=== PATIENT | female | born 1940 | race Caucasian/White ===

== ENCOUNTER 2020-09-24 08:55 | Outpatient (REF) | payer MEDICARE, SELFPAY ==
--- NOTE | ~2020-09-24 | US_ITS ---
EXAMINATION: US ABDOMEN LIMITED CLINICAL INFORMATION: Elevated bilirubin. COMPARISON: None TECHNIQUE: Real-time imaging of the right upper quadrant abdominal viscera. FINDINGS: PANCREAS: The head of the pancreas is homogeneous in echotexture. The body and the tail of the pancreas are not well visualized. LIVER: The liver is normal size and lobulated with coarse echogenic pattern. No focal hepatic lesion. There is no intrahepatic biliary duct dilatation seen. GALLBLADDER: There are multiple echogenic gallstones without wall thickening. The gallbladder wall measures 0.3 cm in thickness. No pericholecystic fluid collection is seen. COMMON BILE DUCT: Normal in caliber measuring 0.4 cm in diameter. RIGHT KIDNEY: Normal. No hydronephrosis. No renal calculi or focal parenchymal lesions. The kidney measures 11.1 cm in maximum dimension. FREE FLUID: None. US/US abdomen limited IMPRESSION: Coarse echogenic lobulated liver without focal lesion. Cholelithiasis with mild wall thickening. Visualized head of the pancreas, right kidney and CBD appear unremarkable.
== END 2020-09-24 08:56 | disposition home or self-care (01) ==
LOC: HO.US 08:55
PROVIDERS: PCP Internal Medicine; Visit Provider Internal Medicine
DX: E80.7 Disorder of bilirubin metabolism, unspecified (principal)
CPT/HCPCS: 76705

== ENCOUNTER 2020-10-09 17:59 | Emergency (ER) | payer MEDICARE, SELFPAY ==
--- NOTE | ~2020-10-09 | CT_ITS ---
EXAMINATION: CTA OF THE HEAD/NECK CLINICAL INFORMATION: Hallucinations. Declining mental status. COMPARISON: None. TECHNIQUE: A routine non contrast head CT was performed followed by a 70 mL bolus of Omnipaque 350. Subsequent multidetector helical imaging was performed of the head and neck. Delayed post contrast imaging was also performed through the head. Multiplanar reformats and MIP were also obtained. Internal carotid artery stenoses are assessed in accordance with NASCET criteria unless otherwise indicated. DLP: 2364 mGy-cm. FINDINGS: CT HEAD: No evidence of acute intracranial hemorrhage or territorial infarction. No abnormal mass effect or midline shift. Mcfadden to white matter differentiation is preserved. No extra-axial fluid collections are identified. No hydrocephalus. No suspicious leptomeningeal or parenchymal enhancement on the post-contrast images. Mild patchy periventricular and deep white matter hypoattenuation likely represent small vessel ischemic change. The osseous structures and soft tissues are normal. The mastoid air cells and visualized portions of the paranasal sinuses are well aerated. CTA NECK: Contrast bolus timing is not adequate for evaluation of the neck vasculature. At the time of the acquisition, significant contrast remains in the right upper extremity venous structures with prominent collaterals seen in the supraclavicular region. Contrast refluxes into the right internal jugular vein and left brachiocephalic vein with some contrast entering into the heart and pulmonary arteries. There is no contrast seen within the arterial vasculature of the neck. The laryngeal structures and pharyngeal mucosal spaces are unremarkable. The oral cavity appears normal. The parotid and submandibular glands are normal. No pathologically enlarged lymph nodes. The thyroid gland is unremarkable. The heart appears prominent. The lung apices are clear without evidence of pneumothorax. There is linear atelectasis noted. Spinal alignment is maintained. Mild cervical spondylosis is noted. CTA HEAD: Bolus timing on the CTA sequence is nondiagnostic for evaluation of the intracranial vessels. On the 7 minute delayed acquisition, there is partial opacification of the intracranial vessels. While visualization is limited due to slice thickness and the delayed timing, there is no gross intracranial vascular abnormality. There is no large aneurysm seen. CT/CT angio head neck IMPRESSION: 1. No acute intracranial finding. Volume loss with small vessel ischemic change. 2. Nondiagnostic angiogram due to bolus timing. This critical result was discussed with Clara Alanis NP by telephone at 10/10/2020 2:31 AM and it was ascertained that the content and urgency of the report was understood at the time of direct communication.
--- NOTE | ~2020-10-09 | XR_ITS ---
EXAMINATION: XR CHEST CLINICAL INFORMATION: Tachycardia. Hallucinations. COMPARISON: None TECHNIQUE: Frontal view of the chest was obtained. FINDINGS: Cardiac leads overlie the chest. The lungs are well expanded. There is no focal consolidation, edema, or effusion. Mild bronchial wall thickening. No pneumothorax. The cardiomediastinal silhouette is within normal limits. No acute osseous abnormality. Degenerative changes are seen at the right shoulder. XR/XR chest 1V IMPRESSION: No consolidation. Bronchial wall thickening can be seen with a small airways process such as asthma or atypical/viral infection.
[2020-10-09 18:04] VITALS: BP 138/113; PULSE 124; RESP 18; TEMP 36.3; O2SAT 95; BMI 90.7
[2020-10-09 20:18] VITALS: BP 180/117; PULSE 127; O2SAT 97
--- NOTE | 2020-10-09 20:21 | PC.NURSE ---
pt on monitor hr 128 afib pt states she is on eliquist and has bruising to her left upper chest. sat 97 on room air wheezing álvarez.
--- NOTE | 2020-10-09 20:58 | ECG_ITS ---
Test Reason : a fib tachycardia Blood Pressure : / mmHG Vent. Rate : 113 BPM Atrial Rate : 108 BPM P-R Int : 000 ms QRS Dur : 090 ms QT Int : 370 ms P-R-T Axes : 000 -23 025 degrees QTc Int : 507 ms Atrial fibrillation with rapid ventricular response Nonspecific T wave abnormality Abnormal ECG When compared with ECG of 28-SEP-2006 14:02, Atrial fibrillation has replaced Sinus rhythm Referred By: Clara Alanis Electronically Signed By:Richard Christian
--- NOTE | 2020-10-09 21:40 | ED_ITS ---
HPI - General Adult General Chief complaint: Psychiatric Symptoms <Clara Alanis NP - Last Filed: 10/10/20 03:29> Stated complaint: crisis <Clara Alanis NP - Last Filed: 10/10/20 03:29> Time Seen by Provider: 10/09/20 22:51 <Clara Alanis NP - Last Filed: 10/10/20 03:29> Source: patient <Clara Alanis NP - Last Filed: 10/10/20 03:29> Mode of arrival: ambulatory <Clara Alanis NP - Last Filed: 10/10/20 03:29> Limitations: no limitations <Clara Alanis NP - Last Filed: 10/10/20 03:29> History of Present Illness HPI narrative: 79-year-old female with past medical history of chronic back pain, depression, hyperlipidemia, hypertension, hypothyroidism, chronically elevated LFTs and hyperbilirubinemia presents with multiple complaints. States that she has been having visual hallucinations, has been speaking to photographs that change images, and does not feel safe at home. She does not report any chest pain or pressure, palpitations, shortness of breath, abdominal pain, abdominal distention, dysuria, hematuria, fevers, chills, loss of balance or coordination. <Clara Alanis NP - Last Filed: 10/10/20 03:29> Onset (ago): unknown <Clara Alanis NP - Last Filed: 10/10/20 03:29> Severity: moderate <Clara Alanis NP - Last Filed: 10/10/20 03:29> Associated symptoms: confusion <Clara Alanis NP - Last Filed: 10/10/20 03:29> Treatments prior to arrival: none <Clara Alanis NP - Last Filed: 10/10/20 03:29> Related Data Home medications: Previous Rx's Medication Instructions Recorded nitrofurantoin monohyd/m-cryst 100 mg PO Q12H 7 Days #14 cap 10/10/20 [Macrobid] <Clara Alanis NP - Last Filed: 10/10/20 03:29> Allergies/adverse reactions: Allergies Allergy/AdvReac Type Severity Reaction Status Date / Time No Known Allergies Allergy Verified 10/09/20 18:04 [No Known Allergies*] <Clara Alanis NP - Last Filed: 10/10/20 03:29> Review of Systems Review of Systems: Constitutional: No Fever, No Chills ENT/Mouth: No Ear Pain, No Nasal Congestion, No sore throat Eyes: No Eye Pain, No Swelling, No Redness Cardiovascular: No Chest Pain, No SOB Respiratory: No Cough, No Sputum, No Dyspnea Gastrointestinal: No Nausea, No Vomiting, No Diarrhea, No Hematochezia, No Melena Genitourinary: No Dysuria, No Urinary Frequency, No Hematuria Musculoskeletal: No Myalgias Skin: No Skin Lesions, No rash Neuro: No Weakness, No Numbness, No Paresthesias, No Dizziness, No Headache Psych: positive Anxiety, positive Depression, positive visual hallucinations Heme/Lymph: No Lymphadenopathy Endocrine: No Polyuria, No Polydipsia <Clara Alanis NP - Last Filed: 10/10/20 03:29> Yes all other systems are reviewed and are negative <Clara Alanis NP - Last Filed: 10/10/20 03:29> [facility] Past Medical History Attestation statement: The following information was validated with the patient. <Clara Alanis NP - Last Filed: 10/10/20 03:29> Source: old records reviewed <Clara Alanis NP - Last Filed: 10/10/20 03:29> Social History Social History: Social History Advance Directives: No Advance Directives Information Provided: No <Clara Alanis NP - Last Filed: 10/10/20 03:29> Physical Exam Vital Signs: Vital Signs: Last Vital Signs Temp 98.7 F 10/10/20 04:00 Pulse 82 10/10/20 04:00 Resp 16 10/10/20 04:00 BP 145/91 H 10/10/20 04:00 Pulse Ox 96 10/10/20 04:00 Body Mass Index 90.7 <NAYLA King Last Filed: 10/10/20 03:29> Vital Signs: Last Vital Signs Temp 98.7 F 10/10/20 04:00 Pulse 82 10/10/20 04:00 Resp 16 10/10/20 04:00 BP 145/91 H 10/10/20 04:00 Pulse Ox 96 10/10/20 04:00 Body Mass Index 90.7 <Tricia Vizcarra MD - Last Filed: 10/10/20 05:31> Appearance: Alert. Oriented X3. No acute distress. Eyes: Pupils equal, round and reactive to light. ENT: Pharynx normal. Neck: Normal inspection. Neck supple. CVS: Normal heart rate and rhythm. Pulses normal. Respiratory: No respiratory distress. Breath sounds normal. Abdomen: Soft and nontender. Skin: Skin warm and dry. Normal skin color. Normal skin turgor. Extremities: No lower extremity edema. Neuro: No motor deficit. No sensory deficit. <Clara Alanis NP - Last Filed: 10/10/20 03:29> NIH Stroke Scale Internal: Initial- Upon Arrival <Clara Alanis NP - Last Filed: 10/10/20 03:29> Level of Consciousness: Alert <Clara Alanis NP - Last Filed: 10/10/20 03:29> Level of Consciousness Questions: Answers both questions correctly <Clara Alanis NP - Last Filed: 10/10/20 03:29> Level of Consciousness Commands: Performs both tasks correctly <Clara Alanis NP - Last Filed: 10/10/20 03:29> Best Gaze: Normal <Clara Alanis NP - Last Filed: 10/10/20 03:29> Visual: No visual loss <Clara Alanis NP - Last Filed: 10/10/20 03:29> Facial Palsy: Normal <Clara Alanis NP - Last Filed: 10/10/20 03:29> Motor Arm (Right): No drift <Clara Alanis NP - Last Filed: 10/10/20 03:29> Motor Arm (Left): No drift <Clara Alanis NP - Last Filed: 10/10/20 03:29> Motor Leg (Right): No drift <Clara Alanis NP - Last Filed: 10/10/20 03:29> Motor Leg (Left): No drift <Clara Alanis NP - Last Filed: 02/20/21 03:29> Limb Ataxia: Absent <Clara Alains NP - Last Filed: 10/10/20 03:29> Sensory: Normal <Clara Alanis NP - Last Filed: 10/10/20 03:29> Best Language: No aphasia <Clara Alanis NP - Last Filed: 10/10/20 03:29> Dysarthia: Normal <Clara Alanis NP - Last Filed: 10/10/20 03:29> Extinction and Inattention: No abnormality <Clara Alanis NP - Last Filed: 10/10/20 03:29> Score: 0 <Clara Alanis NP - Last Filed: 10/10/20 03:29> Course Course Course Narrative: 79-year-old female with past medical history of chronic back pain, depression, hyperlipidemia, hypertension, hypothyroidism, chronically elevated L FTs and hyperbilirubinemia presents with auditory and visual hallucinations. RN discussion with daughter, states that daughter has concerns regarding her behavior over the past few weeks. Plan of care is to rule out ACS, UTI, will order CBC, Chem 7, chest x-ray, CTA of head and neck. Labs consistent with hyperbilirubinemia and chronically elevated LFTs, CBC is unremarkable. Chest x-ray shows bronchial wall thickening. 11:14 p.m. urinalysis still pending. 1:15 a.m., Cardizem not given, urinalysis still pending. Troponin is still pending. 2:18 a.m.. Urinalysis and troponin still pending. 3:[address] Vizcarra. <Clara Alanis NP - Last Filed: 10/10/20 03:29> I received sign-out from NAYLA Alanis. Patient's 2nd troponin similar to the 1st 1, 23.9. Urinalysis suspicious for urinary tract infection, given the patient's symptoms, we will go ahead and treat Patient states that earlier today she was hallucinating, states she is all ?pretty viera on the wall? patient states that she feels better, does not want to stay for case management. Patient is alert and oriented x3, no acute distress, no SI or HI. Patient agrees to return to the emergency room she has any further symptoms. <Tricia Vizcarra MD - Last Filed: 10/10/20 05:31> Medical Decision Making Differential Diagnosis Differential Diagnosis: UTI, CVA, ACS, infection, psychosis <Clara Alanis NP - Last Filed: 10/10/20 03:29> Medical Records Medical records reviewed: Yes I reviewed the patient's medical records. <Clara Alanis NP - Last Filed: 10/10/20 03:29> Lab Data Lab results reviewed: Yes I reviewed the patient's lab results. <Clara Alanis NP - Last Filed: 10/10/20 03:29> Result diagrams: : 10/09/20 21:57 10/09/20 21:57 <Clara Alanis NP - Last Filed: 10/10/20 03:29> Labs: Lab Results 10/09/20 10/09/20 10/09/20 Range/Units 21:57 21:57 21:57 WBC 9.0 (4.8-10.8) X10*3/uL RBC 4.53 (4.20-5.50) X10*6/uL Hgb 13.6 (12.0-16.0) g/dl Hct 41.8 (37-47) % MCV 92.3 (80-98) fL MCH 30.0 (27.0-33.0) pg MCHC 32.5 (31.0-35.0) g/dl RDW 15.9 (11.0-16.0) % Plt Count 168 (160-400) X10*3/uL MPV 11.1 (9.4-12.3) fL Immature Gran % (Auto) 0.3 (0.0-0.4) % Neut % (Auto) 74.8 H (45-73) % Lymph % (Auto) 16.0 L (20-40) % [place] % (Auto) 6.7 (2-11) % Eos % (Auto) 1.8 (0-4) % Baso % (Auto) 0.4 (0-2) % Lymph # (Auto) 1.4 (1.2-4.9) X10*3/uL [place] # (Auto) 0.6 (0.1-1.2) X10*3/uL Eos # (Auto) 0.2 (0.0-0.4) X10*3/uL Baso # (Auto) 0.0 (0.0-0.2) X10*3/uL Abs Immat Gran (auto) 0.03 (0.00-0.03) X10*3/uL Absolute Neuts (auto) 6.7 (2.0-8.3) X10*3/uL Absolute Nucleated RBC 0.000 (0.0-0.012) X10*3/uL Nucleated RBC % (auto) 0.0 (0.0-0.2) /100WBC PT 22.7 H (10.8-13.0) SEC INR 1.9 H (0.9-1.1) APTT 39.4 H (24.1-38.0) SEC Sodium 143 (135-145) mmol/L Potassium 3.6 (3.3-5.1) mmol/L Chloride 108 (96-108) mmol/L Carbon Dioxide 21 L (22-29) mmol/L Anion Gap 18 (12-20) BUN 24 H (9-16) mg/dL Creatinine 1.04 (0.5-1.4) mg/dL Estim Creat Clear Calc 81.8 Estimated GFR 51 POC Glucose (60-115) mg/dL Random Glucose 100 (60-115) mg/dL Lactic Acid (0.5-2.0) mmol/L Calcium 9.4 (8.4-10.2) mg/dL Total Bilirubin 3.5 H (0.0-1.0) mg/dL Direct Bilirubin 1.0 H (0.0-0.5) mg/dL AST 51 H (5-31) U/L ALT 40 H (0-31) U/L Alkaline Phosphatase 137 H (39-117) U/L Troponin I High Sens (<3.5-17.0) ng/L B-Natriuretic Peptide (<100) pg/mL Total Protein 6.7 (6.5-8.0) g/dL Albumin 4.1 (3.5-5.0) g/dL Lipase 83 H (8-78) U/L Urine Color Urine Appearance Urine pH (5.0-8.0) Ur Specific [place] (1.005-1.025) Urine Protein (NEG-TRACE) MG/DL Urine Glucose (UA) (NEG) MG/DL Urine Ketones (NEG) MG/DL Urine Blood (NEG) Urine Nitrite (NEG) Ur Leukocyte Esterase (NEG) Urine RBC (0) /HPF Urine WBC (0-4) /HPF Urine WBC Clumps Ur Squamous Epith Cells /LPF Amorphous Sediment /LPF Urine Bacteria /LPF Coronavirus (PCR) (Negative) Influenza Type A (PCR) (Negative) Influenza Type B (PCR) (Negative) RSV RNA Qual (PCR) (Negative) 10/09/20 10/09/20 10/09/20 Range/Units 21:57 21:57 21:57 WBC (4.8-10.8) X10*3/uL RBC (4.20-5.50) X10*6/uL Hgb (12.0-16.0) g/dl Hct (37-47) % MCV (80-98) fL MCH (27.0-33.0) pg MCHC (31.0-35.0) g/dl RDW (11.0-16.0) % Plt Count (160-400) X10*3/uL MPV (9.4-12.3) fL Immature Gran % (Auto) (0.0-0.4) % Neut % (Auto) (45-73) % Lymph % (Auto) (20-40) % [place] % (Auto) (2-11) % Eos % (Auto) (0-4) % Baso % (Auto) (0-2) % Lymph # (Auto) (1.2-4.9) X10*3/uL [place] # (Auto) (0.1-1.2) X10*3/uL Eos # (Auto) (0.0-0.4) X10*3/uL Baso # (Auto) (0.0-0.2) X10*3/uL Abs Immat Gran (auto) (0.00-0.03) X10*3/uL Absolute Neuts (auto) (2.0-8.3) X10*3/uL Absolute Nucleated RBC (0.0-0.012) X10*3/uL Nucleated RBC % (auto) (0.0-0.2) /100WBC PT (10.8-13.0) SEC INR (0.9-1.1) APTT (24.1-38.0) SEC Sodium (135-145) mmol/L Potassium (3.3-5.1) mmol/L Chloride (96-108) mmol/L Carbon Dioxide (22-29) mmol/L Anion Gap (12-20) BUN (9-16) mg/dL Creatinine (0.5-1.4) mg/dL Estim Creat Clear Calc Estimated GFR POC Glucose (60-115) mg/dL Random Glucose (60-115) mg/dL Lactic Acid 1.8 (0.5-2.0) mmol/L Calcium (8.4-10.2) mg/dL Total Bilirubin (0.0-1.0) mg/dL Direct Bilirubin (0.0-0.5) mg/dL AST (5-31) U/L ALT (0-31) U/L Alkaline Phosphatase (39-117) U/L Troponin I High Sens 20.7 H (<3.5-17.0) ng/L B-Natriuretic Peptide 329 H (<100) pg/mL Total Protein (6.5-8.0) g/dL Albumin (3.5-5.0) g/dL Lipase (8-78) U/L Urine Color Urine Appearance Urine pH (5.0-8.0) Ur Specific [place] (1.005-1.025) Urine Protein (NEG-TRACE) MG/DL Urine Glucose (UA) (NEG) MG/DL Urine Ketones (NEG) MG/DL Urine Blood (NEG) Urine Nitrite (NEG) Ur Leukocyte Esterase (NEG) Urine RBC (0) /HPF Urine WBC (0-4) /HPF Urine WBC Clumps Ur Squamous Epith Cells /LPF Amorphous Sediment /LPF Urine Bacteria /LPF Coronavirus (PCR) NEGATIVE (Negative) Influenza Type A (PCR) NEGATIVE (Negative) Influenza Type B (PCR) NEGATIVE (Negative) RSV RNA Qual (PCR) NEGATIVE (Negative) 10/10/20 10/10/20 10/10/20 Range/Units 02:31 03:02 03:43 WBC (4.8-10.8) X10*3/uL RBC (4.20-5.50) X10*6/uL Hgb (12.0-16.0) g/dl Hct (37-47) % MCV (80-98) fL MCH (27.0-33.0) pg MCHC (31.0-35.0) g/dl RDW (11.0-16.0) % Plt Count (160-400) X10*3/uL MPV (9.4-12.3) fL Immature Gran % (Auto) (0.0-0.4) % Neut % (Auto) (45-73) % Lymph % (Auto) (20-40) % [place] % (Auto) (2-11) % Eos % (Auto) (0-4) % Baso % (Auto) (0-2) % Lymph # (Auto) (1.2-4.9) X10*3/uL [place] # (Auto) (0.1-1.2) X10*3/uL Eos # (Auto) (0.0-0.4) X10*3/uL Baso # (Auto) (0.0-0.2) X10*3/uL Abs Immat Gran (auto) (0.00-0.03) X10*3/uL Absolute Neuts (auto) (2.0-8.3) X10*3/uL Absolute Nucleated RBC (0.0-0.012) X10*3/uL Nucleated RBC % (auto) (0.0-0.2) /100WBC PT (10.8-13.0) SEC INR (0.9-1.1) APTT (24.1-38.0) SEC Sodium (135-145) mmol/L Potassium (3.3-5.1) mmol/L Chloride (96-108) mmol/L Carbon Dioxide (22-29) mmol/L Anion Gap (12-20) BUN (9-16) mg/dL Creatinine (0.5-1.4) mg/dL Estim Creat Clear Calc Estimated GFR POC Glucose 97 (60-115) mg/dL Random Glucose (60-115) mg/dL Lactic Acid (0.5-2.0) mmol/L Calcium (8.4-10.2) mg/dL Total Bilirubin (0.0-1.0) mg/dL Direct Bilirubin (0.0-0.5) mg/dL AST (5-31) U/L ALT (0-31) U/L Alkaline Phosphatase (39-117) U/L Troponin I High Sens 23.9 H (<3.5-17.0) ng/L B-Natriuretic Peptide (<100) pg/mL Total Protein (6.5-8.0) g/dL Albumin (3.5-5.0) g/dL Lipase (8-78) U/L Urine Color YELLOW Urine Appearance CLOUDY Urine pH 5.0 (5.0-8.0) Ur Specific [place] >= 1.030 H (1.005-1.025) Urine Protein 1+ H (NEG-TRACE) MG/DL Urine Glucose (UA) NEG (NEG) MG/DL Urine Ketones NEG (NEG) MG/DL Urine Blood 1+ H (NEG) Urine Nitrite NEG (NEG) Ur Leukocyte Esterase TRACE H (NEG) Urine RBC 0-2 (0) /HPF Urine WBC 10-14 H (0-4) /HPF Urine WBC Clumps NOTED Ur Squamous Epith Cells 4+ /LPF Amorphous Sediment 2+ /LPF Urine Bacteria 1+ /LPF Coronavirus (PCR) (Negative) Influenza Type A (PCR) (Negative) Influenza Type B (PCR) (Negative) RSV RNA Qual (PCR) (Negative) <Clara Alanis, NAYLA - Last Filed: 10/10/20 03:29> Lab Results 10/09/20 10/09/20 10/09/20 Range/Units 21:57 21:57 21:57 WBC 9.0 (4.8-10.8) X10*3/uL RBC 4.53 (4.20-5.50) X10*6/uL Hgb 13.6 (12.0-16.0) g/dl Hct 41.8 (37-47) % MCV 92.3 (80-98) fL MCH 30.0 (27.0-33.0) pg MCHC 32.5 (31.0-35.0) g/dl RDW 15.9 (11.0-16.0) % Plt Count 168 (160-400) X10*3/uL MPV 11.1 (9.4-12.3) fL Immature Gran % (Auto) 0.3 (0.0-0.4) % Neut % (Auto) 74.8 H (45-73) % Lymph % (Auto) 16.0 L (20-40) % [place] % (Auto) 6.7 (2-11) % Eos % (Auto) 1.8 (0-4) % Baso % (Auto) 0.4 (0-2) % Lymph # (Auto) 1.4 (1.2-4.9) X10*3/uL [place] # (Auto) 0.6 (0.1-1.2) X10*3/uL Eos # (Auto) 0.2 (0.0-0.4) X10*3/uL Baso # (Auto) 0.0 (0.0-0.2) X10*3/uL Abs Immat Gran (auto) 0.03 (0.00-0.03) X10*3/uL Absolute Neuts (auto) 6.7 (2.0-8.3) X10*3/uL Absolute Nucleated RBC 0.000 (0.0-0.012) X10*3/uL Nucleated RBC % (auto) 0.0 (0.0-0.2) /100WBC PT 22.7 H (10.8-13.0) SEC INR 1.9 H (0.9-1.1) APTT 39.4 H (24.1-38.0) SEC Sodium 143 (135-145) mmol/L Potassium 3.6 (3.3-5.1) mmol/L Chloride 108 (96-108) mmol/L Carbon Dioxide 21 L (22-29) mmol/L Anion Gap 18 (12-20) BUN 24 H (9-16) mg/dL Creatinine 1.04 (0.5-1.4) mg/dL Estim Creat Clear Calc 81.8 Estimated GFR 51 POC Glucose (60-115) mg/dL Random Glucose 100 (60-115) mg/dL Lactic Acid (0.5-2.0) mmol/L Calcium 9.4 (8.4-10.2) mg/dL Total Bilirubin 3.5 H (0.0-1.0) mg/dL Direct Bilirubin 1.0 H (0.0-0.5) mg/dL AST 51 H (5-31) U/L ALT 40 H (0-31) U/L Alkaline Phosphatase 137 H (39-117) U/L Troponin I High Sens (<3.5-17.0) ng/L B-Natriuretic Peptide (<100) pg/mL Total Protein 6.7 (6.5-8.0) g/dL Albumin 4.1 (3.5-5.0) g/dL Lipase 83 H (8-78) U/L Urine Color Urine Appearance Urine pH (5.0-8.0) Ur Specific [place] (1.005-1.025) Urine Protein (NEG-TRACE) MG/DL Urine Glucose (UA) (NEG) MG/DL Urine Ketones (NEG) MG/DL Urine Blood (NEG) Urine Nitrite (NEG) Ur Leukocyte Esterase (NEG) Urine RBC (0) /HPF Urine WBC (0-4) /HPF Urine WBC Clumps Ur Squamous Epith Cells /LPF Amorphous Sediment /LPF Urine Bacteria /LPF Coronavirus (PCR) (Negative) Influenza Type A (PCR) (Negative) Influenza Type B (PCR) (Negative) RSV RNA Qual (PCR) (Negative) 10/09/20 10/09/20 10/09/20 Range/Units 21:57 21:57 21:57 WBC (4.8-10.8) X10*3/uL RBC (4.20-5.50) X10*6/uL Hgb (12.0-16.0) g/dl Hct (37-47) % MCV (80-98) fL MCH (27.0-33.0) pg MCHC (31.0-35.0) g/dl RDW (11.0-16.0) % Plt Count (160-400) X10*3/uL MPV (9.4-12.3) fL Immature Gran % (Auto) (0.0-0.4) % Neut % (Auto) (45-73) % Lymph % (Auto) (20-40) % [place] % (Auto) (2-11) % Eos % (Auto) (0-4) % Baso % (Auto) (0-2) % Lymph # (Auto) (1.2-4.9) X10*3/uL [place] # (Auto) (0.1-1.2) X10*3/uL Eos # (Auto) (0.0-0.4) X10*3/uL Baso # (Auto) (0.0-0.2) X10*3/uL Abs Immat Gran (auto) (0.00-0.03) X10*3/uL Absolute Neuts (auto) (2.0-8.3) X10*3/uL Absolute Nucleated RBC (0.0-0.012) X10*3/uL Nucleated RBC % (auto) (0.0-0.2) /100WBC PT (10.8-13.0) SEC INR (0.9-1.1) APTT (24.1-38.0) SEC Sodium (135-145) mmol/L Potassium (3.3-5.1) mmol/L Chloride (96-108) mmol/L Carbon Dioxide (22-29) mmol/L Anion Gap (12-20) BUN (9-16) mg/dL Creatinine (0.5-1.4) mg/dL Estim Creat Clear Calc Estimated GFR POC Glucose (60-115) mg/dL Random Glucose (60-115) mg/dL Lactic Acid 1.8 (0.5-2.0) mmol/L Calcium (8.4-10.2) mg/dL Total Bilirubin (0.0-1.0) mg/dL Direct Bilirubin (0.0-0.5) mg/dL AST (5-31) U/L ALT (0-31) U/L Alkaline Phosphatase (39-117) U/L Troponin I High Sens 20.7 H (<3.5-17.0) ng/L B-Natriuretic Peptide 329 H (<100) pg/mL Total Protein (6.5-8.0) g/dL Albumin (3.5-5.0) g/dL Lipase (8-78) U/L Urine Color Urine Appearance Urine pH (5.0-8.0) Ur Specific [place] (1.005-1.025) Urine Protein (NEG-TRACE) MG/DL Urine Glucose (UA) (NEG) MG/DL Urine Ketones (NEG) MG/DL Urine Blood (NEG) Urine Nitrite (NEG) Ur Leukocyte Esterase (NEG) Urine RBC (0) /HPF Urine WBC (0-4) /HPF Urine WBC Clumps Ur Squamous Epith Cells /LPF Amorphous Sediment /LPF Urine Bacteria /LPF Coronavirus (PCR) NEGATIVE (Negative) Influenza Type A (PCR) NEGATIVE (Negative) Influenza Type B (PCR) NEGATIVE (Negative) RSV RNA Qual (PCR) NEGATIVE (Negative) 10/10/20 10/10/20 10/10/20 Range/Units 02:31 03:02 03:43 WBC (4.8-10.8) X10*3/uL RBC (4.20-5.50) X10*6/uL Hgb (12.0-16.0) g/dl Hct (37-47) % MCV (80-98) fL MCH (27.0-33.0) pg MCHC (31.0-35.0) g/dl RDW (11.0-16.0) % Plt Count (160-400) X10*3/uL MPV (9.4-12.3) fL Immature Gran % (Auto) (0.0-0.4) % Neut % (Auto) (45-73) % Lymph % (Auto) (20-40) % [place] % (Auto) (2-11) % Eos % (Auto) (0-4) % Baso % (Auto) (0-2) % Lymph # (Auto) (1.2-4.9) X10*3/uL [place] # (Auto) (0.1-1.2) X10*3/uL Eos # (Auto) (0.0-0.4) X10*3/uL Baso # (Auto) (0.0-0.2) X10*3/uL Abs Immat Gran (auto) (0.00-0.03) X10*3/uL Absolute Neuts (auto) (2.0-8.3) X10*3/uL Absolute Nucleated RBC (0.0-0.012) X10*3/uL Nucleated RBC % (auto) (0.0-0.2) /100WBC PT (10.8-13.0) SEC INR (0.9-1.1) APTT (24.1-38.0) SEC Sodium (135-145) mmol/L Potassium (3.3-5.1) mmol/L Chloride (96-108) mmol/L Carbon Dioxide (22-29) mmol/L Anion Gap (12-20) BUN (9-16) mg/dL Creatinine (0.5-1.4) mg/dL Estim Creat Clear Calc Estimated GFR POC Glucose 97 (60-115) mg/dL Random Glucose (60-115) mg/dL Lactic Acid (0.5-2.0) mmol/L Calcium (8.4-10.2) mg/dL Total Bilirubin (0.0-1.0) mg/dL Direct Bilirubin (0.0-0.5) mg/dL AST (5-31) U/L ALT (0-31) U/L Alkaline Phosphatase (39-117) U/L Troponin I High Sens 23.9 H (<3.5-17.0) ng/L B-Natriuretic Peptide (<100) pg/mL Total Protein (6.5-8.0) g/dL Albumin (3.5-5.0) g/dL Lipase (8-78) U/L Urine Color YELLOW Urine Appearance CLOUDY Urine pH 5.0 (5.0-8.0) Ur Specific [place] >= 1.030 H (1.005-1.025) Urine Protein 1+ H (NEG-TRACE) MG/DL Urine Glucose (UA) NEG (NEG) MG/DL Urine Ketones NEG (NEG) MG/DL Urine Blood 1+ H (NEG) Urine Nitrite NEG (NEG) Ur Leukocyte Esterase TRACE H (NEG) Urine RBC 0-2 (0) /HPF Urine WBC 10-14 H (0-4) /HPF Urine WBC Clumps NOTED Ur Squamous Epith Cells 4+ /LPF Amorphous Sediment 2+ /LPF Urine Bacteria 1+ /LPF Coronavirus (PCR) (Negative) Influenza Type A (PCR) (Negative) Influenza Type B (PCR) (Negative) RSV RNA Qual (PCR) (Negative) <Tricia Vizcarra MD - Last Filed: 10/10/20 05:31> Imaging Data Chest x-ray: Attestation: I personally reviewed and interpreted this imaging study as follows: <Clara Alanis NP - Last Filed: 10/10/20 03:29> Radiologist's impression: EXAMINATION: XR CHEST CLINICAL INFORMATION: Tachycardia. Hallucinations. COMPARISON: None TECHNIQUE: Frontal view of the chest was obtained. FINDINGS: Cardiac leads overlie the chest. The lungs are well expanded. There is no focal consolidation, edema, or effusion. Mild bronchial wall thickening. No pneumothorax. The cardiomediastinal silhouette is within normal limits. No acute osseous abnormality. Degenerative changes are seen at the right shoulder. XR/XR chest 1V IMPRESSION: No consolidation. Bronchial wall thickening can be seen with a small airways process such as asthma or atypical/viral infection. <Clara Alanis NP - Last Filed: 10/10/20 03:29> Head neck CT: Attestation: I personally reviewed and interpreted this imaging study as follows: <Clara Alanis NP - Last Filed: 10/10/20 03:29> Radiologist's impression: EXAMINATION: CTA OF THE HEAD/NECK CLINICAL INFORMATION: Hallucinations. Declining mental status. COMPARISON: None. TECHNIQUE: A routine non contrast head CT was performed followed by a 70 mL bolus of Omnipaque 350. Subsequent multidetector helical imaging was performed of the head and neck. Delayed post contrast imaging was also performed through the head. Multiplanar reformats and MIP were also obtained. Internal carotid artery stenoses are assessed in accordance with NASCET criteria unless otherwise indicated. DLP: 2364 mGy-cm. FINDINGS: CT HEAD: No evidence of acute intracranial hemorrhage or territorial infarction. No abnormal mass effect or midline shift. Mcfadden to white matter differentiation is preserved. No extra-axial fluid collections are identified. No hydrocephalus. No suspicious leptomeningeal or parenchymal enhancement on the post-contrast images. Mild patchy periventricular and deep white matter hypoattenuation likely represent small vessel ischemic change. The osseous structures and soft tissues are normal. The mastoid air cells and visualized portions of the paranasal sinuses are well aerated. CTA NECK: Contrast bolus timing is not adequate for evaluation of the neck vasculature. At the time of the acquisition, significant contrast remains in the right upper extremity venous structures with prominent collaterals seen in the supraclavicular region. Contrast refluxes into the right internal jugular vein and left brachiocephalic vein with some contrast entering into the heart and pulmonary arteries. There is no contrast seen within the arterial vasculature of the neck. The laryngeal structures and pharyngeal mucosal spaces are unremarkable. The oral cavity appears normal. The parotid and submandibular glands are normal. No pathologically enlarged lymph nodes. The thyroid gland is unremarkable. The heart appears prominent. The lung apices are clear without evidence of pneumothorax. There is linear atelectasis noted. Spinal alignment is maintained. Mild cervical spondylosis is noted. CTA HEAD: Bolus timing on the CTA sequence is nondiagnostic for evaluation of the intracranial vessels. On the 7 minute delayed acquisition, there is partial opacification of the intracranial vessels. While visualization is limited due to slice thickness and the delayed timing, there is no gross intracranial vascular abnormality. There is no large aneurysm seen. CT/CT angio head neck IMPRESSION: 1. No acute intracranial finding. Volume loss with small vessel ischemic change. 2. Nondiagnostic angiogram due to bolus timing. This critical result was discussed with Clara Alanis NP by telephone at 10/10/2020 2:31 AM and it was ascertained that the content and urgency of the report was understood at the time of direct communication. <Clara Alanis NP - Last Filed: 10/10/20 03:29> ECG Data Attestation: I personally reviewed and interpreted this ECG as follows: <Clara Alanis NP - Last Filed: 10/10/20 03:29> Interpretation: Ventricular rate 113, QRS 90, QTC 370, QTC 507, AFib with RVR nonspecific T-wave abnormality, prior EKG unavailable secondary to 130 error. Date October 09, 2020, time 8:46 p.m. <Clara Alanis NP - Last Filed: 10/10/20 03:29> Discharge Plan Discharge Clinical Impression: Hallucination, visual, Acute UTI <Clara Alanis NP - Last Filed: 10/10/20 03:29> Patient Disposition: Home, Self-Care <Clara Alanis NP - Last Filed: 10/10/20 03:29> Instructions: Urinary Tract Infection in Older Adults (ED) <Clara Alanis NP - Last Filed: 10/10/20 03:29> Additional Instructions: Please follow-up with your primary care physician tomorrow. If you have any worsening or new symptoms, please return to the emergency room or call 911 <Clara Alanis NP - Last Filed: 10/10/20 03:29> Prescriptions: New nitrofurantoin monohyd/m-cryst [Macrobid] 100 mg capsule 100 mg PO Q12H 7 Days Qty: 14 RF: 0 <Clara Alanis NP - Last Filed: 10/10/20 03:29>
[2020-10-09 22:15] LABS: MANUAL DIFF FLAG NO
[2020-10-09 22:18] LABS: Basophils Percent Auto 0.4 % (0-2); Eosinophils Absolute Auto 0.2 X10*3/uL (0.0-0.4); Eosinophils Percent Auto 1.8 % (0-4); Hematocrit 41.8 % (37-47); Hemoglobin 13.6 g/dl (12.0-16.0); Imm Gran Abs Auto 0.03 X10*3/uL (0.00-0.03); Imm Gran Pct Auto 0.3 % (0.0-0.4); Lymphocytes Absolute Auto 1.4 X10*3/uL (1.2-4.9); Mean Corpuscular HGB Conc 32.5 g/dl (31.0-35.0); Mean Corpuscular Volume 92.3 fL (80-98); Mean Platelet Volume 11.1 fL (9.4-12.3); Monocytes Absolute Auto 0.6 X10*3/uL (0.1-1.2); Monocytes Percent Auto 6.7 % (2-11); Neutrophils Absolute Auto 6.7 X10*3/uL (2.0-8.3); Neutrophils Percent Auto 74.8 % (45-73); Platelet Count 168 X10*3/uL (160-400); Red Blood Count 4.53 X10*6/uL (4.20-5.50); Red Cell Distribution Width 15.9 % (11.0-16.0)
[2020-10-09 22:25] LABS: INTERNATIONAL NORM RATIO 1.9 (0.9-1.1); Prothrombin Time 22.7 SEC (10.8-13.0)
[2020-10-09 22:27] LABS: Partial Thromboplastin Time 39.4 SEC (24.1-38.0)
[2020-10-09 22:38] LABS: Lactic Acid 1.8 mmol/L (0.5-2.0)
[2020-10-09 22:44] LABS: Alanine Aminotransferase 40 U/L (0-31); Albumin Level 4.1 g/dL (3.5-5.0); Alkaline Phosphatase 137 U/L (39-117); Anion Gap 18 (12-20); Aspartate Amino Transferase 51 U/L (5-31); Bilirubin Total 3.5 mg/dL (0.0-1.0); Blood Urea Nitrogen 24 mg/dL (9-16); Calcium 9.4 mg/dL (8.4-10.2); Carbon Dioxide 21 mmol/L (22-29); Chloride 108 mmol/L (96-108); Creatinine Clr Calc Pharmacy 81.8; Estimated Glomerular Filt Rate 51; Glucose Random 100 mg/dL (60-115); Lipase 83 U/L (8-78); Potassium 3.6 mmol/L (3.3-5.1); Sodium 143 mmol/L (135-145); Total Protein 6.7 g/dL (6.5-8.0)
[2020-10-09 22:50] LABS: B Type Natriuretic Peptide 329 pg/mL (<100); Troponin-I High Sensitivity 20.7 ng/L (<3.5-17.0)
[2020-10-09 23:09] LABS: Influenza A PCR NEGATIVE (Negative); Influenza B PCR NEGATIVE (Negative); Resp Syncy Virus RNA Qual PCR NEGATIVE (Negative); SARS COV2 PCR INHOUSE NEGATIVE (Negative)
[2020-10-10] VITALS (8 sets, daily range): BP systolic 145–159; BP diastolic 78–110; PULSE 80–105; RESP 16–27; TEMP 36.3–37.1; O2SAT 94–97
--- NOTE | 2020-10-10 01:03 | PC.NURSE ---
provider made aware of pt vitals and hr dropping slowly now 99-111 afib. verbal to give only half the dose 10mg cardizem iv after pt returns from ct.
[2020-10-10] MEDS: iohexoL 350 MG/ML 100 ML INFUS..BTL 70 ML IV (01:32)
[2020-10-10] MEDS: dilTIAZem HCL 50 MG/10 ML VIAL 20 MG IVPUSH (02:16)
[2020-10-10 03:15] LABS: Troponin-I High Sensitivity 23.9 ng/L (<3.5-17.0)
[2020-10-10 03:16] LABS: Glucose, Whole Blood 97 mg/dL (60-115)
--- NOTE | 2020-10-10 03:23 | ECG_ITS ---
Test Reason : REPEAT Blood Pressure : / mmHG Vent. Rate : 088 BPM Atrial Rate : 086 BPM P-R Int : 000 ms QRS Dur : 094 ms QT Int : 384 ms P-R-T Axes : 000 -25 -16 degrees QTc Int : 464 ms Atrial fibrillation Nonspecific T wave abnormality Abnormal ECG When compared with ECG of 09-OCT-2020 20:46, No significant change was found Referred By: Clara Alanis Electronically Signed By:Richard Christian
[2020-10-10 03:50] LABS: Glucose Urine UA NEG (NEG); Leukocyte Esterase Urine TRACE (NEG); Nitrite Urine NEG (NEG); Specific Gravity - Urine >= 1.030 (1.005-1.025); UACC Culture Trigger YES; Urine Blood 1+ (NEG); Urine Ketones NEG (NEG); Urine Protein 1+ MG/DL (NEG-TRACE)
[2020-10-10 03:51] LABS: Appearance Urine CLOUDY; Color Urine YELLOW
[2020-10-10 04:00] LABS: Amorphous Sediment Urine 2+ /LPF; Bacteria Urine 1+ /LPF; RBC Urine 0-2 /HPF (0); Squamous Epithelial Cell Urine 4+ /LPF; WBC Clumps Urine NOTED
[2020-10-10] MEDS: Nitrofurantoin Monohyd/M-Cryst 100 MG CAPSULE PO (05:43)
== END 2020-10-10 06:02 | disposition home or self-care (01) ==
PROVIDERS: Nurse Practitioner Family; Emergency Provider Emergency Medicine; PCP Internal Medicine
DX: R44.1 Visual hallucinations (principal); N39.0 Urinary tract infection, site not specified; F33.1 Major depressive disorder, recurrent, moderate; I10 Essential (primary) hypertension; M54.5 Low back pain; R00.0 Tachycardia, unspecified; E78.5 Hyperlipidemia, unspecified; E03.9 Hypothyroidism, unspecified; Z20.822 Contact with and (suspected) exposure to COVID-19; Z79.899 Other long term (current) drug therapy
CPT/HCPCS: 0241U; 36415; 70496; 70498; 71045; 80048; 80076; 81001; 81003; 82947; 83605; 83690; 83880; 84484; 85025; 85610; 85730; 87040; 87086; 93005; 96374; 97162; 99284; Q9967

== ENCOUNTER 2020-10-16 15:45 | Emergency (ER) | payer MEDICARE, SELFPAY ==
--- NOTE | ~2020-10-16 | XR_ITS ---
EXAMINATION: XR CHEST CLINICAL INFORMATION: Medical clearance COMPARISON: Previous chest x-ray 10/09/2020 TECHNIQUE: Frontal view of the chest was obtained. FINDINGS: The cardiac silhouette is enlarged but stable. Hilar and mediastinal contours are unremarkable. The lungs are clear. There is no pleural effusion or pneumothorax. Bony structures are unremarkable. XR/XR chest 1V IMPRESSION: Stable enlargement of the cardiac silhouette.
[2020-10-16 15:54] VITALS: BP 133/98; PULSE 95; RESP 18; TEMP 36.8; O2SAT 95; BMI 42.0
--- NOTE | 2020-10-16 18:35 | ED_ITS ---
HPI - Psych General Chief Complaint: Psychiatric Symptoms Stated Complaint: crisis eval Time Seen by Provider: 10/16/20 17:53 Source: patient Mode of arrival: ambulatory Limitations: no limitations History of Present Illness HPI Narrative: Patient comes emergency room complaining of visual and auditory hallucinations. Patient states it started approximately 2 weeks ago. One week ago she was diagnosed with a UTI, she was offered behavioral health network consult pending, but patient declined. Patient states she finished her antibiotic, has no UTI symptoms, but continues seeing people walking in and out of her room and also seeing ?pretty viera? moving on the wall, patient also hears people talking. Otherwise, patient has no symptoms. Patient denies suicidal or homicidal ideation Related Data Previous Rx's Medication Instructions Recorded nitrofurantoin monohyd/m-cryst 100 mg PO Q12H 7 Days #14 cap 10/10/20 [Macrobid] Allergies Allergy/AdvReac Type Severity Reaction Status Date / Time No Known Allergies Allergy Verified 10/09/20 18:04 [No Known Allergies*] Review of Systems Review of Systems: Constitutional : No Weight loss, No Fever, No Chills, No Night Sweats, No Fatigue, No Malaise ENT/Mouth : No Hearing loss, No Ear Pain, No Nasal Congestion, No Sinus Pain, No Hoarseness, No sore throat, No Rhinorrhea, No Swallowing Difficulty Eyes: No Eye Pain, No Swelling, No Redness, No Foreign Body, No Discharge, No Vision Changes Cardiovascular : No Chest Pain, No SOB, No Dyspnea on Exertion, No Orthopnea, No Edema, No Palpitations Respiratory : No Cough, No Sputum, No Wheezing, No Smoke Exposure, No Dyspnea Gastrointestinal : No Nausea, No Vomiting, No Diarrhea, No Constipation, No abdominal Pain, No Hematochezia, No Melena Genitourinary : no irregular bleeding, No Dysuria, No Urinary Frequency, No Hematuria, No Urinary Incontinence, No Urgency, No Flank Pain, No Urinary Flow Changes, No Hesitancy Musculoskeletal : No joint pain, No Myalgias, No Joint Swelling Skin : No Skin Lesions, No rash Neuro : No Weakness, No Numbness, No Paresthesias, No Loss of Consciousness, No Dizziness, No Headache Psych : No Anxiety/Panic, No Depression, No SI/HI/AH/VH, No Social Issues, complaining of visual and auditory hallucinations Heme/Lymph: No Bruising, No Bleeding,No Lymphadenopathy Endocrine : No Polyuria, No Polydipsia, No Temperature Intolerance [facility] Social History Social History Advance Directives: No Advance Directives Information Provided: No Physical Exam Vital Signs: Vital Signs: Last Vital Signs Temp 98.3 F 10/16/20 20:00 Pulse 95 10/16/20 20:00 Resp 18 10/16/20 20:00 BP 133/98 H 10/16/20 20:00 Pulse Ox 95 10/16/20 20:00 Body Mass Index 42.0 Appearance: Alert. Oriented X3. No acute distress. Eyes: Pupils equal, round and reactive to light. ENT: Pharynx normal. Neck: Normal inspection. Neck supple. No lymph nodes noted. No crepitus CVS: Normal heart rate and rhythm. Pulses normal. Normal S1 and S2 Respiratory: No respiratory distress. Breath sounds normal. No Wheezing. No rales Abdomen: Soft and nontender. No rigidity. No distention. good BS x4 Skin: Skin warm and dry. Normal skin color. Normal skin turgor. Extremities: No lower extremity edema. No lower extremity edema. No Lacerations. No Rash Neuro: Oriented X 3. No motor deficit. No sensory deficit. Moving all extermities. No slurred speech. Course Course Course Narrative: Urinalysis pending. Patient agreeable to see [facility]. Sign-out given to Dr. Iqbal [facility] - Psych Lab Data Result diagrams: 10/16/20 19:55 10/16/20 19:55 Labs: Lab Results 10/16/20 10/16/20 10/16/20 Range/Units 19:55 19:55 19:55 WBC 8.6 (4.8-10.8) X10*3/uL RBC 4.62 (4.20-5.50) X10*6/uL Hgb 13.9 (12.0-16.0) g/dl Hct 43.4 (37-47) % MCV 93.9 (80-98) fL MCH 30.1 (27.0-33.0) pg MCHC 32.0 (31.0-35.0) g/dl RDW 16.2 H (11.0-16.0) % Plt Count 154 L (160-400) X10*3/uL MPV 10.9 (9.4-12.3) fL Immature Gran % (Auto) 0.3 (0.0-0.4) % Neut % (Auto) 77.0 H (45-73) % Lymph % (Auto) 13.9 L (20-40) % [place] % (Auto) 7.1 (2-11) % Eos % (Auto) 1.4 (0-4) % Baso % (Auto) 0.3 (0-2) % Lymph # (Auto) 1.2 (1.2-4.9) X10*3/uL [place] # (Auto) 0.6 (0.1-1.2) X10*3/uL Eos # (Auto) 0.1 (0.0-0.4) X10*3/uL Baso # (Auto) 0.0 (0.0-0.2) X10*3/uL Abs Immat Gran (auto) 0.03 (0.00-0.03) X10*3/uL Absolute Neuts (auto) 6.6 (2.0-8.3) X10*3/uL Absolute Nucleated RBC 0.000 (0.0-0.012) X10*3/uL Nucleated RBC % (auto) 0.0 (0.0-0.2) /100WBC Sodium 140 (135-145) mmol/L Potassium 4.4 D (3.3-5.1) mmol/L Chloride 106 (96-108) mmol/L Carbon Dioxide 24 (22-29) mmol/L Anion Gap 14 (12-20) BUN 23 H (9-16) mg/dL Creatinine 1.22 (0.5-1.4) mg/dL Estim Creat Clear Calc 41.7 Estimated GFR 42 Random Glucose 113 (60-115) mg/dL Calcium 9.5 (8.4-10.2) mg/dL Ethyl Alcohol < 10 mg/dL Discharge Plan Discharge Prescriptions: No Action nitrofurantoin monohyd/m-cryst [Macrobid] 100 mg capsule 100 mg PO Q12H 7 Days Qty: 14 RF: 0
[2020-10-16 20:00] VITALS: BP 133/98; PULSE 95; RESP 18; TEMP 36.8; O2SAT 95
[2020-10-16 20:00] LABS: MANUAL DIFF FLAG NO
[2020-10-16 20:02] LABS: Basophils Percent Auto 0.3 % (0-2); Eosinophils Absolute Auto 0.1 X10*3/uL (0.0-0.4); Eosinophils Percent Auto 1.4 % (0-4); Hematocrit 43.4 % (37-47); Hemoglobin 13.9 g/dl (12.0-16.0); Imm Gran Abs Auto 0.03 X10*3/uL (0.00-0.03); Imm Gran Pct Auto 0.3 % (0.0-0.4); Lymphocytes Absolute Auto 1.2 X10*3/uL (1.2-4.9); Lymphocytes Percent Auto 13.9 % (20-40); Mean Corpuscular Hemoglobin 30.1 pg (27.0-33.0); Mean Corpuscular Volume 93.9 fL (80-98); Mean Platelet Volume 10.9 fL (9.4-12.3); Monocytes Absolute Auto 0.6 X10*3/uL (0.1-1.2); Monocytes Percent Auto 7.1 % (2-11); Neutrophils Absolute Auto 6.6 X10*3/uL (2.0-8.3); Platelet Count 154 X10*3/uL (160-400); Red Blood Count 4.62 X10*6/uL (4.20-5.50); Red Cell Distribution Width 16.2 % (11.0-16.0); White Blood Count 8.6 X10*3/uL (4.8-10.8)
[2020-10-16 20:24] LABS: Ethanol < 10 mg/dL
[2020-10-16 20:26] LABS: Anion Gap 14 (12-20); Blood Urea Nitrogen 23 mg/dL (9-16); Calcium 9.5 mg/dL (8.4-10.2); Carbon Dioxide 24 mmol/L (22-29); Chloride 106 mmol/L (96-108); Creatinine Clr Calc Pharmacy 41.7; Estimated Glomerular Filt Rate 42; Glucose Random 113 mg/dL (60-115); Potassium 4.4 mmol/L (3.3-5.1); Sodium 140 mmol/L (135-145)
[2020-10-16 23:15] VITALS: BP 135/90; PULSE 82; RESP 18; O2SAT 97
[2020-10-16 23:45] VITALS: BP 135/90; RESP 16; O2SAT 98
[2020-10-17] VITALS (7 sets, daily range): BP systolic 121–156; BP diastolic 67–91; PULSE 87–107; RESP 15–18; TEMP 36.4–37; O2SAT 94–99
--- NOTE | 2020-10-17 07:46 | PC.NURSE ---
Pt asking for breakfast- tray ordered. Pt states she will give urine sample after eating, I just need food first . Pt denies complaints other than hunger.
--- NOTE | 2020-10-17 08:01 | MHC.CARE ---
CARE team spoke with patient, she reported she has not had any visual and auditory hallucinations since last night. She denies SI/HI with no plan and intent. She is worried she has a UTI since she does not feel comfortable and this is why she arrived to the ED. She has a safe and stabled home, her daughter was informed she will be discharged after taking care of any urinary infection.
[2020-10-17 08:29] LABS: Glucose Urine UA NEG (NEG); Leukocyte Esterase Urine NEG (NEG); Nitrite Urine NEG (NEG); PH 5.5 (5.0-8.0); Specific Gravity - Urine >= 1.030 (1.005-1.025); Urine Blood NEG (NEG); Urine Ketones NEG (NEG); Urine Protein 1+ MG/DL (NEG-TRACE)
[2020-10-17 08:31] LABS: Appearance Urine HAZY; Color Urine DARK YELLOW
[2020-10-17 08:37] LABS: Mucus Urine 1+ /LPF; RBC Urine 0 /HPF (0); Squamous Epithelial Cell Urine 1+ /LPF; WBC Urine 0 /HPF (0-4)
[2020-10-17 08:59] LABS: Amphetamine Screen Urine Not Detected (Not Detect); Barbiturates, Urine Not Detected (Not Detect); Benzodiazepines Screen Urine Not Detected (Not Detect); Cannabinoid Screen Urine Not Detected (Not Detect); Cocaine Screen Urine Not Detected (Not Detect); Opiate Screen Urine Not Detected (Not Detect); Phencyclidine Screen Urine Not Detected (Not Detect)
--- NOTE | 2020-10-17 09:30 | PC.NURSE ---
Pt up to bathroom w/ 1 assist, ate 75% of breakfast. Pt alert and oriented to self only, easily re directed.
--- NOTE | 2020-10-17 11:01 | MHC.CM.PN ---
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 DAUGHTER DOES REPORT PT HAD AN INFECTED TOE AND WAS ON DOXYCYCLINE HOWEVER ONLY TOOK TWO DOSES, THIS WAS PRIOR TO BEING IN ED FOR UTI, PT DID COMPLETE THE COURSE OF ABX FOR HER UTI PER DAUGHTER. PLAN: BHN EVAL/PT EVAL FOR POSSIBLE [facility] PSYCH VS STR, DAUGHTER UNABLE TO STAY WITH PT PT HAS DONE INTAKE WITH [facility] FOR WEEKLY [facility]NA AND WEEKLY PT.
[2020-10-17 11:17] LABS: Thyroid Stimulating Hormone 7.63 uIU/mL (0.32-4.0)
--- NOTE | 2020-10-17 11:39 | PC.NURSE ---
As requested by MD- care team consulted again and asked to speak to daughter, misa, about hallucinations. Daughter reported to MD poor po intake, and increased agitation.
--- NOTE | 2020-10-17 11:59 | MHC.CARE ---
CARE Team evaluated client and she will remain in the [facility] ED until a [facility] psych bed found.
--- NOTE | 2020-10-17 12:54 | PC.NURSE ---
resting quietly in bed. skin pwd. no incontinence. it alert to person and place but difficult to reorient to reason she is here. continues to state i just need to get home to my daughter. she must be waiting for me and she needs to get to work . pt is calm.
--- NOTE | 2020-10-17 13:41 | PC.NURSE ---
This RN speaking with Daughter. Daughter giving updated history. No current psych diagnosis.
--- NOTE | 2020-10-17 13:49 | MHC.CM.PN ---
PT IS NOW AN INPT [facility] PSYCH BED SEARCH, NO ADDITIONAL CASE MANAGEMENT NEEDS AT THIS TIME.
--- NOTE | 2020-10-17 14:53 | PC.NURSE ---
has been resting in bed. sleeping on and off. no complaints. has been offered to get to [facility] but declined
[2020-10-17] MEDS: Metoprolol Succinate ER 100 MG TAB.ER.24H PO (15:33)
[2020-10-17] MEDS: DULoxetine HCl 30 MG CAPSULE.DR PO (15:33)
[2020-10-17] MEDS: Atorvastatin Calcium 40 MG TABLET PO (15:33)
[2020-10-17] MEDS: Cholecalciferol (Vitamin D3) 25 MCG TABLET 50 MCG PO (15:33)
[2020-10-17] MEDS: Apixaban 5 MG TABLET PO ×2 (15:34→20:51)
[2020-10-17] MEDS: Levothyroxine Sodium 100 MCG TABLET PO (15:34)
--- NOTE | 2020-10-17 16:54 | PC.NURSE ---
moved to hospital bed. able to stand and piviot with one assist. is slightly unsteady on feet. pt calling for billy repeatedly and remains unable to retain plan of care.
--- NOTE | 2020-10-17 18:22 | MHC.CARE ---
[facility]-psych bedsearch note: [facility] [phone] -- [facility] [phone] -- [facility] [phone] -- 15 minutes of call transfers, waiting on hold, and finally being given a contact number for facility admissions . No beds available. [facility] [phone] -- [facility] [phone] -- [facility] [phone] -- [facility] [phone] -- [facility] [phone] -- [facility] [phone] -- [facility] [phone] -- [facility] [phone] -- [facility] [phone] --
--- NOTE | 2020-10-17 18:45 | MHC.CARE ---
Pt evaluated by CARE team with disposition for inpatient psychiatric admission. Due to pt's age, the team will be pursuing placement at a geriatric psych facility. Bedsearch note: [facility] [phone] -- No beds available [facility] [phone] -- No beds available [facility] [phone] -- 18 minutes of call transfers, waiting on hold, and finally being given a contact number for facility admissions [phone]. See [facility] below. [facility] [phone] -- No beds available [facility] [phone] -- No beds available [facility] [phone] (predominantly dementia) -- No beds available [facility] [phone] -- No beds available [facility] [phone] (no dementia)-- Call tomorrow re: bed availability, admissions fully booked for this evening [facility] (manages referrals for several facilities) [phone] -- No answer, left message [facility] [phone] -- No beds available [facility] [phone] -- No beds available CARE team will [facility] with [facility] in the morning re: possible placement. Pt will remain in ED pending acceptance for admission to an appropriate facility.
--- NOTE | 2020-10-17 19:44 | PC.NURSE ---
up to bathroom. able to transfer from wc to toilet with minimal assist but patient is unsteady and was SOB during exertion. recovers quickly. LS cta. pt making statements about having just visited jeimy and a constitution party at the bank.
[2020-10-17] MEDS: QUEtiapine Fumarate 25 MG TABLET PO (20:51)
--- NOTE | 2020-10-17 20:53 | PC.NURSE ---
Pt medicated per MAR with 2100 medications. Pt calm and cooperative but has periods of confusion, unsure of what medications she is taking and when she is scheduled to take them. Pt coloring at this time. Continue to monitor.
[2020-10-18] VITALS (9 sets, daily range): BP systolic 103–151; BP diastolic 69–92; PULSE 84–96; RESP 16–24; TEMP 36.4–36.6; O2SAT 95–100
--- NOTE | 2020-10-18 02:04 | PC.NURSE ---
While walking by pts room, pt heard grunting in bed. This RN and tech attempting to reposition pt into POC. Pt opening and closing both of her hands, grunting at staff, noncompliant with repositioning or vitals. Pt refusing to open her eyes or interact with staff, pt waving arms out in the arm, ?hallucinating. Sitter at bedside, continue to monitor.
--- NOTE | 2020-10-18 03:18 | PC.NURSE ---
Pt wakes in bed, trying to get up, states I need to leave! Pt agreeable to staying if this RN shuts the VCR off. This RN at bedside per pt request. Pt states I'm hungry. This RN offers to bring pt food/drink, asks pt what she would like. Pt replies Shutup or I'm going to punch you in the face. Pt provided with a sandwich and gingerale. Pt states I'm cold. This RN offers a warm blanket, pt states Shutup about the warm blankets!! Pt resting in bed, sitter at bedside.
--- NOTE | 2020-10-18 07:21 | PC.NURSE ---
REPORT TAKEN FROM [facility]T BR[facility]GES. PATIENT SLEEPING AT THIS TIME. STAFF ABLE TO VIEW PATIENT AT ALL TIMES
[2020-10-18] MEDS: Cholecalciferol (Vitamin D3) 25 MCG TABLET 50 MCG PO (10:19)
[2020-10-18] MEDS: DULoxetine HCl 30 MG CAPSULE.DR PO (10:19)
[2020-10-18] MEDS: Metoprolol Succinate ER 100 MG TAB.ER.24H PO (10:19)
[2020-10-18] MEDS: Apixaban 5 MG TABLET PO ×2 (10:19→20:17)
[2020-10-18] MEDS: Levothyroxine Sodium 100 MCG TABLET PO (10:19)
[2020-10-18] MEDS: Atorvastatin Calcium 40 MG TABLET PO (10:20)
[2020-10-18] MEDS: QUEtiapine Fumarate 25 MG TABLET PO (20:16)
--- NOTE | 2020-10-19 | ECG_ITS ---
Test Reason : REPEAT Blood Pressure : / mmHG Vent. Rate : 092 BPM Atrial Rate : 340 BPM P-R Int : 000 ms QRS Dur : 094 ms QT Int : 390 ms P-R-T Axes : 000 -27 -12 degrees QTc Int : 482 ms Atrial fibrillation with premature ventricular or aberrantly conducted complexes Incomplete right bundle branch block Abnormal ECG When compared with ECG of 10-OCT-2020 03:26, No significant change was found Referred By: Tari Hayes Electronically Signed By:MALLORY LU
[2020-10-19 07:25] VITALS: BP 110/83; PULSE 73; RESP 16; O2SAT 99
--- NOTE | 2020-10-19 07:25 | PC.NURSE ---
Pt is alert, rr even, speaks in full sentences, skin is pwdi, and she is in nad. There are no current signs of visual or auditory hallucinations.
[2020-10-19 08:08] VITALS: BP 110/83; PULSE 73
[2020-10-19] MEDS: Metoprolol Succinate ER 100 MG TAB.ER.24H PO (08:08)
[2020-10-19] MEDS: DULoxetine HCl 30 MG CAPSULE.DR PO (08:08)
[2020-10-19] MEDS: Atorvastatin Calcium 40 MG TABLET PO (08:08)
[2020-10-19] MEDS: Cholecalciferol (Vitamin D3) 25 MCG TABLET 50 MCG PO (08:08)
[2020-10-19] MEDS: Apixaban 5 MG TABLET PO (08:08)
[2020-10-19] MEDS: Levothyroxine Sodium 100 MCG TABLET PO (08:08)
--- NOTE | 2020-10-19 10:56 | PC.NURSE ---
Pt ambulated to and from BR with minimal assist, utilizing a walker. Used bathroom on her own without difficulty.
[2020-10-19 12:41] LABS: COVID-19 Test Negative (Negative)
--- NOTE | 2020-10-19 12:43 | PC.NURSE ---
Orders obtained for ekg, cxr, and covid swab, per SNF request for possible transfer.
--- NOTE | 2020-10-19 13:33 | MHC.CARE ---
CARE Team has been communicating with [facility] regarding a possible admission. Faxed HCP, labs, medication list, EKG, chest xray
[2020-10-19 14:15] VITALS: PULSE 73; RESP 20; O2SAT 100
--- NOTE | 2020-10-19 15:39 | PC.NURSE ---
Report given to YULIANA Rodriguez at [facility].
[2020-10-19 16:39] VITALS: BP 163/98; PULSE 96; RESP 20; TEMP 36.9; O2SAT 96
--- NOTE | 2020-10-19 16:43 | PC.NURSE ---
Pt's daughter, Gissel, updated with plan to transfer to [place].
== END 2020-10-19 18:10 ==
PROVIDERS: Emergency Medicine; Emergency Provider Emergency Medicine Emergency Medical Services; PCP Internal Medicine
DX: R44.0 Auditory hallucinations (principal); R00.2 Palpitations; Z20.822 Contact with and (suspected) exposure to COVID-19; Z79.899 Other long term (current) drug therapy
CPT/HCPCS: 36415; 71045; 80048; 80307; 80320; 81001; 84443; 85025; 87635; 93005; 99285

== ENCOUNTER 2025-02-10 16:44 | Emergency (ER) | payer MEDICARE, SELFPAY ==
--- NOTE | ~2025-02-10 | CT_ITS ---
CLINICAL HISTORY: AMS, on eliquis CT head without contrast Comparison: None provided Findings: No intra-axial mass, midline shift, hydrocephalus, or acute hemorrhage. Mild cortical atrophy. Nonspecific bilateral supratentorial white matter hypodensities most suggestive of chronic small-vessel ischemic changes. Atherosclerotic vascular disease. There is mucosal thickening in left maxillary sinus posteriorly and left sphenoid sinus is opacified with thickening sinus albright likely chronic sinusitis The orbits are within normal limits. There is no acute skull fracture. IMPRESSION: 1. No acute intracranial findings. This document has been electronically signed by: Brigid Em MD on 02/10/2025 18:42:24
--- NOTE | ~2025-02-10 | CT_ITS ---
CLINICAL HISTORY: fall CT cervical spine without contrast Comparison: None provided Findings: Reversal of the cervical lordosis. Grade 2 anterolisthesis at C2-3. Vertebral body height overall maintained. No acute fracture in the cervical spine. Craniocervical junction is intact. Multilevel degenerative disc disease most significantly involving C4-5 to C6-7 with multilevel facet arthropathy. Degenerative changes at C1-2. Likely nonacute fracture right 1st rib right 1st and 2nd rib deformities and partial fusion likely from previous trauma. Prevertebral soft tissues within normal limits. Thyroid is small. Atherosclerotic vascular disease and retropharyngeal course of bilateral carotid arteries. No consolidation or effusion at the lung apices. IMPRESSION: 1. No acute fracture in the cervical spine. 2. Reversal cervical lordosis and grade 2 anterolisthesis at C 2-3. 3. Multilevel degenerative changes and facet arthropathy. 4. Right 1st rib fracture likely nonacute with deformity and partial fusion of right 1st and 2nd ribs. Correlate with history of trauma. This document has been electronically signed by: Brigid Em MD on 02/10/2025 18:50:20
--- NOTE | 2025-02-10 16:54 | ED_ITS ---
HPI - General Adult General Chief complaint: Urogenital-Female Stated complaint: UTI gotten worse Time Seen by Provider: 02/10/25 20:39 History of Present Illness ED Provider: Wily Salvador MD HPI narrative: This is an 84-year-old female with a history of UTI/infectious encephalopathy with hallucinations in the past. For about a week she has been having auditory and visual hallucinations per the family. She fell about 2 days ago prior to my evaluation and interview she had a CT head and cervical spine with no acute traumatic injuries. The patient is calm and cooperative speaking normally but does acknowledge hallucinations occasionally for the past week. No subjective fever no dysuria flank pain or abdominal pain. She finished 5 day course of Macrobid yesterday. Related Data Home Medications ?Medication ?Instructions ?Recorded ?Confirmed apixaban 5 mg tablet (Eliquis) 1 tab PO BID 10/17/20 0 02/11/25 atorvastatin 40 mg tablet 1 tab PO DAILY 10/17/2001/20 cholecalciferol (vitamin D3) 50 50 mcg PO DAILY 02/11/25 mcg (2,000 unit) tablet (Vitamin D3) levothyroxine 100 mcg tablet 1 tab PO QAM 10/17/20 metoprolol succinate 100 mg 1 tab PO DAILY 10/17/20 tablet,extended release 24 hr quetiapine 25 mg tablet (Seroquel) 25 mg PO BEDTIME 02/11/25 acetaminophen 325 mg tablet 650 mg PO Q6H PRN Pain 02/11/25 bupropion HCl 100 mg tablet 100 mg PO DAILY 02/11/25 0 02/11/25 escitalopram oxalate 20 mg tablet 20 mg PO DAILY 02/1102/11/25 oxycodone 10 mg tablet 10 mg PO TID PRN chronic jami n 02/11/25 02/11/25 spironolactone 25 mg tablet 25 mg PO DAILY 02/11/25 trazodone 50 mg tablet 25 mg PO BEDTIME PRN Sleep 0 02/11/25 02/11/25 vit C 250 mg-vit E 90 mg-zinc 40 1 tab PO BID 02/11/25 02/11/25 mg-copper 1 [id number] capsule (PreserVision AREDS-2) Allergies Allergy/AdvReac Type Severity Reaction Status Date / Time No Known Allergies (No Known Allergy Verified 02/10/25 17:10 Allergies*) FORMERLY [facility] Past Medical History Medical History (Updated 02/14/25 @ 00:01 by Idalmis Zuniga) Gallstones Difficulty sleeping Thyroid activity decreased Afib Social History Social History Alcohol intake: never Physical Exam ED Vital Signs: Vital Signs - 24 hr 02/13/25 17:20 Temperature 98.7 F Pulse Rate 77 Respiratory Rate 17 Blood Pressure 134/86 Pulse Oximetry 96 Oxygen Delivery Method Room Air BMI result Body Mass Index 41.0 Course Course Course Narrative: This is an RME: Additional HPI, ROS, PE not included below will be deferred to primary provider. RME assessment and note performed by: Wendy Montana PA-C This is a 46-mpnr-yhx-female, with a past medical history of a fib on eliquis, HTN, HLD, chronic back pain, depression, hyperlipidemia, hypertension, hypothyroidism, chronically elevated LFTs and hyperbilirubinemia who presents to the ER with complaints of auditory or visual hallucinations. Family reports several nights ago she was in her bed, and rolled, ultimately causing her to be wedged in between a wall and a bed. She did not call 911 as she was hallucinating until the visual hallucinated person in the room to call for help. Her family, patient was sent over antibiotics to treat for urinary tract infection on January 29, they were unaware of this, and patient did not start this antibiotic until 02/01. Family is unsure how many tablets patient had taken of this course of antibiotics. Patient was then restarted back on an antibiotic on February 04, 2025, completed the full course of Macrobid, completed on Monday. Plan: Labs, UA, will obtain CT of the head given AH/VH and she is on anticoagulation. Reevaluation(s) Reevaluation #1: physician observation continued overnight. no acute events. VS are stable seen by psychiatry. per their documentation MOCA completed on 02/13/2025 scored 23/29 (trail not completed due to vision issues) with impairments in recall (3/5), orientation to date/day (4/6), attention (1/3). Language naming, fluency, abstraction, visuospatial/executive function seems fairly intact. ACL 4.2 showing moderate cognitive decline. psych not recommending inpatient level of care. recommending follow up with [facility] at [facility]. She has been cleared for discharge home with family. physician observation discontinued at this time. Time: 16:37 Medications Administered Discontinued Medications Generic Name Dose Route Start Last Admin Trade Name Freq PRN Reason Stop Dose Admin Acetaminophen 650 mg 02/13/25 04:35 02/13/25 04:42 Acetaminophen 325 Mg Tablet PO 02/13/25 04:36 650 mg ONCE ONE Administration Apixaban 5 mg 02/11/25 09:00 02/13/25 08:59 Apixaban 5 Mg Tablet PO 5 mg BID ALLYN Administration Atorvastatin Calcium 40 mg 02/11/25 09:00 02/13/25 08:59 Atorvastatin Calcium 40 Mg Tablet PO 40 mg DAILY ALLYN Administration Bupropion HCl 100 mg 02/11/25 09:00 02/13/25 08:58 Bupropion Hcl 100 Mg Tablet PO 100 mg DAILY ALLYN Administration Ceftriaxone Sodium 2 gm 02/10/25 21:25 02/10/25 22:08 Ceftriaxone Sodium 2 Gm Vial IVPUSH 02/10/25 21:26 2 gm ONCE ONE Administration Escitalopram Oxalate 20 mg 02/11/25 09:00 02/13/25 08:59 Escitalopram Oxalate 20 Mg Tablet PO 20 mg DAILY ALLYN Administration Sodium Chloride 1,000 mls @ 999 mls/hr 02/10/25 21:30 02/10/25 23:30 Ns IV 02/10/25 22:30 Infused .Q1H1M ALLYN Infusion Levothyroxine Sodium 100 mcg 02/11/25 06:30 02/13/25 06:24 Levothyroxine Sodium 100 Mcg Tablet PO 100 mcg DAILY@0630 ALLYN Administration Metoprolol Succinate 100 mg 02/11/25 09:00 02/13/25 09:07 Metoprolol Succinate Er 100 Mg Tab.Er.24h PO 100 mg DAILY ALLYN Administration Protocol Oxycodone HCl 10 mg 02/11/25 01:36 02/12/25 20:00 Oxycodone Hcl Immed Release 5 Mg Tablet PO 10 mg TID PRN Administration chronic pain Quetiapine Fumarate 25 mg 02/10/25 23:44 02/11/25 00:23 Quetiapine Fumarate 25 Mg Tablet PO 02/10/25 23:45 25 mg ONCE ONE Administration Quetiapine Fumarate 25 mg 02/11/25 21:00 02/12/25 20:00 Quetiapine Fumarate 25 Mg Tablet PO 25 mg BEDTIME ALLYN Administration Spironolactone 25 mg 02/11/25 09:00 02/13/25 09:08 Spironolactone 25 Mg Tablet PO 25 mg DAILY ALLYN Administration Protocol Medical Decision Making Medical Decision Making [facility] Narrative: This is an 84-year-old female with history of obesity, AFib on anticoagulation, hypothyroidism, hypertension, depression with psychotic features and delusional disorder. Over the past week she has had worsening auditory and sometimes visual hallucination. No SI or HI. No agitation. Two nights ago she fell off her bed. Traumatic workup of the head and neck shows no acute traumatic injuries however an old 1st rib fracture was identified the patient does endorse chronic pain for several years in the right upper clavicular region. There is no bruising or obvious signs of trauma anywhere else in the body. She completed 5 days of Macrobid but still has these hallucinations and mentation changes per family. Decreased p.o. intake as well. Although this may represent partially treated urinary tract infection without leukocytosis, fever, systemic signs or suggestion of the urinalysis of acute infection there maybe some component of infectious encephalopathy. The more likely however given the later review of the 2020 [facility] geriatric psychiatry records the patient is likely experiencing a decompensation of depression with psychotic features. I will order 25 mg of Seroquel. Also continue to treat possible urinary tract infection and would recommend the team continue this until urine culture pans out. For now we will get care team behavioral health consultation probably psychiatric consultation in the morning. Disposition will depend on psychiatry input tomorrow morning. Differential Diagnosis Differential Diagnoses: The differential diagnosis associated with the presentation includes Depression with psychotic features, infectious or metabolic less likely toxic logic encephalopathy, traumatic brain injury Admission/Observation Consideration of admission/observation: Escalation of care including admission/observation considered Consult Healthcare Provider Management of the patient was discussed with: Hospitalist and Behavioral Health Provider (Care team) Lab Data [facility] Lab Attestation statement: I reviewed the patient's lab results. 02/10/25 17:31 02/10/25 17:31 Labs: Lab Results 02/10/25 02/10/25 02/10/25 Range/Units 17:31 21:49 22:30 WBC 10.3 (4.8-10.8) X10*3/uL RBC 5.03 (4.20-5.50) X10*6/uL Hgb 15.9 (12.0-16.0) g/dl Hct 46.8 (37.0-47.0) % MCV 93.0 (80.0-98.0) fL MCH 31.6 (27.0-33.0) pg MCHC 34.0 (31.0-35.0) g/dl RDW 14.4 (11.0-16.0) % Plt Count 181 (160-400) X10*3/uL MPV 10.5 (9.4-12.3) fL Immature Gran % (Auto) 0.6 H (0.0-0.4) % Neut % (Auto) 69.3 (45-73) % Lymph % (Auto) 18.2 L (20-40) % [place] % (Auto) 8.0 (2-11) % Eos % (Auto) 3.4 (0-4) % Baso % (Auto) 0.5 (0-2) % Lymph # (Auto) 1.9 (1.2-4.9) X10*3/uL [place] # (Auto) 0.8 (0.1-1.2) X10*3/uL Eos # (Auto) 0.4 (0.0-0.4) X10*3/uL Baso # (Auto) 0.1 (0.0-0.2) X10*3/uL Abs Immat Gran (auto) 0.06 H (0.00-0.03) X10*3/uL Absolute Neuts (auto) 7.1 (2.0-8.3) x10*3/uL Absolute Nucleated RBC 0.000 (0.0-0.012) X10*3/uL Nucleated RBC % (auto) 0.0 (0.0-0.2) /100WBC Sodium 136 (135-145) mmol/L Potassium 4.7 (3.3-5.1) mmol/L Chloride 104 (96-108) mmol/L Carbon Dioxide 23 (22-29) mmol/L Anion Gap 14 (12-20) BUN 26 H (9-16) mg/dL Creatinine 1.36 (0.5-1.4) mg/dL Estim Creat Clear Calc 35.0 Estimated GFR 37 Random Glucose 101 (60-115) mg/dL Lactic Acid 1.7 (0.5-2.0) mmol/L Calcium 9.3 (8.4-10.2) mg/dL Magnesium 1.6 (1.6-2.6) mg/dL Total Bilirubin 1.8 H (0.0-1.0) mg/dL Direct Bilirubin 0.6 H (0.0-0.5) mg/dL AST 44 H (5-31) U/L ALT 41 H (0-31) U/L Alkaline Phosphatase 103 (39-117) U/L Ammonia 36 (13-55) umol/L Troponin I High Sens 27.6 H 26.2 H (<3.5-17.0) ng/L Total Protein 7.1 (6.5-8.0) g/dL Albumin 4.1 (3.5-5.0) g/dL Lipase 34 (8-78) U/L TSH (0.32-4.0) uIU/mL Urine Color Yellow Urine Appearance Clear Urine pH 5.0 (5.0-9.0) Ur Specific Bee 1.015 (1.005-1.025) Urine Protein Negative (Neg-Trace) mg/dL Urine Glucose (UA) Negative (Negative) mg/dL Urine Ketones Negative (Negative) mg/dL Urine Blood Negative (Negative) Urine Nitrite Negative (Negative) Ur Leukocyte Esterase Negative (Negative) Urine Opiates Screen (Not Detect) Ur Buprenorphine Scrn (Not Detect) ng/mL Ur Oxycodone Screen (Not Detect) ng/mL Urine Methadone Screen (Not Detect) ng/mL Urine Fentanyl Screen (Not Detect) Ur Barbiturates Screen (Not Detect) Ur Phencyclidine Scrn (Not Detect) Ur Amphetamines Screen (Not Detect) U Benzodiazepines Scrn (Not Detect) Urine Cocaine Screen (Not Detect) U Marijuana (THC) Screen (Not Detect) Ethyl Alcohol < 10 mg/dL 02/11/25 02/12/25 Range/Units 00:26 13:59 WBC (4.8-10.8) X10*3/uL RBC (4.20-5.50) X10*6/uL Hgb (12.0-16.0) g/dl Hct (37.0-47.0) % MCV (80.0-98.0) fL MCH (27.0-33.0) pg MCHC (31.0-35.0) g/dl RDW (11.0-16.0) % Plt Count (160-400) X10*3/uL MPV (9.4-12.3) fL Immature Gran % (Auto) (0.0-0.4) % Neut % (Auto) (45-73) % Lymph % (Auto) (20-40) % [place] % (Auto) (2-11) % Eos % (Auto) (0-4) % Baso % (Auto) (0-2) % Lymph # (Auto) (1.2-4.9) X10*3/uL [place] # (Auto) (0.1-1.2) X10*3/uL Eos # (Auto) (0.0-0.4) X10*3/uL Baso # (Auto) (0.0-0.2) X10*3/uL Abs Immat Gran (auto) (0.00-0.03) X10*3/uL Absolute Neuts (auto) (2.0-8.3) x10*3/uL Absolute Nucleated RBC (0.0-0.012) X10*3/uL Nucleated RBC % (auto) (0.0-0.2) /100WBC Sodium (135-145) mmol/L Potassium (3.3-5.1) mmol/L Chloride (96-108) mmol/L Carbon Dioxide (22-29) mmol/L Anion Gap (12-20) BUN (9-16) mg/dL Creatinine (0.5-1.4) mg/dL Estim Creat Clear Calc Estimated GFR Random Glucose (60-115) mg/dL Lactic Acid (0.5-2.0) mmol/L Calcium (8.4-10.2) mg/dL Magnesium (1.6-2.6) mg/dL Total Bilirubin (0.0-1.0) mg/dL Direct Bilirubin (0.0-0.5) mg/dL AST (5-31) U/L ALT (0-31) U/L Alkaline Phosphatase (39-117) U/L Ammonia (13-55) umol/L Troponin I High Sens (<3.5-17.0) ng/L Total Protein (6.5-8.0) g/dL Albumin (3.5-5.0) g/dL Lipase (8-78) U/L TSH 2.97 (0.32-4.0) uIU/mL Urine Color Urine Appearance Urine pH (5.0-9.0) Ur Specific Bee (1.005-1.025) Urine Protein (Neg-Trace) mg/dL Urine Glucose (UA) (Negative) mg/dL Urine Ketones (Negative) mg/dL Urine Blood (Negative) Urine Nitrite (Negative) Ur Leukocyte Esterase (Negative) Urine Opiates Screen POSITIVE H (Not Detect) Ur Buprenorphine Scrn Not Detected (Not Detect) ng/mL Ur Oxycodone Screen Positive H (Not Detect) ng/mL Urine Methadone Screen Not Detected (Not Detect) ng/mL Urine Fentanyl Screen Not Detected (Not Detect) Ur Barbiturates Screen Not Detected (Not Detect) Ur Phencyclidine Scrn Not Detected (Not Detect) Ur Amphetamines Screen Not Detected (Not Detect) U Benzodiazepines Scrn Not Detected (Not Detect) Urine Cocaine Screen Not Detected (Not Detect) U Marijuana (THC) Screen Not Detected (Not Detect) Ethyl Alcohol mg/dL Radiology Impression Discussion of test interpretation with radiology: I have reviewed the radiologist's reading. Radiologist Impression: No acute traumatic injuries noted. I did note the indeterminate age likely chronic rib fracture based on examination is not suggestive of acute fracture Independent Historian Clinical information obtained from an independent historian. History obtained from or confirmed by: Other (Daughter and daughter's spouse at the bedside) External Record Review External record reviewed: Outside ED record (Zhanna Hart [facility] chart review from 2020 wing geriatric psychiatry admission) [facility] hospital course: Hospital Course?This is an 79-year-old female with history of obesity, depression with psychotic features and delusional disorder atrial fibrillation on Eliquis, hypothyroidism, hypertension so the hospital with worsening depression, paranoia, visual and auditory hallucinations.?The patient was initially evaluated at [place] emergency department where she had a medical screening.?Her lab work is reviewed which was overall stable.?Her TSH was noted to be high at 7.63 and she had a creatinine of 1.22 but there is no trend for review.?Her tox screen is negative and her urine is without evidence of infection the patient herself is confused and denies any specific concerns at this time. The pt was followed by the medical team on the unit. She and her daughter were both provided with extensive education about new medical condition. Please see medical notes for details. Psychiatrically, pt presented as guarded, but calm and cooperative. Her admission meds were continued and prn meds were available for acute psychiatric issues. Pt was admitted on a low dose of Seroquel. Psychoeducation was provided, including risks vs benefits of medications, with understanding. Her Seroquel was changed to extended release and slowly increased for treatment of psychosis. Pt tolerated this med well and was monitored closely with weekly EKGs and blood work. A low dose of Topamax was then added for mood stabilization. Pt tolerated this med with improvement in target symptoms. She responded well to prn Trazodone for insomnia and this medication was scheduled. Pt is not exhibiting symptoms of psychosis, she has been working with physical therapy and denies depression. At time of DC, pt is not considered an imminent danger to herself or others. Discharge Plan Discharge Clinical Impression: Auditory hallucination Patient Disposition: Home, Self-Care Instructions: Hallucinations (ED) Additional Instructions: Urine test here showed NO infection. Macrobid (nitrofurantion) is an antibiotic that is known to cause confusion in elderly patients. Recommend NOT taking this medication in the event of future UTIs. Psychiatry is recommending follow up OP with [facility] at [facility]- [phone] Take all of your medications as prescribed Follow up with your PCP as soon as possible. Prescriptions: No Action atorvastatin 40 mg tablet 1 tab PO DAILY metoprolol succinate 100 mg tablet extended release 24 hr 1 tab PO DAILY levothyroxine 100 mcg tablet 1 tab PO QAM Eliquis 5 mg tablet 1 tab PO BID quetiapine [Seroquel] 25 mg tablet 25 mg PO BEDTIME cholecalciferol (vitamin D3) [Vitamin D3] 50 mcg (2,000 unit) Tablet 50 mcg PO DAILY spironolactone 25 mg tablet 25 mg PO DAILY bupropion HCl 100 mg tablet 100 mg PO DAILY escitalopram oxalate 20 mg tablet 20 mg PO DAILY oxycodone 10 mg tablet 10 mg PO TID PRN (Reason: chronic pain) acetaminophen 325 mg Tablet 650 mg PO Q6H PRN (Reason: Pain) trazodone 50 mg tablet 25 mg PO BEDTIME PRN (Reason: Sleep) PreserVision AREDS-2 250-90-40-1 mg Capsule 1 tab PO BID Referrals: Baldo Calabrese MD [Primary Care Provider, Internal Medicine] Interventions: ED Discharge Assessment Last Done: 02/13/25 17:20 Discharge Date/Time: 02/13/25 15:25 Print Language: Sinhala
[2025-02-10 16:55] VITALS: BP 96/62; PULSE 68; RESP 18; TEMP 36.3; O2SAT 93; BMI 41.0
--- NOTE | 2025-02-10 17:07 | ECG_ITS ---
Test Reason : syncopy Blood Pressure : */* mmHG Vent. Rate : 67 BPM Atrial Rate : 268 BPM P-R Int : * ms QRS Dur : 100 ms QT Int : 410 ms P-R-T Axes : * -27 -3 degrees QTcB Int : 433 ms Atrial flutter with 4:1 A-V conduction Low voltage QRS Abnormal ECG When compared with ECG of 19-Oct-2020 12:12, Atrial flutter has replaced Atrial fibrillation Referred By: Wendy Montana Electronically Signed By: MALLORY LU
[2025-02-10 17:42] LABS: MANUAL DIFF FLAG NO
[2025-02-10 17:45] LABS: Basophils Absolute Auto 0.1 X10*3/uL (0.0-0.2); Basophils Percent Auto 0.5 % (0-2); Eosinophils Absolute Auto 0.4 X10*3/uL (0.0-0.4); Eosinophils Percent Auto 3.4 % (0-4); Hematocrit 46.8 % (37.0-47.0); Hemoglobin 15.9 g/dl (12.0-16.0); Imm Gran Abs Auto 0.06 X10*3/uL (0.00-0.03); Imm Gran Pct Auto 0.6 % (0.0-0.4); Lymphocytes Absolute Auto 1.9 X10*3/uL (1.2-4.9); Lymphocytes Percent Auto 18.2 % (20-40); Mean Corpuscular Hemoglobin 31.6 pg (27.0-33.0); Mean Platelet Volume 10.5 fL (9.4-12.3); Monocytes Absolute Auto 0.8 X10*3/uL (0.1-1.2); Neutrophils Absolute Auto 7.1 x10*3/uL (2.0-8.3); Neutrophils Percent Auto 69.3 % (45-73); Platelet Count 181 X10*3/uL (160-400); Red Blood Count 5.03 X10*6/uL (4.20-5.50); Red Cell Distribution Width 14.4 % (11.0-16.0); White Blood Count 10.3 X10*3/uL (4.8-10.8)
[2025-02-10 18:02] LABS: Ammonia 36 umol/L (13-55)
[2025-02-10 18:20] LABS: Lactic Acid 1.7 mmol/L (0.5-2.0)
[2025-02-10 18:21] LABS: Alanine Aminotransferase 41 U/L (0-31); Albumin Level 4.1 g/dL (3.5-5.0); Alkaline Phosphatase 103 U/L (39-117); Anion Gap 14 (12-20); Aspartate Amino Transferase 44 U/L (5-31); Bilirubin Direct 0.6 mg/dL (0.0-0.5); Bilirubin Total 1.8 mg/dL (0.0-1.0); Blood Urea Nitrogen 26 mg/dL (9-16); Calcium 9.3 mg/dL (8.4-10.2); Carbon Dioxide 23 mmol/L (22-29); Chloride 104 mmol/L (96-108); Estimated Glomerular Filt Rate 37; Glucose Random 101 mg/dL (60-115); Lipase 34 U/L (8-78); Magnesium 1.6 mg/dL (1.6-2.6); Potassium 4.7 mmol/L (3.3-5.1); Sodium 136 mmol/L (135-145); Total Protein 7.1 g/dL (6.5-8.0)
[2025-02-10 18:29] LABS: Troponin-I High Sensitivity 27.6 ng/L (<3.5-17.0)
[2025-02-10 20:43] VITALS: BP 119/69; PULSE 66; RESP 20; TEMP 36.3; O2SAT 93
[2025-02-10] MEDS: 0.9 % Sodium Chloride 1,000 ML 999 ML IV (21:59)
[2025-02-10] MEDS: cefTRIAXone sodium 2 GM VIAL IVPUSH (22:08)
[2025-02-10 22:14] VITALS: BP 127/72; PULSE 65; RESP 18; TEMP 36.6; O2SAT 96
[2025-02-10 22:14] LABS: Troponin-I High Sensitivity 26.2 ng/L (<3.5-17.0)
[2025-02-10 22:39] LABS: Appearance Urine Clear; Color Urine Yellow; Glucose Urine UA Negative (Negative); Leukocyte Esterase Urine Negative (Negative); Nitrite Urine Negative (Negative); Specific Gravity - Urine 1.015 (1.005-1.025); Urine Blood Negative (Negative); Urine Ketones Negative (Negative); Urine Protein Negative (Neg-Trace)
[2025-02-11] MEDS: QUEtiapine Fumarate 25 MG TABLET PO ×2 (00:23→20:36)
[2025-02-11 00:35] LABS: Ethanol < 10 mg/dL
[2025-02-11 00:41] LABS: Amphetamine Screen Urine Not Detected (Not Detect); Barbiturates, Urine Not Detected (Not Detect); Benzodiazepines Screen Urine Not Detected (Not Detect); Buprenorphine Scr Not Detected (Not Detect); Cannabinoid Screen Urine Not Detected (Not Detect); Cocaine Screen Urine Not Detected (Not Detect); Fentanyl, urine Not Detected (Not Detect); Methadone Screen, Urine Not Detected (Not Detect); Opiate Screen Urine POSITIVE (Not Detect); Oxycodone Screen Urine Positive (Not Detect); Phencyclidine Screen Urine Not Detected (Not Detect)
[2025-02-11 00:47] VITALS: BP 138/69; PULSE 66; RESP 18; TEMP 36.3; O2SAT 95
[2025-02-11 03:19] VITALS: BP 123/73; PULSE 68; RESP 18; TEMP 36.6; O2SAT 97
[2025-02-11 05:29] VITALS: BP 143/86; PULSE 67; RESP 16; TEMP 36.5; O2SAT 97
[2025-02-11] MEDS: Levothyroxine Sodium 100 MCG TABLET PO (05:37)
--- NOTE | 2025-02-11 05:41 | PC.NURSE ---
patient very confused and forgetful at time, found in doorway of room 1 calling t/w name urinated all over floor. redirected patient to commode, roxana care and clean linens applied. for safety patient moved to room 22 purewick applied at this time
[2025-02-11] MEDS: buPROPion HCL 100 MG TABLET PO (08:20)
[2025-02-11] MEDS: Metoprolol Succinate ER 100 MG TAB.ER.24H PO (08:20)
[2025-02-11] MEDS: Apixaban 5 MG TABLET PO ×2 (08:20→20:36)
[2025-02-11] MEDS: Escitalopram Oxalate 20 MG TABLET PO (08:20)
[2025-02-11] MEDS: Spironolactone 25 MG TABLET PO (08:20)
[2025-02-11] MEDS: Atorvastatin Calcium 40 MG TABLET PO (08:20)
--- NOTE | 2025-02-11 09:06 | PHA.MEDREC ---
Addendum entered by Heriberto Duncan [facility] 02/11/25 09:24: med recchecked by [facility] Original Note: Pharmacy Consult ? Medication Reconciliation Pharmacy has reviewed the medication reconciliation done by nursing. Spoke to patient daughter in-law Gissel to confirm med list. Daughter in-law confirmed patient takes Trazodone 25 mg ( 1/2 of 50 mg ) at bedtime, Vitamin B complex, Preservison Areds 2 Twice a day. Updated med rec.
--- NOTE | 2025-02-11 14:37 | PC.NURSE ---
Pt found OOB attempting to use commode. Pt x2 assist to commode, changed and cleaned. Pt assisted back to bed. Camera placed in room due to fall risk.
--- NOTE | 2025-02-11 16:06 | PC.NURSE ---
Pt family Gissel updated on care plan and pending dispo.
[2025-02-11 17:42] VITALS: BP 161/77; PULSE 80; RESP 17; TEMP 37.1; O2SAT 96
[2025-02-11 20:32] VITALS: BP 126/45; PULSE 80; RESP 16; TEMP 36.4; O2SAT 96
[2025-02-12] VITALS (7 sets, daily range): BP systolic 118–169; BP diastolic 67–116; PULSE 71–91; RESP 14–20; TEMP 35.8–36.3; O2SAT 96–98
[2025-02-12] MEDS: Levothyroxine Sodium 100 MCG TABLET PO (06:28)
--- NOTE | 2025-02-12 07:43 | PC.NURSE ---
Pt is A+Ox4, denies any hallucinations today. Pt has not other complaints at this time, sts she wants to leave. RR even and unlabored, denies SOB, Denies chest pain or headache.
[2025-02-12] MEDS: Metoprolol Succinate ER 100 MG TAB.ER.24H PO (09:09)
[2025-02-12] MEDS: Spironolactone 25 MG TABLET PO (09:09)
[2025-02-12] MEDS: Escitalopram Oxalate 20 MG TABLET PO (09:09)
[2025-02-12] MEDS: Atorvastatin Calcium 40 MG TABLET PO (09:09)
[2025-02-12] MEDS: Apixaban 5 MG TABLET PO ×2 (09:09→20:00)
[2025-02-12] MEDS: buPROPion HCL 100 MG TABLET PO (09:10)
--- NOTE | 2025-02-12 13:36 | PC.NURSE ---
report given to Liliya morel
--- NOTE | 2025-02-12 13:41 | PC.NURSE ---
patrol judge contacted [facility] about pt psych consult. Reporting that they had consult placed for an extended amount of time, provider did not get the notification, and will now look into consult so pt can be dispo'd
--- NOTE | 2025-02-12 13:46 | PC.NURSE ---
pt is reporting 7/10 back pain at this time, this chart writer offered the oxycodone but pt refused states it does not help
[2025-02-12 14:40] LABS: TSH reflex Free T4 2.97 uIU/mL (0.32-4.0)
--- NOTE | 2025-02-12 15:27 | P.CNPS_ITS ---
History of Present Illness Date of Service: 02/12/2025 Chief Complaint: UTI gotten worse Reason for Consult: visual hallucinations Discussed with referring provider: Yes Sources of Information: patient interviewed, chart reviewed and crisis/core team assessment reviewed HPI Narrative: Mrs. Barreto is a 84 year-old woman who was brought by daughter due to visual hallucinations. Pt was seeing people that later realized were not there. She had similar incidents which coincide with UTI. Pertinent labs completed in the ED include CBC without leukocytosis, CMP without electrolyte imbalances, BUN 26, Cr 1.36, creatinine clearance 35. Troponin 27.6. AST 44, ALT 41 total bilirubin 1.8 (chronic elevation of bilirubin). UA did not indicate UTI. Head CT with mild cortical atrophy and microvascular changes. Pt seen in the ED. Pt reports she is here because she had a UTI. She reports she was seeing people that were not there and later realized they were not there. She is not sure how long she has been here, but thinks she came Monday. She is able to tell the month, the year, and place. She does not appear internally preoccupied. She reports at times sleeping and waking up as if dream continues and thinking that she was somewhere else but then later able to tell she was here in the hospital. Collateral information gathered from daughter Gissel ([phone]) who tells this engineering writer that recently she has noticed pt has had difficulty paying for bills, not able to tell whether she is taking medications as prescribed or not. Daughter is concern about pt going back home without her assistance. We discussed completing more extensive test to assess her memory/cog including MOCA/ACL. [facility] Medical History (Updated 02/12/25 @ 17:22 by Zoe Lanier NP) Gallstones Difficulty sleeping Thyroid activity decreased Afib Diagnostics Vital Signs (24Hr): Vital Signs - 24 hr 02/11/25 17:42 02/11/25 20:32 02/12/25 06:27 Temperature 98.8 F 97.6 F 96.5 F L Pulse Rate 80 80 79 Respiratory Rate 17 16 14 Blood Pressure 161/77 H 126/45 L 148/116 H Pulse Oximetry 96 96 98 Oxygen Delivery Method Room Air Room Air 02/12/25 07:37 02/12/25 09:08 02/12/25 09:09 Temperature 97.3 F Pulse Rate 71 75 Respiratory Rate 18 18 Blood Pressure 169/102 H 145/101 H 145/101 H Pulse Oximetry 96 96 Oxygen Delivery Method Room Air Room Air 02/12/25 09:09 02/12/25 12:58 Temperature 96.6 F L Pulse Rate 75 77 Respiratory Rate 18 Blood Pressure 145/101 H 152/80 H Pulse Oximetry 97 Oxygen Delivery Method Room Air BMI result Body Mass Index 41.0 Labs 02/10/25 17:31 02/10/25 17:31 Labs: Laboratory Results - last 48 hr 02/10/25 02/10/25 02/10/25 17:31 21:49 22:30 WBC 10.3 RBC 5.03 Hgb 15.9 Hct 46.8 MCV 93.0 MCH 31.6 MCHC 34.0 RDW 14.4 Plt Count 181 MPV 10.5 Immature Gran % (Auto) 0.6 H Neut % (Auto) 69.3 Lymph % (Auto) 18.2 L Callahan % (Auto) 8.0 Eos % (Auto) 3.4 Baso % (Auto) 0.5 Lymph # (Auto) 1.9 Callahan # (Auto) 0.8 Eos # (Auto) 0.4 Baso # (Auto) 0.1 Abs Immat Gran (auto) 0.06 H Absolute Neuts (auto) 7.1 Absolute Nucleated RBC 0.000 Nucleated RBC % (auto) 0.0 Sodium 136 Potassium 4.7 Chloride 104 Carbon Dioxide 23 Anion Gap 14 BUN 26 H Creatinine 1.36 Estim Creat Clear Calc 35.0 Estimated GFR 37 Random Glucose 101 Lactic Acid 1.7 Calcium 9.3 Magnesium 1.6 Total Bilirubin 1.8 H Direct Bilirubin 0.6 H AST 44 H ALT 41 H Alkaline Phosphatase 103 Ammonia 36 Troponin I High Sens 27.6 H 26.2 H Total Protein 7.1 Albumin 4.1 Lipase 34 TSH Urine Color Yellow Urine Appearance Clear Urine pH 5.0 Ur Specific [place] 1.015 Urine Protein Negative Urine Glucose (UA) Negative Urine Ketones Negative Urine Blood Negative Urine Nitrite Negative Ur Leukocyte Esterase Negative Urine Opiates Screen Ur Buprenorphine Scrn Ur Oxycodone Screen Urine Methadone Screen Urine Fentanyl Screen Ur Barbiturates Screen Ur Phencyclidine Scrn Ur Amphetamines Screen U Benzodiazepines Scrn Urine Cocaine Screen U Marijuana (THC) Screen Ethyl Alcohol < 10 02/11/25 02/12/25 00:26 13:59 WBC RBC Hgb Hct MCV MCH MCHC RDW Plt Count MPV Immature Gran % (Auto) Neut % (Auto) Lymph % (Auto) Callahan % (Auto) Eos % (Auto) Baso % (Auto) Lymph # (Auto) Callahan # (Auto) Eos # (Auto) Baso # (Auto) Abs Immat Gran (auto) Absolute Neuts (auto) Absolute Nucleated RBC Nucleated RBC % (auto) Sodium Potassium Chloride Carbon Dioxide Anion Gap BUN Creatinine Estim Creat Clear Calc Estimated GFR Random Glucose Lactic Acid Calcium Magnesium Total Bilirubin Direct Bilirubin AST ALT Alkaline Phosphatase Ammonia Troponin I High Sens Total Protein Albumin Lipase TSH 2.97 Urine Color Urine Appearance Urine pH Ur Specific [place] Urine Protein Urine Glucose (UA) Urine Ketones Urine Blood Urine Nitrite Ur Leukocyte Esterase Urine Opiates Screen POSITIVE H Ur Buprenorphine Scrn Not Detected Ur Oxycodone Screen Positive H Urine Methadone Screen Not Detected Urine Fentanyl Screen Not Detected Ur Barbiturates Screen Not Detected Ur Phencyclidine Scrn Not Detected Ur Amphetamines Screen Not Detected U Benzodiazepines Scrn Not Detected Urine Cocaine Screen Not Detected U Marijuana (THC) Screen Not Detected Ethyl Alcohol Mental Status Exam Mental Status Exam Narrative: Appearance: wearing hospital gown, fair hygiene, in NAD Behavior: cooperative Psychomotor: no agitation or retardation noted Speech: clear, normal rate/rhythm/volume, spontaneous TP: mostly linear TC: tired of being in the hospital Mood: fine Affect: congruent SI: none HI; none VH/AH; no signs at the time Delusions: none Insight/judgment: fair x 2. memory/cog: alert, oriented x 3. pending MOCA/ ACL Medications Medications Current Medications Apixaban (Apixaban 5 Mg Tablet) 5 mg PO BID [facility] Last Admin: 02/12/25 09:09 Dose: 5 mg Atorvastatin Calcium (Atorvastatin Calcium 40 Mg Tablet) 40 mg PO DAILY [facility] Last Admin: 02/12/25 09:09 Dose: 40 mg Bupropion HCl (Bupropion Hcl 100 Mg Tablet) 100 mg PO DAILY [facility] Last Admin: 02/12/25 09:10 Dose: 100 mg Escitalopram Oxalate (Escitalopram Oxalate 20 Mg Tablet) 20 mg PO DAILY [facility] Last Admin: 02/12/25 09:09 Dose: 20 mg Levothyroxine Sodium (Levothyroxine Sodium 100 Mcg Tablet) 100 mcg PO DAILY@0630 [facility] Last Admin: 02/12/25 06:28 Dose: 100 mcg Metoprolol Succinate (Metoprolol Succinate Er 100 Mg Tab.Er.24h) 100 mg PO DAILY ALLYN; Protocol Last Admin: 02/12/25 09:09 Dose: 100 mg Oxycodone HCl (Oxycodone Hcl Immed Release 5 Mg Tablet) 10 mg PO TID PRN PRN Reason: chronic pain Quetiapine Fumarate (Quetiapine Fumarate 25 Mg Tablet) 25 mg PO BEDTIME ALLYN Last Admin: 02/11/25 20:36 Dose: 25 mg Spironolactone (Spironolactone 25 Mg Tablet) 25 mg PO DAILY ALLYN; Protocol Last Admin: 02/12/25 09:09 Dose: 25 mg Allergies Allergies Allergy/AdvReac Type Severity Reaction Status Date / Time No Known Allergies (No Known Allergy Verified 02/10/25 17:10 Allergies*) Assessment & Plan Assessment & Plan (1) Psychosis: Status: Acute Code(s): F29 - Unspecified psychosis not due to a substance or known physiological condition Plan Mrs. Barreto is an 84 year-old woman who was brought by daughter due to visual hallucinations. Medical work up is unremarkable. No UTI. Pt does not present as delirious. She does have some insight and awareness of visual hallucinations. She also describes episodes of reenacting dreams. I do recommend more detail memory/cog assessment to rule out dementia process including Lewy Body Dementia. Daughter, although not looking for placement is concern about pt's ability to live on her own. daughter not able to pick her up today but asks if tomorrow. PLAN 1. No need for alvina psych IPLOC. 2. Ordered MOCA/ ACL due to concern about memory/cog impairment and patient living on her own 3. Do recommend follow up OP with [facility]- [phone] Total time managing care of this patient today ____ minutes.
[2025-02-12] MEDS: oxyCODONE HCl Immed Release 5 MG TABLET 10 MG PO (20:00)
[2025-02-12] MEDS: QUEtiapine Fumarate 25 MG TABLET PO (20:00)
--- NOTE | 2025-02-13 03:07 | PC.NURSE ---
Patient c/o 7/10 generalized pain. Oxycodone 5mg po administered with good effect. Patient resting , safety measures in place. Bed alarm on , call cerda withing reach.
[2025-02-13] MEDS: Acetaminophen 325 MG TABLET 650 MG PO (04:42)
[2025-02-13 05:04] VITALS: BP 148/78; PULSE 74; RESP 16; TEMP 36; O2SAT 98
[2025-02-13] MEDS: Levothyroxine Sodium 100 MCG TABLET PO (06:24)
[2025-02-13] MEDS: buPROPion HCL 100 MG TABLET PO (08:58)
[2025-02-13] MEDS: Escitalopram Oxalate 20 MG TABLET PO (08:59)
[2025-02-13] MEDS: Apixaban 5 MG TABLET PO (08:59)
[2025-02-13] MEDS: Atorvastatin Calcium 40 MG TABLET PO (08:59)
[2025-02-13 09:07] VITALS: BP 134/86; PULSE 71
[2025-02-13] MEDS: Metoprolol Succinate ER 100 MG TAB.ER.24H PO (09:07)
[2025-02-13] MEDS: Spironolactone 25 MG TABLET PO (09:08)
[2025-02-13 09:09] VITALS: BP 134/86; PULSE 70; RESP 16; TEMP 37.1; O2SAT 95
[2025-02-13 17:20] VITALS: BP 134/86; PULSE 77; RESP 17; TEMP 37.1; O2SAT 96
== END 2025-02-13 15:25 | disposition home or self-care (01) ==
PROVIDERS: Physician Assistant Medical; Social Worker; Emergency Provider Emergency Medicine; PCP Internal Medicine
DX: N39.0 Urinary tract infection, site not specified (principal); R44.0 Auditory hallucinations; R26.2 Difficulty in walking, not elsewhere classified; R41.82 Altered mental status, unspecified; R51.9 Headache, unspecified; M54.2 Cervicalgia; R55 Syncope and collapse; I48.92 Unspecified atrial flutter; Z79.01 Long term (current) use of anticoagulants; Z51.81 Encounter for therapeutic drug level monitoring; Z79.899 Other long term (current) drug therapy
CPT/HCPCS: 36415; 70450; 72125; 80048; 80076; 80307; 81003; 82140; 83605; 83690; 83735; 84443; 84484; 85025; 87040; 93005; 96361; 96374; 97165; 99285; J0696

== ENCOUNTER → 2025-02-10 17:07 | Outpatient (BNV) | payer MEDICARE, SELFPAY | PROVIDERS: PCP Internal Medicine; Visit Provider Specialist | DX: M43.12 Spondylolisthesis, cervical region (principal); I67.82 Cerebral ischemia | CPT/HCPCS: 70450; 72125 ==

== ENCOUNTER → 2025-02-10 17:07 | Outpatient (BNV) | payer MEDICARE, SELFPAY | PROVIDERS: Emergency Provider Emergency Medicine; PCP Internal Medicine; Visit Provider Internal Medicine | DX: I48.92 Unspecified atrial flutter (principal); I45.9 Conduction disorder, unspecified | CPT/HCPCS: 93010 ==

== ENCOUNTER → 2025-02-10 21:23 | Outpatient (BNV) | payer MEDICARE, SELFPAY | PROVIDERS: Emergency Provider Emergency Medicine; PCP Internal Medicine; Visit Provider Social Worker | DX: F29 Unspecified psychosis not due to a substance or known physiological condition (principal) | CPT/HCPCS: 99285 ==

== ENCOUNTER 2025-02-21 16:04 | Inpatient (IN) | payer MEDICARE, SELFPAY ==
--- OUTSIDE RECORDS SUMMARY | 2025-02-20 06:32 | XMS_ITS ---
Author Organization [facility] Address [address] [place] [address] [phone] Care Team Providers Care City Tax Auditor Name Role Phone WAQAR NAYLOR Primary Care Provider [phone] REASON FOR VISIT (2) drug interaction/Trazodone increase Encounters Encounter Location Date Provider Diagnosis [address] [address] 02/20/2025 WAQAR NAYLOR PLAN OF TREATMENT Next Appt Details Provider Name:WAQAR NAYLOR , 04/24/2025 03:30:00 PM, [address] [place], [address],
--- NOTE | ~2025-02-21 | CT_ITS ---
CLINICAL HISTORY: Fall, on AC CT right lower extremity with intravenous contrast Comparison: None provided Findings: Images were obtained from the knee through the ankle. Right total knee arthroplasty. No acute fracture or dislocation. Subcutaneous hematoma along the lateral leg measuring 14.6 x 4.1 x 7.9 cm (CC x trans x AP). Vascular calcifications. Patent arteries. Varicose veins in the medial leg. IMPRESSION: 1. Large lateral leg subcutaneous hematoma, measuring 14.6 x 4.1 x 7.9 cm. 2. No acute osseous injury. This document has been electronically signed by: Syed Deras MD on 02/21/2025 19:55:44
[2025-02-21 16:05] VITALS: BP 138/120; PULSE 92; RESP 20; TEMP 37; O2SAT 97; BMI 38.6
--- NOTE | 2025-02-21 16:11 | ED_ITS ---
HPI - Fall General Chief Complaint: Fall Stated Complaint: fell lastnight right calf swollen Time Seen by Provider: 02/21/25 16:23 Source: family Mode of arrival: ambulatory Limitations: no limitations History of Present Illness ED Provider: HPI Narrative: patient' 84 years old with history of atrial fibrillation on Eliquis with a history of Lewy body dementia with psychosis lives alone was seen here on 02/12 after the fall and hallucination today again witnessed by her daughter she was having visual hallucinations the from the wall lost balance when she turned and fell on a pillow daughter was behind her no head injury comes here with a significant hematoma of the right leg no loss of consciousness no neck pain fall was witnessed by her daughter. Patient when came last time had only auditory hallucination now she is visual hallucinations also Related Data Home Medications ?Medication ?Instructions ?Recorded ?Confirmed apixaban 5 mg tablet (Eliquis) 1 tab PO BID 10/17/20 0 02/21/25 atorvastatin 40 mg tablet 1 tab PO DAILY 10/17/2012/13 cholecalciferol (vitamin D3) 50 50 mcg PO DAILY 02/11/25 mcg (2,000 unit) tablet (Vitamin D3) levothyroxine 100 mcg tablet 1 tab PO QAM 10/17/2012/13 metoprolol succinate 100 mg 1 tab PO DAILY 10/17/20 tablet,extended release 24 hr quetiapine 25 mg tablet (Seroquel) 25 mg PO BEDTIME 02/21/25 acetaminophen 325 mg tablet 650 mg PO Q6H PRN Pain 02/11/25 bupropion HCl 100 mg tablet 100 mg PO DAILY 02/11/25 0 02/11/25 escitalopram oxalate 20 mg tablet 20 mg PO DAILY 02/1102/21/25 oxycodone 10 mg tablet 10 mg PO TID PRN chronic jami n 02/11/25 02/21/25 spironolactone 25 mg tablet 25 mg PO DAILY 02/11/25 trazodone 50 mg tablet 50 mg PO BEDTIME PRN Sleep 0 02/11/25 02/21/25 vit C 250 mg-vit E 90 mg-zinc 40 1 tab PO BID 02/11/25 02/21/25 mg-copper 1 [id number] capsule (PreserVision AREDS-2) Allergies Allergy/AdvReac Type Severity Reaction Status Date / Time No Known Allergies (No Known Allergy Verified 02/21/25 16:11 Allergies*) Review of Systems 2 Review of Systems: Yes Unobtainable due to mental status [facility] Past Medical History Medical History (Updated 02/22/25 @ 00:18 by Jay Bullock MD) Lewy body dementia with psychotic disturbance Gallstones Difficulty sleeping Thyroid activity decreased Afib Social History Social History Alcohol intake: never Smoked in Last 30 Days: No Use of substances other than those prescribed or required for medical reasons: No Advance Directives: No Advance Directives Information Provided: Yes Physical Exam 2 Vital Signs: Vital Signs: Last Vital Signs Temp 98.3 F 02/22/25 00:04 Pulse 82 02/22/25 00:04 Resp 16 02/22/25 00:04 BP 111/64 02/22/25 00:04 Pulse Ox 96 02/22/25 00:04 O2 Del Method Room Air 02/22/25 00:04 BMI result Body Mass Index 38.6 Appearance: Alert. Oriented X2-3. No acute distress. Eyes: PERRLA, No Nystagmus no pallor or icterus ENT: Pharynx normal. Oral Mucosa moist Neck: Normal inspection. Neck supple. CVS irregularly irregular heart rate no murmur Pulses normal. Respiratory: No respiratory distress. Equal air entry bilateral, no wheezing/rales/rhonchi Abdomen: Soft and nontender. Bowel sounds are present, no mass palpable, no CVA tenderness Skin: Skin warm and dry. Normal skin color. Normal skin turgor. Extremities: right leg with significant size hematoma, dorsalis pedis normal sensations normal no signs of compartment syndrome at this time Neuro: Oriented X 2-3. No motor deficit. No sensory deficit.No cerebellar signs , cranial nerves II-XII intact Course Course Course Narrative: This is an RME: Additional HPI, ROS, PE not included below will be deferred to primary provider. 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 This fall was witnessed by family member. Patient had a fall onto her hardwood floor. Patient with right lower leg large hematoma no head strike. No urinary changes. Plan: Labs, CT head, neck, and CT leg Medications Administered Generic Name Dose Route Start Last Admin Trade Name Freq PRN Reason Stop Dose Admin Oxycodone HCl 10 mg 02/21/25 23:02 02/21/25 23:20 Oxycodone Hcl Immed Release 5 Mg Tablet PO 10 mg TID PRN Administration Pain, Severe (Pain Scale 7-10) Quetiapine Fumarate 25 mg 02/21/25 22:30 02/21/25 23:19 Quetiapine Fumarate 25 Mg Tablet PO 25 mg BEDTIME ALLYN Administration Trazodone HCl 50 mg 02/21/25 22:21 02/21/25 23:19 Trazodone Hcl 50 Mg Tablet PO 50 mg BEDTIME PRN Administration Sleep Discontinued Medications Generic Name Dose Route Start Last Admin Trade Name Freq PRN Reason Stop Dose Admin Iohexol 85 ml 02/21/25 18:48 02/21/25 18:50 Iohexol 350 Mg/Ml 100 Ml Infus..Btl IV 02/21/25 18:49 85 ml ONCE ONE Administration Medical Decision Making Medical Decision Making [facility] Narrative: Patient is status post mechanical fall with right leg hematoma no signs of compartment syndrome at this time , needle aspiration was tried on small amount of blood drained will admit patient for surgical evaluation Differential Diagnosis Differential Diagnoses: The differential diagnosis associated with the presentation includes Hematoma/compartment syndrome/contusion Admission/Observation Consideration of admission/observation: Escalation of care including admission/observation considered Consult Healthcare Provider Management of the patient was discussed with: Hospitalist Lab Data [facility] Lab Attestation statement: I reviewed the patient's lab results. 02/21/25 21:22 02/21/25 17:38 Labs: Lab Results 02/21/25 Range/Units 17:38 WBC 9.3 (4.8-10.8) X10*3/uL RBC 3.77 L D (4.20-5.50) X10*6/uL Hgb 12.0 D (12.0-16.0) g/dl Hct 35.2 L D (37.0-47.0) % MCV 93.4 (80.0-98.0) fL MCH 31.8 (27.0-33.0) pg MCHC 34.1 (31.0-35.0) g/dl RDW 14.4 (11.0-16.0) % Plt Count 166 (160-400) X10*3/uL MPV 10.6 (9.4-12.3) fL Immature Gran % (Auto) 0.4 (0.0-0.4) % Neut % (Auto) 75.0 H (45-73) % Lymph % (Auto) 13.5 L (20-40) % Craig % (Auto) 8.2 (2-11) % Eos % (Auto) 2.4 (0-4) % Baso % (Auto) 0.5 (0-2) % Lymph # (Auto) 1.3 (1.2-4.9) X10*3/uL Craig # (Auto) 0.8 (0.1-1.2) X10*3/uL Eos # (Auto) 0.2 (0.0-0.4) X10*3/uL Baso # (Auto) 0.1 (0.0-0.2) X10*3/uL Abs Immat Gran (auto) 0.04 H (0.00-0.03) X10*3/uL Absolute Neuts (auto) 6.9 (2.0-8.3) x10*3/uL Absolute Nucleated RBC 0.000 (0.0-0.012) X10*3/uL Nucleated RBC % (auto) 0.0 (0.0-0.2) /100WBC PT 16.8 H (10.9-12.4) SEC INR 1.5 H (0.9-1.1) APTT 34.3 (26.0-36.8) SEC Sodium 141 (135-145) mmol/L Potassium 4.5 (3.3-5.1) mmol/L Chloride 111 H (96-108) mmol/L Carbon Dioxide 22 (22-29) mmol/L Anion Gap 13 (12-20) BUN 25 H (9-16) mg/dL Creatinine 1.16 (0.5-1.4) mg/dL Estim Creat Clear Calc 42.7 Estimated GFR 44 Random Glucose 150 H (60-115) mg/dL Calcium 8.3 L D (8.4-10.2) mg/dL Magnesium 1.9 (1.6-2.6) mg/dL Total Bilirubin 1.3 H (0.0-1.0) mg/dL Direct Bilirubin 0.5 (0.0-0.5) mg/dL AST 30 (5-31) U/L ALT 31 (0-31) U/L Alkaline Phosphatase 83 (39-117) U/L Total Creatine Kinase 46 (26-140) U/L Troponin I High Sens 17.5 H (<3.5-17.0) ng/L Total Protein 5.6 L (6.5-8.0) g/dL Albumin 3.2 L (3.5-5.0) g/dL Independent Interpretation I performed an independent interpretation of an: CT Scan Radiology Impression Discussion of test interpretation with radiology: I have reviewed the radiologist's reading. Radiologist Impression: Findings: Images were obtained from the knee through the ankle. Right total knee arthroplasty. No acute fracture or dislocation. Subcutaneous hematoma along the lateral leg measuring 14.6 x 4.1 x 7.9 cm (CC x trans x AP). Vascular calcifications. Patent arteries. Varicose veins in the medial leg. IMPRESSION: 1. Large lateral leg subcutaneous hematoma, measuring 14.6 x 4.1 x 7.9 cm. 2. No acute osseous injury. This document has been electronically signed by: Syed Deras MD on 02/21/2025 19:55:44 Discharge Plan Discharge Clinical Impression: Hematoma, Lewy body dementia with psychotic disturbance, Atrial fibrillation Patient Disposition: Admitted As Inpatient
--- NOTE | 2025-02-21 16:12 | ECG_ITS ---
Test Reason : FALL Blood Pressure : */* mmHG Vent. Rate : 82 BPM Atrial Rate : * BPM P-R Int : * ms QRS Dur : 92 ms QT Int : 416 ms P-R-T Axes : * -27 -17 degrees QTcB Int : 486 ms Atrial flutter Abnormal ECG When compared with ECG of 10-Feb-2025 17:15, QT has lengthened Referred By: Wendy Montana Electronically Signed By: PRANAV ELDER MD
[2025-02-21 16:40] VITALS: BP 146/102; PULSE 81; RESP 18; O2SAT 97
--- OUTSIDE RECORDS SUMMARY | 2025-02-21 16:42 | XMS_ITS | Patient Health Record ---
Author Organization [facility] Address [address] [place] [address] [address] [place] [address] Care Team Providers Care Matcher Offbearer Name Role Phone WAQAR NAYLOR Primary Care Provider SIDNEY Wallace Unavailable [phone] Allergies No Known Allergies Results Component Value Reference Range Notes SURGICAL PATHOLOGY Reviewed date:05/10/2024 01:14:23 PM Interpretation: Performing Lab:Testing performed or reported by [facility], a Service of [facility], [address] [place] [address] Dimas Araujo MD, [employer] CLIA# [id number] Notes/Report: Patient Name: BEULAH VASQUEZ Lab Patient : [id number] (Age: 83) Collection Date: 05/03/2024 Accession Date: 05/06/2024 Sign Out Date: 05/10/2024 Tissue Source: 1:EMB Final Diagnosis: Endometrium, biopsy: - Disordered proliferative endometrium with stromal and glandular breakdown and focal stromal changes suggestive of polyp. Primary Pathologist:Tacos Padilla M.D. electronically signed out by: Tacos Padilla M.D. / PRACHI Clinical History: Postmenopausal bleeding Gross Description: Labeled endometrial biopsy . Received in formalin is a 2.5 x 2.2 x 0.2 cm aggregate of red tissue with translucent mucus. The specimen is entirely submitted. 1-multiple pieces, x 2. (EG)* As of October 28, 2023, the specimen processing and staining is performed at [facility], [address] [place] [address] (CLIA#[id number]). Its performance characteristics determined by [facility]. Harleen Arnold M.D. [employer] of Surgical Pathology, Addison Rangel M.D. [employer] Cytopathology Phone #: [phone], On-Call Pathologist: [id number] Reason For Referral No Information Medications Medication SIG (Take, Route, Frequency, Duration) Notes Start Date End Date Status Metoprolol Succinate ER 100 MG Oral; Duration: 90 Days Acti ve miSOPROStol 200 MCG as directed Orally 8 -12 hrs prior to appointment; Duration: 1 days 03/18/2019 Active Atorvastatin Calcium 40 MG Oral; Duration: 90 Days Active Spironolactone 25 MG Oral; Duration: 90 Days Active Levothyroxine Sodium 100 MCG Oral; Duration: 90 Days Active DULoxetine HCl Activ e Eliquis 5 MG Oral; Duration: 60 Days Active Social History Tobacco Use: Social History Observation Description Date Details (start date - stop date) Never Smoker NA - NA Tobacco Use/Smoking Question Answer Notes Are you a nonsmoker Alcohol Screen (Audit-C) Question Answer Notes Did you have a drink containing alcohol in the p ast year? No Points 0 Interpretation Negative Problems Problem Type SNOMED Code ICD Code Onset Dates Problem Status W/U Status Risk Notes Problem Postmenopausal bleeding (95761127) Postmenopausal bleeding (N95.0) Active confirmed Vital Signs Temperature 96.8 degrees Fahrenheit 04/12/2024 Blood pressure diastolic 80 mm Hg 04/12/2024 Height 62 in 05/03/2024 Blood pressure systolic 118 mm Hg 04/12/2024 Encounters Encounter Location Date Provider Diagnosis [facility] [employer] [address] [place] [phone] 04/12/2024 SIDNEY MOLINA Postmenopausal bleed ing N95.0 [facility] [facility] [employer] [address] [place] [phone] 05/03/2024 SIDNEY MOLINA Postmenopausal bleed ing N95.0 [facility] [employer] [facility] [employer] [address] [place] [phone] 05/10/2024 SIDNEY MOLINA Assessments Encounter Date Diagnosis (ICD Code) Assessment Notes Treatment Notes Treatment Clinical Notes Section Notes 04/12/2024 Postmenopausal bleeding (ICD-10 - N95.0) 05/03/2024 Postmenopausal bleeding (ICD-10 - N95.0) Plan Of Treatment Pending Test Test Name Order Date Sonohysterogram 04/12/2024 Insurance Providers Payer Name Payer Address Payer Phone Subscriber Number Group Number Insured Name Patient Relationship to Insured Coverage Start Date Coverage End Date MEDICARE [address] SHAI LIGHT [id number] BEULAH MOYER Self - patient is the insured 5 [employer] [address] [place] [address] [phone] [id number] BEULAH MOYER Self - patient is the insured Medical (General) History Medical History History ICD Code Thyroiditis 245 Hypertension 401.9 Calculus of gallbladder without cholecys titis without obstruction K80.20 Unspecified osteoarthritis, unspecified site M19.90 Surgical History Surgery Date(Month/Year) Knee surgery Spine 2015/2016 Hernia Hospitalization History Reason Date(Month/Year) Childbirth
[2025-02-21 16:50] VITALS: BP 146/102; BP 95/59
[2025-02-21 17:41] LABS: MANUAL DIFF FLAG NO
[2025-02-21 17:45] LABS: Hematocrit 35.2 % (37.0-47.0); Hemoglobin 12.0 g/dl (12.0-16.0); Imm Gran Abs Auto 0.04 X10*3/uL (0.00-0.03); Imm Gran Pct Auto 0.4 % (0.0-0.4); Lymphocytes Absolute Auto 1.3 X10*3/uL (1.2-4.9); Mean Corpuscular HGB Conc 34.1 g/dl (31.0-35.0); Mean Corpuscular Hemoglobin 31.8 pg (27.0-33.0); Mean Corpuscular Volume 93.4 fL (80.0-98.0); NRBC Abs Auto 0.000 X10*3/uL (0.0-0.012); NRBC Pct Auto 0.0 /100WBC (0.0-0.2); Platelet Count 166 X10*3/uL (160-400); Red Blood Count 3.77 X10*6/uL (4.20-5.50); White Blood Count 9.3 X10*3/uL (4.8-10.8)
[2025-02-21 17:50] LABS: INTERNATIONAL NORM RATIO 1.5 (0.9-1.1); Prothrombin Time 16.8 SEC (10.9-12.4)
[2025-02-21 17:53] LABS: Partial Thromboplastin Time 34.3 SEC (26.0-36.8)
[2025-02-21 17:56] LABS: Alanine Aminotransferase 31 U/L (0-31); Albumin Level 3.2 g/dL (3.5-5.0); Alkaline Phosphatase 83 U/L (39-117); Anion Gap 13 (12-20); Aspartate Amino Transferase 30 U/L (5-31); Blood Urea Nitrogen 25 mg/dL (9-16); Calcium 8.3 mg/dL (8.4-10.2); Carbon Dioxide 22 mmol/L (22-29); Chloride 111 mmol/L (96-108); Creatinine Clr Calc Pharmacy 42.7; Estimated Glomerular Filt Rate 44; Magnesium 1.9 mg/dL (1.6-2.6); Potassium 4.5 mmol/L (3.3-5.1); Sodium 141 mmol/L (135-145); Total Protein 5.6 g/dL (6.5-8.0)
[2025-02-21 18:00] VITALS: BP 84/44; PULSE 86; RESP 18; O2SAT 96
--- NOTE | 2025-02-21 18:00 | PC.NURSE ---
Pt BP noted to be low- 80s/40s. Last BP 101/32 Left Forearm. Asymptomatic- denies dizziness/lightheadedness, MD Brambila aware- no new orders at this time.
[2025-02-21 18:01] VITALS: BP 101/32; PULSE 80; RESP 18; O2SAT 95
[2025-02-21 18:03] LABS: Troponin-I High Sensitivity 17.5 ng/L (<3.5-17.0)
[2025-02-21] MEDS: iohexoL 350 MG/ML 100 ML INFUS..BTL 85 ML IV (18:50)
--- NOTE | 2025-02-21 20:42 | PM.IMHP ---
History of Present Illness Date of Service: 02/21/25 Attending physician on admission: Anderson Coyne Chief Complaint: fall, hematoma Patient is an 84-year-old female with a past medical history significant for chronic AFib on Eliquis, Lewy body dementia with psychosis, hypothyroidism, mood disorder and class 3 obesity, who presented to the ED due to a fall earlier this morning around 12:30AM with a large hematoma on the right lower leg. The patient has been having auditory and visual hallucinations and reports that this was the reasoning for her fall. She fell backwards onto a pillow and did not have any head strike or loss of consciousness, this fall was witnessed by her daughter. She was recently seen in the emergency department for auditory and visual hallucinations, psych eval with recommendations for memory clinic. The patient reports that she has seen her PCP for this and they are referring her to [facility] neurology as the memory Clinic has a 1 year wait list. She denies any urinary symptoms, headache, fever, chills, shortness of breath or chest pain. Review of Systems Constitutional: Constitutional: Denies body ache(s), Denies chills, Denies fatigue and Denies headache(s) Eyes: Eyes: Denies change in vision ENT: Denies headache(s) Cardiovascular: Cardiovascular: Denies chest pain, Denies rapid heart rate, Denies lightheadedness and Denies dyspnea Respiratory: Respiratory: Denies cough, Denies dyspnea and Denies wheezing Gastrointestinal: Gastrointestinal: Denies abdominal pain, Denies nausea and Denies vomiting Genitourinary: Genitourinary: Denies difficulty voiding, Denies dysuria and Denies urinary urgency Musculoskeletal: Musculoskeletal: Reports as per HPI Integumentary/Breasts: Skin/Breast: Reports as per HPI Neurologic: Denies headache(s) Comments: Auditory and visual hallucination Endocrine: Endocrine: Denies fatigue Hematologic/Lymphatic: Hematologic/Lymphatic: Reports easy bruising Allergic/Immunologic: Allergic/Immunologic: Denies wheezing PMFSH Medical History (Updated 02/21/25 @ 22:34 by Michelle Cain PA-C) Lewy body dementia with psychotic disturbance Gallstones Difficulty sleeping Thyroid activity decreased Afib Social History Alcohol intake: never Smoked in Last 30 Days: No Use of substances other than those prescribed or required for medical reasons: No Advance Directives: No Advance Directives Information Provided: Yes Narrative: no smoking, etoh or drug use Meds Allergies Allergy/AdvReac Type Severity Reaction Status Date / Time No Known Allergies (No Known Allergy Verified 02/21/25 16:11 Allergies*) Active Medications: Current Medications Acetaminophen (Acetaminophen 325 Mg Tablet) 975 mg PO Q6H PRN PRN Reason: Pain, Mild 1-3,fever,headache Calcium Carbonate (Calcium Carbonate 750 Mg Tab.Chew) 750 mg PO Q4H PRN PRN Reason: Heartburn Magnesium Hydroxide (Milk Of Magnesia 30 Ml Oral.Susp) 30 ml PO DAILY PRN PRN Reason: Constipation Melatonin (Melatonin 3 Mg Tablet) 6 mg PO BEDTIME PRN PRN Reason: Insomnia Oxycodone HCl (Oxycodone Hcl Immed Release 5 Mg Tablet) 5 mg PO Q6H PRN PRN Reason: Pain, Severe (Pain Scale 7-10) Sodium Chloride (0.9 % Sodium Chloride Flush 3 Ml Syringe) 3 ml IVFLUSH [facility] Medications ?Medication ?Instructions ?Recorded ?Confirmed ?Last Taken ?Type apixaban 5 mg tablet (Eliquis) 1 tab PO BID 10/17/20 02/21/25 02/21/25 History atorvastatin 40 mg tablet 1 tab PO DAILY 10/17/20 02/21/25 02/20/25 History cholecalciferol (vitamin D3) 50 50 mcg PO DAILY 10/17/20 02/11/25 02/10/25 History mcg (2,000 unit) tablet (Vitamin D3) levothyroxine 100 mcg tablet 1 tab PO QAM 10/17/20 02/21/25 02/21/25 History metoprolol succinate 100 mg 1 tab PO DAILY 10/17/20 02/21/25 02/21/25 History tablet,extended release 24 hr quetiapine 25 mg tablet (Seroquel) 25 mg PO BEDTIME 10/17/20 02/21/25 02/20/25 History acetaminophen 325 mg tablet 650 mg PO Q6H PRN Pain 02/11/25 02/11/25 Unknown History bupropion HCl 100 mg tablet 100 mg PO DAILY 02/11/25 02/11/25 Unknown History escitalopram oxalate 20 mg tablet 20 mg PO DAILY 02/11/25 02/21/25 02/21/25 History oxycodone 10 mg tablet 10 mg PO TID PRN chronic pain 02/11/25 02/21/25 02/21/25 History spironolactone 25 mg tablet 25 mg PO DAILY 02/11/25 02/21/25 02/21/25 History trazodone 50 mg tablet 50 mg PO BEDTIME PRN Sleep 02/11/25 02/21/25 Unknown History vit C 250 mg-vit E 90 mg-zinc 40 1 tab PO BID 02/11/25 02/21/25 02/10/25 History mg-copper 1 [id number] capsule (PreserVision AREDS-2) Physical Exam Vital Signs and Narrative: Vital Signs: Last Vital Signs Temp 98.6 F 02/21/25 16:05 Pulse 80 02/21/25 18:01 Resp 18 02/21/25 18:01 BP 101/32 L 02/21/25 18:01 Pulse Ox 95 02/21/25 18:01 O2 Del Method Room Air 02/21/25 18:01 BMI result Body Mass Index 38.6 General: AOx3, no acute distress, forgetful but oriented. seen with family members bedside. Resp: CTA bilaterally CVS: Irregularly irregular, normal rate GI: +BS, NT, no distention Skin: Warm, dry Neuro: Cranial nerves II-XII grossly intact bilaterally. Motor grossly intact bilaterally Extremities: edema RLE, taj bandage on RLE, pt refused to let me remove it but showed photos of elongated large hematoma RLE with large blister on it that she reports has popped. soft compartments. no parasthesias or tingling. unable to palpate pedal pulse due to edema, contacted nurse for dopplar. Psych: Appropriate affect Results Labs 02/21/25 21:22 02/21/25 17:38 Labs: Laboratory Results - last 24 hr 02/21/25 17:38 MCV 93.4 MCH 31.8 MCHC 34.1 RDW 14.4 Plt Count 166 MPV 10.6 Immature Gran % (Auto) 0.4 Neut % (Auto) 75.0 H Lymph % (Auto) 13.5 L [place] % (Auto) 8.2 Eos % (Auto) 2.4 Baso % (Auto) 0.5 Lymph # (Auto) 1.3 [place] # (Auto) 0.8 Eos # (Auto) 0.2 Baso # (Auto) 0.1 Abs Immat Gran (auto) 0.04 H Absolute Neuts (auto) 6.9 Absolute Nucleated RBC 0.000 Nucleated RBC % (auto) 0.0 PT 16.8 H INR 1.5 H APTT 34.3 Anion Gap 13 Estim Creat Clear Calc 42.7 Estimated GFR 44 Random Glucose 150 H Calcium 8.3 L D Magnesium 1.9 Total Bilirubin 1.3 H Direct Bilirubin 0.5 AST 30 ALT 31 Alkaline Phosphatase 83 Total Creatine Kinase 46 Troponin I High Sens 17.5 H Total Protein 5.6 L Albumin 3.2 L Assessment and Plan (1) Hematoma: Status: Acute (2) Psychosis: Status: Acute (3) Lewy body dementia with psychotic disturbance: Status: Acute (4) Class 3 obesity: Status: Acute Plan Patient is an 84-year-old female with a past medical history significant for chronic AFib on Eliquis, Lewy body dementia with psychosis, hypothyroidism, mood disorder and class 3 obesity, who presented to the ED due to a fall earlier this morning around 12:30AM with a large hematoma on the right lower leg. fall secondary to hallucinations resulting in large RLE hematoma - no LOC or headstrike, witnessed fall - H+H stable - UA ordered - CT RLE with large lateral leg subcutaneous hematoma measuring 14.6 x 4.1 x 7.9 cm - ED provider unable to aspirate any significant blood - no concern for compartment syndrome currently, compartments soft, no paresthesias or tingling - monitor serial H&H q.6h - neuro checks q.4h - pulse checks q.4h - surgical consult - hold Eliquis, no anticoagulation or compression - neurology consult for hallucinations secondary to Lewy body dementia - NPO after midnight elevated troponin, chronic - flat, at baseline - EKG non-ischemic chronic a fib - hold eliquis - continue metoprolol - EKG with a fib, rate controlled hypothyroid - check TSH - continue levothyroxine mood disoder - continue home meds class 3 obesity - BMI 38.6 - weight loss encouraged full code, discussed with patient and family, they have not had this discussion yet, we will remain full code for now VTE prophylaxis: None, contraindicated Patient with large lateral right lower extremity subcutaneous hematoma, requiring admission for monitoring for at least 2 midnights stay due to concern for development of compartment syndrome. Quality Stroke Does the patient have a stroke diagnosis?: No VTE Prior VTE?: No VTE Risk Level:: Medical - moderate - high VTE Device Contraindication: Procedure Contraindicated VTE Drug Contraindication: Treatment Not Indicated
[2025-02-21 21:27] LABS: Hematocrit 35.8 % (37.0-47.0); Hemoglobin 12.1 g/dl (12.0-16.0)
[2025-02-21 21:46] LABS: Troponin-I High Sensitivity 21.2 ng/L (<3.5-17.0)
[2025-02-21 21:59] VITALS: BP 114/71; PULSE 83; RESP 12; TEMP 36.6; O2SAT 96
[2025-02-21 22:00] LABS: Thyroid Stimulating Hormone 4.06 uIU/mL (0.32-4.0)
[2025-02-21] MEDS: oxyCODONE HCl Immed Release 5 MG TABLET 10 MG PO (23:20)
[2025-02-21 23:21] LABS: Appearance Urine Clear; Glucose Urine UA Negative (Negative); PH 5.0 (5.0-9.0); Specific Gravity - Urine >= 1.030 (1.005-1.025); UMIC TRIGGER UACC YES
[2025-02-21 23:25] LABS: UACC Culture Trigger YES
--- NOTE | 2025-02-21 23:53 | PC.NURSE ---
ambulated with light assist to bathroom. continent void of urine. sent to lab. pt CHAVARRIA but maintained 94% or higher SpO2. WOB recovered quickly after sitting in bed. call cerda in reach
[2025-02-22] VITALS (9 sets, daily range): BP systolic 94–151; BP diastolic 58–74; PULSE 76–88; RESP 16–18; TEMP 36–36.8; O2SAT 95–98; BMI 38.6
[2025-02-22 02:49] LABS: Hematocrit 36.1 % (37.0-47.0); Hemoglobin 12.0 g/dl (12.0-16.0)
[2025-02-22 04:21] LABS: Anion Gap 17 (12-20); Blood Urea Nitrogen 20 mg/dL (9-16); Calcium 8.7 mg/dL (8.4-10.2); Carbon Dioxide 18 mmol/L (22-29); Chloride 108 mmol/L (96-108); Creatinine Clr Calc Pharmacy 47.6; Estimated Glomerular Filt Rate 50; Potassium 5.1 mmol/L (3.3-5.1); Sodium 138 mmol/L (135-145)
[2025-02-22] MEDS: oxyCODONE HCl Immed Release 5 MG TABLET 10 MG PO (05:12)
[2025-02-22] MEDS: Metoprolol Succinate ER 100 MG TAB.ER.24H PO (07:49)
[2025-02-22] MEDS: 0.9 % Sodium Chloride Flush 3 ML SYRINGE IVFLUSH ×3 (07:52→20:33)
[2025-02-22 08:13] LABS: Hemoglobin A1C 121.7343 umol/L; Total Hemoglobin (HGBA1C) 3229.7756 umol/L
[2025-02-22 08:13] LABS: Hematocrit 39.6 % (37.0-47.0); Hemoglobin 13.3 g/dl (12.0-16.0)
--- NOTE | 2025-02-22 08:25 | P.PNIM_ITS ---
Subjective Subjective Date of Service: 02/22/25 Interval History: No new complaints Physical Exam 2 Vital Signs: Vital Signs: Last Vital Signs Temp 97.8 F 02/22/25 05:29 Pulse 88 02/22/25 05:29 Resp 16 02/22/25 05:29 BP 121/74 02/22/25 07:53 Pulse Ox 95 02/22/25 05:29 O2 Del Method Room Air 02/22/25 05:29 BMI result Body Mass Index 38.6 General: AO X 3, no acute distress Resp: CTA bilateral, no accessory muscles used CVS: S1,S2,RRR GI: soft, non tender, non distended Neuro: motor grossly intact, alert Psych: appropriate affect, appropriate insight large RLE hematoma Objective Data Active Medications Acetaminophen (Acetaminophen 325 Mg Tablet) 975 mg PO Q6H PRN PRN Reason: Pain, Mild 1-3,fever,headache Last Admin: 02/22/25 05:12 Dose: 975 mg Documented By: JEZ Atorvastatin Calcium (Atorvastatin Calcium 40 Mg Tablet) 40 mg PO DAILY [facility] Last Admin: 02/22/25 07:50 Dose: 40 mg Documented By: JOSE Calcium Carbonate (Calcium Carbonate 750 Mg Tab.Chew) 750 mg PO Q4H PRN PRN Reason: Heartburn Escitalopram Oxalate (Escitalopram Oxalate 20 Mg Tablet) 20 mg PO DAILY [facility] Last Admin: 02/22/25 07:50 Dose: 20 mg Documented By: JOSE Levothyroxine Sodium (Levothyroxine Sodium 100 Mcg Tablet) 100 mcg PO DAILY@0600 [facility] Last Admin: 02/22/25 05:13 Dose: 100 mcg Documented By: JEZ Magnesium Hydroxide (Milk Of Magnesia 30 Ml Oral.Susp) 30 ml PO DAILY PRN PRN Reason: Constipation Melatonin (Melatonin 3 Mg Tablet) 6 mg PO BEDTIME PRN PRN Reason: Insomnia Metoprolol Succinate (Metoprolol Succinate Er 100 Mg Tab.Er.24h) 100 mg PO DAILY [facility]; Protocol Last Admin: 02/22/25 07:49 Dose: 100 mg Documented By: JOSE Multivitamins/Vitamin C (Multivitamin Tablet) 1 tab PO DAILY [facility] Last Admin: 02/22/25 07:50 Dose: 1 tab Documented By: JOSE Oxycodone HCl (Oxycodone Hcl Immed Release 5 Mg Tablet) 10 mg PO TID PRN PRN Reason: Pain, Severe (Pain Scale 7-10) Last Admin: 02/22/25 05:12 Dose: 10 mg Documented By: JEZ Quetiapine Fumarate (Quetiapine Fumarate 25 Mg Tablet) 25 mg PO BEDTIME [facility] Last Admin: 02/21/25 23:19 Dose: 25 mg Documented By: JEZ Sodium Chloride (0.9 % Sodium Chloride Flush 3 Ml Syringe) 3 ml IVFLUSH QSHIFT [facility] Last Admin: 02/22/25 07:52 Dose: 3 ml Documented By: JOSE Spironolactone (Spironolactone 25 Mg Tablet) 25 mg PO DAILY [facility]; Protocol Last Admin: 02/22/25 07:50 Dose: 25 mg Documented By: JOSE Trazodone HCl (Trazodone Hcl 50 Mg Tablet) 50 mg PO BEDTIME PRN PRN Reason: Sleep Last Admin: 02/21/25 23:19 Dose: 50 mg Documented By: JEZ Labs 02/22/25 08:07 02/22/25 03:52 Labs: Laboratory Results - last 24 hr 02/21/25 02/21/25 02/21/25 17:38 21:22 23:15 MCV 93.4 MCH 31.8 MCHC 34.1 RDW 14.4 Plt Count 166 MPV 10.6 Immature Gran % (Auto) 0.4 Neut % (Auto) 75.0 H Lymph % (Auto) 13.5 L [place] % (Auto) 8.2 Eos % (Auto) 2.4 Baso % (Auto) 0.5 Lymph # (Auto) 1.3 [place] # (Auto) 0.8 Eos # (Auto) 0.2 Baso # (Auto) 0.1 Abs Immat Gran (auto) 0.04 H Absolute Neuts (auto) 6.9 Absolute Nucleated RBC 0.000 Nucleated RBC % (auto) 0.0 PT 16.8 H INR 1.5 H APTT 34.3 Anion Gap 13 Estim Creat Clear Calc 42.7 Estimated GFR 44 Random Glucose 150 H Estimat Average Glucose 114 Hemoglobin A1c % 5.6 Calcium 8.3 L D Magnesium 1.9 Total Bilirubin 1.3 H Direct Bilirubin 0.5 AST 30 ALT 31 Alkaline Phosphatase 83 Total Creatine Kinase 46 Troponin I High Sens 17.5 H 21.2 H Total Protein 5.6 L Albumin 3.2 L TSH 4.06 H Urine Color Yellow Urine Appearance Clear Urine pH 5.0 Ur Specific [place] >= 1.030 H Urine Protein Negative Urine Glucose (UA) Negative Urine Ketones Trace Urine Blood Negative Urine Nitrite Negative Ur Leukocyte Esterase Small (1+) H Urine RBC 0-2 Urine WBC 11-20 H Ur Squamous Epith Cells 3-5 Urine Bacteria None Seen Hyaline Casts 0-2 02/22/25 03:52 MCV MCH MCHC RDW Plt Count MPV Immature Gran % (Auto) Neut % (Auto) Lymph % (Auto) [place] % (Auto) Eos % (Auto) Baso % (Auto) Lymph # (Auto) [place] # (Auto) Eos # (Auto) Baso # (Auto) Abs Immat Gran (auto) Absolute Neuts (auto) Absolute Nucleated RBC Nucleated RBC % (auto) PT INR APTT Anion Gap 17 Estim Creat Clear Calc 47.6 Estimated GFR 50 Random Glucose 107 Estimat Average Glucose Hemoglobin A1c % Calcium 8.7 Magnesium Total Bilirubin Direct Bilirubin AST ALT Alkaline Phosphatase Total Creatine Kinase Troponin I High Sens Total Protein Albumin TSH Urine Color Urine Appearance Urine pH Ur Specific [place] Urine Protein Urine Glucose (UA) Urine Ketones Urine Blood Urine Nitrite Ur Leukocyte Esterase Urine RBC Urine WBC Ur Squamous Epith Cells Urine Bacteria Hyaline Casts Assessment and Plan (1) Atrial fibrillation: Status: Acute Plan 84F PMH chronic AFib on Eliquis, Lewy body dementia, hypothyroid, mood disorder, obesity presented with fall complicated by large right lower extremity hematoma and reports of hallucinations. Fall complicated by large right lower extremity hematoma Hold Eliquis, monitor CBC, surgery eval, compression PT Suspected Lewy body dementia with psychosis Neuro eval Chronic AFib Holding Eliquis, continue Toprol Hypothyroid Levothyroxine Obesity Weight loss Mood disorder Lexapro DVT prophylaxis-mechanical due to hematoma Full Code reason for continued hospitalization: Monitoring hematoma Quality Stroke Does the patient have a stroke diagnosis?: No VTE Prior VTE?: No VTE Risk Level:: Medical - moderate - high VTE Device Contraindication: Procedure Contraindicated VTE Drug Contraindication: Treatment Not Indicated
--- NOTE | 2025-02-22 09:06 | PHA.MEDREC ---
Pharmacy Consult ? Medication Reconciliation Pharmacy has completed the medication reconciliation, spoke to patient's daughter Gissel who said she confirmed all medications with YULIANA Vergara last night and confirmed pt is no longer taking bupropion and furosemide.
--- NOTE | 2025-02-22 09:13 | P.CONGS_ITS ---
History of Present Illness Consult details Consult date: 02/22/25 Requesting physician: Michelle Cain Narrative: 84-year-old female patient with a history of Lewy body dementia, hallucinations, and atrial fibrillation on Eliquis presenting status post a fall on 02/20/2025. She subsequently developed a large area of swelling involving the right calf and presented to the emergency department for further evaluation. She denies any other injuries denied striking her head or losing consciousness. She was able to put weight on the leg but reports pain in the calf. She denies any significant bleeding following the injury. Workup in the emergency department revealed obvious hematoma of the right calf along the lateral surface with blisters in the overlying skin but no open wound and no evidence of skin necrosis. Laboratories revealed a hemoglobin of 12.1. CT of the right leg confirmed a large subcutaneous hematoma. Patient is status post right total knee replacement. She was admitted to the hospitalist service and the Eliquis held. Review of Systems 2 Review of Systems: Yes all other systems are reviewed and are negative PMFSH Past Medical History Medical History (Updated 02/22/25 @ 00:18 by Jay Bullock MD) Lewy body dementia with psychotic disturbance Gallstones Difficulty sleeping Thyroid activity decreased Afib Social History Social History Alcohol intake: never Meds Allergies Allergy/AdvReac Type Severity Reaction Status Date / Time No Known Allergies (No Known Allergy Verified 02/21/25 16:11 Allergies*) Active Medications: Current Medications Acetaminophen (Acetaminophen 325 Mg Tablet) 975 mg PO Q6H PRN PRN Reason: Pain, Mild 1-3,fever,headache Last Admin: 02/22/25 05:12 Dose: 975 mg Atorvastatin Calcium (Atorvastatin Calcium 40 Mg Tablet) 40 mg PO DAILY [facility] Last Admin: 02/22/25 07:50 Dose: 40 mg Calcium Carbonate (Calcium Carbonate 750 Mg Tab.Chew) 750 mg PO Q4H PRN PRN Reason: Heartburn Escitalopram Oxalate (Escitalopram Oxalate 20 Mg Tablet) 20 mg PO DAILY [facility] Last Admin: 02/22/25 07:50 Dose: 20 mg Levothyroxine Sodium (Levothyroxine Sodium 100 Mcg Tablet) 100 mcg PO DAILY@0600 [facility] Last Admin: 02/22/25 05:13 Dose: 100 mcg Magnesium Hydroxide (Milk Of Magnesia 30 Ml Oral.Susp) 30 ml PO DAILY PRN PRN Reason: Constipation Melatonin (Melatonin 3 Mg Tablet) 6 mg PO BEDTIME PRN PRN Reason: Insomnia Metoprolol Succinate (Metoprolol Succinate Er 100 Mg Tab.Er.24h) 100 mg PO DAILY [facility]; Protocol Last Admin: 02/22/25 07:49 Dose: 100 mg Multivitamins/Vitamin C (Multivitamin Tablet) 1 tab PO DAILY [facility] Last Admin: 02/22/25 07:50 Dose: 1 tab Oxycodone HCl (Oxycodone Hcl Immed Release 5 Mg Tablet) 10 mg PO TID PRN PRN Reason: Pain, Severe (Pain Scale 7-10) Last Admin: 02/22/25 05:12 Dose: 10 mg Quetiapine Fumarate (Quetiapine Fumarate 25 Mg Tablet) 25 mg PO BEDTIME [facility] Last Admin: 02/21/25 23:19 Dose: 25 mg Sodium Chloride (0.9 % Sodium Chloride Flush 3 Ml Syringe) [facility] Last Admin: 02/22/25 07:52 Dose: 3 ml Spironolactone (Spironolactone 25 Mg Tablet) 25 mg PO DAILY [facility]; Protocol Last Admin: 02/22/25 07:50 Dose: 25 mg Trazodone HCl (Trazodone Hcl 50 Mg Tablet) 50 mg PO BEDTIME PRN PRN Reason: Sleep Last Admin: 02/21/25 23:19 Dose: 50 mg Home Medications ?Medication ?Instructions ?Recorded ?Confirmed ?Last Taken ?Type apixaban 5 mg tablet (Eliquis) 1 tab PO BID 10/17/20 0 02/21/25 02/21/25 History atorvastatin 40 mg tablet 1 tab PO DAILY 10/17/2012/1302/20/25 History cholecalciferol (vitamin D3) 50 50 mcg PO DAILY 02/22/25 02/10/25 History mcg (2,000 unit) tablet (Vitamin D3) levothyroxine 100 mcg tablet 1 tab PO DAILY@0600 10/1702/22/25 02/21/25 History metoprolol succinate 100 mg 1 tab PO DAILY 10/17/2002/21/25 History tablet,extended release 24 hr quetiapine 25 mg tablet (Seroquel) 25 mg PO BEDTIME 02/21/25 02/20/25 History acetaminophen 325 mg tablet 650 mg PO Q6H PRN Pain 02/22/25 Unknown History escitalopram oxalate 20 mg tablet 20 mg PO DAILY 02/1102/21/25 02/21/25 History oxycodone 10 mg tablet 10 mg PO TID PRN chronic jami n 02/11/25 02/21/25 02/21/25 History spironolactone 25 mg tablet 25 mg PO DAILY 02/11/2502/21/25 History trazodone 50 mg tablet 50 mg PO BEDTIME PRN Sleep 0 02/11/25 02/21/25 Unknown History vit C 250 mg-vit E 90 mg-zinc 40 1 tab PO BID 02/11/25 02/21/25 02/10/25 History mg-copper 1 [id number] capsule (PreserVision AREDS-2) Physical Exam 2 Vital Signs: Vital Signs: Last Vital Signs Temp 98 F 02/22/25 08:58 Pulse 84 02/22/25 08:58 Resp 17 02/22/25 08:58 BP 94/58 L 02/22/25 08:58 Pulse Ox 95 02/22/25 08:58 O2 Del Method Room Air 02/22/25 08:58 BMI result Body Mass Index 38.6 Const: General: no acute distress Nutritional Appearance: well nourished Orientation/consciousness: patient oriented x3 Resp: Effort & Inspection: normal respiratory effort, no audible wheezes, no cough and no respiratory distress GI: Inspection: Yes normal to inspection Palpation (GI): Soft to palpation and nontender Skin: Other: Blistering noted along the lateral surface of the right calf approximately 5-6 cm below the patella. A large hematoma is palpable within the soft tissue. Skin at the foot is warm with brisk capillary refill. There was normal strength at the ankle and toes with no sensory deficit. Calf muscles are soft with no evidence of compartment syndrome at this time. Neuro: General: patient oriented x3 Extrem: Other: As noted in skin above, right calf hematoma without evidence of compartment syndrome. Results Labs 02/22/25 08:07 02/22/25 03:52 Labs: Abnormal lab results 02/21/25 02/21/25 02/21/25 Range/Units 17:38 21:22 23:15 RBC 3.77 L D (4.20-5.50) X10*6/uL Hct 35.2 L D 35.8 L (37.0-47.0) % Neut % (Auto) 75.0 H (45-73) % Lymph % (Auto) 13.5 L (20-40) % Abs Immat Gran (auto) 0.04 H (0.00-0.03) X10*3/uL PT 16.8 H (10.9-12.4) SEC INR 1.5 H (0.9-1.1) Chloride 111 H (96-108) mmol/L Carbon Dioxide (22-29) mmol/L BUN 25 H (9-16) mg/dL Random Glucose 150 H (60-115) mg/dL Calcium 8.3 L D (8.4-10.2) mg/dL Total Bilirubin 1.3 H (0.0-1.0) mg/dL Troponin I High Sens 17.5 H 21.2 H (<3.5-17.0) ng/L Total Protein 5.6 L (6.5-8.0) g/dL Albumin 3.2 L (3.5-5.0) g/dL TSH 4.06 H (0.32-4.0) uIU/mL Ur Specific [place] >= 1.030 H (1.005-1.025) Ur Leukocyte Esterase Small (1+) H (Negative) Urine WBC 11-20 H (0-5) /HPF 02/22/25 02/22/25 Range/Units 02:41 03:52 RBC (4.20-5.50) X10*6/uL Hct 36.1 L (37.0-47.0) % Neut % (Auto) (45-73) % Lymph % (Auto) (20-40) % Abs Immat Gran (auto) (0.00-0.03) X10*3/uL PT (10.9-12.4) SEC INR (0.9-1.1) Chloride (96-108) mmol/L Carbon Dioxide 18 L (22-29) mmol/L BUN 20 H (9-16) mg/dL Random Glucose (60-115) mg/dL Calcium (8.4-10.2) mg/dL Total Bilirubin (0.0-1.0) mg/dL Troponin I High Sens (<3.5-17.0) ng/L Total Protein (6.5-8.0) g/dL Albumin (3.5-5.0) g/dL TSH (0.32-4.0) uIU/mL Ur Specific [place] (1.005-1.025) Ur Leukocyte Esterase (Negative) Urine WBC (0-5) /HPF Short CBC 02/21/25 02/21/25 02/22/25 Range/Units 17:38 21:22 02:41 WBC 9.3 (4.8-10.8) X10*3/uL Hgb 12.0 D 12.1 12.0 (12.0-16.0) g/dl Hct 35.2 L D 35.8 L 36.1 L (37.0-47.0) % Plt Count 166 (160-400) X10*3/uL 02/22/25 Range/Units 08:07 WBC (4.8-10.8) X10*3/uL Hgb 13.3 (12.0-16.0) g/dl Hct 39.6 (37.0-47.0) % Plt Count (160-400) X10*3/uL BMP 02/21/25 02/22/25 17:38 03:52 Sodium 141 138 Potassium 4.5 5.1 Chloride 111 H 108 Carbon Dioxide 22 18 L BUN 25 H 20 H Creatinine 1.16 1.04 Calcium 8.3 L D 8.7 Cardiac Enzymes 02/21/25 Range/Units 17:38 Total Creatine Kinase 46 (26-140) U/L Liver Function 02/21/25 Range/Units 17:38 Total Bilirubin 1.3 H (0.0-1.0) mg/dL Direct Bilirubin 0.5 (0.0-0.5) mg/dL AST 30 (5-31) U/L ALT 31 (0-31) U/L Alkaline Phosphatase 83 (39-117) U/L Albumin 3.2 L (3.5-5.0) g/dL Urine 02/21/25 Range/Units 23:15 Urine Color Yellow Urine Appearance Clear Urine pH 5.0 (5.0-9.0) Ur Specific [place] >= 1.030 H (1.005-1.025) Urine Protein Negative (Neg-Trace) mg/dL Urine Glucose (UA) Negative (Negative) mg/dL All other labs normal. Assessment and Plan (1) Hematoma: Status: Acute Plan 84-year-old female patient with a history of atrial fibrillation on Eliquis, Lewy body dementia, presenting after a fall resulting in a large hematoma of the right calf. This appears to be a contained hematoma with no evidence of ongoing bleeding, abscess, or skin necrosis. There was no evidence of compartment syndrome at this time. The hematoma would be best treated non operatively with leg elevation and gentle compression with Agustin bandages. H&H has remained stable. If continued no evidence of bleeding over the next 24-48 hours, could potentially restart anticoagulation. We will continue to monitor. Procedures Date of Service Date of Service: 02/22/25
[2025-02-22 14:54] LABS: Hematocrit 37.3 % (37.0-47.0); Hemoglobin 12.2 g/dl (12.0-16.0)
--- NOTE | 2025-02-22 16:25 | MHC.CM.PN ---
CM SPOKE TO PTS DAUGHTER/HCP, SAWYER [phone] WHO REPORTS PT LIVES ALONE SAWYER AND HER TAKE TURNS CARING FOR PT AND ARE WORKING WITH [employer] TO GET SERVICES IN PLACE PT USES A CANE PRN IN THE HOME AND A WALKER WHEN SHE GOES OUT SAWYER WILL BRING A COPY OF THE PTS HCP PCP: WAQAR NAYLOR IMM DELIVERED SAWYER REPORTS SHE HOPES THE PT WILL GO TO STR, THEY DO NOT HAVE A PREFERRED SNF CM MET WITH PT WHO SAYS SHE IS AGREEABLE TO STR AT THIS TIME, SHE ALSO DENIES HAVING A PREFERRED SNF REFERRALS MADE BASED ON LOCATION AND MCR RATINGS BLS TRANSPORT
[2025-02-22 21:11] LABS: Hematocrit 32.5 % (37.0-47.0); Hemoglobin 11.3 g/dl (12.0-16.0)
[2025-02-23 02:42] VITALS: BP 129/71; PULSE 84; RESP 18; TEMP 36; O2SAT 96
[2025-02-23] MEDS: oxyCODONE HCl Immed Release 5 MG TABLET 10 MG PO ×2 (03:24→15:41)
[2025-02-23 06:31] LABS: Hematocrit 33.3 % (37.0-47.0); Hemoglobin 11.2 g/dl (12.0-16.0); Mean Corpuscular HGB Conc 33.6 g/dl (31.0-35.0); Mean Corpuscular Hemoglobin 31.5 pg (27.0-33.0); Mean Corpuscular Volume 93.8 fL (80.0-98.0); NRBC Abs Auto 0.000 X10*3/uL (0.0-0.012); NRBC Pct Auto 0.0 /100WBC (0.0-0.2); Platelet Count 164 X10*3/uL (160-400); Red Blood Count 3.55 X10*6/uL (4.20-5.50); White Blood Count 10.1 X10*3/uL (4.8-10.8)
[2025-02-23 06:35] LABS: Anion Gap 13 (12-20); Blood Urea Nitrogen 18 mg/dL (9-16); Calcium 8.8 mg/dL (8.4-10.2); Carbon Dioxide 26 mmol/L (22-29); Chloride 107 mmol/L (96-108); Creatinine Clr Calc Pharmacy 43.8; Estimated Glomerular Filt Rate 46; Potassium 4.5 mmol/L (3.3-5.1); Sodium 141 mmol/L (135-145)
[2025-02-23 07:46] VITALS: BP 118/50; PULSE 80; RESP 18; TEMP 36.1; O2SAT 98
[2025-02-23] MEDS: Metoprolol Succinate ER 100 MG TAB.ER.24H PO (08:00)
[2025-02-23] MEDS: 0.9 % Sodium Chloride Flush 3 ML SYRINGE IVFLUSH ×3 (08:03→23:56)
--- NOTE | 2025-02-23 08:32 | P.PNIM_ITS ---
Subjective Subjective Date of Service: 02/23/25 Interval History: rle pain Physical Exam 2 Vital Signs: Vital Signs: Last Vital Signs Temp 97 F 02/23/25 07:46 Pulse 80 02/23/25 07:46 Resp 18 02/23/25 07:46 BP 118/50 L 02/23/25 07:46 Pulse Ox 98 02/23/25 07:46 O2 Del Method Room Air 02/23/25 07:46 BMI result Body Mass Index 38.6 Const: General: no acute distress Nutritional Appearance: well nourished Orientation/consciousness: patient oriented x3 Resp: Effort & Inspection: normal respiratory effort, no audible wheezes, no cough and no respiratory distress GI: Inspection: Yes normal to inspection Palpation (GI): Soft to palpation and nontender Skin: Other: Blistering noted along the lateral surface of the right calf approximately 5-6 cm below the patella. A large hematoma is palpable within the soft tissue. Skin at the foot is warm with brisk capillary refill. There was normal strength at the ankle and toes with no sensory deficit. Calf muscles are soft with no evidence of compartment syndrome at this time. Neuro: General: patient oriented x3 Extrem: Other: As noted in skin above, right calf hematoma without evidence of compartment syndrome. Objective Data Active Medications Acetaminophen (Acetaminophen 325 Mg Tablet) 975 mg PO Q6H PRN PRN Reason: Pain, Mild 1-3,fever,headache Last Admin: 02/22/25 18:18 Dose: 975 mg Documented By: MARIBEL Atorvastatin Calcium (Atorvastatin Calcium 40 Mg Tablet) 40 mg PO DAILY [facility] Last Admin: 02/23/25 08:01 Dose: 40 mg Documented By: MARIBEL Calcium Carbonate (Calcium Carbonate 750 Mg Tab.Chew) 750 mg PO Q4H PRN PRN Reason: Heartburn Escitalopram Oxalate (Escitalopram Oxalate 20 Mg Tablet) 20 mg PO DAILY [facility] Last Admin: 02/23/25 08:01 Dose: 20 mg Documented By: MARIBEL Levothyroxine Sodium (Levothyroxine Sodium 100 Mcg Tablet) 100 mcg PO DAILY@0600 [facility] Last Admin: 02/23/25 05:47 Dose: 100 mcg Documented By: SAMM Magnesium Hydroxide (Milk Of Magnesia 30 Ml Oral.Susp) 30 ml PO DAILY PRN PRN Reason: Constipation Melatonin (Melatonin 3 Mg Tablet) 6 mg PO BEDTIME PRN PRN Reason: Insomnia Metoprolol Succinate (Metoprolol Succinate Er 100 Mg Tab.Er.24h) 100 mg PO DAILY [facility]; Protocol Last Admin: 02/23/25 08:00 Dose: 100 mg Documented By: MARIBEL Multivitamins/Vitamin C (Multivitamin Tablet) 1 tab PO DAILY [facility] Last Admin: 02/23/25 08:01 Dose: 1 tab Documented By: MARIBEL Oxycodone HCl (Oxycodone Hcl Immed Release 5 Mg Tablet) 10 mg PO TID PRN PRN Reason: Pain, Severe (Pain Scale 7-10) Last Admin: 02/23/25 03:24 Dose: 10 mg Documented By: SAMM Quetiapine Fumarate (Quetiapine Fumarate 25 Mg Tablet) 25 mg PO BEDTIME [facility] Last Admin: 02/22/25 20:32 Dose: 25 mg Documented By: SAMM Sodium Chloride (0.9 % Sodium Chloride Flush 3 Ml Syringe) 3 ml IVFLUSH QSHIFT [facility] Last Admin: 02/23/25 08:03 Dose: 3 ml Documented By: MARIBEL Spironolactone (Spironolactone 25 Mg Tablet) 25 mg PO DAILY [facility]; Protocol Last Admin: 02/23/25 08:01 Dose: 25 mg Documented By: MARIBEL Trazodone HCl (Trazodone Hcl 50 Mg Tablet) 50 mg PO BEDTIME PRN PRN Reason: Sleep Last Admin: 02/21/25 23:19 Dose: 50 mg Documented By: KAVITALAMC Labs 02/23/25 05:45 02/23/25 05:45 Labs: Laboratory Results - last 24 hr 02/23/25 05:45 MCV 93.8 MCH 31.5 MCHC 33.6 RDW 14.3 Plt Count 164 MPV 10.6 Absolute Nucleated RBC 0.000 Nucleated RBC % (auto) 0.0 Anion Gap 13 Estim Creat Clear Calc 43.8 Estimated GFR 46 Random Glucose 108 Calcium 8.8 Microbiology Microbiology Results: Microbiology 02/21/25 Unknown Urine Culture - Final Urine clean catch - Clean Catch Midstream Assessment and Plan (1) Atrial fibrillation: Status: Acute Plan 84F PMH chronic AFib on Eliquis, Lewy body dementia, hypothyroid, mood disorder, obesity presented with fall complicated by large right lower extremity hematoma and reports of hallucinations. 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
--- NOTE | 2025-02-23 09:35 | PM.PNGS ---
Subjective Subjective Date of Service: 02/23/25 Interval history: No new complaints, complains mainly of soreness in calf essentially unchanged. Denies any foot pain or numbness. Physical Exam Vital Signs: Vital Signs: Last Vital Signs Temp 97 F 02/23/25 07:46 Pulse 80 02/23/25 07:46 Resp 18 02/23/25 07:46 BP 118/50 L 02/23/25 07:46 Pulse Ox 98 02/23/25 07:46 O2 Del Method Room Air 02/23/25 07:46 BMI result Body Mass Index 38.6 Const: General: no acute distress Nutritional Appearance: well nourished Orientation/consciousness: patient oriented x3 Resp: Effort & Inspection: normal respiratory effort, no audible wheezes, no cough and no respiratory distress GI: Inspection: Yes normal to inspection Palpation (GI): Soft to palpation and nontender Skin: Other: Blistering noted along the lateral surface of the right calf approximately 5-6 cm below the patella. A large hematoma is palpable within the soft tissue. Skin at the foot is warm with brisk capillary refill. There was normal strength at the ankle and toes with no sensory deficit. Calf muscles are soft with no evidence of compartment syndrome at this time. Neuro: General: patient oriented x3 Extrem: Other: As noted in skin above, right calf hematoma without evidence of compartment syndrome. Objective Data Active Medications Acetaminophen (Acetaminophen 325 Mg Tablet) 975 mg PO Q6H PRN PRN Reason: Pain, Mild 1-3,fever,headache Last Admin: 02/22/25 18:18 Dose: 975 mg Documented By: MARIBEL Atorvastatin Calcium (Atorvastatin Calcium 40 Mg Tablet) 40 mg PO DAILY [facility] Last Admin: 02/23/25 08:01 Dose: 40 mg Documented By: MARIBEL Calcium Carbonate (Calcium Carbonate 750 Mg Tab.Chew) 750 mg PO Q4H PRN PRN Reason: Heartburn Escitalopram Oxalate (Escitalopram Oxalate 20 Mg Tablet) 20 mg PO DAILY [facility] Last Admin: 02/23/25 08:01 Dose: 20 mg Documented By: MARIBEL Levothyroxine Sodium (Levothyroxine Sodium 100 Mcg Tablet) 100 mcg PO DAILY@0600 [facility] Last Admin: 02/23/25 05:47 Dose: 100 mcg Documented By: SAMM Magnesium Hydroxide (Milk Of Magnesia 30 Ml Oral.Susp) 30 ml PO DAILY PRN PRN Reason: Constipation Melatonin (Melatonin 3 Mg Tablet) 6 mg PO BEDTIME PRN PRN Reason: Insomnia Metoprolol Succinate (Metoprolol Succinate Er 100 Mg Tab.Er.24h) 100 mg PO DAILY [facility]; Protocol Last Admin: 02/23/25 08:00 Dose: 100 mg Documented By: MARIBEL Multivitamins/Vitamin C (Multivitamin Tablet) 1 tab PO DAILY [facility] Last Admin: 02/23/25 08:01 Dose: 1 tab Documented By: MARIBEL Oxycodone HCl (Oxycodone Hcl Immed Release 5 Mg Tablet) 10 mg PO TID PRN PRN Reason: Pain, Severe (Pain Scale 7-10) Last Admin: 02/23/25 03:24 Dose: 10 mg Documented By: SAMM Quetiapine Fumarate (Quetiapine Fumarate 25 Mg Tablet) 25 mg PO BEDTIME [facility] Last Admin: 02/22/25 20:32 Dose: 25 mg Documented By: SAMM Sodium Chloride (0.9 % Sodium Chloride Flush 3 Ml Syringe) 3 ml IVFLUSH QSHIFT [facility] Last Admin: 02/23/25 08:03 Dose: 3 ml Documented By: MARIBEL Spironolactone (Spironolactone 25 Mg Tablet) 25 mg PO DAILY [facility]; Protocol Last Admin: 02/23/25 08:01 Dose: 25 mg Documented By: MARIBEL Trazodone HCl (Trazodone Hcl 50 Mg Tablet) 50 mg PO BEDTIME PRN PRN Reason: Sleep Last Admin: 02/21/25 23:19 Dose: 50 mg Documented By: JIMYC Labs 02/23/25 05:45 02/23/25 05:45 Labs: Laboratory Results - last 24 hr 02/23/25 05:45 MCV 93.8 MCH 31.5 MCHC 33.6 RDW 14.3 Plt Count 164 MPV 10.6 Absolute Nucleated RBC 0.000 Nucleated RBC % (auto) 0.0 Anion Gap 13 Estim Creat Clear Calc 43.8 Estimated GFR 46 Random Glucose 108 Calcium 8.8 Microbiology Microbiology Results: Microbiology 02/21/25 Unknown Urine Culture - Final Urine clean catch - Clean Catch Midstream Procedures Date of Service Date of Service: 02/23/25 Progress Note: A&P Assessment and plan (1) Hematoma: Status: Acute Plan Patient remains hemodynamically stable with a stable H&H. No evidence of ongoing bleeding in the right leg and no evidence of compartment syndrome. No evidence of skin necrosis or abscess. If patient is discharged, she should follow up in my office in approximately 1 week. Recommend leg elevation and gentle compression with Agustin bandage. Time Spent With Patient Time: Total time managing care of this patient today ____ minutes. Quality Stroke Does the patient have a stroke diagnosis?: No VTE Prior VTE?: No VTE Risk Level:: Medical - moderate - high VTE Device Contraindication: Procedure Contraindicated VTE Drug Contraindication: Treatment Not Indicated
[2025-02-23 15:21] VITALS: BP 113/62; PULSE 87; RESP 17; TEMP 36.1; O2SAT 95
--- NOTE | 2025-02-23 18:17 | PC.NURSE ---
Pt requesting to leave to go home, educated that she is in the hospital and she will be discharged tomorrow. Pt states understanding.
[2025-02-23 19:32] VITALS: BP 125/64; PULSE 92; RESP 16; TEMP 36.6; O2SAT 98
[2025-02-24 03:11] VITALS: BP 133/85; PULSE 90; RESP 18; TEMP 37.2; O2SAT 99
--- NOTE | 2025-02-24 03:34 | PC.NURSE ---
Patient resistant to care, mostly when independence is taken from her in the form of standby assist as she is high fall risk and fell at home. Will not allow staff in bathroom. She is currently back to bed with brief and purewick in place, however she would not allow me access to tubing to attach to suction. She is able to ambulate to bathroom with walker. Disoriented to place and time of day.
[2025-02-24 06:52] LABS: Anion Gap 13 (12-20); Blood Urea Nitrogen 17 mg/dL (9-16); Calcium 8.8 mg/dL (8.4-10.2); Carbon Dioxide 26 mmol/L (22-29); Chloride 106 mmol/L (96-108); Creatinine Clr Calc Pharmacy 47.1; Estimated Glomerular Filt Rate 50; Potassium 4.2 mmol/L (3.3-5.1); Sodium 141 mmol/L (135-145)
[2025-02-24 07:50] VITALS: BP 128/58; PULSE 92; RESP 18; TEMP 36.6; O2SAT 99
[2025-02-24] MEDS: Metoprolol Succinate ER 100 MG TAB.ER.24H PO (08:41)
[2025-02-24] MEDS: 0.9 % Sodium Chloride Flush 3 ML SYRINGE IVFLUSH (08:41)
--- NOTE | 2025-02-24 09:12 | HO.PM.IMPN ---
Subjective Subjective Date of Service: 02/24/25 Interval History: rle pain Physical Exam Vital Signs: Vital Signs: Last Vital Signs Temp 97.8 F 02/24/25 07:50 Pulse 92 02/24/25 07:50 Resp 18 02/24/25 07:50 BP 128/58 L 02/24/25 07:50 Pulse Ox 99 02/24/25 07:50 O2 Del Method Room Air 02/24/25 07:50 BMI result Body Mass Index 38.6 Const: General: no acute distress Nutritional Appearance: well nourished Orientation/consciousness: patient oriented x3 Resp: Effort & Inspection: normal respiratory effort, no audible wheezes, no cough and no respiratory distress GI: Inspection: Yes normal to inspection Palpation (GI): Soft to palpation and nontender Skin: Other: Blistering noted along the lateral surface of the right calf approximately 5-6 cm below the patella. A large hematoma is palpable within the soft tissue. Skin at the foot is warm with brisk capillary refill. There was normal strength at the ankle and toes with no sensory deficit. Calf muscles are soft with no evidence of compartment syndrome at this time. Neuro: General: patient oriented x3 Extrem: Other: As noted in skin above, right calf hematoma without evidence of compartment syndrome. Objective Data Active Medications Acetaminophen (Acetaminophen 325 Mg Tablet) 975 mg PO Q6H PRN PRN Reason: Pain, Mild 1-3,fever,headache Last Admin: 02/22/25 18:18 Dose: 975 mg Documented By: MARIBEL Atorvastatin Calcium (Atorvastatin Calcium 40 Mg Tablet) 40 mg PO DAILY [facility] Last Admin: 02/24/25 08:41 Dose: 40 mg Documented By: THAO Calcium Carbonate (Calcium Carbonate 750 Mg Tab.Chew) 750 mg PO Q4H PRN PRN Reason: Heartburn Escitalopram Oxalate (Escitalopram Oxalate 20 Mg Tablet) 20 mg PO DAILY [facility] Last Admin: 02/24/25 08:41 Dose: 20 mg Documented By: THAO Levothyroxine Sodium (Levothyroxine Sodium 100 Mcg Tablet) 100 mcg PO DAILY@0600 [facility] Last Admin: 02/24/25 06:34 Dose: 100 mcg Documented By: LEONARD Magnesium Hydroxide (Milk Of Magnesia 30 Ml Oral.Susp) 30 ml PO DAILY PRN PRN Reason: Constipation Melatonin (Melatonin 3 Mg Tablet) 6 mg PO BEDTIME PRN PRN Reason: Insomnia Metoprolol Succinate (Metoprolol Succinate Er 100 Mg Tab.Er.24h) 100 mg PO DAILY [facility]; Protocol Last Admin: 02/24/25 08:41 Dose: 100 mg Documented By: THAO Multivitamins/Vitamin C (Multivitamin Tablet) 1 tab PO DAILY [facility] Last Admin: 02/24/25 08:41 Dose: 1 tab Documented By: THAO Oxycodone HCl (Oxycodone Hcl Immed Release 5 Mg Tablet) 10 mg PO TID PRN PRN Reason: Pain, Severe (Pain Scale 7-10) Last Admin: 02/23/25 15:41 Dose: 10 mg Documented By: ERICH Quetiapine Fumarate (Quetiapine Fumarate 25 Mg Tablet) 25 mg PO BEDTIME [facility] Last Admin: 02/23/25 20:36 Dose: Not Given Documented By: MEMO Non-Admin Reason: Patient Refused Comments: notified Sodium Chloride (0.9 % Sodium Chloride Flush 3 Ml Syringe) 3 ml IVFLUSH QSHIFT [facility] Last Admin: 02/24/25 08:41 Dose: 3 ml Documented By: THAO Spironolactone (Spironolactone 25 Mg Tablet) 25 mg PO DAILY [facility]; Protocol Last Admin: 02/24/25 08:41 Dose: 25 mg Documented By: THAO Trazodone HCl (Trazodone Hcl 50 Mg Tablet) 50 mg PO BEDTIME PRN PRN Reason: Sleep Last Admin: 02/21/25 23:19 Dose: 50 mg Documented By: JEZ Labs 02/23/25 05:45 02/24/25 06:12 Labs: Laboratory Results - last 24 hr 02/24/25 02/24/25 06:12 06:18 Hold Purple Top SEE NOTE Anion Gap 13 Estim Creat Clear Calc 47.1 Estimated GFR 50 Random Glucose 118 H Calcium 8.8 Microbiology Microbiology Results: Microbiology 02/21/25 Unknown Urine Culture - Final Urine clean catch - Clean Catch Midstream Assessment and Plan (1) Atrial fibrillation: Status: Acute Plan 84F PMH chronic AFib on Eliquis, Lewy body dementia, hypothyroid, mood disorder, obesity presented with fall complicated by large right lower extremity hematoma and reports of hallucinations. 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
--- NOTE | 2025-02-24 09:14 | PM.DS ---
DS: Providers Provider Date of Service: 02/24/25 Date of admission: 02/21/25 20:22 Date of discharge: 02/24/25 Primary care physician: Baldo Calabrese MD Consults: 02/21/25 20:31 Consult to General Surgery Routine Consulting Provider: [facility] Reason for consultation: large R leg hematoma Has provider been notified: No 02/21/25 20:38 Consult to Neurology Routine Consulting Provider: [facility] Reason for consultation: visual and auditory hallucinations, lewy body dementia Has provider been notified: No DS: Diagnosis Discharge Diagnosis (1) Atrial fibrillation: Status: Acute DS: Summary Hospital Course Hospital Course: from initial hpi: 84-year-old female with a past medical history significant for chronic AFib on Eliquis, Lewy body dementia with psychosis, hypothyroidism, mood disorder and class 3 obesity, who presented to the ED due to a fall earlier this morning around 12:30AM with a large hematoma on the right lower leg. The patient has been having auditory and visual hallucinations and reports that this was the reasoning for her fall. She fell backwards onto a pillow and did not have any head strike or loss of consciousness, this fall was witnessed by her daughter. She was recently seen in the emergency department for auditory and visual hallucinations, psych eval with recommendations for memory clinic. The patient reports that she has seen her PCP for this and they are referring her to [facility] neurology as the memory Clinic has a 1 year wait list. She denies any urinary symptoms, headache, fever, chills, shortness of breath or chest pain. hospital course: Patient was admitted for fall complicated by large right lower extremity hematoma. Was seen by surgery recommended no surgical intervention, continue with local compression rechallenging with Eliquis and several days. Hemoglobin remained stable. Was seen by physical therapy who recommended short-term rehab to which patient will be discharged she is expected require less than 30 days. For suspected Lewy body dementia with hallucinations we will follow up with Neurology. For chronic AFib was continued on metoprolol. For hypothyroidism was continued on levothyroxine. For obesity weight loss recommended. For mood disorder was continued on Lexapro. Patient's hematoma appears stable [facility] Time Attestation Discharge Coordination Time (in mins): 32 Quality: Safe Use of Opioids Does Pt have an Active Cancer Diagnosis on the Problem List?: No Quality: Stroke Does the patient have a stroke diagnosis?: No Physical Exam Vital Signs: Vital Signs: Last Vital Signs Temp 97.8 F 02/24/25 07:50 Pulse 92 02/24/25 07:50 Resp 18 02/24/25 07:50 BP 128/58 L 02/24/25 07:50 Pulse Ox 99 02/24/25 07:50 O2 Del Method Room Air 02/24/25 07:50 BMI result Body Mass Index 38.6 Const: General: no acute distress Nutritional Appearance: well nourished Orientation/consciousness: patient oriented x3 Resp: Effort & Inspection: normal respiratory effort, no audible wheezes, no cough and no respiratory distress GI: Inspection: Yes normal to inspection Palpation (GI): Soft to palpation and nontender Skin: Other: Blistering noted along the lateral surface of the right calf approximately 5-6 cm below the patella. A large hematoma is palpable within the soft tissue. Skin at the foot is warm with brisk capillary refill. There was normal strength at the ankle and toes with no sensory deficit. Calf muscles are soft with no evidence of compartment syndrome at this time. Neuro: General: patient oriented x3 Extrem: Other: As noted in skin above, right calf hematoma without evidence of compartment syndrome. DS: Data Data Completed and Pending Labs on day of discharge: Laboratory Results - last 24 hr 02/24/25 02/24/25 06:12 06:18 Hold Purple Top SEE NOTE Sodium 141 Potassium 4.2 Chloride 106 Carbon Dioxide 26 Anion Gap 13 BUN 17 H Creatinine 1.05 Estim Creat Clear Calc 47.1 Estimated GFR 50 Random Glucose 118 H Calcium 8.8 Discharge Plan Discharge Anticipated Discharge Date/Time: 02/24/25 09:12 Patient Disposition: Xfer SNF Discharge Diagnosis: hematoma Referrals: Baldo Calabrese MD [Primary Care Provider, Internal Medicine] - 1 Week Discharge Medications: Continued atorvastatin 40 mg tablet 1 tab PO DAILY metoprolol succinate 100 mg tablet extended release 24 hr 1 tab PO DAILY levothyroxine 100 mcg tablet 1 tab PO DAILY@0600 quetiapine [Seroquel] 25 mg tablet 25 mg PO BEDTIME cholecalciferol (vitamin D3) [Vitamin D3] 50 mcg (2,000 unit) Tablet 50 mcg PO DAILY spironolactone 25 mg tablet 25 mg PO DAILY escitalopram oxalate 20 mg tablet 20 mg PO DAILY acetaminophen 325 mg Tablet 650 mg PO Q6H PRN (Reason: Pain) trazodone 50 mg tablet 50 mg PO BEDTIME PRN (Reason: Sleep) PreserVision AREDS-2 250-90-40-1 mg Capsule 1 tab PO BID oxycodone 10 mg tablet 10 mg PO TID PRN (Reason: chronic pain) Qty: 10 0RF Held Eliquis 5 mg tablet 1 tab PO BID Hold Instructions: Resume on 02/27/25. Discharge Orders: Discharge Order (Routine); Ordered 02/24/25 Ordered By: Rigo Zamarripa Diet: Advance to usual diet Activity on Discharge: As tolerated Stand Alone Forms: Patient Portal Discharge page Print Language: Puerto [place]ican Care Plan Goals: recovery Health Concerns: hematoma Plan of Treatment: hold eliquis 3 more days, then restart local compression Assessment: see above
--- NOTE | 2025-02-24 10:33 | MHC.CM.PN ---
PT WILL DC TO [facility] FOR STR TODAY AT 1200 HOURS BLS TRANSPORT BOOKED WITH MAIN DAUGHTER, SAWYER, AWARE
[2025-02-24 11:59] VITALS: BP 100/59; PULSE 84; RESP 16; TEMP 36.1; O2SAT 97
== END 2025-02-24 12:09 | disposition skilled nursing facility (03) | DRG 605 ==
LOC: HO.ED 16:41 → HO.EDOVER 20:35 → HO.S3 02-22 07:42
PROVIDERS: Physician Assistant Medical; Admitting Provider Physician Assistant; Emergency Provider Internal Medicine; PCP Internal Medicine; Visit Provider Internal Medicine
DX: S80.11XA Contusion of right lower leg, initial encounter (principal); F02.82 Dementia in other diseases classified elsewhere, unspecified severity, with psychotic disturbance; I48.20 Chronic atrial fibrillation, unspecified; G31.83 Neurocognitive disorder with Lewy bodies; E66.813 Obesity, class 3; E03.9 Hypothyroidism, unspecified; Z71.3 Dietary counseling and surveillance; Z68.38 Body mass index [BMI] 38.0-38.9, adult; W19.XXXA Unspecified fall, initial encounter; Z79.01 Long term (current) use of anticoagulants; Z79.890 Hormone replacement therapy; Z79.899 Other long term (current) drug therapy
CPT/HCPCS: 36415; 73701; 80048; 80076; 81001; 82550; 83036; 83735; 84443; 84484; 85014; 85018; 85025; 85027; 85610; 85730; 87086; 93005; 97162; 99285; Q9967

== ENCOUNTER → 2025-02-21 16:12 | Outpatient (BNV) | payer MEDICARE, SELFPAY | PROVIDERS: Admitting Provider Physician Assistant; Emergency Provider Internal Medicine; PCP Internal Medicine; Visit Provider Internal Medicine Cardiovascular Disease | DX: I48.92 Unspecified atrial flutter (principal) | CPT/HCPCS: 93010 ==

== ENCOUNTER → 2025-02-21 16:15 | Outpatient (BNV) | payer MEDICARE, SELFPAY | PROVIDERS: Emergency Provider Internal Medicine; PCP Internal Medicine; Visit Provider Radiology Diagnostic Radiology | DX: R22.41 Localized swelling, mass and lump, right lower limb (principal); S80.11XA Contusion of right lower leg, initial encounter; W19.XXXA Unspecified fall, initial encounter | CPT/HCPCS: 73701 ==

== ENCOUNTER → 2025-02-21 20:22 | Outpatient (BNV) | payer MEDICARE, SELFPAY | PROVIDERS: Admitting Provider Physician Assistant; Emergency Provider Internal Medicine; PCP Internal Medicine; Visit Provider Internal Medicine | DX: I48.91 Unspecified atrial fibrillation (principal) | CPT/HCPCS: 99223; 99232; 99239; 99499 ==

== ENCOUNTER → 2025-02-21 20:22 | Outpatient (BNV) | payer MEDICARE, SELFPAY ==
--- NOTE | 2025-02-24 09:08 | A.OFFVIS_ITS ---
Intake Visit Reasons: Hematoma, fall, on eliquis Allergies No Known Allergies (No Known Allergies*) Allergy (Verified 02/21/25 16:11) HPI HPI Hematoma, fall, on eliquis: Onset: 02/24/25 HPI Comments Details: 84 years old woman who apparently carried diagnosis of dementia with Lewy bodies taking escitalopram and small dose of quetiapine was brought to hospital after fall. She was also having visual and auditory hallucinations and apparently the fall was somewhat related to that. There was no loss of consciousness. When I talked to her, she mostly complain of her right leg that was injured during the fall. She said that she was living alone and was driving though independently I could not confirm it. Her mental status has been declining and apparently there is a pending consultation with a neurologist or memory clinic. [facility] Medical History (Updated 02/24/25 @ 09:13 by Christine Solo MD) Lewy body dementia with psychotic disturbance Gallstones Difficulty sleeping Thyroid activity decreased Afib Social History Household Members: Other Household Members Other:: Daughter Housing: House Do you presently have visiting nurse or other home services: No Alcohol intake: never Patient Tobacco Use Status: Never used Tobacco service: No Review of Systems Const Details: No recent cold or flu-like illness or bowel bladder loss of control. Physical Exam Neuro Other: She is alert and awake with normal spontaneity of speech fluency comprehension and affect. She did not know exactly where she was and what had happened. She was following commands. Face was symmetrical. Visual cameron are full. She was able to move all 4 extremities though was hesitant to move right leg because of injury to right knee area. Plantars were flexor. Speech was normal. Results Reviewed Results Reviewed: Head CT revealed mild diffuse cerebral atrophy and mild chronic microvascular ischemic changes. CTA did not reveal any significant vascular lesion. Assessment & Plan Assessment & Plan (1) Lewy body dementia with psychotic disturbance: Code(s): G31.83 - Neurocognitive disorder with Lewy bodies; F02.82 - Dementia in other diseases classified elsewhere, unspecified severity, with psychotic disturbance Category: Medical Qualifiers: Dementia severity: moderate Qualified Code(s): G31.83 - Neurocognitive disorder with Lewy bodies; F02.B2 - Dementia in other diseases classified elsewhere, moderate, with psychotic disturbance Plan: My recommendation is to increase quetiapine to 25 mg to or 3 times a day and consider placement in an assisted living facility as taking care of her at home would be difficult to illness somebody was there all the time. In addition, an EEG is recommended to rule out any possibility of seizure disorder contributing to her fall. Medications: On Hold apixaban (Eliquis) Hold Comment: Resume on 02/27/25. 1 tab PO BID Coding Level of Care Code New Pt Level 4 (99874) Diagnoses Moderate Lewy body dementia with psychotic disturbance G31.83; F02.B2 Dementia severity: moderate
== END ==
PROVIDERS: Admitting Provider Physician Assistant; Emergency Provider Internal Medicine; PCP Internal Medicine; Visit Provider Surgery
DX: S80.11XA Contusion of right lower leg, initial encounter (principal)
CPT/HCPCS: 99222; 99232

== ENCOUNTER 2025-03-10 11:49 | Inpatient (IN) | payer MEDICARE, SELFPAY ==
--- OUTSIDE RECORDS SUMMARY | 2025-03-07 12:55 | XMS_ITS ---
Author Organization [facility] Address [address] [place] [id number] Care Team Providers Care Evaluation Engineer Name Role Phone WAQAR NAYLOR Primary Care Provider REASON FOR VISIT Update to medication list? Encounters Encounter Location Date Provider Diagnosis [facility] [address] [place] [address] 03/07/2025 WAQAR NAYLOR PLAN OF TREATMENT Next Appt Details Provider Name:WAQAR NAYLOR , 04/24/2025 03:30:00 PM, [address] [place], [address],
--- NOTE | 2025-03-10 | ECG_ITS ---
Test Reason : AFIB Blood Pressure : */* mmHG Vent. Rate : 95 BPM Atrial Rate : 337 BPM P-R Int : * ms QRS Dur : 90 ms QT Int : 388 ms P-R-T Axes : * -29 9 degrees QTcB Int : 487 ms Atrial fibrillation Abnormal ECG When compared with ECG of 21-Feb-2025 17:08, No significant changes seen Referred By: Phong Grover Electronically Signed By: Richard Christian
--- NOTE | ~2025-03-10 | CT_ITS ---
Exam: CT right lower leg with IV contrast. IV contrast: 85 mL Omnipaque 350 TECHNIQUE: Axial CT was performed from just above the knee joint to just distal to the ankle joint after IV contrast injection. Coronal and sagittal reformatted images were generated from the original axial data set. ALARA: The examination used one or more of the following radiation dose reduction techniques: Automated exposure control, iterative reconstruction, and/or adjustment of mA and/or KV. COMPARISON: February 21, 2025. INDICATION: Worsening hematoma DLP: 230 mGY*cm FINDINGS: Again seen is a high density somewhat heterogeneous mass lower leg superficial to the anterior and lateral compartments. The cephalad margin of the mass is adjacent to the proximal femoral head. Mass extends caudally. It is likely deep to the fascia and superficial to muscle. It measures 15.9 x 4.1 x 7.0 cm, previously 15.5 x 4.2 x 8.4 cm (CC by transverse by AP). The size is similar to the prior. Bone windows demonstrate postoperative changes related to total knee arthroplasty. Minimal linear calcific density along the anterior aspect of the medial malleolus is probably chronic and related to pyrophosphate deposition, but minimal avulsion fracture is not ruled out. Amorphous and punctate calcification is evident in the posterior talofibular ligament, probably pyrophosphate deposition rather than an avulsion fracture. Somewhat linear calcification in the articular cartilage of the talar dome and tibial plafond is consistent with chondrocalcinosis. There is moderate fatty streaking of lower leg musculature. Contrast opacification is noted in the crural arteries. Multifocal atherosclerotic calcifications are also present. No fracture is noted. CT/CT lower leg RT w IV con Impression: Stable appearance of the right lower leg hematoma with mass effect on the anterior and lateral compartment musculature of the lower leg. Contrast opacification was demonstrated in the anterior tibial, posterior tibial, and peroneal arteries at the same level as the hematoma. Amorphous is stippled calcific density in the region of the deltoid ligament complex and posterior talofibular ligaments is probably related to pyrophosphate deposition rather than an avulsion fracture. There is also chondrocalcinosis in the ankle joint. Electronically signed by: Shemar Saul MD 03/10/2025 03:22 PM EDT
--- NOTE | ~2025-03-10 | US_ITS ---
EXAMINATION: US ABDOMEN LIMITED CLINICAL INFORMATION: Abnormal LFTs. COMPARISON: September 24, 2020 TECHNIQUE: Real-time imaging of the right upper quadrant abdominal viscera. FINDINGS: Slightly limited by body habitus and increased bowel gas PANCREAS: Visualized portions are unremarkable. Tail is obscured by bowel gas. LIVER: Surface of the liver has a scalloped margin. Parenchymal echogenicity is normal. No focal hepatic lesion. There is no intrahepatic biliary duct dilatation seen. GALLBLADDER: The gallbladder is physiologically distended without evidence of stones, sludge, polyps, wall thickening or pericholecystic fluid. COMMON BILE DUCT: Obscured by body habitus/bowel gas. RIGHT KIDNEY: Poorly demonstrated due to body habitus. FREE FLUID: None. US/US abdomen limited IMPRESSION: Limited study. Scalloped margin of liver raises question of underlying cirrhosis. Prior ultrasound demonstrated cholelithiasis that may have been obscured on this study. Electronically signed by: Shemar Saul MD 03/10/2025 04:56 PM EDT
[2025-03-10 12:03] VITALS: BP 107/46; BP 110/60; PULSE 88; PULSE 93; RESP 18; TEMP 36.6; O2SAT 94; O2SAT 97; BMI 41.9
[2025-03-10 12:13] VITALS: BP 107/46; PULSE 93; RESP 18; TEMP 36.6; O2SAT 94
--- NOTE | 2025-03-10 12:17 | ED.EXTPRO ---
HPI - Extremity Problem General Chief complaint: Extremity Problem Stated complaint: RLE HEMATOMA W/SIZE INCR FROM SNF PER EMS Time Seen by Provider: 03/10/25 12:09 Source: patient, EMS and old records reviewed Mode of arrival: EMS Limitations: other (dementia but for the most part gave full history) History of Present Illness ED Provider: JEFF HPI Narrative: 84 yo female with lewy body dementia, obesity, afib on eliquis, HLD, hypothyroidism who was admitted here 02/21- 02/24 for large R lower ext hematoma s/p fall - reccomended hold eliquis for several days and taj wrap compression - CT scan on 02/21 showed no active extravasation. She returns today with c/o hematoma getting bigger she is not sure if she was put back on eliquis - I see it was restarted on 02/27. No fevers, no new trauma. She states she wants this to be taken care of. She has no fevers. She notes she gets white bandages or bronw bandages. MD Complaint: extremity swelling Onset (ago): day(s) Pain Consistency: other Location: right and lower extremity Quality: aching Radiation: none Relieving factors: rest Exacerbating factors: palpation Associated symptoms: denies other symptoms Context: other Related Data Home Medications ?Medication ?Instructions ?Recorded ?Confirmed apixaban 5 mg tablet (Eliquis) 5 mg PO BID 10/17/20 03/10/25 Held on 02/24/25. Instructions: Resume on 02/27/25. atorvastatin 40 mg tablet 40 mg PO BEDTIME 10/17/20 03/10/25 levothyroxine 100 mcg tablet 100 mcg PO DAILY@0600 10/17/20 03/10/25 metoprolol succinate 100 mg 1 tab PO DAILY 10/17/20 03/10/25 tablet,extended release 24 hr quetiapine 25 mg tablet (Seroquel) 25 mg PO BEDTIME 10/17/20 03/10/25 acetaminophen 325 mg tablet 650 mg PO Q4-6H PRN Pain/Fever 02/11/25 03/10/25 escitalopram oxalate 20 mg tablet 20 mg PO DAILY 02/11/25 03/10/25 trazodone 50 mg tablet 50 mg PO BEDTIME PRN Sleep 02/11/25 03/10/25 vit C 250 mg-vit E 90 mg-zinc 40 1 tab PO BID 02/11/25 03/10/25 mg-copper 1 [id number] capsule (PreserVision AREDS-2) bisacodyl 10 mg rectal suppository 10 mg NH DAILY PRN Constipation 03/10/25 03/10/25 (Dulcolax (bisacodyl)) cholecalciferol (vitamin D3) 25 25 mcg PO DAILY 03/10/25 03/10/25 mcg (1,000 unit) tablet (Vitamin D3) magnesium hydroxide 400 mg/5 mL 30 ml PO DAILY PRN Constipation 03/10/25 03/10/25 oral suspension (Milk of Magnesia) naloxone 0.4 mg/mL injection 0.4 mg subcut Q2M PRN Opioid 03/10/25 03/10/25 solution Overdose oxycodone 10 mg tablet 10 mg PO Q8H PRN chronic pain 03/10/25 03/10/25 polyethylene glycol 3350 17 gram 17 g PO DAILY PRN Constipation 03/10/25 03/10/25 oral powder packet (Miralax) sodium phosphates 19 gram-7 118 ml NH DAILY PRN Constipation 03/10/25 03/10/25 gram/118 mL enema (Fleet Enema) spironolactone 50 mg tablet 50 mg PO DAILY 03/10/25 03/10/25 Allergies Allergy/AdvReac Type Severity Reaction Status Date / Time No Known Allergies (No Known Allergy Verified 03/10/25 12:05 Allergies*) Review of Systems Review of Systems: Constitutional : No Fever, No Chills ENT/Mouth : No sore throat, No Rhinorrhea Eyes: No Eye Pain, No Swelling, No Redness Cardiovascular : No Chest Pain, No SOB Respiratory : No Cough, No Sputum Gastrointestinal : No Nausea, No Vomiting, No Diarrhea, No abdominal Pain Genitourinary : No Dysuria, No Hematuria Musculoskeletal : No joint pain, No Myalgias, No Joint Swelling Skin : pos Skin Lesions, positive skin rash Neuro : No Weakness, No Numbness, No Headache All other systems reviewed and are negative [facility] Past Medical History Attestation statement: The following information was validated with the patient. Source: old records reviewed Medical History Lewy body dementia with psychotic disturbance Gallstones Difficulty sleeping Thyroid activity decreased Afib Social History Social History Household Members: None Household Members Other:: Daughter Housing: House Do you presently have visiting nurse or other home services: No Alcohol intake: never Patient Tobacco Use Status: Never used Tobacco Smoked in Last 30 Days: No Use of substances other than those prescribed or required for medical reasons: No Have you been hit, kicked, punched, or otherwise hurt by someone within the past year? If so, by whom?: No Do you feel safe in your current relationship?: No Current Relationship Is there a partner from a previous relationship who is making you feel unsafe now?: No Are you made to feel afraid or neglected: No Advance Directives: No Advance Directives Information Provided: Yes Do you have a plan to hurt others: No Plan Recently lost weight without trying: No How much weight loss: Not applicable Eating poorly because of decreased appetite: No Nutrition screen score: 0 Nutrition Risks: No Nutritional Risk Patient : No : No Poor oral hygiene: No service: No Physical Exam Vital Signs: Vital Signs: Last Vital Signs Temp 97.3 F 03/10/25 20:27 Pulse 94 03/10/25 20:27 Resp 18 03/10/25 20:27 BP 126/60 03/10/25 20:27 Pulse Ox 98 03/10/25 20:27 O2 Del Method Room Air 03/10/25 20:27 BMI result Body Mass Index 41.9 Appearance: Alert. Oriented X2. No acute distress. Eyes: Pupils equal, round and reactive to light. ENT: Pharynx normal. Neck: Normal inspection. Neck supple. CVS: Normal heart rate and rhythm. Pulses normal. Respiratory: No respiratory distress. Breath sounds normal. Abdomen: Soft and nontender. Skin: Skin warm and dry. Normal skin color. Normal skin turgor. Extremities: R leg is a large hematoma there is BCR in toes and foot is warm there is a gauze bandage on it and some areas of faint skin necrosis, mild warmth and no purulence. she has sensation intact, BCR in toes, dopplerable PT pulse, and she can wiggle her toes and move ankle without pain no signs of compartment syndrome Neuro: Oriented X 2. No motor deficit. No sensory deficit. CN2-12 intact Medications Administered Generic Name Dose Route Start Last Admin Trade Name Freq PRN Reason Stop Dose Admin Sodium Chloride 3 ml 03/11/25 00:00 03/10/25 20:33 0.9 % Sodium Chloride Flush 3 Ml Syringe IVFLUSH 3 ml QSHIFT ALLYN Administration Discontinued Medications Generic Name Dose Route Start Last Admin Trade Name Freq PRN Reason Stop Dose Admin Piperacillin Sod/Tazobactam 50 mls @ 100 mls/hr 03/10/25 12:44 03/10/25 14:22 Sod 3.375 gm/ Sodium Chloride IV 03/10/25 13:13 Infused ONCE ONE Infusion Iohexol 100 ml 03/10/25 14:37 03/10/25 14:38 Iohexol 350 Mg/Ml 100 Ml Infus..Btl IV 03/10/25 14:38 85 ml ONCE ONE Administration Medical Decision Making Medical Decision Making [facility] Narrative: 84 yo female with lewy body dementia, obesity, afib on eliquis, HLD, hypothyroidism here with worsening R leg hematoma and some areas of open wounds at this time will obtain labs, repeat CT scan, she has no signs of compartment syndrome. I will ask Dr. Howe to eval as he has seen her before. Given LFTs plan to obtain US though she has no pain. CPK ordered, able to doppler pulses, will start on zosyn given appearance of leg Differential Diagnosis Differential Diagnoses: The differential diagnosis associated with the presentation includes cellulitis, hematoma no signs of compartment syndrome Admission/Observation Consideration of admission/observation: Escalation of care including admission/observation considered admit for IV abx OR tomorrow Consult Healthcare Provider Management of the patient was discussed with: Hospitalist and Character Actor Dr. Howe - aware will take to OR tomorrow Lab Data [facility] Lab Attestation statement: I reviewed the patient's lab results. 03/10/25 13:15 03/10/25 13:15 Labs: Lab Results 03/10/25 03/10/25 Range/Units 13:15 13:28 WBC 12.0 H (4.8-10.8) X10*3/uL RBC 4.12 L (4.20-5.50) X10*6/uL Hgb 12.7 (12.0-16.0) g/dl Hct 39.2 (37.0-47.0) % MCV 95.1 (80.0-98.0) fL MCH 30.8 (27.0-33.0) pg MCHC 32.4 (31.0-35.0) g/dl RDW 16.1 H (11.0-16.0) % Plt Count 368 D (160-400) X10*3/uL MPV 10.1 (9.4-12.3) fL Immature Gran % (Auto) 1.5 H (0.0-0.4) % Neut % (Auto) 75.6 H (45-73) % Lymph % (Auto) 13.8 L (20-40) % [place] % (Auto) 6.6 (2-11) % Eos % (Auto) 2.1 (0-4) % Baso % (Auto) 0.4 (0-2) % Lymph # (Auto) 1.7 (1.2-4.9) X10*3/uL [place] # (Auto) 0.8 (0.1-1.2) X10*3/uL Eos # (Auto) 0.3 (0.0-0.4) X10*3/uL Baso # (Auto) 0.1 (0.0-0.2) X10*3/uL Abs Immat Gran (auto) 0.18 H (0.00-0.03) X10*3/uL Absolute Neuts (auto) 9.1 H (2.0-8.3) x10*3/uL Absolute Nucleated RBC 0.000 (0.0-0.012) X10*3/uL Nucleated RBC % (auto) 0.0 (0.0-0.2) /100WBC PT 21.9 H D (10.9-12.4) SEC INR 1.9 H (0.9-1.1) Sodium 138 (135-145) mmol/L Potassium 4.6 (3.3-5.1) mmol/L Chloride 104 (96-108) mmol/L Carbon Dioxide 26 (22-29) mmol/L Anion Gap 13 (12-20) BUN 24 H (9-16) mg/dL Creatinine 1.11 (0.5-1.4) mg/dL Estim Creat Clear Calc 43.4 Estimated GFR 47 Random Glucose 111 (60-115) mg/dL Lactic Acid 1.2 (0.5-2.0) mmol/L Calcium 9.7 D (8.4-10.2) mg/dL Total Bilirubin 3.3 H (0.0-1.0) mg/dL Direct Bilirubin 1.0 H (0.0-0.5) mg/dL AST 179 H (5-31) U/L ALT 235 H (0-31) U/L Alkaline Phosphatase 215 H (39-117) U/L Total Creatine Kinase 27 (26-140) U/L C-Reactive Protein 11.37 H (< or = 0.50) mg/dL Total Protein 8.0 (6.5-8.0) g/dL Albumin 3.5 (3.5-5.0) g/dL Blood Type O Positive Antibody Screen NEGATIVE Independent Interpretation I performed an independent interpretation of an: Ultrasound (no gallstones) and CT Scan (hematoma) Radiology Impression Discussion of test interpretation with radiology: I have reviewed the radiologist's reading. Independent Historian Clinical information obtained from an independent historian. History obtained from or confirmed by: EMS External Record Review External record reviewed: Inpatient record, Outpatient record, Prior outpatient labs and Prior outpatient radiology Critical Care Time Critical Care Time Critical Care Time: Yes Total Critical Care Time: 35 Attestation: Time is exclusive of separately billable procedures. Time includes: direct patient care, patient reassessment, coordination of patient care, interpretation of data (laboratory data, pulse oximetry, CT scans), review of patient's medical records, medical consultation and documentation of patient care. Procedures excluded from critical care time: central intravenous line placement and electrocardiography. I attest to this time spent taking care of the patient Discharge Plan Discharge Clinical Impression: Hematoma, Abnormal LFTs Patient Disposition: Admitted As Inpatient Interventions: Admission Worksheet (ED) Last Done: 03/10/25 19:40
--- NOTE | 2025-03-10 12:45 | PC.NURSE ---
84 F presents to ED with RLE hematoma that has grown since a fall 2 weeks ago. Hematoma was wrapped, fairly large. Good signs of perfusion to R foot. Pt is coming from a rehab d/t decreased mobility and falls. Pt denies any pain or discomfort at this time. RR even and unlabored, denies SOB or CP.
--- OUTSIDE RECORDS SUMMARY | 2025-03-10 13:13 | XMS_ITS | Data Portability ---
Author Organization [facility], PAIN OFFICE Address [address] [facility] [place] [address] Care Team Providers Care Supply Room Clerk Name Role Phone WAQAR NAYLOR Primary Care Provider [phone] Assessment Encounter Date Assessment Date Assessment LastModified by Organization Details LastModified Time 06/19/2019 06/19/2019 Lesley Barreto is a 78 year old woman with low back pain radiating into right lower extremity and occasionally into the left lower extremity. She is S/P back surgeries . On exam ,she has pain on flexion. MRI Lumbar spine shows advanced spondylitic changes with levoscoliosis . Post operative changes noted at L3-4 and L4-5 levels with left sided foraminal stenosis at multiple levels . Bilateral foraminal stenosis at L5-S1 levels with facet arthropathy is noted.. Trial of Lumbar epidural steroid injections under fluoroscopic guidance was recommended. The risks and benefits of the procedure were discussed in detail. She wishes to proceed. She will call for an appointment . She needs a m48/m60 tank driver on the day of the procedure. [email or web address] Not available 07/01/2019 11:12:37 Plan of Treatment Reminders Order Date Submit Date Provider Last Modified By Organization Details Last Modified Time Details Appointments None record ed. Lab None record ed. Referral None record ed. Procedures None record ed. Surgeries None record ed. Imaging None record ed. Medication Orders None record ed. Patient TargetsNo targets recorded. Patient Instructions Encounter Date Encounter Id Patient Instructions Last Modified By Organization Details Last Modified Time 06/19/2019 [id number] She was advised against bed rest lasting longer than four days and to continue activities as tolerated. [email or web address] Not available 07/01/2019 11:10:38 Reason for Referral None Reported. Problems Name Problem SNOMED Code Status Onset Date Resolution Date Notes Provider Name and Address Organization Details Recorded Time Lumbar post-laminecto my syndrome 916689677 Active Mary Anne love MD [address] , [address], [place], [address], [place] [facility] 9 10:07:08 Degeneration of lumbar intervertebral disc 63618154 Active Mary Anne love MD [address] , [address], [place], [address], [place] [facility] 9 10:07:17 Spinal stenosis of lumbar region 52764079 Active Mary Anne love MD [address] , [address], [place], [address], [place] [facility] 9 10:07:26 Lumbosacral radiculopathy 5414342 Active Mary Anne love MD [address] , [address], [place], [address], [place] [facility] 9 10:07:38 Problem Notes None recorded. Procedures Surgical History Date Name Laterality Status Provider Name and Address Organization Details Recorded Time 3 replacement of bilateral knee joints completed Curtis Dior [place] [facility] 06/19/2019 14:28:04 Imaging Results None recorded. Procedure Notes None recorded. Medical Equipment None Reported. Allergies No known drug allergies Medications Name Sig Start Date Stop Date Status Note LastModified by Organization Details LastModified Time atorvastatin 40 mg tablet TK 1 T PO QD active Not Available Not Available No t Available metoprolol succinate ER 50 mg tablet,extended release 24 hr TK 1 T PO QD active Not Available Not Available No t Available levothyroxine 100 mcg tablet active Not Available Not Availab le Not Available misoprostol 200 mcg tablet 06/19 completed Not Available Not Available Not Available hydrocortisone 2.5 % topical cream active Not Available Not Available Not Available oxycodone 5 mg tablet active Not Available Not Available Not Available duloxetine 30 mg capsule,delayed release active Not Available Not Available Not Available Vitals Date Recorded Body height Heart rate Oxygen saturation Oxygen saturation in Arterial blood by Pulse oximetry Systolic And Diastolic Provider Name and Address Organization Details Last Updated DateTime 9 157.48 cm 75 /min 97 % 97 % 143/61 mm[Hg] Curtis love [place] - [facility] 9 14:20:37 Social History Question Answer Notes LastModified by Organizat ion Details LastModified Time Tobacco Smoking Status Never Smoker Not Available [employer] 06/05/2020 03:16:10 Which Illicit Or Recreational Drugs Have You Used? None [id number] Information not available 06/05/2020 Live Alone Or With Others? Alone [email or web address] Information not available 06/19/2019 Marital Status dread Informati on not available 07/01/2019 Sex: Unknown Functional Status Question Answer Note LastModified by Organization D etails LastModified Time What is your level of alcohol consumption? None [id number] Information not available 06/05/2020 Are you currently employed? No [id number] Information not available 06/05/2020 What is your occupation? Retired [id number] Information not available 06/05/2020 Mental Status None recorded. Family History Nothing Reported. Medical History Condition Response Kidney Stones Y Depression Y Hypothyroidism Y Arthritis Y Hypertension Y Gynecological HistoryNo gynecological history recorded. Obstetrics History GPAL:G 0 P 0 0 0 0 Past Encounters Encounter ID Performer Location Encounter Start Date Encounter Closed Date Diagnosis/Indication Diagnosis SNOMED-CT Code Diagnosis ICD10 Code Diagnosis Note [id number] Mary Anne Adams MD PAIN OFFICE [address] [place] [phone] 06/19/2019 14:17:07 07/01/2019 11:13:07 Spinal stenosis of lumbar region 73451197 M48.061 Lumbar post-laminectomy syndrome 611881904 M96.1 Lumbosacra l radiculopathy 0175086 M54.17 Degenerati on of lumbar intervertebral disc 26485663 M51.36 Health Concerns Section Related Observation LastModified by Organization Detai ls LastModified Time None Recorded Concern Status LastModified by Organization Details LastModified Time None Recorded Advance Directives Directive None Recorded Payers Insurance Date Sequence Insurance Name Policy Number Policy [place] Covered Member ID Camargo Member ID Guarantor Name 07/01/2019 2 [place] [id number] Lesley Barreto [id number] Lesley Barreto 07/01/2019 1 [place] [employer] [employer] Lesley Barreto [id number] Lesley Barreto Notes Date Note Type Note Provider Name and Address Organization Details Recorded Time 06/19/2019 text/html Lesley kay is a 78 year old woman with complaints of low back pain radiating into right lower extremity and occasionally into left lower extremity with pain in left foot. The pain started spontaneously . She states she started to have severe pain radiating into right lower extremity. She describes the pain as a shooting pain , sharp from her right buttock region to the right leg with numbness, tingling and weakness in her right lower extremity. Current pain level is 5-10/10. Pain is aggravated by standing and walking . Pain is relieved a little with application of heat and sitting. She is unable to sleep due to positioning and awakens at night due to pain. She has no history of bladder or bowel incontinence.MRI Lumbar spine done at [facility] shows advanced spondylitic changes with levoscoliosis . Post operative changes noted at L3-4 and L4-5 levels with left sided foraminal stenosis at multiple levels . Bilateral foraminal stenosis at L5-S1 levels with facet arthropathy is noted.She has trialed physical therapy with some pain benefit. She had injections in the past which did not help. She has trialed gabapentin and fentanyl with some pain benefit. Mary Anne Adams MD [address] [place] [address] , [address], [place], [address], [place] [facility] 07/02/2019 08:59:28 OBGyn Episode No OBEpisode recorded.
--- OUTSIDE RECORDS SUMMARY | 2025-03-10 13:13 | XMS_ITS ---
Author Organization [facility] Care Team Providers Care Security Trainer Name Role Phone Frances Grant Unavailable Unavailabl Mary Gatica Unavailable Unavailable Allergies and adverse reactions No Known Allergies Care Team Name Role Address Phone Organization Dates Frances Grant [address] [facility] [address], [place], [address], [place] (Office): : : [facility] 02/24/2025 - present Mary Whittaker [address], [address], [place] (Office): : : [facility] 02/24/2025 - present Imaging Narrative Note Date Imaging Narrative No te 03/07/2025 KNEE 1 OR 2 VIEWS, R IGHTFINDINGS: No fracture or joint effusion are seen. A right knee arthroplasty is present in satisfactory position without evidence of loosening.CONCLUSION: No acute abnormality is seen in the right knee. A right knee prosthesis is present in satisfactory position.ELECTRONICALLY SIGNED BY TRELL REYES M.D. 03/07/2025 6:02:17 AM EDT.Reason for Study: M25.561 PAIN IN RIGHT KNEEPrincipal Result Private Branch Exchange Service Advisor: TRELL REYES ([phone])Electric Motor Fitter: ROGER FORREST (TABATHA)Relief Cook Electric Motor Fitter: SYED 03/06/2025 TIBIA AND FIBULA 2V, RIGHTFINDINGS: No acute fracture or dislocation. The osseous structures appear intact. Modest joint space narrowing. Soft tissues are unremarkable. Postoperative changes.CONCLUSION: No acute osseous findings. Recommend a repeat multi-view imaging in 1 week or sooner if clinically warranted especially if symptoms continue to persist or progress.ELECTRONICALLY SIGNED BY JAYANT HUERTAS M.D. 03/06/2025 3:41:13 PM EDT.Reason for Study: M79.604 PAIN IN RIGHT LEGPrincipal Result Private Branch Exchange Service Advisor: JAYANT HUERTAS ([phone])Electric Motor Fitter: ROGER FORREST (TABATHA)Relief Cook Electric Motor Fitter: SYED 03/06/2025 FOOT 2V, RIGHTFINDIN GS: No acute fracture or dislocation. The osseous structures appear intact. Modest joint space narrowing. Soft tissues are unremarkable.CONCLUSION: No acute osseous findings. Recommend a repeat multi-view imaging in 1 week or sooner if clinically warranted especially if symptoms continue to persist or progress.ELECTRONICALLY SIGNED BY JAYANT HUERTAS M.D. 03/06/2025 3:41:13 PM EDT.Reason for Study: G89.11 ACUTE PAIN DUE TO TRAUMAPrincipal Result Private Branch Exchange Service Advisor: JAYANT HUERTAS ([phone])Electric Motor Fitter: ROGER FORREST ([employer])Relief Cook Electric Motor Fitter: SYED Goals Section Goals Description Status Target Date Jarek will have an ongoing di scharge plan that provides for a safe and effective discharge. Active 05/25/2025 Jarek will maintain a pattern of sleep sufficient to promote health and well-being throughout review period. Active 05/25/2025 Jarek will maintain a stable mood, i.e. no episodes of sadness, anxiety or anger 7/7 days/week through the next review. Active 05/25/2025 Jarek's wishes as expressed i n Advance Directive will be followed Active 05/25/2025 Lesley will consume 50% of meals q day x 90 day s. Active 05/25/2025 Lesley will have no falls with injury x 90 days . Active 05/25/2025 Lesley will have the smalle st most effective dose without side effects X 90 days. Active 05/25/2025 Lesley will maintain a stab ilized weight or have slow wt loss -/= 5% 229# during the next 90 days Active 05/25/2025 Lesley will not develop GI complications x 90 d ays. Active 05/25/2025 Lesley will not exhibit non-verbal indicators o f pain x 90 days. Active 05/25/2025 Lesley's ADL care needs nancy l be anticipated and met throughout the next review period. Active 05/25/2025 Healing Goal: Wound/bruising will heal within th e next 30 days Active 05/25/2025 Resident will be free from s kin irritation or breakdown due to urinary incontinence X 90 days. Active 05/25/2025 Resident will have incontine nce care needs met by staff to maintain dignity and comfort and to prevent incontinence related complications. Active 05/25/2025 Functional Status Code Name Recorded Time Value Entered By Chair/onb-qp-qgdwu transfer 03/10/2025 Not assessed PKNOWLES4 Eating 03/10/2025 Setup or clean-up assistance PKNOWLES4 Feeding or Eating 03/10/2025 Independent PKNOWLES4 Indicate the type of wheelchair or scooter used 03/10/2025 Independent PKNOWLES4 Indicate the type of wheelchair or scooter used 03/10/2025 Manual wheelchair (physical object) PKNOWLES4 Lower body dressing 03/10/2025 Substantial/maximal a ssistance PKNOWLES4 Lying to sitting on side of bed 03/10/2025 Substantial/maximal assistance PKNOWLES4 Oral hygiene 03/10/2025 Setup or clean-up assistance PKNOWLES4 Personal hygiene 03/10/2025 Setup or clean-up assist ance PKNOWLES4 Putting on/taking off footwear 03/10/2025 Substantia l/maximal assistance PKNOWLES4 Roll left and right 03/10/2025 Substantial/maximal a ssistance PKNOWLES4 Shower/bathe self 03/10/2025 Substantial/maximal ass istance PKNOWLES4 Sit to lying 03/10/2025 Substantial/maximal assistan ce PKNOWLES4 Sit to stand 03/10/2025 Not assessed PKNOWLES4 Toilet transfer 03/10/2025 Not assessed PKNOWLES4 Toileting hygiene 03/10/2025 Substantial/maximal ass istance PKNOWLES4 Upper body dressing 03/10/2025 Partial/moderate assi stance PKNOWLES4 Walk 10 feet 03/10/2025 Not assessed PKNOWLES4 Walk 150 feet 03/10/2025 Independent PKNOWLES4 Walk 50 feet 03/10/2025 Independent [email or web address] Wheel 150 feet 03/10/2025 Independent [email or web address] Wheel 50 feet with two turns 03/10/2025 Not assessed [email or web address] Immunizations Immunization Status Vaccine Details Vaccine Code CodeSystem Date Notes TB 2 Step Mantoux Skin Test completed tuberculin skin test; purified protein derivative solution, intradermal lotNumber: [id number] expiry: 05/21/2027 Mfg: [employer] Given 0.1 ml Left Forearm intradermally Step 1 of Multi-step 96 CVX created date: 02/25/2025 consent date: 02/24/2025 administer ed date: 02/25/2025 Educated by on 02/27/2025 Medications Section Medication Name Status Code CodeSystem Dose Route Frequency Admin Type Sig Text Start Date End Date Acetaminophen Tablet 325 MG active 504367 RXNORM 2 tablet Oral as needed PRN Give 2 tablet by mouth every 4 hours as needed for Mild Pain More than 3 doses in 48 hours, notify physic parmjit/salbador treadwell provid er(AIDEN ).Do not exceed 3g/day . (stand ing order) 2024 - Acetaminophen Tablet 325 MG active 796451 RXNORM 2 tablet Oral as needed PRN Give 2 tablet by mouth every 6 hours as needed for Temp 100F or above Notify Physic parmjit/Ad vanced Practi ce provid er. Do not exceed 3g/day 2024 - Tuberculin PPD Solution 5 UNIT/0.1ML active 048329 RXNORM 0.1 ml Intrade rmal one time only One Time Only Inject 0.1 ml intrad ermall y one time only for Screen ing for 1 Day as Step 1, if positi ve obtain chest x-ray AND Inject 0.1 ml intrad ermall y one time only for Screen ing for 1 Day Step 2 admini ster 1 week after the readin g of step 1, if positi ve obtain chest x-ray 02/25 941075 RXNORM 0.1 ml Intrade rmal one time only One Time Only Inject 0.1 ml intrad ermall y one time only for Screen ing for 1 Day as Step 1, if positi ve obtain chest x-ray AND Inject 0.1 ml intrad ermall y one time only for Screen ing for 1 Day Step 2 admini ster 1 week after the readin g of step 1, if positi ve obtain chest x-ray 03/11 Milk of Magnesia Suspension 400 MG/5ML active 678354 RXNORM 30 ml Oral as needed PRN Give 30 ml by mouth as needed for Consti pation give at bedtim e if no BM in 3 days 2024 - Saline Laxative Enema active 1 dose Rectal as needed PRN Insert 1 dose rectal ly as needed for Consti pation if no result from Dulcol ax within 2 hours. If no result s from Saline laxati ve enema, call MD/wes luis ce provid er (AIDEN) for furthe r orders . 2024 - MiraLax Powder active 003841 RXNORM 17 gram Oral as needed PRN Give 17 gram by mouth as needed for Consti pation in 4 to 8 ounces of fluid- if reside nt has not had a bowel moveme nt in past 72 hours. 2024 - Dulcolax Suppository 10 MG active 643473 RXNORM 1 suppos itory Rectal as needed PRN Insert 1 suppos itory rectal ly as needed for Consti pation if no result from MOM by next shift 2024 - Atorvastatin Calcium Tablet 40 MG active 521519 RXNORM 1 tablet Oral at bedtime Routine Give 1 tablet by mouth at bedtim e for lioid contro l 2024 - QUEtiapine Fumarate Tablet 25 MG active 129376 RXNORM 1 tablet Oral at bedtime Routine Give 1 tablet by mouth at bedtim e for [place] 2024 - Metoprolol Succinate ER Tablet Extended Release 24 Hour 100 MG active 894668 RXNORM 1 tablet Oral one time a day Routine Give 1 tablet by mouth one time a day for HTN 2024 - Levothyroxine Sodium Tablet 100 MCG active 093046 RXNORM 1 tablet Oral one time a day Routine Give 1 tablet by mouth one time a day for low thyroi d hormon e 2024 - Spironolacton e Tablet 50 MG active 241079 RXNORM 1 tablet Oral one time a day Routine Give 1 tablet by mouth one time a day for hypert ension 2024 - TraZODone HCl Tablet 50 MG aborted 959030 RXNORM 50 mg Oral as needed PRN Give 50 mg by mouth every 23 hours as needed for at bedtim e for insomn ia 02/25 Cholecalcifer ol Tablet 1000 UNIT active 089531 RXNORM 1 tablet Oral one time a day Routine Give 1 tablet by mouth one time a day for supple ment 2024 - Escitalopram Oxalate Tablet 20 MG active 979364 RXNORM 1 tablet Oral one time a day Routine Give 1 tablet by mouth one time a day for Depres angélica 2024 - PreserVision AREDS 2 Oral Capsule active 1 tablet Oral two times a day Routine Give 1 tablet by mouth two times a day for supple ment 2024 - Eliquis Oral Tablet 5 MG active 980741 7 RXNORM 5 mg Oral two times a day Routine Give 5 mg by mouth two times a day for anti coag 2024 - oxyCODONE HCl Oral Tablet 10 MG aborted 375184 3 RXNORM 10 mg Oral as needed PRN Give 10 mg by mouth every 8 hours as needed for severe pain for 3 Days 02/27 Naloxone HCl Solution 0.4 MG/ML active 081760 9 RXNORM 0.4 mg/ml Intramu scular as needed PRN Inject 0.4 mg/ml intram uscula rly every 2 minute s as needed for sign of opioid overdo se Maybe repeat ed every two (2)to three( 3)aida jameson for unresp onsive ness or diffic ulty breath ing,un til indivi dual is breath ing (respi ratory rate greate r than 10)Ini tiate emerge ncy medica l respon se protoc ol (e.g., call91 1)and transf er to the hospit al 2024 - TraZODone HCl Tablet 50 MG active 799361 RXNORM 50 mg Oral as needed PRN Give 50 mg by mouth every 23 hours as needed for at bedtim e for insomn ia for 14 Days 03/11 oxyCODONE HCl Oral Tablet 10 MG complete d 285109 3 RXNORM 10 mg Oral as needed PRN Give 10 mg by mouth every 8 hours as needed for severe pain for 7 Days 03/06 oxyCODONE HCl Oral Tablet 10 MG active 966182 3 RXNORM 10 mg Oral as needed PRN Give 10 mg by mouth every 8 hours as needed for severe pain until 2024 08:16 03/13 Problems Problem # Description Date of onset Resolved Date Code CodeSystem Concern Status 1 CONTUSION OF RIGHT LOWER LEG, SUBSEQUENT ENCOUNTER [address] active 2 DEMENTIA IN OTHER DISEASES CLASSIFIED ELSEWHERE, UNSPECIFIED SEVERITY, WITH PSYCHOTIC DISTURBANCE [address] active 3 HYPOTHYROIDISM, UNSPECIFIED [address] active 4 MUSCLE WEAKNESS (GENERALIZED) [address] active 5 NONTRAUMATIC HEMATOMA OF SOFT TISSUE [address] active 6 OBESITY, CLASS [address] active 7 PAROXYSMAL ATRIAL FIBRILLATION [address] active 8 PSYCHOTIC DISORDER WITH HALLUCINATIONS DUE TO KNOWN PHYSIOLOGICAL CONDITION [address] active 9 UNSPECIFIED FALL, SUBSEQUENT ENCOUNTER [address] active 10 UNSPECIFIED MOOD [AFFECTIVE] DISORDER [address] active 11 UNSTEADINESS ON FEET [address] active Reason for Referral No Reasons for Referral Entered Diagnostic Results Result Code Code System Date Test Result Interpretation Reference Range Status Notes 43742-3 LOINC 03/07 KNEE 1 OR 2 VIEWS Completed Result for: LESLEY VASQUEZ ( 1940, F) 23543-9 LOINC 03/06 KNEE 1 OR 2 VIEWS Final KNEE 1 OR 2 VIEWS, RIGHTFINDINGS: No fracture or joint effusion are seen. A right knee arthroplasty is present in satisfactory position without evidence of loosening.CONCLU ANGÉLICA: No acute abnormality is seen in the right knee. A right knee prosthesis is present in satisfactory position.ELECTRO NICALLY SIGNED BY TRELL REYES M.D. 03/07/2025 6:02:17 AM EDT.Reason for Study: M25.561 PAIN IN RIGHT KNEEPrincipal Result Private Branch Exchange Service Advisor: TRELL REYES ([phone])Tech nician: ROGER FORREST (Laiyaoyao)Transcr iption Electric Motor Fitter: SYED 26716-6 LOINC 03/06 TIBIA AND FIBULA 2V / FOOT 2V Completed Result for: LESLEY VASQUEZ ( 1940, F) 43169-1 LOINC 03/06 TIBIA AND FIBULA 2V Final TIBIA AND FIBUL A 2V, RIGHTFINDINGS: No acute fracture or dislocation. The osseous structures appear intact. Modest joint space narrowing. Soft tissues are unremarkable. Postoperative changes.CONCLUSI ON: No acute osseous findings. Recommend a repeat multi-view imaging in 1 week or sooner if clinically warranted especially if symptoms continue to persist or progress.ELECTRO NICALLY SIGNED BY JAYANT HUERTAS M.D. 03/06/2025 3:41:13 PM EDT.Reason for Study: M79.604 PAIN IN RIGHT LEGPrincipal Result Private Branch Exchange Service Advisor: JAYANT HUERTAS ([phone])Tech nician: ROGER FORREST (Laiyaoyao)Transcr iption Electric Motor Fitter: SYED 48181-2 LOINC 03/06 FOOT 2V Final FOOT 2V, RIGHTFINDINGS: No acute fracture or dislocation. The osseous structures appear intact. Modest joint space narrowing. Soft tissues are unremarkable.CON CLUSION: No acute osseous findings. Recommend a repeat multi-view imaging in 1 week or sooner if clinically warranted especially if symptoms continue to persist or progress.ELECTRO NICALLY SIGNED BY JAYANT HUERTAS M.D. 03/06/2025 3:41:13 PM EDT.Reason for Study: G89.11 ACUTE PAIN DUE TO TRAUMAPrincipal Result Private Branch Exchange Service Advisor: JAYANT HUERTAS ([phone])Tech nician: ROGER FORREST ([email or web address])Transcr iption Electric Motor Fitter: SYED Test Code Code System Name Date 03/06/2025 03/06/2025 Social History Social History Observation Description Start Date End Date Code Code System Current Smoking Status Tobacco smoking consumption unknown 432074629 SNOMED CT Sex Assigned At Female 1940 32324-7 [facility] Gender Identity Vital Signs Code Code System Vitals Name Values and Units Timing Information 52318-4 [facility] Pain Level Value=0.0 03/10/2025 9279-1 [facility] Respiratory Rate Value=18.0 Units=/m in 03/10/2025 8462-4 [facility] Blood Pressure-Diastolic Value=63 Un its=mmHg 03/10/2025 8480-6 [facility] Blood Pressure-Systolic Nqqyl=727 Un its=mmHg 03/10/2025 8310-5 [facility] Body Temperature Value=97.7 Units= F 03/10/2025 8867-4 [facility] Heart rate Value=84.0 Units=/min 78335-3 [facility] O2 % BldC Oximetry Value=96.0 Units= % 03/10/2025 2339-0 [facility] Blood Sugar Ogzuw=984.0 Units=mg/dL 03/06/2025 24797-0 [facility] Weight Tlfel=465.0 Units=Lbs 8302-2 [facility] Height Value=62.0 Units=Inches 02/24/2025
--- OUTSIDE RECORDS SUMMARY | 2025-03-10 13:13 | XMS_ITS | Patient Health Record ---
Author Organization [facility] Address [address] [place] [address] [address] [place] [address] Care Team Providers Care Border Inspector Name Role Phone WAQAR NAYLOR Primary Care Provider SIDNEY Wallace Unavailable [phone] Allergies No Known Allergies Results Component Value Reference Range Notes SURGICAL PATHOLOGY Reviewed date:05/10/2024 01:14:23 PM Interpretation: Performing Lab:Testing performed or reported by [facility], a Service of [facility], [address] [place] [address] Dimas Araujo MD, [employer] CLIA# [id number] Notes/Report: Patient Name: BEULAH VASQUEZ Lab Patient [...] specimen processing and staining is performed at [facility], [address] [place] [address] (CLIA#[id number]). Its performance characteristics determined by [facility]. Harleen Arnold M.D. [facility] of Surgical Pathology, Addison Rangel M.D. [facility] Cytopathology Phone #: [phone], On-Call Pathologist: [id number] Reason For Referral No Information Medications Medication [...] W/U Status Risk Notes Problem Postmenopausal bleeding (65033790) Postmenopausal bleeding (N95.0) Active confirmed Vital Signs Temperature 96.8 degrees Fahrenheit 04/12/2024 Blood pressure diastolic 80 mm Hg 04/12/2024 Height 62 in 05/03/2024 Blood pressure systolic 118 mm Hg 04/12/2024 Encounters Encounter Location Date Provider Diagnosis [facility] [address] [place] [id number] 04/12/2024 SIDNEY MOLINA Postmenopausal bleed ing N95.0 [facility] [address] [place] [phone] 05/03/2024 SIDNEY MOLINA Postmenopausal bleed ing N95.0 [facility] [address] [place] [id number] 05/10/2024 SIDNEY MOLINA Assessments Encounter Date Diagnosis [...] Date MEDICARE [address] SHAI LIGHT [id number] BEULAH MOYER Self - patient is the insured 5 MEDEX [address] [place] [address] [id number] BEULAH MOYER Self - patient is the insured Medical (General) History Medical History History ICD Code Thyroiditis 245 Hypertension 401.9 Calculus of gallbladder without cholecys titis without obstruction K80.20 Unspecified osteoarthritis, unspecified site M19.90 Surgical History Surgery Date(Month/Year) Knee surgery Spine 2015/2016 Hernia Hospitalization History Reason Date(Month/Year) Childbirth
--- OUTSIDE RECORDS SUMMARY | 2025-03-10 13:13 | XMS_ITS | Encounter Summary ---
Author Organization [facility] Address [address] [place] [address] Care Team Providers Care Retail Sales Advisor Name Role Phone Mary Whittaker SOCIAL SCIENCE INSTRUCTOR Primary Care Provider [phone] Encounter Details Date Type Department Care Team (Late st Contact Info) Description 02/27/[address] [facility] - Main Lab [address] [facility] [place] [address] Mary Whittaker NP [address] [facility] [address] [place], [place] [id number] Unspecified atrial fibrillation (CMS/HCC V24, CMS/[facility] V28); Vitamin D deficiency, unspecified; Unspecified dementia, unspecified severity, without behavioral disturbance, psychotic disturbance, mood disturbance, and anxiety (CMS/HCC V24, CMS/[facility] V28); Hypothyroidism, unspecified Social History Tobacco Use Types Packs/Day Years Used Date Smoking Tobacco: Never Assessed Comments Unknown Sex and Gender Information Value Date Recorded Sex Assigned at Not on file Legal Sex Female 11:02 PM EST Gender Identity Not on file Sexual Orientation Not on file documented as of this encounter Plan of Treatment Not on file documented as of this encounter Procedures Procedure Name Priority Date/Time Associated Diagnosis Comments THYROID STIMULATING HORMONE WITH REFLEX TO FREE T4 AND FREE T3 Routine 02/27/2025 6:37 AM EDT Unspecified atrial fibrillation (CMS/HCC V24, CMS/[facility] V28) Vitamin D deficiency, unspecified Unspecified dementia, unspecified severity, without behavioral disturbance, psychotic disturbance, mood disturbance, and anxiety (CMS/HCC V24, CMS/[facility] V28) Hypothyroidism, unspecified VITAMIN D 25 HYDROXY Routine 02/27/2025 6:37 AM EDT Unspecified atrial fibrillation (CMS/HCC V24, CMS/[facility] V28) Vitamin D deficiency, unspecified Unspecified dementia, unspecified severity, without behavioral disturbance, psychotic disturbance, mood disturbance, and anxiety ([facility] V24, [facility] V28) Hypothyroidism, unspecified COMPLETE BLOOD COUNT Routine 02/27/2025 6:37 AM EDT Unspecified atrial fibrillation ([facility] V24, [facility] V28) Vitamin D deficiency, unspecified Unspecified dementia, unspecified severity, without behavioral disturbance, psychotic disturbance, mood disturbance, and anxiety ([facility] V24, [facility] V28) Hypothyroidism, unspecified COMPREHENSIVE METABOLIC PANEL Routine 02/27/2025 6:37 AM EDT Unspecified atrial fibrillation ([facility]24, [facility] V28) Vitamin D deficiency, unspecified Unspecified dementia, unspecified severity, without behavioral disturbance, psychotic disturbance, mood disturbance, and anxiety ([facility] V24, [facility] V28) Hypothyroidism, unspecified documented in this encounter Results * Thyroid stimulating hormone with reflex to free t4 and free t3 (02/27/2025 6:37 AM EDT) TSH 3.51 0.40 - 4.00 mcIU/mL LAB CHEMISTRY METHOD 02/27/2025 10:36 AM EDT [facility] Blood Venous blood specimen / Unknown Venipuncture / Unknown 02/27/2025 6:37 AM EDT 02/27/2025 8:04 AM EDT Mary Whittaker SOCIAL SCIENCE INSTRUCTOR LAB BLOOD ORDERABLES Final Resul t [facility] [address] [place] [address], * Vitamin D 25 hydroxy (02/27/2025 6:37 AM EDT) Vit D, 25-Hydroxy 38.5 30.0 - 80.0 ng/mL LAB CHEMISTRY METHOD 02/27/2025 10:35 AM EDT [facility] Blood Venous blood specimen / Unknown Venipuncture / Unknown 02/27/2025 6:37 AM EDT 02/27/2025 8:04 AM EDT Mary Whittaker NP LAB BLOOD ORDERABLES Final Resul t [facility] [address] [place] [address], * (ABNORMAL) Comprehensive metabolic panel (02/27/2025 6:37 AM EDT) Sodium 139 133 - 145 mmol/L LAB CHEMISTRY METHOD 02/27/2025 9:33 AM [facility] Potassium 5.1 3.5 - 5.5 mmol/L LAB CHEMISTRY METHOD 02/27/2025 9:33 AM [facility] Chloride 105 96 - 110 mmol/L LAB CHEMISTRY METHOD 02/27/2025 9:33 AM [facility] CO2 27 21 - 32 mmol/L LAB CHEMISTRY METHOD 02/27/2025 9:33 AM [facility] Anion Gap 7 3 - 11 LAB CHEMISTRY METHOD 02/27/2025 9:33 AM [facility] Glucose 113(H) 70 - 100 mg/dL LAB CHEMISTRY METHOD 02/27/2025 9:33 AM [facility] BUN 15 5 - 25 mg/dL LAB CHEMISTRY METHOD 02/27/2025 9:33 AM [facility] Creatinine 1.15(H) 0.50 - 1.10 mg/dL LAB CHEMISTRY METHOD 02/27/2025 9:33 AM [facility] eGFR 47(L) >=60 mL/min/1. 73m2 LAB CHEMISTRY METHOD 02/27/2025 9:33 AM [facility] Comment:Calculation based on the Chronic Kidney Disease Epidemiology Collaboration (CKD-EPI) equation refit without adjustment for race. BUN/Creatinine Ratio 13.0 LAB CHEMISTRY METHOD 02/27/2025 9:33 AM T [facility] Calcium 8.7 8.5 - 10.5 mg/dL LAB CHEMISTRY METHOD 02/27/2025 9:33 AM [facility] AST (SGOT) 34 10 - 42 unit/L LAB CHEMISTRY METHOD 02/27/2025 9:33 AM [facility] ALT (SGPT) 37 10 - 60 unit/L LAB CHEMISTRY METHOD 02/27/2025 9:33 AM [facility] Alkaline Phosphatase 99 42 - 121 unit/L LAB CHEMISTRY METHOD 02/27/2025 9:33 AM [facility] Total Protein 5.9(L) 6.0 - 8.0 g/dL LAB CHEMISTRY METHOD 02/27/2025 9:33 AM [facility] Albumin 2.7(L) 3.2 - 5.0 g/dL LAB CHEMISTRY METHOD 02/27/2025 9:33 AM [facility] Total Bilirubin 5.2(H) 0.0 - 1.4 mg/dL LAB CHEMISTRY METHOD 02/27/2025 9:33 AM [facility] Blood Venous blood specimen / Unknown Venipuncture / Unknown 02/27/2025 6:37 AM EDT 02/27/2025 8:04 AM EDT Mary Whittaker SOCIAL SCIENCE INSTRUCTOR LAB BLOOD ORDERABLES Final Resul t [facility] [address] [place] [address], * (ABNORMAL) Complete blood count (02/27/2025 6:37 AM EDT) WBC 13.5(H) 4.8 - 10.8 K/mcL LAB HEMETOLOGY METHOD 02/27/2025 9:03 AM EDT [facility] RBC 3.00(L) 3.80 - 4.80 M/mcL LAB HEMETOLOGY METHOD 02/27/2025 9:03 AM [facility] Hemoglobin 9.4(L) 11.5 - 16.0 g/dL LAB HEMETOLOGY METHOD 02/27/2025 9:03 AM [facility] Hematocrit 28.9(L) 35.0 - 47.0 % LAB HEMETOLOGY METHOD 02/27/2025 9:03 AM [facility] MCV 97.6 79.0 - 98.0 FL LAB HEMETOLOGY METHOD 02/27/2025 9:03 AM [facility] MCH 31.8 27.0 - 32.0 pcg LAB HEMETOLOGY METHOD 02/27/2025 9:03 AM [facility] MCHC 32.5 32.0 - 37.0 g/dL LAB HEMETOLOGY METHOD 02/27/2025 9:03 AM [facility] RDW 14.7 11.0 - 15.0 % LAB HEMETOLOGY METHOD 02/27/2025 9:03 AM [facility] Platelets 183 130 - 400 K/mcL LAB HEMETOLOGY METHOD 02/27/2025 9:03 AM [facility] MPV 10.9 7.0 - 11.0 FL LAB HEMETOLOGY METHOD 02/27/2025 9:03 AM [facility] NRBC 0.1 <1.0 % LAB HEMETOLOGY METHOD 02/27/2025 9:03 AM [facility] NRBC Absolute 0.02 <0.10 K/mcL LAB HEMETOLOGY METHOD 02/27/2025 9:03 AM [facility] Blood Venous blood specimen / Unknown Venipuncture / Unknown 02/27/2025 6:37 AM EDT 02/27/2025 8:04 AM EDT Mary Whittaker NP LAB BLOOD ORDERABLES Final Resul t [facility] [address] [place] [address], documented in this encounter Visit Diagnoses Diagnosis Unspecified atrial fibrillation (CMS/[facility] V24, CMS/[facility] V28) Vitamin D deficiency, unspecified Unspecified dementia, unspecified severity, without behavioral disturbance, psychotic disturbance, mood disturbance, and anxiety (CMS/HCC V24, CMS/[facility] V28) Hypothyroidism, unspecified documented in this encounter Care Teams Retail Sales Advisor Relationship Specialty Start Date End Date Mary Whittaker NP [address] [address] PCP - General Family Medicine 02/27/25 documented as of this encounter
[2025-03-10 13:23] LABS: MANUAL DIFF FLAG NO
[2025-03-10 13:33] LABS: Hematocrit 39.2 % (37.0-47.0); Hemoglobin 12.7 g/dl (12.0-16.0); Imm Gran Abs Auto 0.18 X10*3/uL (0.00-0.03); Imm Gran Pct Auto 1.5 % (0.0-0.4); Lymphocytes Absolute Auto 1.7 X10*3/uL (1.2-4.9); Mean Corpuscular HGB Conc 32.4 g/dl (31.0-35.0); Mean Corpuscular Hemoglobin 30.8 pg (27.0-33.0); Mean Corpuscular Volume 95.1 fL (80.0-98.0); NRBC Abs Auto 0.000 X10*3/uL (0.0-0.012); NRBC Pct Auto 0.0 /100WBC (0.0-0.2); Platelet Count 368 X10*3/uL (160-400); Red Blood Count 4.12 X10*6/uL (4.20-5.50); White Blood Count 12.0 X10*3/uL (4.8-10.8)
[2025-03-10 13:42] LABS: Alanine Aminotransferase 235 U/L (0-31); Albumin Level 3.5 g/dL (3.5-5.0); Alkaline Phosphatase 215 U/L (39-117); Anion Gap 13 (12-20); Aspartate Amino Transferase 179 U/L (5-31); Blood Urea Nitrogen 24 mg/dL (9-16); Calcium 9.7 mg/dL (8.4-10.2); Carbon Dioxide 26 mmol/L (22-29); Chloride 104 mmol/L (96-108); Creatinine Clr Calc Pharmacy 43.4; Estimated Glomerular Filt Rate 47; Potassium 4.6 mmol/L (3.3-5.1); Sodium 138 mmol/L (135-145); Total Protein 8.0 g/dL (6.5-8.0)
[2025-03-10 13:46] LABS: INTERNATIONAL NORM RATIO 1.9 (0.9-1.1); Prothrombin Time 21.9 SEC (10.9-12.4)
[2025-03-10] MEDS: iohexoL 350 MG/ML 100 ML INFUS..BTL IV (14:38)
--- NOTE | 2025-03-10 15:15 | PM.CNGS ---
History of Present Illness Consult details Consult date: 03/10/25 Requesting physician: Annie Hayes Narrative: 84-year-old female patient with a history of Lewy body dementia, hallucinations, and atrial fibrillation on Eliquis returning for increase in the right leg hematoma. She was previously evaluated on after presenting to the ED status post a fall on 02/20/2025. She was subsequently discharged to a detention facility but returned to the ED today due to increased swelling in the right calf. She remains on the Eliquis for the A. fib. She denies any other injuries denied striking her head or losing consciousness. She reports increased pain when putting weight on the leg and when trying to walk. She denies any significant bleeding following the injury. Examination today revealed a large hematoma in the mid calf, increased from previous examination. Her H/H has remained stable since her previous admission. A CT of the right leg revealed: Stable appearance of the right lower leg hematoma with mass effect on the anterior and lateral compartment musculature of the lower leg. Contrast opacification was demonstrated in the anterior tibial, posterior tibial, and peroneal arteries at the same level as the hematoma. Surgical consultation was requested for management of the right calf hematoma. Review of Systems Review of Systems: Yes all other systems are reviewed and are negative PMFSH Past Medical History Medical History Lewy body dementia with psychotic disturbance Gallstones Difficulty sleeping Thyroid activity decreased Afib Social History Social History Household Members: Other Household Members Other:: Daughter Housing: House Do you presently have visiting nurse or other home services: No Alcohol intake: never Patient Tobacco Use Status: Never used Tobacco service: No Meds Allergies Allergy/AdvReac Type Severity Reaction Status Date / Time No Known Allergies (No Known Allergy Verified 03/10/25 12:05 Allergies*) Home Medications ?Medication ?Instructions ?Recorded ?Confirmed ?Last Taken ?Type apixaban 5 mg tablet (Eliquis) 1 tab PO BID 10/17/20 02/21/25 02/21/25 History Held on 02/24/25. Instructions: Resume on 02/27/25. atorvastatin 40 mg tablet 1 tab PO DAILY 10/17/20 02/21/25 02/20/25 History cholecalciferol (vitamin D3) 50 50 mcg PO DAILY 10/17/20 02/22/25 02/10/25 History mcg (2,000 unit) tablet (Vitamin D3) levothyroxine 100 mcg tablet 1 tab PO DAILY@0600 10/17/20 02/22/25 02/21/25 History metoprolol succinate 100 mg 1 tab PO DAILY 10/17/20 02/21/25 02/21/25 History tablet,extended release 24 hr quetiapine 25 mg tablet (Seroquel) 25 mg PO BEDTIME 10/17/20 02/21/25 02/20/25 History acetaminophen 325 mg tablet 650 mg PO Q6H PRN Pain 02/11/25 02/22/25 Unknown History escitalopram oxalate 20 mg tablet 20 mg PO DAILY 02/11/25 02/21/25 02/21/25 History spironolactone 25 mg tablet 25 mg PO DAILY 02/11/25 02/21/25 02/21/25 History trazodone 50 mg tablet 50 mg PO BEDTIME PRN Sleep 02/11/25 02/21/25 Unknown History vit C 250 mg-vit E 90 mg-zinc 40 1 tab PO BID 02/11/25 02/21/25 02/10/25 History mg-copper 1 tq-loihxs-udisat capsule (PreserVision AREDS-2) Physical Exam Vital Signs: Vital Signs: Last Vital Signs Temp 97.8 F 03/10/25 12:13 Pulse 93 03/10/25 12:13 Resp 18 03/10/25 12:13 BP 107/46 L 03/10/25 12:13 Pulse Ox 94 03/10/25 12:13 O2 Del Method Room Air 03/10/25 12:13 BMI result Body Mass Index 41.9 Const: General: no acute distress Nutritional Appearance: well nourished Orientation/consciousness: patient oriented x3 Resp: Effort & Inspection: normal respiratory effort, no audible wheezes, no cough and no respiratory distress GI: Inspection: Yes normal to inspection Palpation (GI): Soft to palpation and nontender Skin: Other: Increased blistering noted along the lateral surface of the right calf approximately 5-6 cm below the patella. A large hematoma is palpable within the soft tissue. The hematoma is more fluctuant suggestive of organization of the hematoma. Skin at foot: warm with brisk capillary refill, normal strength at the ankle and toes, no sensory deficit. Calf muscles: soft with no evidence of compartment syndrome at this time. Neuro: General: patient oriented x3 Extrem: Other: As noted in skin above, right calf hematoma without evidence of compartment syndrome. Results Labs 03/10/25 13:15 03/10/25 13:15 Labs: Abnormal lab results 03/10/25 Range/Units 13:15 WBC 12.0 H (4.8-10.8) X10*3/uL RBC 4.12 L (4.20-5.50) X10*6/uL RDW 16.1 H (11.0-16.0) % Immature Gran % (Auto) 1.5 H (0.0-0.4) % Neut % (Auto) 75.6 H (45-73) % Lymph % (Auto) 13.8 L (20-40) % Abs Immat Gran (auto) 0.18 H (0.00-0.03) X10*3/uL Absolute Neuts (auto) 9.1 H (2.0-8.3) x10*3/uL PT 21.9 H D (10.9-12.4) SEC INR 1.9 H (0.9-1.1) BUN 24 H (9-16) mg/dL Total Bilirubin 3.3 H (0.0-1.0) mg/dL Direct Bilirubin 1.0 H (0.0-0.5) mg/dL AST 179 H (5-31) U/L ALT 235 H (0-31) U/L Alkaline Phosphatase 215 H (39-117) U/L C-Reactive Protein 11.37 H (< or = 0.50) mg/dL Short CBC 03/10/25 Range/Units 13:15 WBC 12.0 H (4.8-10.8) X10*3/uL Hgb 12.7 (12.0-16.0) g/dl Hct 39.2 (37.0-47.0) % Plt Count 368 D (160-400) X10*3/uL BMP 03/10/25 13:15 Sodium 138 Potassium 4.6 Chloride 104 Carbon Dioxide 26 BUN 24 H Creatinine 1.11 Calcium 9.7 D Cardiac Enzymes 03/10/25 Range/Units 13:15 Total Creatine Kinase 27 (26-140) U/L Liver Function 03/10/25 Range/Units 13:15 Total Bilirubin 3.3 H (0.0-1.0) mg/dL Direct Bilirubin 1.0 H (0.0-0.5) mg/dL AST 179 H (5-31) U/L ALT 235 H (0-31) U/L Alkaline Phosphatase 215 H (39-117) U/L Albumin 3.5 (3.5-5.0) g/dL All other labs normal. Assessment and Plan (1) Hematoma: Status: Acute Plan 84 year old female patient with multiple medical problems presenting with complaints of increased swelling and difficulty ambulating due to a right calf hematoma. On examination, there appears to be organization of the previous hematoma which and a stable H/H noted on laboratories. There is no evidence of ongoing bleeding. I would recommend drainage of the hematoma due to her increased symptoms and have placed her on the OR schedule for tomorrow. Patient is on Eliquis for A.fib which ideally should held until after the surgery. I reviewed the procedure, alternatives and risks and she consents to the drainage of right leg hematoma. Procedures Date of Service Date of Service: 03/10/25
[2025-03-10 15:16] VITALS: BP 110/43; PULSE 101; RESP 18; O2SAT 99
--- NOTE | 2025-03-10 17:44 | PM.IMHP ---
History of Present Illness Date of Service: 03/10/25 Chief Complaint: Right leg hematoma 84-year-old female patient with a history of Lewy body dementia, hallucinations, and atrial fibrillation on Eliquis returning for increase in the right leg hematoma. She was previously evaluated on after presenting to the ED status post a fall on 02/20/2025. She was subsequently discharged to a assisted facility but returned to the ED today due to increased swelling in the right calf. She remains on the Eliquis for the A. fib. She reports increased pain when putting weight on the leg and when trying to walk. She denies any significant bleeding following the injury. CTA of right lower leg demonstrated stable appearance of the right lower leg hematoma with mass effect on the anterior and lateral compartment. Seen in consultation by surgery; no compartment syndrome noted. Scheduled as add on tomorrow for drainage of right calf hematoma in OR Review of Systems Review of Systems: Denies chest pain Denies shortness of breath Denies nausea vomiting diarrhea Denies fever chills PMFSH Medical History Lewy body dementia with psychotic disturbance Gallstones Difficulty sleeping Thyroid activity decreased Afib Social History Household Members: Other Household Members Other:: Daughter Housing: House Do you presently have visiting nurse or other home services: No Alcohol intake: never Patient Tobacco Use Status: Never used Tobacco Smoked in Last 30 Days: No Use of substances other than those prescribed or required for medical reasons: No Advance Directives: No Advance Directives Information Provided: Yes Do you have a plan to hurt others: No Plan service: No Meds Allergies Allergy/AdvReac Type Severity Reaction Status Date / Time No Known Allergies (No Known Allergy Verified 03/10/25 12:05 Allergies*) Active Medications: Current Medications Acetaminophen (Acetaminophen 325 Mg Tablet) 650 mg PO Q6H PRN PRN Reason: Pain, Mild 1-3,fever,headache Calcium Carbonate (Calcium Carbonate 750 Mg Tab.Chew) 750 mg PO Q4H PRN PRN Reason: Heartburn Cefazolin Sodium/Dextrose (Ancef) 2 gm in 50 mls @ 100 mls/hr IV PREOP ALLYN Stop: 03/11/25 23:00 Magnesium Hydroxide (Milk Of Magnesia 30 Ml Oral.Susp) 30 ml PO DAILY PRN PRN Reason: Constipation Melatonin (Melatonin 3 Mg Tablet) 6 mg PO BEDTIME PRN PRN Reason: Insomnia Ondansetron HCl (Ondansetron Hcl 4 Mg/2 Ml Vial) 4 mg IVPUSH Q8H PRN PRN Reason: Nausea and Vomiting Sodium Chloride (0.9 % Sodium Chloride Flush 3 Ml Syringe) [facility]ations ?Medication ?Instructions ?Recorded ?Confirmed ?Last Taken ?Type apixaban 5 mg tablet (Eliquis) 5 mg PO BID 10/17/20 03/10/25 02/21/25 History Held on 02/24/25. Instructions: Resume on 02/27/25. atorvastatin 40 mg tablet 40 mg PO BEDTIME 10/17/20 03/10/25 02/20/25 History levothyroxine 100 mcg tablet 100 mcg PO DAILY@0600 10/17/20 03/10/25 02/21/25 History metoprolol succinate 100 mg 1 tab PO DAILY 10/17/20 03/10/25 02/21/25 History tablet,extended release 24 hr quetiapine 25 mg tablet (Seroquel) 25 mg PO BEDTIME 10/17/20 03/10/25 02/20/25 History acetaminophen 325 mg tablet 650 mg PO Q4-6H PRN Pain/Fever 02/11/25 03/10/25 Unknown History escitalopram oxalate 20 mg tablet 20 mg PO DAILY 02/11/25 03/10/25 02/21/25 History trazodone 50 mg tablet 50 mg PO BEDTIME PRN Sleep 02/11/25 03/10/25 Unknown History vit C 250 mg-vit E 90 mg-zinc 40 1 tab PO BID 02/11/25 03/10/25 02/10/25 History mg-copper 1 vx-cancul-qvoawl capsule (PreserVision AREDS-2) bisacodyl 10 mg rectal suppository 10 mg ME DAILY PRN Constipation 03/10/25 03/10/25 Unknown History (Dulcolax (bisacodyl)) cholecalciferol (vitamin D3) 25 25 mcg PO DAILY 03/10/25 03/10/25 Unknown History mcg (1,000 unit) tablet (Vitamin D3) magnesium hydroxide 400 mg/5 mL 30 ml PO DAILY PRN Constipation 03/10/25 03/10/25 Unknown History oral suspension (Milk of Magnesia) naloxone 0.4 mg/mL injection 0.4 mg subcut Q2M PRN Opioid 03/10/25 03/10/25 Unknown History solution Overdose oxycodone 10 mg tablet 10 mg PO Q8H PRN chronic pain 03/10/25 03/10/25 Unknown History polyethylene glycol 3350 17 gram 17 g PO DAILY PRN Constipation 03/10/25 03/10/25 Unknown History oral powder packet (Miralax) sodium phosphates 19 gram-7 118 ml ME DAILY PRN Constipation 03/10/25 03/10/25 Unknown History gram/118 mL enema (Fleet Enema) spironolactone 50 mg tablet 50 mg PO DAILY 03/10/25 03/10/25 Unknown History tuberculin PPD 5 tub. unit/0.1 mL 5 tb unit intradermal ONCE 03/10/25 03/10/25 Unknown History intradermal injection solution Physical Exam Vital Signs and Narrative: Vital Signs: Last Vital Signs Temp 97.8 F 03/10/25 12:13 Pulse 101 H 03/10/25 15:16 Resp 18 03/10/25 15:16 BP 110/43 L 03/10/25 15:16 Pulse Ox 99 03/10/25 15:16 O2 Del Method Room Air 03/10/25 15:16 BMI result Body Mass Index 41.9 Const: Other: Awake alert no acute distress Resp: Other: Clear to auscultation bilaterally no rales rhonchi or wheezes Cardio: Other: No S4; positive S1-S2; no S3 murmurs rubs or gallops GI: Other: Soft nontender nondistended normoactive bowel sounds Extrem: Other: Large fluctuant hematoma approximately 5-6 cm from tibial plateau. Normal distal pulses Results Labs 03/10/25 13:15 03/10/25 13:15 Labs: Laboratory Results - last 24 hr 03/10/25 03/10/25 13:15 13:28 MCV 95.1 MCH 30.8 MCHC 32.4 RDW 16.1 H Plt Count 368 D MPV 10.1 Immature Gran % (Auto) 1.5 H Neut % (Auto) 75.6 H Lymph % (Auto) 13.8 L [place] % (Auto) 6.6 Eos % (Auto) 2.1 Baso % (Auto) 0.4 Lymph # (Auto) 1.7 [place] # (Auto) 0.8 Eos # (Auto) 0.3 Baso # (Auto) 0.1 Abs Immat Gran (auto) 0.18 H Absolute Neuts (auto) 9.1 H Absolute Nucleated RBC 0.000 Nucleated RBC % (auto) 0.0 PT 21.9 H D INR 1.9 H Anion Gap 13 Estim Creat Clear Calc 43.4 Estimated GFR 47 Random Glucose 111 Lactic Acid 1.2 Calcium 9.7 D Total Bilirubin 3.3 H Direct Bilirubin 1.0 H AST 179 H ALT 235 H Alkaline Phosphatase 215 H Total Creatine Kinase 27 C-Reactive Protein 11.37 H Total Protein 8.0 Albumin 3.5 Blood Type O Positive Antibody Screen NEGATIVE Imaging Radiologist's Impressions: Impressions Lower Extremity CT 03/10/25 14:23 Impression: Stable appearance of the right lower leg hematoma with mass effect on the anterior and lateral compartment musculature of the lower leg. Contrast opacification was demonstrated in the anterior tibial, posterior tibial, and peroneal arteries at the same level as the hematoma. Amorphous is stippled calcific density in the region of the deltoid ligament complex and posterior talofibular ligaments is probably related to pyrophosphate deposition rather than an avulsion fracture. There is also chondrocalcinosis in the ankle joint. Electronically signed by: Shemar Saul MD 03/10/2025 03:22 PM EDT RP Abdomen Ultrasound 03/10/25 16:13 IMPRESSION: Limited study. Scalloped margin of liver raises question of underlying cirrhosis. Prior ultrasound demonstrated cholelithiasis that may have been obscured on this study. Electronically signed by: Shemar Saul MD 03/10/2025 04:56 PM EDT RP Assessment and Plan (1) Hematoma: Status: Acute (2) Atrial fibrillation: Qualifiers: Atrial fibrillation type: persistent (not longstanding) Qualified Code(s): I48.19 - Other persistent atrial fibrillation Status: Acute (3) Lewy body dementia with psychotic disturbance: Qualifiers: Dementia severity: moderate Qualified Code(s): G31.83 - Neurocognitive disorder with Lewy bodies; F02.B2 - Dementia in other diseases classified elsewhere, moderate, with psychotic disturbance Status: Acute (4) Abnormal LFTs: Status: Acute Plan 84-year-old female patient with a history of Lewy body dementia, hallucinations, and atrial fibrillation on Eliquis returning for increase in the right leg hematoma. She was previously evaluated on after presenting to the ED status post a fall on 02/20/2025. She was subsequently discharged to a assisted facility but returned to the ED today due to increased swelling in the right calf. Continued on Eliquis at assisted facility secondary to persistent AFib. 1. Right lower extremity hematoma -CT scan of right lower extremity noted; surgical input appreciated -empiric coverage with Zosyn (1) -NPO after midnight. . . Surgical add on for drainage of hematoma in a.m. -hold Eliquis -oxycodone for pain (10 mg q.4 hours p.r.n.) 2. Chronic atrial fibrillation -hold Eliquis; resume postoperatively as deemed appropriate by surgery -check EKG tonight -continue outpatient therapies and adjust as indicated 3. Lewy body dementia -stable and well compensated -continue outpatient therapies 4. Abnormal LFTs -we will hold statin at this time -CT abdomen and pelvis rule out mass when appropriate postoperatively Full code Hold anticoagulation at this time; Eliquis given this a.m.. Resume therapies when clinically appropriate Requires at least 2 midnights going forward of inpatient hospitalization for specialty consultation for drainage of right lower extremity hematoma and IV antibiotics. This can not be achieved a lesser acute setting. Quality Stroke Does the patient have a stroke diagnosis?: No VTE Prior VTE?: No VTE Risk Level:: Medical - moderate - high VTE Device Contraindication: Treatment Not Indicated VTE Drug Contraindication: N/A - Med Ordered
[2025-03-10 17:47] VITALS: BP 117/62; PULSE 86; RESP 18; O2SAT 98
--- NOTE | 2025-03-10 17:49 | PHA.MEDREC ---
Addendum entered by Dara Vaughan RPh 03/10/25 17:59: REVIEWED BY PHARMACIST Original Note: Pharmacy Consult ? Medication Reconciliation Pharmacy has completed the medication reconciliation. Utilized med list from [facility].
--- NOTE | 2025-03-10 19:26 | PC.NURSE ---
This RN assumed care of patient at 19:00. Patient is alert, resting in stretcher bed in no acute distress, offers no complaints at present, VSS, purewick in place, call cerda within patient's reach.
[2025-03-10 19:31] VITALS: BP 112/63; PULSE 96; TEMP 36.6; O2SAT 97
--- NOTE | 2025-03-10 20:08 | MHC.EDTECH ---
@1930 Patient stated she was wet. This tech gathered pack of pads, new jennifer, warm wipes, a new pure wick due to the patient saying it wasn't working, and a new sheet. The patient was then washed up, changed, bedding changed, new pads place. The patient was boosted into a comfortable position. The new pure wick placed. Warm blankets given to the patient, and call cerda set within arms reach of the patient.
[2025-03-10 20:20] VITALS: BMI 39.9
[2025-03-10 20:27] VITALS: BP 126/60; PULSE 94; RESP 18; TEMP 36.3; O2SAT 98
[2025-03-10] MEDS: 0.9 % Sodium Chloride Flush 3 ML SYRINGE IVFLUSH (20:33)
[2025-03-11] VITALS (10 sets, daily range): BP systolic 107–134; BP diastolic 49–87; PULSE 83–104; RESP 14–21; TEMP 36–36.8; O2SAT 93–99
--- NOTE | 2025-03-11 07:51 | MHC.SHP ---
Pre-Procedural Eval Section A - 24 Hr Update-Section A only Date of Service: 03/11/25 The patient is an INPATIENT: Yes Changes since office visit: Yes Patient answered all questions; No Cold of Flu in the past 2 weeks, No New Medical Problems and No Changes in Medication The patient has been examined within 24 hours of the surgical procedure. The History & Physical has been completed within 30 days and I have reviewed it.: Yes Section B - Complete if H&P > 30 days Chief Complaint: Right leg hematoma Allergies: Allergies Allergy/AdvReac Type Severity Reaction Status Date / Time No Known Allergies (No Known Allergy Verified 03/10/25 12:05 Allergies*) Plan Diagnosis/Plan: Unchanged I have reviewed the history and physical and performed a pertinent physical examination on my patient. No changes have occurred unless specified. Time Spent With Patient Time: Total time managing care of this patient today ____ minutes.
[2025-03-11] MEDS: 0.9 % Sodium Chloride Flush 3 ML SYRINGE IVFLUSH ×2 (07:52→21:18)
[2025-03-11] MEDS: Metoprolol Succinate ER 100 MG TAB.ER.24H PO (07:52)
[2025-03-11 08:39] LABS: MANUAL DIFF FLAG NO
[2025-03-11 08:44] LABS: Hematocrit 38.2 % (37.0-47.0); Hemoglobin 12.4 g/dl (12.0-16.0); Imm Gran Abs Auto 0.17 X10*3/uL (0.00-0.03); Imm Gran Pct Auto 1.6 % (0.0-0.4); Lymphocytes Absolute Auto 1.3 X10*3/uL (1.2-4.9); Mean Corpuscular HGB Conc 32.5 g/dl (31.0-35.0); Mean Corpuscular Hemoglobin 30.6 pg (27.0-33.0); Mean Corpuscular Volume 94.3 fL (80.0-98.0); NRBC Abs Auto 0.000 X10*3/uL (0.0-0.012); NRBC Pct Auto 0.0 /100WBC (0.0-0.2); Platelet Count 338 X10*3/uL (160-400); Red Blood Count 4.05 X10*6/uL (4.20-5.50); White Blood Count 10.3 X10*3/uL (4.8-10.8)
[2025-03-11 09:04] LABS: Alanine Aminotransferase 190 U/L (0-31); Albumin Level 3.2 g/dL (3.5-5.0); Alkaline Phosphatase 183 U/L (39-117); Anion Gap 13 (12-20); Aspartate Amino Transferase 130 U/L (5-31); Blood Urea Nitrogen 25 mg/dL (9-16); Calcium 9.3 mg/dL (8.4-10.2); Carbon Dioxide 23 mmol/L (22-29); Chloride 106 mmol/L (96-108); Creatinine Clr Calc Pharmacy 41.9; Estimated Glomerular Filt Rate 46; Potassium 4.5 mmol/L (3.3-5.1); Sodium 137 mmol/L (135-145); Total Protein 7.3 g/dL (6.5-8.0)
--- NOTE | 2025-03-11 09:28 | HO.WOUND ---
Wound Consult: Deferred to General Surgery Team 84yr old female admitted to [facility] on 03/10/25 for worsening Right Lower Leg Hematoma s/p fall - See chart review and H&P for detailed history. The chart review reveals patient is set for OR today with Dr. Howe for hematoma evacuation - will defer topical recommendations post surgery to general surgery team. Should topical recommendations be needed please place new consult.
--- NOTE | 2025-03-11 13:45 | HO.ANESPROP2 ---
[facility] Active Problems Active Problems: All Active Problems (Updated 03/10/25 @ 17:49 by Phong Grover DO) Abnormal LFTs (Acute) Atrial fibrillation (Acute) Class 3 obesity (Acute) Hematoma (Acute) Lewy body dementia with psychotic disturbance (Acute) Psychosis (Acute) Past Medical History Medical History Lewy body dementia with psychotic disturbance Gallstones Difficulty sleeping Thyroid activity decreased Afib Surgical History History of Problems with Anesthesia: No Social History Social History Household Members: None Household Members Other:: Daughter Housing: House Housing Other:: came to ER from rehab facility Are you a primary day care director to a significant other at home: No Do you presently have visiting nurse or other home services: No Alcohol intake: never Comment: Patient states she does not walk a lot, but when she does she uses a walker Patient Tobacco Use Status: Never used Tobacco service: No Meds Allergies Allergy/AdvReac Type Severity Reaction Status Date / Time No Known Allergies (No Known Allergy Verified 03/11/25 13:05 Allergies*) Active Medications: Current Medications Acetaminophen (Acetaminophen 325 Mg Tablet) 650 mg PO Q6H PRN PRN Reason: Pain, Mild 1-3,fever,headache Calcium Carbonate (Calcium Carbonate 750 Mg Tab.Chew) 750 mg PO Q4H PRN PRN Reason: Heartburn Escitalopram Oxalate (Escitalopram Oxalate 20 Mg Tablet) 20 mg PO DAILY ALLYN Last Admin: 03/11/25 07:52 Dose: 20 mg Cefazolin Sodium/Dextrose (Ancef) 2 gm in 50 mls @ 100 mls/hr IV PREOP ALLYN Stop: 03/11/25 23:00 Levothyroxine Sodium (Levothyroxine Sodium 100 Mcg Tablet) 100 mcg PO DAILY@0600 ALLYN Last Admin: 03/11/25 05:54 Dose: 100 mcg Magnesium Hydroxide (Milk Of Magnesia 30 Ml Oral.Susp) 30 ml PO DAILY PRN PRN Reason: Constipation Melatonin (Melatonin 3 Mg Tablet) 6 mg PO BEDTIME PRN PRN Reason: Insomnia Metoprolol Succinate (Metoprolol Succinate Er 100 Mg Tab.Er.24h) 100 mg PO DAILY ALLYN; Protocol Last Admin: 03/11/25 07:52 Dose: 100 mg Ondansetron HCl (Ondansetron Hcl 4 Mg/2 Ml Vial) 4 mg IVPUSH Q8H PRN PRN Reason: Nausea and Vomiting Oxycodone HCl (Oxycodone Hcl Immed Release 5 Mg Tablet) 10 mg PO Q4H PRN PRN Reason: Pain, Moderate(Pain Scale 4-6) Quetiapine Fumarate (Quetiapine Fumarate 25 Mg Tablet) 25 mg PO BEDTIME [facility] Last Admin: 03/10/25 22:06 Dose: 25 mg Sodium Chloride (0.9 % Sodium Chloride Flush 3 Ml Syringe) 3 ml IVFLUSH QSHIFT [facility] Last Admin: 03/11/25 07:52 Dose: 3 ml Spironolactone (Spironolactone 25 Mg Tablet) 50 mg PO DAILY [facility]; Protocol Last Admin: 03/11/25 07:52 Dose: 50 mg Trazodone HCl (Trazodone Hcl 50 Mg Tablet) 50 mg PO BEDTIME PRN PRN Reason: Insomnia Last Admin: 03/10/25 22:06 Dose: 50 mg Vitamin D (Cholecalciferol (Vitamin D3) 25 Mcg Tablet) 25 mcg PO DAILY [facility] Last Admin: 03/11/25 07:52 Dose: 25 mcg Home Medications ?Medication ?Instructions ?Recorded ?Confirmed ?Last Taken ?Type apixaban 5 mg tablet (Eliquis) 5 mg PO BID 10/17/20 03/10/25 02/21/25 History Held on 02/24/25. Instructions: Resume on 02/27/25. atorvastatin 40 mg tablet 40 mg PO BEDTIME 10/17/20 03/10/25 02/20/25 History levothyroxine 100 mcg tablet 100 mcg PO DAILY@0600 10/17/20 03/10/25 02/21/25 History metoprolol succinate 100 mg 1 tab PO DAILY 10/17/20 03/10/25 02/21/25 History tablet,extended release 24 hr quetiapine 25 mg tablet (Seroquel) 25 mg PO BEDTIME 10/17/20 03/10/25 02/20/25 History acetaminophen 325 mg tablet 650 mg PO Q4-6H PRN Pain/Fever 02/11/25 03/10/25 Unknown History escitalopram oxalate 20 mg tablet 20 mg PO DAILY 02/11/25 03/10/25 02/21/25 History trazodone 50 mg tablet 50 mg PO BEDTIME PRN Sleep 02/11/25 03/10/25 Unknown History vit C 250 mg-vit E 90 mg-zinc 40 1 tab PO BID 02/11/25 03/10/25 02/10/25 History mg-copper 1 tx-moeqtt-gotxse capsule (PreserVision AREDS-2) bisacodyl 10 mg rectal suppository 10 mg AR DAILY PRN Constipation 03/10/25 03/10/25 Unknown History (Dulcolax (bisacodyl)) cholecalciferol (vitamin D3) 25 25 mcg PO DAILY 03/10/25 03/10/25 Unknown History mcg (1,000 unit) tablet (Vitamin D3) magnesium hydroxide 400 mg/5 mL 30 ml PO DAILY PRN Constipation 03/10/25 03/10/25 Unknown History oral suspension (Milk of Magnesia) naloxone 0.4 mg/mL injection 0.4 mg subcut Q2M PRN Opioid 03/10/25 03/10/25 Unknown History solution Overdose oxycodone 10 mg tablet 10 mg PO Q8H PRN chronic pain 03/10/25 03/10/25 Unknown History polyethylene glycol 3350 17 gram 17 g PO DAILY PRN Constipation 03/10/25 03/10/25 Unknown History oral powder packet (Miralax) sodium phosphates 19 gram-7 118 ml AR DAILY PRN Constipation 03/10/25 03/10/25 Unknown History gram/118 mL enema (Fleet Enema) spironolactone 50 mg tablet 50 mg PO DAILY 03/10/25 03/10/25 Unknown History Exam Height,Weight and Vital Signs: Height 5 ft 3 in Weight 102.3 kg Last Vital Signs Temp 98.3 F 03/11/25 13:02 Pulse 90 03/11/25 13:02 Resp 18 03/11/25 13:02 BP 127/87 03/11/25 13:02 Pulse Ox 98 03/11/25 13:02 O2 Del Method Room Air 03/11/25 13:02 Pertinent Lab Results Pertinent Lab Results: Laboratory Tests 03/10/25 03/10/25 03/11/25 13:15 13:28 08:16 WBC 12.0 H 10.3 RBC 4.12 L 4.05 L Hgb 12.7 12.4 Hct 39.2 38.2 MCV 95.1 94.3 MCH 30.8 30.6 MCHC 32.4 32.5 RDW 16.1 H 16.1 H Plt Count 368 D 338 MPV 10.1 10.3 Immature Gran % (Auto) 1.5 H 1.6 H Neut % (Auto) 75.6 H 75.3 H Lymph % (Auto) 13.8 L 12.6 L [place] % (Auto) 6.6 7.2 Eos % (Auto) 2.1 2.7 Baso % (Auto) 0.4 0.6 Lymph # (Auto) 1.7 1.3 [place] # (Auto) 0.8 0.7 Eos # (Auto) 0.3 0.3 Baso # (Auto) 0.1 0.1 Abs Immat Gran (auto) 0.18 H 0.17 H Absolute Neuts (auto) 9.1 H 7.8 Absolute Nucleated RBC 0.000 0.000 Nucleated RBC % (auto) 0.0 0.0 PT 21.9 H D INR 1.9 H Sodium 138 137 Potassium 4.6 4.5 Chloride 104 106 Carbon Dioxide 26 23 Anion Gap 13 13 BUN 24 H 25 H Creatinine 1.11 1.12 Estim Creat Clear Calc 43.4 41.9 Estimated GFR 47 46 Random Glucose 111 99 Lactic Acid 1.2 Calcium 9.7 D 9.3 Total Bilirubin 3.3 H 2.9 H Direct Bilirubin 1.0 H AST 179 H 130 H ALT 235 H 190 H Alkaline Phosphatase 215 H 183 H Total Creatine Kinase 27 C-Reactive Protein 11.37 H Total Protein 8.0 7.3 Albumin 3.5 3.2 L Blood Type O Positive Antibody Screen NEGATIVE Airway Mallampati Class: III TM Dist: >3cm Neck ROM: Limited Loose/Missing/Broken Teeth: Yes, Upper and Lower Heart: irregularly irregular rhythm Lungs: CTA Assessment and Plan Assessment Anesthesia Assessment: Anesthesia Plan Discussed and Chart Reviewed Final Anesthetic Review History of Problems with Anesthesia: No NPO: Yes ASA Class: III Final Preanesthetic Review: Meds/Allgs Chart Reviewed, Consent Obtained/Reviewed and Anes Risks/Benef Reviewed Patient Risk: Intermediate Procedure Risk: Low Anesthetic Plan Anesthetic Plan: MAC: Disposition: Standard PACU
--- NOTE | 2025-03-11 14:56 | W.PM.OPN ---
Operative Note Operative Note Date of Service: 03/11/25 Narrative: Preoperative diagnosis: Hematoma right leg Postoperative diagnosis: Same Procedure: Evacuation of hematoma right leg Surgeon: Baldo Howe MD Zoology Technical Officer: Kevin TIDWELL Anesthesia:MAC plus local lidocaine 1% with epinephrine and Sensorcaine 0.5% Indications for procedure: 84-year-old female patient presenting following a fall resulting in a large hematoma of the right calf. The injury occurred approximately 1 month ago however the patient is noticing increased swelling and pain. She also reports increased pain with the ambulation. Operative findings: Organized clot right calf with no seroma. Specimen: None Estimated blood loss: None except old blood/clot Complications: None Procedure details: Patient was brought to the OR and placed in a supine position. After administering sedation the patient's right leg was prepped with Betadine and draped in a sterile fashion. A surgical time-out was called the consent confirmed. Patient received preoperative antibiotics. Local anesthesia was then infiltrated over the mid calf laterally for an area measuring approximately 2 cm. A 2 cm incision was then made with a scalpel and carried down into subcutaneous tissue. Blunt dissection was then used to enter the hematoma. A tonsil suction was then inserted into this incision and clotted blood evacuated. This was then irrigated with saline solution an additional clot loosened and evacuated. No serum could be identified in the collection. After evacuating a moderate size collection a 10 Jesse-Altamirano drain was then placed into the hematoma cavity. This was then connected to bulb suctioned. The drain was secured to skin using a 3-0 nylon suture. An additional 3-0 Polysorb suture was used to close skin as well. Sterile dressings consisting of silver alginate, fluff gauze, Kerlix and Agustin bandage was then applied. The patient tolerated the procedure well. Sponge, instrument, and needle counts reported as correct. The patient was transferred to PACU in stable condition.
--- NOTE | 2025-03-11 16:09 | HO.PM.IMPN ---
Subjective Subjective Date of Service: 03/11/25 Interval History: Seen earlier today. No acute issues overnight Review of Systems Denies chest pain Denies shortness of breath Denies nausea vomiting diarrhea Denies fever chills Physical Exam Vital Signs: Vital Signs: Last Vital Signs Temp 97 F 03/11/25 15:47 Pulse 85 03/11/25 15:47 Resp 16 03/11/25 15:47 BP 109/55 L 03/11/25 15:47 Pulse Ox 93 03/11/25 15:47 O2 Del Method Room Air 03/11/25 15:47 O2 Flow Rate 6 03/11/25 14:54 BMI result Body Mass Index 39.9 Const: Other: Awake alert no acute distress Resp: Other: Clear to auscultation bilaterally no rales rhonchi or wheezes Cardio: Other: No S4; positive S1-S2; no S3 murmurs rubs or gallops GI: Other: Soft nontender nondistended normoactive bowel sounds Extrem: Other: Large fluctuant hematoma approximately 5-6 cm from tibial plateau. Normal distal pulses Objective Data Active Medications Acetaminophen (Acetaminophen 325 Mg Tablet) 650 mg PO Q6H PRN PRN Reason: Pain, Mild 1-3,fever,headache Calcium Carbonate (Calcium Carbonate 750 Mg Tab.Chew) 750 mg PO Q4H PRN PRN Reason: Heartburn Escitalopram Oxalate (Escitalopram Oxalate 20 Mg Tablet) 20 mg PO DAILY [facility] Last Admin: 03/11/25 07:52 Dose: 20 mg Documented By: LUCERO Levothyroxine Sodium (Levothyroxine Sodium 100 Mcg Tablet) 100 mcg PO DAILY@0600 [facility] Last Admin: 03/11/25 05:54 Dose: 100 mcg Documented By: MARIAA Magnesium Hydroxide (Milk Of Magnesia 30 Ml Oral.Susp) 30 ml PO DAILY PRN PRN Reason: Constipation Melatonin (Melatonin 3 Mg Tablet) 6 mg PO BEDTIME PRN PRN Reason: Insomnia Metoprolol Succinate (Metoprolol Succinate Er 100 Mg Tab.Er.24h) 100 mg PO DAILY [facility]; Protocol Last Admin: 03/11/25 07:52 Dose: 100 mg Documented By: LUCERO Morphine Sulfate (Morphine Sulfate 4 Mg/Ml Cartridge) 3 mg IVPUSH Q3H PRN; Protocol PRN Reason: Pain, Severe (Pain Scale 7-10) Ondansetron HCl (Ondansetron Hcl 4 Mg/2 Ml Vial) 4 mg IVPUSH Q8H PRN PRN Reason: Nausea and Vomiting Oxycodone HCl (Oxycodone Hcl Immed Release 5 Mg Tablet) 10 mg PO Q4H PRN PRN Reason: Pain, Moderate(Pain Scale 4-6) Quetiapine Fumarate (Quetiapine Fumarate 25 Mg Tablet) 25 mg PO BEDTIME [facility] Last Admin: 03/10/25 22:06 Dose: 25 mg Documented By: MARIAA Sodium Chloride (0.9 % Sodium Chloride Flush 3 Ml Syringe) 3 ml IVFLUSH QSHIFT [facility] Last Admin: 03/11/25 07:52 Dose: 3 ml Documented By: LUCERO Spironolactone (Spironolactone 25 Mg Tablet) 50 mg PO DAILY [facility]; Protocol Last Admin: 03/11/25 07:52 Dose: 50 mg Documented By: LUCERO Trazodone HCl (Trazodone Hcl 50 Mg Tablet) 50 mg PO BEDTIME PRN PRN Reason: Insomnia Last Admin: 03/10/25 22:06 Dose: 50 mg Documented By: MARIAA Vitamin D (Cholecalciferol (Vitamin D3) 25 Mcg Tablet) 25 mcg PO DAILY [facility] Last Admin: 03/11/25 07:52 Dose: 25 mcg Documented By: LUCERO Labs 03/11/25 08:16 03/11/25 08:16 Labs: Laboratory Results - last 24 hr 03/11/25 08:16 MCV 94.3 MCH 30.6 MCHC 32.5 RDW 16.1 H Plt Count 338 MPV 10.3 Immature Gran % (Auto) 1.6 H Neut % (Auto) 75.3 H Lymph % (Auto) 12.6 L [place] % (Auto) 7.2 Eos % (Auto) 2.7 Baso % (Auto) 0.6 Lymph # (Auto) 1.3 [place] # (Auto) 0.7 Eos # (Auto) 0.3 Baso # (Auto) 0.1 Abs Immat Gran (auto) 0.17 H Absolute Neuts (auto) 7.8 Absolute Nucleated RBC 0.000 Nucleated RBC % (auto) 0.0 Anion Gap 13 Estim Creat Clear Calc 41.9 Estimated GFR 46 Random Glucose 99 Calcium 9.3 Total Bilirubin 2.9 H AST 130 H ALT 190 H Alkaline Phosphatase 183 H Total Protein 7.3 Albumin 3.2 L Microbiology Microbiology Results: Microbiology 03/10/25 13:28 Blood Culture - Preliminary Blood - Venous No growth after 24 hours. 03/10/25 13:15 Blood Culture - Preliminary Blood - Venous No growth after 24 hours. Assessment and Plan (1) Hematoma: Status: Acute (2) Atrial fibrillation: Status: Acute Plan 84-year-old female patient with a history of Lewy body dementia, hallucinations, and atrial fibrillation on Eliquis returning for increase in the right leg hematoma. She was previously evaluated on after presenting to the ED status post a fall on 02/20/2025. She was subsequently discharged to a [facility] facility but returned to the ED today due to increased swelling in the right calf. Continued on Eliquis at [facility] facility secondary to persistent AFib. 1. Right lower extremity hematoma -CT scan of right lower extremity noted; surgical input appreciated -empiric coverage with Zosyn (2) -surgical drainage of hematoma this afternoon -hold Eliquis -oxycodone for pain (10 mg q.4 hours p.r.n.) 2. Chronic atrial fibrillation -hold Eliquis; resume postoperatively as deemed appropriate by surgery -continue outpatient therapies and adjust as indicated 3. Lewy body dementia -stable and well compensated -continue outpatient therapies 4. Abnormal LFTs -we will hold statin at this time -CT abdomen and pelvis rule out mass when appropriate postoperatively Full code Hold anticoagulation at this time; Eliquis given this a.m.. Resume therapies when clinically appropriate Requires ongoing hospitalization for IV antibiotics and wound care along with specialist consultation Quality Stroke Does the patient have a stroke diagnosis?: No VTE Prior VTE?: No VTE Risk Level:: Medical - moderate - high VTE Device Contraindication: Treatment Not Indicated VTE Drug Contraindication: N/A - Med Ordered
[2025-03-12] VITALS (7 sets, daily range): BP systolic 110–161; BP diastolic 54–79; PULSE 80–103; RESP 18–19; TEMP 36.1–37; O2SAT 94–98
[2025-03-12 06:18] LABS: MANUAL DIFF FLAG NO
[2025-03-12 06:25] LABS: Hematocrit 38.0 % (37.0-47.0); Hemoglobin 12.1 g/dl (12.0-16.0); Mean Corpuscular HGB Conc 31.8 g/dl (31.0-35.0); Mean Corpuscular Hemoglobin 30.4 pg (27.0-33.0); Mean Corpuscular Volume 95.5 fL (80.0-98.0); Platelet Count 354 X10*3/uL (160-400); Red Blood Count 3.98 X10*6/uL (4.20-5.50); White Blood Count 9.3 X10*3/uL (4.8-10.8)
[2025-03-12 06:26] LABS: Imm Gran Abs Auto 0.17 X10*3/uL (0.00-0.03); Imm Gran Pct Auto 1.8 % (0.0-0.4); Lymphocytes Absolute Auto 1.8 X10*3/uL (1.2-4.9); NRBC Abs Auto 0.000 X10*3/uL (0.0-0.012); NRBC Pct Auto 0.0 /100WBC (0.0-0.2)
--- NOTE | 2025-03-12 06:43 | PM.PNGS ---
Subjective Subjective Date of Service: 03/12/25 <Kevin Brambila - Last Filed: 03/12/25 07:07> 03/12/25 <Rosario Borrero PA-C - Last Filed: 03/12/25 10:35> 03/12/25 <Baldo Howe MD - Last Filed: 03/12/25 14:10> Interval history: Patient reports she tolerated the procedure well but she is tired this morning. She reports pain as 0/10. Denies fever, chills, chest pain, or shortness of breath. <Kevin Brambila - Last Filed: 03/12/25 07:07> Physical Exam Vital Signs: Vital Signs: Last Vital Signs Temp 97.4 F 03/12/25 03:38 Pulse 80 03/12/25 03:38 Resp 19 03/12/25 03:38 BP 126/79 03/12/25 03:38 Pulse Ox 97 03/12/25 03:38 O2 Del Method Room Air 03/12/25 03:38 O2 Flow Rate 6 03/11/25 14:54 BMI result Body Mass Index 39.9 <Kevin Brambila - Last Filed: 03/12/25 07:07> Const: General: tired appearing <Kevin Brambila - Last Filed: 03/12/25 07:07> Orientation/consciousness: patient oriented x3 <Kevin Brambila Last Filed: 03/12/25 07:07> Resp: Effort & Inspection: normal respiratory effort and able to speak in complete sentences <Kevin Brambila - Last Filed: 03/12/25 07:07> Neuro: General: patient oriented x3 <Kevin Brambila - Last Filed: 03/12/25 07:07> Extrem: Other: Right calf significant enlarged and wrapped in dressing. Light palpation sensation in tact throughout calf and mild pain to palpation over the lateral aspect near incision site. Dressings are clean, dry, and intact. Serosanguinous fluid in the MARISELA drain - approx. 10mL drained overnight. <Kevin Brambila Last Filed: 03/12/25 07:07> General: Yes no pedal edema and Yes calf tenderness <Kevin Brambila Last Filed: 03/12/25 07:07> Objective Data Active Medications Acetaminophen (Acetaminophen 325 Mg Tablet) 650 mg PO Q6H PRN PRN Reason: Pain, Mild 1-3,fever,headache Last Admin: 03/11/25 19:41 Dose: 650 mg Documented By: COREEN Calcium Carbonate (Calcium Carbonate 750 Mg Tab.Chew) 750 mg PO Q4H PRN PRN Reason: Heartburn Escitalopram Oxalate (Escitalopram Oxalate 20 Mg Tablet) 20 mg PO DAILY [facility] Last Admin: 03/11/25 07:52 Dose: 20 mg Documented By: LUCERO Levothyroxine Sodium (Levothyroxine Sodium 100 Mcg Tablet) 100 mcg PO DAILY@0600 [facility] Last Admin: 03/12/25 05:36 Dose: 100 mcg Documented By: COREEN Magnesium Hydroxide (Milk Of Magnesia 30 Ml Oral.Susp) 30 ml PO DAILY PRN PRN Reason: Constipation Melatonin (Melatonin 3 Mg Tablet) 6 mg PO BEDTIME PRN PRN Reason: Insomnia Metoprolol Succinate (Metoprolol Succinate Er 100 Mg Tab.Er.24h) 100 mg PO DAILY [facility]; Protocol Last Admin: 03/11/25 07:52 Dose: 100 mg Documented By: LUCERO Morphine Sulfate (Morphine Sulfate 4 Mg/Ml Cartridge) 3 mg IVPUSH Q3H PRN; Protocol PRN Reason: Pain, Severe (Pain Scale 7-10) Ondansetron HCl (Ondansetron Hcl 4 Mg/2 Ml Vial) 4 mg IVPUSH Q8H PRN PRN Reason: Nausea and Vomiting Oxycodone HCl (Oxycodone Hcl Immed Release 5 Mg Tablet) 10 mg PO Q4H PRN PRN Reason: Pain, Moderate(Pain Scale 4-6) Quetiapine Fumarate (Quetiapine Fumarate 25 Mg Tablet) 25 mg PO BEDTIME [facility] Last Admin: 03/11/25 21:18 Dose: 25 mg Documented By: COREEN Sodium Chloride (0.9 % Sodium Chloride Flush 3 Ml Syringe) 3 ml IVFLUSH QSHIFT [facility] Last Admin: 03/11/25 21:18 Dose: 3 ml Documented By: COREEN Spironolactone (Spironolactone 25 Mg Tablet) 50 mg PO DAILY [facility]; Protocol Last Admin: 03/11/25 07:52 Dose: 50 mg Documented By: LUCERO Trazodone HCl (Trazodone Hcl 50 Mg Tablet) 50 mg PO BEDTIME PRN PRN Reason: Insomnia Last Admin: 03/11/25 21:19 Dose: 50 mg Documented By: COREEN Vitamin D (Cholecalciferol (Vitamin D3) 25 Mcg Tablet) 25 mcg PO DAILY [facility] Last Admin: 03/11/25 07:52 Dose: 25 mcg Documented By: LUCERO <Kevin Brambila - Last Filed: 03/12/25 07:07> Labs CBC & Chem 7: 03/12/25 05:27 03/12/25 05:27 <Kevin Brambila - Last Filed: 03/12/25 07:07> Labs: Laboratory Results - last 24 hr 03/11/25 03/12/25 08:16 05:27 MCV 94.3 95.5 MCH 30.6 30.4 MCHC 32.5 31.8 RDW 16.1 H 15.9 Plt Count 338 354 MPV 10.3 10.3 Immature Gran % (Auto) 1.6 H 1.8 H Neut % (Auto) 75.3 H 67.7 Lymph % (Auto) 12.6 L 19.7 L [place] % (Auto) 7.2 7.5 Eos % (Auto) 2.7 2.5 Baso % (Auto) 0.6 0.8 Lymph # (Auto) 1.3 1.8 [place] # (Auto) 0.7 0.7 Eos # (Auto) 0.3 0.2 Baso # (Auto) 0.1 0.1 Abs Immat Gran (auto) 0.17 H 0.17 H Absolute Neuts (auto) 7.8 6.3 Absolute Nucleated RBC 0.000 0.000 Nucleated RBC % (auto) 0.0 0.0 Anion Gap 13 Estim Creat Clear Calc 41.9 Estimated GFR 46 Random Glucose 99 Calcium 9.3 Total Bilirubin 2.9 H AST 130 H ALT 190 H Alkaline Phosphatase 183 H Total Protein 7.3 Albumin 3.2 L <Kevin Brambila - Last Filed: 03/12/25 07:07> Microbiology Microbiology Results: Microbiology 03/10/25 13:28 Blood Culture - Preliminary Blood - Venous No growth after 24 hours. 03/10/25 13:15 Blood Culture - Preliminary Blood - Venous No growth after 24 hours. <Kevin Brambila - Last Filed: 03/12/25 07:07> Procedures Date of Service Date of Service: 03/12/25 <Kevin Brambila - Last Filed: 03/12/25 07:07> 03/12/25 <Rosario Borrero PA-C - Last Filed: 03/12/25 10:35> 03/12/25 <Baldo Howe MD - Last Filed: 03/12/25 14:10> Progress Note: A&P Assessment and plan (1) Hematoma: Status: Acute <Kevin Brambila - Last Filed: 03/12/25 07:07> (2) S/P evacuation of hematoma: Status: Acute <Kevin Brambila - Last Filed: 03/12/25 07:07> Assessment and Plan: Patient is POD#1 s/p right calf hematoma evacuation. She was seen in the ER for an enlarging hematoma of the RLE caused by a fall on 02/12 and for which she was admitted 02/21-02/21. At that time there was no evidence of ongoing bleeding or other acute issue that warranted surgical intervention and it was recommended that the hematoma be managed conservatively with elevation and compression dressing. She returned to the ER on 03/10 with increased swelling and difficulty ambulating and desired surigcal management. RLE extremity appeared larger than previous hospital stay and work-up suggests organization of hematoma. Patient appears to be tolerating the procedure well. She reports no pain and has not requested prn opioids for pain control. Dressings are clearn, dry, and intact. Serosanguinous fluid in the MARISELA drain - approx. 10mL output overnight. <Kevinrogelio Brambila - Last Filed: 03/12/25 07:07> Patient is POD#1 s/p right calf hematoma evacuation. She was seen in the ER for an enlarging hematoma of the RLE caused by a fall on 02/12 and for which she was admitted 02/21-02/21. At that time there was no evidence of ongoing bleeding or other acute issue that warranted surgical intervention and it was recommended that the hematoma be managed conservatively with elevation and compression dressing. She returned to the ER on 03/10 with increased swelling and difficulty ambulating and desired surigcal management. RLE extremity appeared larger than previous hospital stay and work-up suggests organization of hematoma. Patient appears to be tolerating the procedure well. She reports no pain and has not requested prn opioids for pain control. Dressings are clearn, dry, and intact. Serosanguinous fluid in the MARISELA drain - approx. 10mL output overnight. Agree with above assessment and plan by Kevin TDIWELL. Patient feels well, no significant pain. Dressing changed- aematoma site somewhat improved, still with collection present. MARISELA drain with some old bloody drainage. Drain stripped and no clots present. Recommend warm packs q2h to hematoma site to see if this helps with breakdown of clot. Cont leg elevation. Keep MARISELA in place for now. <Rosario Borrero PA-C - Last Filed: 03/12/25 10:35> Patient is POD#1 s/p right calf hematoma evacuation. She was seen in the ER for an enlarging hematoma of the RLE caused by a fall on 02/12 and for which she was admitted 02/21-02/21. At that time there was no evidence of ongoing bleeding or other acute issue that warranted surgical intervention and it was recommended that the hematoma be managed conservatively with elevation and compression dressing. She returned to the ER on 03/10 with increased swelling and difficulty ambulating and desired surigcal management. RLE extremity appeared larger than previous hospital stay and work-up suggests organization of hematoma. Patient appears to be tolerating the procedure well. She reports no pain and has not requested prn opioids for pain control. Dressings are clearn, dry, and intact. Serosanguinous fluid in the MARISELA drain - approx. 10mL output overnight. Agree with above assessment and plan by Kevin TIDWELL. Patient feels well, no significant pain. Dressing changed- aematoma site somewhat improved, still with collection present. MARISELA drain with some old bloody drainage. Drain stripped and no clots present. Recommend warm packs q2h to hematoma site to see if this helps with breakdown of clot. Cont leg elevation. Keep MARISELA in place for now. Patient seen and examined and I agree with the above assessment and plan. Continued hospitalization required for management of the residual hematoma of the right leg. <Baldo Howe MD - Last Filed: 03/12/25 14:10> Time Spent With Patient Time: Total time managing care of this patient today ____ minutes. <Kevin Brambila - Last Filed: 03/12/25 07:07> Quality Stroke Does the patient have a stroke diagnosis?: No <Kevin Brambila - Last Filed: 03/12/25 07:07> VTE Prior VTE?: No <Kevin Brambila - Last Filed: 03/12/25 07:07> VTE Risk Level:: Medical - moderate - high <Kevin Brambila - Last Filed: 03/12/25 07:07> VTE Device Contraindication: Treatment Not Indicated <Kevin Brambila - Last Filed: 03/12/25 07:07> VTE Drug Contraindication: N/A - Med Ordered <Kevin Brambila - Last Filed: 03/12/25 07:07>
[2025-03-12 07:05] LABS: Alanine Aminotransferase 139 U/L (0-31); Albumin Level 3.2 g/dL (3.5-5.0); Alkaline Phosphatase 180 U/L (39-117); Anion Gap 14 (12-20); Aspartate Amino Transferase 111 U/L (5-31); Blood Urea Nitrogen 27 mg/dL (9-16); Calcium 9.6 mg/dL (8.4-10.2); Carbon Dioxide 27 mmol/L (22-29); Chloride 104 mmol/L (96-108); Creatinine Clr Calc Pharmacy 34.0; Estimated Glomerular Filt Rate 36; Potassium 5.1 mmol/L (3.3-5.1); Sodium 140 mmol/L (135-145); Total Protein 7.3 g/dL (6.5-8.0)
--- NOTE | 2025-03-12 08:52 | HO.POSTANES ---
Post Anesthesia Evaluation Post Anesthesia Evaluation Date of Service: 03/11/25 Vital Signs: Vital Signs Temp Pulse Resp BP Pulse Ox O2 Del Method 03/12/25 07:54 97.0 F 89 18 122/74 97 Room Air 03/12/25 03:38 97.4 F 80 19 126/79 97 Room Air 03/11/25 23:29 96.8 F 83 19 114/72 94 Room Air Anesthesia: Monitored Mental Status: Awake Pain Control: Satisfactory Nausea/Vomiting: None Hydration: Adequate Anesthesia-Related Issues: No Anes. Related Issues
[2025-03-12] MEDS: Metoprolol Succinate ER 100 MG TAB.ER.24H PO (09:57)
[2025-03-12] MEDS: 0.9 % Sodium Chloride Flush 3 ML SYRINGE IVFLUSH ×3 (09:58→20:21)
--- NOTE | 2025-03-12 15:05 | P.PNIM_ITS ---
Subjective Subjective Date of Service: 03/12/25 Interval History: No acute issues overnight. Essentially no pain. Review of Systems Denies chest pain Denies shortness of breath Denies nausea vomiting diarrhea Denies fever chills Physical Exam 2 Vital Signs: Vital Signs: Last Vital Signs Temp 98.6 F 03/12/25 13:00 Pulse 103 H 03/12/25 13:00 Resp 18 03/12/25 13:00 BP 161/58 H 03/12/25 13:00 Pulse Ox 94 03/12/25 13:00 O2 Del Method Room Air 03/12/25 13:00 O2 Flow Rate 6 03/11/25 14:54 BMI result Body Mass Index 39.9 Const: Other: Awake alert no acute distress Resp: Other: Clear to auscultation bilaterally no rales rhonchi or wheezes Cardio: Other: No S4; positive S1-S2; no S3 murmurs rubs or gallops GI: Other: Soft nontender nondistended normoactive bowel sounds Extrem: Other: Large fluctuant hematoma approximately 5-6 cm from tibial plateau. Normal distal pulses Objective Data Active Medications Acetaminophen (Acetaminophen 325 Mg Tablet) 650 mg PO Q6H PRN PRN Reason: Pain, Mild 1-3,fever,headache Last Admin: 03/11/25 19:41 Dose: 650 mg Documented By: COREEN Calcium Carbonate (Calcium Carbonate 750 Mg Tab.Chew) 750 mg PO Q4H PRN PRN Reason: Heartburn Escitalopram Oxalate (Escitalopram Oxalate 20 Mg Tablet) 20 mg PO DAILY [facility] Last Admin: 03/12/25 09:58 Dose: 20 mg Documented By: NADIA Levothyroxine Sodium (Levothyroxine Sodium 100 Mcg Tablet) 100 mcg PO DAILY@0600 [facility] Last Admin: 03/12/25 05:36 Dose: 100 mcg Documented By: COREEN Magnesium Hydroxide (Milk Of Magnesia 30 Ml Oral.Susp) 30 ml PO DAILY PRN PRN Reason: Constipation Melatonin (Melatonin 3 Mg Tablet) 6 mg PO BEDTIME PRN PRN Reason: Insomnia Metoprolol Succinate (Metoprolol Succinate Er 100 Mg Tab.Er.24h) 100 mg PO DAILY [facility]; Protocol Last Admin: 03/12/25 09:57 Dose: 100 mg Documented By: NADIA Morphine Sulfate (Morphine Sulfate 4 Mg/Ml Cartridge) 3 mg IVPUSH Q3H PRN; Protocol PRN Reason: Pain, Severe (Pain Scale 7-10) Ondansetron HCl (Ondansetron Hcl 4 Mg/2 Ml Vial) 4 mg IVPUSH Q8H PRN PRN Reason: Nausea and Vomiting Oxycodone HCl (Oxycodone Hcl Immed Release 5 Mg Tablet) 10 mg PO Q4H PRN PRN Reason: Pain, Moderate(Pain Scale 4-6) Quetiapine Fumarate (Quetiapine Fumarate 25 Mg Tablet) 25 mg PO BEDTIME [facility] Last Admin: 03/11/25 21:18 Dose: 25 mg Documented By: COREEN Sodium Chloride (0.9 % Sodium Chloride Flush 3 Ml Syringe) [facility] Last Admin: 03/12/25 09:58 Dose: 3 ml Documented By: NADIA Spironolactone (Spironolactone 25 Mg Tablet) 50 mg PO DAILY [facility]; Protocol Last Admin: 03/12/25 09:58 Dose: 50 mg Documented By: NADIA Trazodone HCl (Trazodone Hcl 50 Mg Tablet) 50 mg PO BEDTIME PRN PRN Reason: Insomnia Last Admin: 03/11/25 21:19 Dose: 50 mg Documented By: COREEN Vitamin D (Cholecalciferol (Vitamin D3) 25 Mcg Tablet) 25 mcg PO DAILY [facility] Last Admin: 03/12/25 09:58 Dose: 25 mcg Documented By: NADIA Labs 03/12/25 05:27 03/12/25 05:27 Labs: Laboratory Results - last 24 hr 03/12/25 05:27 MCV 95.5 MCH 30.4 MCHC 31.8 RDW 15.9 Plt Count 354 MPV 10.3 Immature Gran % (Auto) 1.8 H Neut % (Auto) 67.7 Lymph % (Auto) 19.7 L [place] % (Auto) 7.5 Eos % (Auto) 2.5 Baso % (Auto) 0.8 Lymph # (Auto) 1.8 [place] # (Auto) 0.7 Eos # (Auto) 0.2 Baso # (Auto) 0.1 Abs Immat Gran (auto) 0.17 H Absolute Neuts (auto) 6.3 Absolute Nucleated RBC 0.000 Nucleated RBC % (auto) 0.0 Anion Gap 14 Estim Creat Clear Calc 34.0 Estimated GFR 36 Fasting Glucose 109 H Calcium 9.6 Total Bilirubin 2.1 H AST 111 H ALT 139 H Alkaline Phosphatase 180 H Total Protein 7.3 Albumin 3.2 L Microbiology Microbiology Results: Microbiology 03/10/25 13:28 Blood Culture - Preliminary Blood - Venous No growth after 24 hours. 03/10/25 13:15 Blood Culture - Preliminary Blood - Venous No growth after 24 hours. Assessment and Plan (1) Hematoma: Status: Acute (2) Atrial fibrillation: Status: Acute Plan 84-year-old female patient with a history of Lewy body dementia, hallucinations, and atrial fibrillation on Eliquis returning for increase in the right leg hematoma. She was previously evaluated on after presenting to the ED status post a fall on 02/20/2025. She was subsequently discharged to a halfway facility but returned to the ED today due to increased swelling in the right calf. Continued on Eliquis at halfway facility secondary to persistent AFib. 1. Right lower extremity hematoma -CT scan of right lower extremity noted; surgical input appreciated -empiric coverage with Zosyn (2) -surgical drainage of hematoma this afternoon -hold Eliquis.. Resume when deemed appropriate by surgery -oxycodone for pain (10 mg q.4 hours p.r.n.) 2. Chronic atrial fibrillation -hold Eliquis; resume postoperatively as deemed appropriate by surgery -continue outpatient therapies and adjust as indicated 3. Lewy body dementia -stable and well compensated -continue outpatient therapies 4. Abnormal LFTs -we will hold statin at this time -CT abdomen and pelvis rule out mass when appropriate postoperatively Full code Hold anticoagulation at this time; Eliquis given this a.m.. Resume therapies when clinically appropriate Requires ongoing hospitalization for IV antibiotics and wound care along with specialist consultation Quality Stroke Does the patient have a stroke diagnosis?: No VTE Prior VTE?: No VTE Risk Level:: Medical - moderate - high VTE Device Contraindication: Treatment Not Indicated VTE Drug Contraindication: N/A - Med Ordered
--- NOTE | 2025-03-12 15:31 | MHC.CM.PN ---
pt from [facility] where she will return when dcd
[2025-03-12] MEDS: oxyCODONE HCl Immed Release 5 MG TABLET 10 MG PO (20:20)
[2025-03-13 04:00] VITALS: BP 115/89; PULSE 81; RESP 18; TEMP 36.7; O2SAT 96
--- NOTE | 2025-03-13 06:47 | P.PNGS_ITS ---
Subjective Subjective Date of Service: 03/13/25 <Kevin Brambila - Last Filed: 03/13/25 07:38> 03/13/25 <Baldo Howe MD - Last Filed: 03/13/25 08:16> 03/13/25 <Rosario Borrero PA-C - Last Filed: 03/13/25 08:39> Interval history: Pain reports experiencing some 4/10 pain last night and requested pain medication because she could not get back to sleep. She reports no pain this morning. Denies fever, chills, chest pain, or shortness of breath. <Kevin Brambila - Last Filed: 03/13/25 07:38> Physical Exam 2 Vital Signs: Vital Signs: Last Vital Signs Temp 98.1 F 03/13/25 04:00 Pulse 81 03/13/25 04:00 Resp 18 03/13/25 04:00 BP 115/89 03/13/25 04:00 Pulse Ox 96 03/13/25 04:00 O2 Del Method Room Air 03/13/25 04:00 O2 Flow Rate 6 03/11/25 14:54 BMI result Body Mass Index 39.9 <Kevin Brambila - Last Filed: 03/13/25 07:38> Const: General: comfortable and no acute distress <Kevin Brambila Last Filed: 03/13/25 07:38> Orientation/consciousness: patient oriented x3 <Kevin Brambila Last Filed: 03/13/25 07:38> Resp: Effort & Inspection: normal respiratory effort and able to speak in complete sentences <Kevin Brambila - Last Filed: 03/13/25 07:38> Neuro: General: patient oriented x3 <Kevin Brambila Last Filed: 03/13/25 07:38> Extrem: Other: Dressings are clean, dry, and intact. Old blood drainage in the MARISELA tube consistent with appearance the day before - approx. 10mL output since yesterday, no new output overnight. Appears to have increased swelling of the foot but conserved ROM of toes. <Kevin Brambila Last Filed: 03/13/25 07:38> General: Yes pedal edema <Kevin Brambila - Last Filed: 03/13/25 07:38> Objective Data Active Medications Acetaminophen (Acetaminophen 325 Mg Tablet) 650 mg PO Q6H PRN PRN Reason: Pain, Mild 1-3,fever,headache Last Admin: 03/11/25 19:41 Dose: 650 mg Documented By: COREEN Calcium Carbonate (Calcium Carbonate 750 Mg Tab.Chew) 750 mg PO Q4H PRN PRN Reason: Heartburn Escitalopram Oxalate (Escitalopram Oxalate 20 Mg Tablet) 20 mg PO DAILY [facility] Last Admin: 03/12/25 09:58 Dose: 20 mg Documented By: NADIA Levothyroxine Sodium (Levothyroxine Sodium 100 Mcg Tablet) 100 mcg PO DAILY@0600 [facility] Last Admin: 03/13/25 06:10 Dose: 100 mcg Documented By: EILEEN Magnesium Hydroxide (Milk Of Magnesia 30 Ml Oral.Susp) 30 ml PO DAILY PRN PRN Reason: Constipation Melatonin (Melatonin 3 Mg Tablet) 6 mg PO BEDTIME PRN PRN Reason: Insomnia Metoprolol Succinate (Metoprolol Succinate Er 100 Mg Tab.Er.24h) 100 mg PO DAILY [facility]; Protocol Last Admin: 03/12/25 09:57 Dose: 100 mg Documented By: NADIA Morphine Sulfate (Morphine Sulfate 4 Mg/Ml Cartridge) 3 mg IVPUSH Q3H PRN; Protocol PRN Reason: Pain, Severe (Pain Scale 7-10) Ondansetron HCl (Ondansetron Hcl 4 Mg/2 Ml Vial) 4 mg IVPUSH Q8H PRN PRN Reason: Nausea and Vomiting Oxycodone HCl (Oxycodone Hcl Immed Release 5 Mg Tablet) 10 mg PO Q4H PRN PRN Reason: Pain, Moderate(Pain Scale 4-6) Last Admin: 03/12/25 20:20 Dose: 10 mg Documented By: EILEEN Quetiapine Fumarate (Quetiapine Fumarate 25 Mg Tablet) 25 mg PO BEDTIME [facility] Last Admin: 03/12/25 20:20 Dose: 25 mg Documented By: EILEEN Sodium Chloride (0.9 % Sodium Chloride Flush 3 Ml Syringe) 3 ml IVFLUSH QSHIFT [facility] Last Admin: 03/12/25 20:21 Dose: 3 ml Documented By: EILEEN Spironolactone (Spironolactone 25 Mg Tablet) 50 mg PO DAILY [facility]; Protocol Last Admin: 03/12/25 09:58 Dose: 50 mg Documented By: NADIA Trazodone HCl (Trazodone Hcl 50 Mg Tablet) 50 mg PO BEDTIME PRN PRN Reason: Insomnia Last Admin: 03/12/25 20:21 Dose: 50 mg Documented By: EILEEN Vitamin D (Cholecalciferol (Vitamin D3) 25 Mcg Tablet) 25 mcg PO DAILY [facility] Last Admin: 03/12/25 09:58 Dose: 25 mcg Documented By: NADIA <Kevin Brambila - Last Filed: 03/13/25 07:38> Labs CBC & Chem 7: 03/12/25 05:27 03/12/25 05:27 <Kevin Brambila - Last Filed: 03/13/25 07:38> Labs: Laboratory Results - last 24 hr 03/12/25 05:27 Anion Gap 14 Estim Creat Clear Calc 34.0 Estimated GFR 36 Fasting Glucose 109 H Calcium 9.6 Total Bilirubin 2.1 H AST 111 H ALT 139 H Alkaline Phosphatase 180 H Total Protein 7.3 Albumin 3.2 L <Kevin Brambila - Last Filed: 03/13/25 07:38> Microbiology Microbiology Results: Microbiology 03/10/25 13:28 Blood Culture - Preliminary Blood - Venous No growth after 48 hours. 03/10/25 13:15 Blood Culture - Preliminary Blood - Venous No growth after 48 hours. <Kevin Brambila - Last Filed: 03/13/25 07:38> Procedures Date of Service Date of Service: 03/13/25 <Kevin Brambila - Last Filed: 03/13/25 07:38> 03/13/25 <Baldo Howe MD - Last Filed: 03/13/25 08:16> 03/13/25 <Rosario Borrero PA-C - Last Filed: 03/13/25 08:39> Progress Note: A&P Assessment and plan (1) S/P evacuation of hematoma: Status: Acute <Kevin Brambila - Last Filed: 03/13/25 07:38> (2) Hematoma: Status: Acute <Kevin Brambila - Last Filed: 03/13/25 07:38> Assessment and Plan: Patient is POD#2 for evacuation of right lower extremity hematoma. She was seen and evaluated in the ED on 03/10 for increasing size of RLE and subsequent difficulty ambulating due to hematoma from fall on 02/12. She was previously admitted 02/21-02/24 and at the time the plan was to manage conservatively with elevation and compression, however this most recent ED work-up suggested organization of the hematoma and the patient desired surgical management. She denied post-operative on POD#1 but requested pain medication last night for 4/10 pain that kept her awake. Patient reports that pain is well controlled this morning. No tenderness with light palpation over the dressing of the RLE, but she appears to have developed pedal edema of the right foot. Foot was appropriately warm and she has active ROM of toes. Old bloody discharge in the MARISELA tube, consistent with appearance yesterday - approximate 10mL of output since yesterday but no new output overnight. From a surgical perspective, the patient can be discharged today once of the MARISELA tube comes out. She will be refered for VNA for wound care and f/u in outpatient surgery office. <Kevin Brambila - Last Filed: 03/13/25 07:38> Patient is POD#2 for evacuation of right lower extremity hematoma. She was seen and evaluated in the ED on 03/10 for increasing size of RLE and subsequent difficulty ambulating due to hematoma from fall on 02/12. She was previously admitted 02/21-02/24 and at the time the plan was to manage conservatively with elevation and compression, however this most recent ED work-up suggested organization of the hematoma and the patient desired surgical management. She denied post-operative on POD#1 but requested pain medication last night for 4/10 pain that kept her awake. Patient reports that pain is well controlled this morning. No tenderness with light palpation over the dressing of the RLE, but she appears to have developed pedal edema of the right foot. Foot was appropriately warm and she has active ROM of toes. Old bloody discharge in the MARISELA tube, consistent with appearance yesterday - approximate 10mL of output since yesterday but no new output overnight. From a surgical perspective, the patient can be discharged today once of the MARISELA tube comes out. She will be refered for VNA for wound care and f/u in outpatient surgery office. Agree with above assessment and plan by Kevin Brambila. She reports some discomfort at the hematoma site last night this morning. MARISELA drain scant old bloody drainage. Hematoma somewhat improved in size. Pedal edema likely due to the way the leg was wrapped with taj wrap and compression. MARISELA drain removed, dressing changed and taj wrap included foot this AM to help with pedal edema. Cont leg elevation. Ok to restart eliquis. Elevated bili possibly from hematoma resorption. <Rosario Borrero PA-C - Last Filed: 03/13/25 08:39> Time Spent With Patient Time: Total time managing care of this patient today ____ minutes. <Kevin Brambila - Last Filed: 03/13/25 07:38> Quality Stroke Does the patient have a stroke diagnosis?: No <Kevin Brambila - Last Filed: 03/13/25 07:38> VTE Prior VTE?: No <Kevin Brambila - Last Filed: 03/13/25 07:38> VTE Risk Level:: Medical - moderate - high <Kevin Brambila - Last Filed: 03/13/25 07:38> VTE Device Contraindication: Treatment Not Indicated <Kevin Brambila - Last Filed: 03/13/25 07:38> VTE Drug Contraindication: N/A - Med Ordered <Kevin Brambila - Last Filed: 03/13/25 07:38>
[2025-03-13 07:42] VITALS: BP 103/68; PULSE 93; RESP 18; TEMP 36.9; O2SAT 92
[2025-03-13] MEDS: Metoprolol Succinate ER 100 MG TAB.ER.24H PO (08:55)
[2025-03-13 08:57] LABS: MANUAL DIFF FLAG NO
[2025-03-13] MEDS: 0.9 % Sodium Chloride Flush 3 ML SYRINGE IVFLUSH (08:57)
[2025-03-13 09:04] LABS: Hematocrit 38.7 % (37.0-47.0); Hemoglobin 12.5 g/dl (12.0-16.0); Imm Gran Abs Auto 0.21 X10*3/uL (0.00-0.03); Imm Gran Pct Auto 1.8 % (0.0-0.4); Lymphocytes Absolute Auto 1.8 X10*3/uL (1.2-4.9); Mean Corpuscular HGB Conc 32.3 g/dl (31.0-35.0); Mean Corpuscular Hemoglobin 30.9 pg (27.0-33.0); Mean Corpuscular Volume 95.8 fL (80.0-98.0); NRBC Abs Auto 0.000 X10*3/uL (0.0-0.012); NRBC Pct Auto 0.0 /100WBC (0.0-0.2); Platelet Count 335 X10*3/uL (160-400); Red Blood Count 4.04 X10*6/uL (4.20-5.50); White Blood Count 11.7 X10*3/uL (4.8-10.8)
[2025-03-13 09:17] LABS: Alanine Aminotransferase 92 U/L (0-31); Albumin Level 3.3 g/dL (3.5-5.0); Alkaline Phosphatase 172 U/L (39-117); Anion Gap 12 (12-20); Aspartate Amino Transferase 77 U/L (5-31); Blood Urea Nitrogen 23 mg/dL (9-16); Calcium 9.6 mg/dL (8.4-10.2); Carbon Dioxide 25 mmol/L (22-29); Chloride 105 mmol/L (96-108); Creatinine Clr Calc Pharmacy 41.6; Estimated Glomerular Filt Rate 46; Potassium 4.7 mmol/L (3.3-5.1); Sodium 137 mmol/L (135-145); Total Protein 7.6 g/dL (6.5-8.0)
[2025-03-13 11:48] VITALS: BP 120/71; PULSE 79; RESP 17; TEMP 36.5; O2SAT 98
[2025-03-13 15:17] VITALS: BP 117/58; PULSE 87; RESP 17; TEMP 36.6; O2SAT 99
--- NOTE | 2025-03-13 15:34 | MHC.CM.PN ---
PT CLEARED TO RETURN TO [facility] THEY ARE ABLE TO TAKE HER AT 1600 HOURS BLS TRANSPORT BOOKED WITH MAIN DAUGHTER, SAWYER [phone], NOTIFIED VIA T/C
--- NOTE | 2025-03-13 15:43 | P.DS_ITS ---
DS: Providers Provider Date of Service: 03/13/25 Date of admission: 03/10/25 17:10 Date of discharge: 03/13/25 Primary care physician: Baldo Calabrese MD Admitting clinician: Baldo Howe Attending physician on admission: aBldo Howe Attending physician on discharge: Baldo Howe DS: Diagnosis Discharge Diagnosis (1) S/P evacuation of hematoma: Status: Acute (2) Hematoma: Status: Acute DS: Summary Hospital Course Hospital Course: admission HPI: 84-year-old female patient with a history of Lewy body dementia, hallucinations, and atrial fibrillation on Eliquis returning for increase in the right leg hematoma. She was previously evaluated on after presenting to the ED status post a fall on 02/20/2025. She was subsequently discharged to a senior living facility but returned to the ED today due to increased swelling in the right calf. She remains on the Eliquis for the A. fib. She reports increased p ain when putting weight on the leg and when trying to walk. She denies any significant bleeding following the injury. CTA of right lower leg demonstrated stable appearance of the right lower leg hematoma with mass effect on the anterior and lateral compartment. Seen in consultation by surgery; no compartment syndrome noted. Scheduled as add on tomorrow for drainage of right calf hematoma in OR Hospital course: 84 year old female patient with multiple medical problems presenting with complaints of increased swelling and difficulty ambulating due to a right calf hematoma. On examination, there appears to be organization of the previous hematoma which and a stable H/H noted on laboratories. There is no evidence of ongoing bleeding. I would recommend drainage of the hematoma due to her increased symptoms and have placed her on the OR schedule for tomorrow. Patient is on Eliquis for A.fib which ideally should held until after the surgery. I reviewed the procedure, alternatives and risks and she consents to the drainage of right leg hematoma. Patient had an evacuation of hematoma of the right lower leg on 03/11. She tolerated the procedure well and was transferred to the [facility] floor for post op management. On POD1 she was not complaining of pain. MARISELA drain had minimal drainage, heat packs were used to facilitate additinoal drainage. On POD2 patient remained stable, MARISELA drain was removed. Her eliquis was restarted. From a surgical standpoint the patient was able to be discharged. At the amauri of discharge the patient was in stable condition, dressings were clean dry and intact. Status at Discharge Functional status at discharge: independent ambulation Overall status at discharge: patient is progressing back to baseline Time Attestation Discharge Coordination Time (in mins): 30 Quality: Safe Use of Opioids Does Pt have an Active Cancer Diagnosis on the Problem List?: No Quality: Stroke Does the patient have a stroke diagnosis?: No Physical Exam Vital Signs: Vital Signs: Last Vital Signs Temp 98 F 03/13/25 15:17 Pulse 87 03/13/25 15:17 Resp 17 03/13/25 15:17 BP 117/58 L 03/13/25 15:17 Pulse Ox 99 03/13/25 15:17 O2 Del Method Room Air 03/13/25 15:17 O2 Flow Rate 6 03/11/25 14:54 BMI result Body Mass Index 39.9 Const: General: comfortable and no acute distress Orientation/consciousness: patient oriented x3 Resp: Effort & Inspection: normal respiratory effort and able to speak in complete sentences Neuro: General: patient oriented x3 Extrem: Other: Dressings are clean, dry, and intact. Old blood drainage in the MARISELA tube consistent with appearance the day before - approx. 10mL output since yesterday, no new output overnight. Appears to have increased swelling of the foot but conserved ROM of toes. General: Yes pedal edema DS: Data Data Completed and Pending Labs on day of discharge: Laboratory Results - last 24 hr 03/13/25 08:33 WBC 11.7 H RBC 4.04 L Hgb 12.5 Hct 38.7 MCV 95.8 MCH 30.9 MCHC 32.3 RDW 15.9 Plt Count 335 MPV 10.0 Immature Gran % (Auto) 1.8 H Neut % (Auto) 72.6 Lymph % (Auto) 15.3 L Rowan % (Auto) 7.6 Eos % (Auto) 2.1 Baso % (Auto) 0.6 Lymph # (Auto) 1.8 Rowan # (Auto) 0.9 Eos # (Auto) 0.3 Baso # (Auto) 0.1 Abs Immat Gran (auto) 0.21 H Absolute Neuts (auto) 8.5 H Absolute Nucleated RBC 0.000 Nucleated RBC % (auto) 0.0 Sodium 137 Potassium 4.7 Chloride 105 Carbon Dioxide 25 Anion Gap 12 BUN 23 H Creatinine 1.13 Estim Creat Clear Calc 41.6 Estimated GFR 46 Fasting Glucose 110 H Calcium 9.6 Total Bilirubin 2.0 H AST 77 H ALT 92 H Alkaline Phosphatase 172 H Total Protein 7.6 Albumin 3.3 L Preliminary micro results at discharge 03/10/25 13:28 Blood Culture - Preliminary Blood - Venous No growth after 48 hours. 03/10/25 13:15 Blood Culture - Preliminary Blood - Venous No growth after 48 hours. Discharge Plan Discharge Anticipated Discharge Date/Time: 03/13/25 11:54 Patient Disposition: Xfer SNF Discharge Diagnosis: Lower extremity hematoma Referrals: [facility] [Outside] - 1 Week Baldo Calabrese MD [Primary Care Provider, Internal Medicine] - 1 Week Discharge Medications: New oxycodone 10 mg tablet 10 mg PO Q6H PRN (Reason: pain) Qty: 20 0RF Rx Instructions: Partial Fill upon patient request. Continued atorvastatin 40 mg tablet 40 mg PO BEDTIME metoprolol succinate 100 mg tablet extended release 24 hr 1 tab PO DAILY levothyroxine 100 mcg tablet 100 mcg PO DAILY@0600 Eliquis 5 mg tablet 5 mg PO BID quetiapine [Seroquel] 25 mg tablet 25 mg PO BEDTIME polyethylene glycol 3350 [Miralax] 17 gram Powder In Packet 17 g PO DAILY PRN (Reason: Constipation) Rx Instructions: If no BM in 3 days. naloxone 0.4 mg/mL Solution 0.4 mg SUBCUT Q2M PRN (Reason: Opioid Overdose) Rx Instructions: NTExceed 10 mg total dose/episode magnesium hydroxide [Milk of Magnesia] 400 mg/5 mL Suspension 30 ml PO DAILY PRN (Reason: Constipation) Rx Instructions: If no BM in 3 days. bisacodyl [Dulcolax (bisacodyl)] 10 mg Suppository 10 mg VT DAILY PRN (Reason: Constipation) Rx Instructions: If no result from [facility] by next shift. Fleet Enema 19-7 gram/118 mL Enema 118 ml VT DAILY PRN (Reason: Constipation) Rx Instructions: If no result from Ducolax in 2 hours. spironolactone 50 mg Tablet 50 mg PO DAILY cholecalciferol (vitamin D3) [Vitamin D3] 25 mcg (1,000 unit) Tablet 25 mcg PO DAILY oxycodone 10 mg tablet 10 mg PO Q8H PRN (Reason: chronic pain) escitalopram oxalate 20 mg tablet 20 mg PO DAILY acetaminophen 325 mg Tablet 650 mg PO Q4-6H PRN (Reason: Pain/Fever) trazodone 50 mg tablet 50 mg PO BEDTIME PRN (Reason: Sleep) PreserVision AREDS-2 250-90-40-1 mg Capsule 1 tab PO BID Discharge Orders: Discharge Order (Routine); Ordered 03/13/25 Ordered By: Phong Grover Diet: Advance to usual diet Activity on Discharge: As tolerated Stand Alone Forms: Patient Portal Discharge page Print Language: Danish Care Plan Goals: Continue all medications as outlined on transfer sheet Health Concerns: Dry dressing with Agustin wrap on right lower extremities. Dr. Howe's office will call for follow up Plan of Treatment: As per receiving facility Assessment: See discharge summary
== END 2025-03-13 16:38 | disposition skilled nursing facility (03) | DRG 580 ==
LOC: HO.ED 12:56 → HO.EDOVER 17:11 → HO.S3 19:23
PROVIDERS: Surgery; Admitting Provider Physician Assistant Surgical; Emergency Provider Emergency Medicine; PCP Internal Medicine; Visit Provider Hospitalist
PROC: 0JCN0ZZ Extirpation of Matter from Right Lower Leg Subcutaneous Tissue and Fascia, Open Approach (ICD-10-PCS; principal; 2025-03-11 14:40)
DX: S80.11XA Contusion of right lower leg, initial encounter (principal); I48.19 Other persistent atrial fibrillation; W19.XXXA Unspecified fall, initial encounter; G31.83 Neurocognitive disorder with Lewy bodies; F02.80 Dementia in other diseases classified elsewhere, unspecified severity, without behavioral disturbance, psychotic disturbance, mood disturbance, and anxiety; Z79.01 Long term (current) use of anticoagulants; Z79.890 Hormone replacement therapy; Z79.899 Other long term (current) drug therapy
CPT/HCPCS: 36415; 73701; 76705; 80048; 80053; 80076; 82550; 83605; 85025; 85610; 86140; 86850; 86900; 86901; 87040; 93005; 99285; J0665; J0690; J2003; J2004; J2371; J2543; J2704; J3010; Q9967

== ENCOUNTER → 2025-03-10 12:23 | Outpatient (BNV) | payer MEDICARE, SELFPAY | PROVIDERS: Emergency Provider Emergency Medicine; PCP Internal Medicine; Visit Provider Surgery | DX: S80.11XA Contusion of right lower leg, initial encounter (principal); Z98.890 Other specified postprocedural states | CPT/HCPCS: 10140; 99024 ==

== ENCOUNTER → 2025-03-10 12:44 | Outpatient (BNV) | payer MEDICARE, SELFPAY | PROVIDERS: Emergency Provider Emergency Medicine; PCP Internal Medicine; Visit Provider Radiology Diagnostic Radiology | DX: S80.11XA Contusion of right lower leg, initial encounter (principal); K76.89 Other specified diseases of liver | CPT/HCPCS: 73701; 76705 ==

== ENCOUNTER 2025-03-10 17:10 | Outpatient (BNV) | payer MEDICARE, SELFPAY | END 2025-03-10 19:01 | PROVIDERS: Admitting Provider Physician Assistant Surgical; Emergency Provider Emergency Medicine; PCP Internal Medicine; Visit Provider Internal Medicine Cardiovascular Disease | DX: I48.91 Unspecified atrial fibrillation (principal) | CPT/HCPCS: 93010 ==

== ENCOUNTER → 2025-03-10 17:10 | Outpatient (BNV) | payer MEDICARE, SELFPAY | PROVIDERS: Admitting Provider Hospitalist; Emergency Provider Emergency Medicine; PCP Internal Medicine; Visit Provider Hospitalist | DX: I48.19 Other persistent atrial fibrillation (principal); T14.8XXA Other injury of unspecified body region, initial encounter | CPT/HCPCS: 99222; 99232 ==

== ENCOUNTER 2025-03-19 11:53 | Emergency (ER) | payer MEDICARE, SELFPAY ==
--- OUTSIDE RECORDS SUMMARY | 2025-03-10 08:31 | XMS_ITS ---
Author Organization [facility] Address [facility] [place], [place] [id number] Care Team Providers Care Subassembly Supervisor Name Role Phone WAQAR NAYLOR Primary Care Provider REASON FOR VISIT RE:RE:Update to medication list? Encounters Encounter Location Date Provider Diagnosis [facility] [address] [place] [address] 03/10/2025 WAQAR NAYLOR PLAN OF TREATMENT Next Appt Details Provider Name:WAQAR NAYLOR , 04/24/2025 03:30:00 PM, [address] [place], [address],
[2025-03-19 11:59] VITALS: BP 141/107; PULSE 104; O2SAT 98
[2025-03-19 12:01] VITALS: BP 107/56; PULSE 99; RESP 20; TEMP 36.7; O2SAT 97; BMI 41.0
--- NOTE | 2025-03-19 12:21 | ED_ITS ---
HPI - General Adult General Chief complaint: General Medical Stated complaint: R leg wound, concern for sepsis Time Seen by Provider: 03/19/25 12:21 Source: patient and EMS Mode of arrival: EMS Limitations: no limitations History of Present Illness ED Provider: Ariadne Munoz PA-C HPI narrative: Patient is an 84 year old assigned female at with a history of lewy body dementia, atrial fib on eliquis, HLD, hypothyroidism, and a right lower leg hematoma, presenting to the emergency department today with continued right lower leg pain. Patient states that she was recently admitted for this right lower leg hematoma and it was drained but it continues to bother her. Patient denies any dizziness, lightheadedness, abdominal pain, nausea, vomiting, fever, chills, blurry vision, double vision, loss of vision, chest pain, difficulty breathing, shortness of breath, back pain, night sweats, pain with urination, increased urinary frequency, increased urinary urgency, blood in her urine or stool, syncope or a near syncopal episode, recent trauma or falls, bowel incontinence, bladder incontinence, or any other complaints at this time. Relieving factors: none Exacerbating factors: none Associated symptoms: denies other symptoms Related Data Home Medications ?Medication ?Instructions ?Recorded ?Confirmed apixaban 5 mg tablet (Eliquis) 5 mg PO BID 10/17/20 atorvastatin 40 mg tablet 40 mg PO BEDTIME 10/17/20 levothyroxine 100 mcg tablet 100 mcg PO DAILY@0600 03/10/25 metoprolol succinate 100 mg 1 tab PO DAILY 10/17/20 tablet,extended release 24 hr quetiapine 25 mg tablet (Seroquel) 25 mg PO BEDTIME 03/10/25 acetaminophen 325 mg tablet 650 mg PO Q4-6H PRN Pain/F ever 02/11/25 03/10/25 escitalopram oxalate 20 mg tablet 20 mg PO DAILY 02/1103/10/25 trazodone 50 mg tablet 50 mg PO BEDTIME PRN Sleep 0 02/11/25 03/10/25 vit C 250 mg-vit E 90 mg-zinc 40 1 tab PO BID 02/11/25 03/10/25 mg-copper 1 [id number] capsule (PreserVision AREDS-2) bisacodyl 10 mg rectal suppository 10 mg AL DAILY PRN Constipation 03/10/25 03/10/25 (Dulcolax (bisacodyl)) cholecalciferol (vitamin D3) 25 25 mcg PO DAILY 03/10/25 mcg (1,000 unit) tablet (Vitamin D3) magnesium hydroxide 400 mg/5 mL 30 ml PO DAILY PRN Con stipation 03/10/25 03/10/25 oral suspension (Milk of Magnesia) naloxone 0.4 mg/mL injection 0.4 mg subcut Q2M PRN Opi oid 03/10/25 03/10/25 solution Overdose oxycodone 10 mg tablet 10 mg PO Q8H PRN chronic jami n 03/10/25 03/10/25 polyethylene glycol 3350 17 gram 17 g PO DAILY PRN Con stipation 03/10/25 03/10/25 oral powder packet (Miralax) sodium phosphates 19 gram-7 118 ml AL DAILY PRN Consti pation 03/10/25 03/10/25 gram/118 mL enema (Fleet Enema) spironolactone 50 mg tablet 50 mg PO DAILY 03/10/25 Previous Rx's ?Medication ?Instructions ?Recorded oxycodone 10 mg tablet 10 mg PO Q6H PRN pain #20 ta bs 03/13/25 doxycycline hyclate 100 mg tablet 100 mg PO BID 7 days #14 tabs 03/19/25 Allergies Allergy/AdvReac Type Severity Reaction Status Date / Time No Known Allergies (No Known Allergy Verified 03/19/25 12:01 Allergies*) Review of Systems 2 Constitutional: Constitutional: Reports no additional constitutional complaints, Denies chills, Denies fever(s) and Denies night sweats Eyes: Eyes: Reports no additional eye complaints, Denies blurry vision, Denies change in vision, Denies diplopia, Denies eye discharge, Denies loss of vision and Denies eye pain ENT: Denies dizziness Cardiovascular: Cardiovascular: Reports no additional cardiovascular complaints, Denies chest pain, Denies lightheadedness, Denies Loss of Consciousness and Denies dyspnea Respiratory: Respiratory: Reports no additional respiratory complaints and Denies dyspnea Gastrointestinal: Gastrointestinal: Reports no additional gastrointestinal complaints, Denies abdominal pain, Denies melena, Denies hematochezia, Denies change in bowel habits and Denies change in stool character Genitourinary: Genitourinary: Denies hematuria, Denies urinary frequency, Denies dysuria, Denies urinary incontinence, Denies urinary hesitancy and Denies urinary urgency Musculoskeletal: Musculoskeletal: Reports no additional musculoskeletal complaints, Denies numbness and Denies tingling Comments: right lower leg pain Neurologic: Denies dizziness, Denies loss of vision, Denies numbness and Denies tingling Psychiatric: Psychiatric: Reports no additional psychiatric complaints Endocrine: Endocrine: Reports no additional endocrine complaints Hematologic/Lymphatic: Hematologic/Lymphatic: Reports no additional hematologic/lymphatic complaints Allergic/Immunologic: Allergic/Immunologic: Reports no additional allergic/immunologic complaints PMFSH Past Medical History Attestation statement: The following information was validated with the patient. Source: old records reviewed and nursing notes reviewed Medical History Lewy body dementia with psychotic disturbance Gallstones Difficulty sleeping Thyroid activity decreased Afib Social History Social History Household Members: None Household Members Other:: Daughter Housing: House Housing Other:: came to ER from rehab facility Are you a primary rn care manager to a significant other at home: No Do you presently have visiting nurse or other home services: No Alcohol intake: never Comment: Patient states she does not walk a lot, but when she does she uses a walker Patient Tobacco Use Status: Never used Tobacco Smoked in Last 30 Days: No Use of substances other than those prescribed or required for medical reasons: No Advance Directives: No Advance Directives Information Provided: Yes service: No Physical Exam ED Vital Signs: Vital Signs - 24 hr 03/19/25 12:01 03/19/25 14:56 Temperature 98.0 F Pulse Rate 99 90 Respiratory Rate 20 16 Blood Pressure 107/56 L 106/57 L Pulse Oximetry 97 98 Oxygen Delivery Method Room Air Room Air BMI result Body Mass Index 41.0 Const General: cooperative, no acute distress, alert and awake Nutritional Appearance: well nourished Orientation/consciousness: patient oriented x3 HENMT Head: Yes normal to inspection and Yes atraumatic Ears: hearing grossly normal bilaterally and external ears normal General nose exam: Normal external nose present, no nasal discharge noted and no epistaxis Face and sinus: Yes normal facial exam, No abrasion and No laceration Mouth: Normal oral and palatal mucosa present, no drooling and no muffled voice Eyes General: appearance normal, both eyes and all related structures Periorbital: periorbital findings normal Eyelids: Yes eyelids normal Conjunctivae: conjunctivae normal Pupils: Equal, round and reactive pupils present EOM: EOMs intact bilaterally Neck Neck: Yes normal visual inspection, Yes full ROM and Yes no lymphadenopathy Resp Effort & Inspection: normal respiratory effort and able to speak in complete sentences Neuro General: patient oriented x3, moves all extremities and CN's II-XI intact bilaterally Cranial nerves: Yes Equal, round and reactive pupils present Cognition (Neuro): normal cognition Extrem Other: General: Yes full ROM and Yes capillary refill normal Psych Appearance: grossly normal Mental Status: mental status grossly normal Affect: normal affect Attitude: cooperative Thought process: Normal thought process present Thought content: Normal thought content present Insight: Good insight present (Psych) Medications Administered Discontinued Medications Generic Name Dose Route Start Last Admin Trade Name Ryderq PRN Reason Stop Dose Admin Doxycycline Monohydrate 100 mg 03/19/25 14:05 03/19/25 14:49 Doxycycline Monohydrate 100 Mg Capsule PO 03/19/25 14:06 100 mg ONCE ONE Administration Medical Decision Making Medical Decision Making [facility] Narrative: Patient is an 84 year old assigned female at with a history of lewy body dementia, atrial fib on eliquis, HLD, hypothyroidism, and a right lower leg hematoma, presenting to the emergency department today with continued right lower leg pain. Patient's physical exam was as noted in the physical exam portion of this note. Patient's right foot and lower leg ROM and PMS were intact. Patient's blood work was unremarkable. I spoke with the general surgery team who came and examined the patient, obtained a routine culture, and drained some of the hematoma. They recommended covering her with an antibiotic for a possible infected hematoma and having her follow up on an outpatient basis, in their office, next week. I explained my physical exam findings as well as all test results to the patient. I answered all questions asked by the patient. I stressed the importance of the patient taking her medication as directed (either prescribed or as the over the counter packaging recommends). I stressed the importance of the patient following up with her primary care provider and with the general surgeons office next week as directed. I stressed the importance of the patient returning to the emergency department immediately if her symptoms were to worsen or if she were to develop any dizziness, shortness of breath, difficulty breathing, chest pain, blurry vision, loss of vision, nausea, vomiting, abdominal pain, fever, chills, back pain, or any other complaints. Patient verbalized agreement and understanding with this treatment plan and discharge. Differential Diagnosis Differential Diagnoses: The differential diagnosis associated with the presentation includes Right lower leg hematoma Right lower leg cellulitis Admission/Observation Consideration of admission/observation: Escalation of care including admission/observation considered Patient would have been admitted to the hospital had her work up had any findings where hospital admission was appropriate and her clinical presentation warranted hospital admission. Consult Healthcare Provider Management of the patient was discussed with: Nurse Orthopaedic (spoke with the general surgery team as noted in the MDM Rationale portion of this note. ) Lab Data [facility] Lab Attestation statement: I reviewed the patient's lab results. My interpretation of these results are in the MDM Rationale portion of this note. 03/19/25 12:56 03/19/25 12:57 Labs: Lab Results 03/19/25 03/19/25 Range/Units 12:56 12:57 WBC 6.1 (4.8-10.8) X10*3/uL RBC 3.94 L (4.20-5.50) X10*6/uL Hgb 12.1 (12.0-16.0) g/dl Hct 36.3 L (37.0-47.0) % MCV 92.1 (80.0-98.0) fL MCH 30.7 (27.0-33.0) pg MCHC 33.3 (31.0-35.0) g/dl RDW 15.7 (11.0-16.0) % Plt Count 197 D (160-400) X10*3/uL MPV 10.1 (9.4-12.3) fL Immature Gran % (Auto) 0.5 H (0.0-0.4) % Neut % (Auto) 75.8 H (45-73) % Lymph % (Auto) 14.0 L (20-40) % [place] % (Auto) 8.7 (2-11) % Eos % (Auto) 0.8 (0-4) % Baso % (Auto) 0.2 (0-2) % Lymph # (Auto) 0.9 L (1.2-4.9) X10*3/uL [place] # (Auto) 0.5 (0.1-1.2) X10*3/uL Eos # (Auto) 0.1 (0.0-0.4) X10*3/uL Baso # (Auto) 0.0 (0.0-0.2) X10*3/uL Abs Immat Gran (auto) 0.03 (0.00-0.03) X10*3/uL Absolute Neuts (auto) 4.6 (2.0-8.3) x10*3/uL Absolute Nucleated RBC 0.000 (0.0-0.012) X10*3/uL Nucleated RBC % (auto) 0.0 (0.0-0.2) /100WBC PT 16.7 H D (10.9-12.4) SEC INR 1.5 H (0.9-1.1) Sodium 135 (135-145) mmol/L Potassium 5.0 (3.3-5.1) mmol/L Chloride 100 (96-108) mmol/L Carbon Dioxide 26 (22-29) mmol/L Anion Gap 14 (12-20) BUN 22 H (9-16) mg/dL Creatinine 1.11 (0.5-1.4) mg/dL Estim Creat Clear Calc 42.9 Estimated GFR 47 Random Glucose 111 (60-115) mg/dL Calcium 9.5 (8.4-10.2) mg/dL Total Bilirubin 1.8 H (0.0-1.0) mg/dL AST 58 H (5-31) U/L ALT 44 H (0-31) U/L Alkaline Phosphatase 118 H (39-117) U/L Total Protein 7.2 (6.5-8.0) g/dL Albumin 3.1 L (3.5-5.0) g/dL Independent Historian Clinical information obtained from an independent historian. History obtained from or confirmed by: EMS (EMS provided additional history and confirmed the history provided by the patient. ) Prescription Management I considered prescription management with: Antibiotic (patient prescribed doxycycline - as directed by the general surgery team. ) Critical Care Time Critical Care Time Critical Care Time: Yes Total Critical Care Time: 34 Attestation: I spent 34 minutes of Critical Care Time with this patient. This does not include time spent on separately reported billable procedures. Discharge Plan Discharge Clinical Impression: Hematoma Patient Disposition: [facility] Transfer Details: Back to [facility] Instructions: Hematoma (ED) Additional Instructions: Take your medication as prescribed. Follow up with the general surgery office next week. Follow up with your primary care provider. Return to the emergency department immediately if your symptoms worsen or if you develop any numbness, tingling, dizziness, shortness of breath, difficulty breathing, chest pain, blurry vision, loss of vision, nausea, vomiting, abdominal pain, fever, chills, back pain, or any other complaints. Wound care instructions: warm compress/heat to the hematoma for 20min, gently massage the area to facilitate any drainage, repack and redress the wound following with 1/4in packing followed by fluffs, kerlix and taj wrap for compression Please see the information below about our Patient Portal. If you are not yet enrolled in the [facility] Patient Portal, you will receive an enrollment email invitation following your visit to any [facility] setting. You may also self-enroll in the Patient Portal by visiting our website: [email or web address] The following information is required to access the Patient Portal: - Your [facility] Medical Record Number - Your personal home email address (must match what is in your electronic medical record, Registration staff can assist with this) - Name - Date of Capabilities of the Patient Portal: - Message some providers - View upcoming appointments - Access your health summary, medical history, and visit history - View current conditions and allergies - View procedure and lab results - View your medications, including guidelines, side effects, and precautions - Complete pre-appointment questionnaires requested by your provider - Ready summary reports of your office visits and procedures To access the Patient Portal Mobile [employer], follow these directions: - Search [employer] in the [employer] Store or Google Play Store - Download the [employer] - Search for [facility] - Enter your login/password Prescriptions: New doxycycline hyclate 100 mg tablet 100 mg PO BID 7 Days Qty: 14 0RF No Action atorvastatin 40 mg tablet 40 mg PO BEDTIME metoprolol succinate 100 mg tablet extended release 24 hr 1 tab PO DAILY levothyroxine 100 mcg tablet 100 mcg PO DAILY@0600 Eliquis 5 mg tablet 5 mg PO BID quetiapine [Seroquel] 25 mg tablet 25 mg PO BEDTIME polyethylene glycol 3350 [Miralax] 17 gram Powder In Packet 17 g PO DAILY PRN (Reason: Constipation) Rx Instructions: If no BM in 3 days. naloxone 0.4 mg/mL Solution 0.4 mg SUBCUT Q2M PRN (Reason: Opioid Overdose) Rx Instructions: NTExceed 10 mg total dose/episode magnesium hydroxide [Milk of Magnesia] 400 mg/5 mL Suspension 30 ml PO DAILY PRN (Reason: Constipation) Rx Instructions: If no BM in 3 days. bisacodyl [Dulcolax (bisacodyl)] 10 mg Suppository 10 mg AL DAILY PRN (Reason: Constipation) Rx Instructions: If no result from [facility] by next shift. Fleet Enema 19-7 gram/118 mL Enema 118 ml AL DAILY PRN (Reason: Constipation) Rx Instructions: If no result from Ducolax in 2 hours. spironolactone 50 mg Tablet 50 mg PO DAILY cholecalciferol (vitamin D3) [Vitamin D3] 25 mcg (1,000 unit) Tablet 25 mcg PO DAILY oxycodone 10 mg tablet 10 mg PO Q8H PRN (Reason: chronic pain) oxycodone 10 mg tablet 10 mg PO Q6H PRN (Reason: pain) Qty: 20 0RF Rx Instructions: Partial Fill upon patient request. escitalopram oxalate 20 mg tablet 20 mg PO DAILY acetaminophen 325 mg Tablet 650 mg PO Q4-6H PRN (Reason: Pain/Fever) trazodone 50 mg tablet 50 mg PO BEDTIME PRN (Reason: Sleep) PreserVision AREDS-2 250-90-40-1 mg Capsule 1 tab PO BID Referrals: [facility] [Provider Group, General Surgery] Referral Note: Follow up next week. Physician,Unknown J [Primary Care Provider, Medical] Print Language: Nepali
[2025-03-19 13:00] LABS: MANUAL DIFF FLAG NO
[2025-03-19 13:01] LABS: Hematocrit 36.3 % (37.0-47.0); Hemoglobin 12.1 g/dl (12.0-16.0); Imm Gran Abs Auto 0.03 X10*3/uL (0.00-0.03); Imm Gran Pct Auto 0.5 % (0.0-0.4); Lymphocytes Absolute Auto 0.9 X10*3/uL (1.2-4.9); Mean Corpuscular HGB Conc 33.3 g/dl (31.0-35.0); Mean Corpuscular Hemoglobin 30.7 pg (27.0-33.0); Mean Corpuscular Volume 92.1 fL (80.0-98.0); NRBC Abs Auto 0.000 X10*3/uL (0.0-0.012); NRBC Pct Auto 0.0 /100WBC (0.0-0.2); Platelet Count 197 X10*3/uL (160-400); Red Blood Count 3.94 X10*6/uL (4.20-5.50); White Blood Count 6.1 X10*3/uL (4.8-10.8)
[2025-03-19 13:06] LABS: INTERNATIONAL NORM RATIO 1.5 (0.9-1.1); Prothrombin Time 16.7 SEC (10.9-12.4)
[2025-03-19 13:23] LABS: Alanine Aminotransferase 44 U/L (0-31); Albumin Level 3.1 g/dL (3.5-5.0); Anion Gap 14 (12-20); Aspartate Amino Transferase 58 U/L (5-31); Blood Urea Nitrogen 22 mg/dL (9-16); Calcium 9.5 mg/dL (8.4-10.2); Carbon Dioxide 26 mmol/L (22-29); Chloride 100 mmol/L (96-108); Creatinine Clr Calc Pharmacy 42.9; Estimated Glomerular Filt Rate 47; Potassium 5.0 mmol/L (3.3-5.1); Sodium 135 mmol/L (135-145); Total Protein 7.2 g/dL (6.5-8.0)
--- OUTSIDE RECORDS SUMMARY | 2025-03-19 13:25 | XMS_ITS ---
Author Organization [facility] Care Team Providers Care Rn Birthing Name Role Phone Jessica Pryor Kayla Unavailable Unav ailable Grant, Frances Ocasio Unavailable UnavailMary Novoa Unavailable Unavailable Allergies and adverse reactions No Known Allergies Care Team Name Role Address Phone Organization Dates Jessica Kayla Avilate [address], [address], [place] (Office): : : [facility] 02/24/2025 - present Frances Grant [address] [facility] [address], [place], [address], [place] (Office): : : [facility] [place] 02/24/2025 - present Mary Whittaker [address] [facility], [place], [address], [place] (Office): : : [facility] 02/24/2025 - present Imaging Narrative Note Date [...] Study: M25.561 PAIN IN RIGHT KNEEPrincipal Result Wall Covering Installer: TRELL REYES ([id number])Director Water And Waste Services: ROGER FORREST ([employer])Director Water And Waste Services Director Water And Waste Services: [facility] 03/06/2025 TIBIA AND FIBULA 2V, RIGHTFINDINGS: [...] Study: M79.604 PAIN IN RIGHT LEGPrincipal Result Wall Covering Installer: JAYANT HUERTAS ([id number])Director Water And Waste Services: ROGER FORREST (PREETIAcacia)Director Water And Waste Services Director [employer] And [employer]: [employer] 03/06/2025 FOOT 2V, RIGHTFINDIN GS: No [...] G89.11 ACUTE PAIN DUE TO TRAUMAPrincipal Result Wall Covering Installer: JAYANT HUERTAS ([id number])Director Water And Waste Services: ROGER FORREST (DSEXTON)Director Water And Waste Services Director Water And Waste Services: [employer] Goals Section Goals Description Status Target Date Jarek will have an ongoing di scharge plan that provides for a safe and effective discharge. Active 05/18/2025 Jarek will maintain a pattern of sleep sufficient to promote health and well-being throughout review period. Active 05/18/2025 Jarek will maintain a stable mood, i.e. no episodes of sadness, anxiety or anger 7/7 days/week through the next review. Active 05/18/2025 Jarek's wishes as expressed i n Advance Directive will be followed Active 05/18/2025 Lesley will consume 50% of meals q day x 90 day s. Active 05/18/2025 Lesley will have no falls with injury x 90 days . Active 05/18/2025 Lesley will have the smalle st most effective dose without side effects X 90 days. Active 05/18/2025 Lesley will maintain a stab ilized weight or have slow wt loss -/= 5% 229# during the next 90 days Active 05/18/2025 Lesley will not develop GI complications x 90 d ays. Active 05/18/2025 Lesley will not exhibit non-verbal indicators o f pain x 90 days. Active 05/18/2025 Lesley will plan and choose to engage in prefer red activities Active 05/18/2025 Lesley's ADL care needs nancy l be anticipated and met throughout the next review period. Active 05/18/2025 Healing Goal: Wound/bruising will heal within e next 30 days Active 05/18/2025 Resident will be free from s kin irritation or breakdown due to urinary incontinence X 90 days. Active 05/18/2025 Resident will have incontine nce care needs met by staff to maintain dignity and comfort and to prevent incontinence related complications. Active 05/18/2025 Functional Status Code Name Recorded Time Value Entered By Chair/zwr-qe-kauqy transfer 03/19/2025 Not assessed JTEJADA2 Eating 03/19/2025 Not assessed JTEJADA2 Feeding or Eating 03/19/2025 Not assessed JTEJADA2 Indicate the type of wheelchair or scooter used 03/19/2025 Independent JTEJADA2 Indicate the type of wheelchair or scooter used 03/19/2025 Manual wheelchair (physical object) JTEJADA2 Lower body dressing 03/19/2025 Not assessed JTEJADA2 Lying to sitting on side of bed 03/19/2025 Not assessed JTEJADA2 Oral hygiene 03/19/2025 Not assessed JTEJADA2 Personal hygiene 03/19/2025 Not assessed JTEJADA2 Putting on/taking off footwear 03/19/2025 Not assess ed JTEJADA2 Roll left and right 03/19/2025 Dependent JTEJADA2 Shower/bathe self 03/19/2025 Not assessed JTEJADA2 Sit to lying 03/19/2025 Not assessed JTEJADA2 Sit to stand 03/19/2025 Not assessed JTEJADA2 Toilet transfer 03/19/2025 Not assessed JTEJADA2 Toileting hygiene 03/19/2025 Dependent JTEJADA2 Upper body dressing 03/19/2025 Not assessed JTEJADA2 Walk 10 feet 03/19/2025 Not assessed JTEJADA2 Walk 150 feet 03/19/2025 Independent JTEJADA2 Walk 50 feet 03/19/2025 Independent JTEJADA2 Wheel 150 feet 03/19/2025 Independent JTEJADA2 Wheel 50 feet with two turns 03/19/2025 Not assessed JTEJADA2 Immunizations Immunization Status Vaccine Details Vaccine Code CodeSystem Date Notes TB 2 Step Mantoux Skin Test completed tuberculin skin test; purified protein derivative solution, intradermal lotNumber: [id number] expiry: 05/21/2027 Mfg: [employer] Given 0.1 ml Left Forearm intradermally Step 1 of Multi-step 96 CVX created date: 02/25/2025 consent date: 02/24/2025 administer ed date: 02/25/2025 Educated by on 02/27/2025 Medications Section Medication Name Status Code CodeSystem Dose Route Frequency Admin Type Sig Text Start Date End Date Acetaminophen Tablet 325 MG active 408920 RXNORM 2 tablet Oral as needed PRN Give 2 tablet by mouth every 4 hours as needed for Mild Pain More than 3 doses in 48 hours, notify physic parmjit/ad vanced practi ce provid er(AIDEN ).Do not exceed 3g/day . (stand ing order) 2024 - Acetaminophen Tablet 325 MG active 945367 RXNORM 2 tablet Oral as needed PRN Give 2 tablet by mouth every 6 hours as needed for Temp 100F or above Notify Physic parmjit/Ad ijeoma Luis ce provid er. Do not exceed 3g/day 2024 - Tuberculin PPD Solution 5 UNIT/0.1ML complete d 097793 RXNORM 0.1 ml Intrade rmal one time [...] if positi ve obtain chest x-ray 02/25 495667 RXNORM 0.1 ml Intrade rmal one time [...] Milk of Magnesia Suspension 400 MG/5ML active 103452 RXNORM 30 ml Oral as needed PRN [...] orders . 2024 - MiraLax Powder active 660692 RXNORM 17 gram Oral as needed PRN Give 17 gram by mouth as needed for Consti pation in 4 to 8 ounces of fluid- if reside nt has not had a bowel moveme nt in past 72 hours. 2024 - Dulcolax Suppository 10 MG active 069446 RXNORM 1 suppos itory Rectal as needed PRN Insert 1 suppos itory rectal ly as needed for Consti pation if no result from MOM by next shift 2024 - Atorvastatin Calcium Tablet 40 MG active 615963 RXNORM 1 tablet Oral at bedtime Routine Give 1 tablet by mouth at bedtim e for lioid contro l 2024 - QUEtiapine Fumarate Tablet 25 MG active 814601 RXNORM 1 tablet Oral at bedtime Routine Give 1 tablet by mouth at bedtim e for [place] 2024 - Metoprolol Succinate ER Tablet Extended Release 24 Hour 100 MG active 241361 RXNORM 1 tablet Oral one time a day Routine Give 1 tablet by mouth one time a day for HTN 2024 - Levothyroxine Sodium Tablet 100 MCG active 212919 RXNORM 1 tablet Oral one time a day Routine Give 1 tablet by mouth one time a day for low thyroi d hormon e 2024 - Spironolacton e Tablet 50 MG active 129680 RXNORM 1 tablet Oral one time a day Routine Give 1 tablet by mouth one time a day for hypert ension 2024 - TraZODone HCl Tablet 50 MG aborted 826378 RXNORM 50 mg Oral as needed PRN Give 50 mg by mouth every 23 hours as needed for at bedtim e for insomn ia 02/25 Cholecalcifer ol Tablet 1000 UNIT active 089895 RXNORM 1 tablet Oral one time a day Routine Give 1 tablet by mouth one time a day for supple ment 2024 - Escitalopram Oxalate Tablet 20 MG active 000175 RXNORM 1 tablet Oral one time a day Routine Give 1 tablet by mouth one time a day for Depres angélica 2024 - PreserVision AREDS 2 Oral Capsule active 1 tablet Oral two times a day Routine Give 1 tablet by mouth two times a day for supple ment 2024 - Eliquis Oral Tablet 5 MG active 342311 7 RXNORM 5 mg Oral two times a day Routine Give 5 mg by mouth two times a day for anti coag 2024 - oxyCODONE HCl Oral Tablet 10 MG aborted 374137 3 RXNORM 10 mg Oral as needed PRN Give 10 mg by mouth every 8 hours as needed for severe pain for 3 Days 02/27 Naloxone HCl Solution 0.4 MG/ML active 782210 9 RXNORM 0.4 mg/ml Intramu scular as [...] 2024 - TraZODone HCl Tablet 50 MG complete d 998840 RXNORM 50 mg Oral as needed PRN Give 50 mg by mouth every 23 hours as needed for at bedtim e for insomn ia for 14 Days 03/11 oxyCODONE HCl Oral Tablet 10 MG complete d 617248 3 RXNORM 10 mg Oral as needed PRN Give 10 mg by mouth every 8 hours as needed for severe pain for 7 Days 03/06 oxyCODONE HCl Oral Tablet 10 MG complete d 527536 3 RXNORM 10 mg Oral as needed PRN Give 10 mg by mouth every 8 hours as needed for severe pain until 2024 08:16 03/13 OxyCODONE HCl Tablet 10 MG active 526094 3 RXNORM 1 tablet Oral as needed PRN Give 1 tablet by mouth every 6 hours as needed for modera te to severe pain 2024 - traZODone HCl Oral Tablet 50 MG aborted 280216 RXNORM 50 mg Oral as needed PRN Give 50 mg by mouth every 24 hours as needed for at bedtim e for insomn ia 03/17 traZODone HCl Oral Tablet 50 MG active 085311 RXNORM 50 mg Oral as needed PRN Give 50 mg by mouth every 24 hours as needed for at bedtim e for insomn ia for 14 Days 03/31 Mental Status Section Date Assessment Total Score Description 03/10/2025 CAM 0 No delirium ind icated 02/28/2025 BIMS 15 cognitively int act CAM 0 No delirium ind icated PHQ-9 15 moderately wilfrid re depression Problems Problem # Description Date of onset Resolved Date Code CodeSystem Concern Status 1 CONTUSION OF RIGHT LOWER LEG, SUBSEQUENT ENCOUNTER [address] active 2 DEMENTIA IN OTHER DISEASES CLASSIFIED ELSEWHERE, UNSPECIFIED SEVERITY, WITH PSYCHOTIC DISTURBANCE [address] active 3 HYPOTHYROIDISM, UNSPECIFIED [address] active 4 MUSCLE WEAKNESS (GENERALIZED) [address] active 5 NONTRAUMATIC HEMATOMA OF SOFT TISSUE [address] active 6 OBESITY, CLASS [address] active 7 PAROXYSMAL ATRIAL FIBRILLATION [address] active 8 PSYCHOTIC DISORDER WITH HALLUCINATIONS DUE TO KNOWN PHYSIOLOGICAL CONDITION [address] active 9 UNSPECIFIED FALL, SUBSEQUENT ENCOUNTER [address] active 10 UNSPECIFIED MOOD [AFFECTIVE] DISORDER [address] active 11 UNSTEADINESS ON FEET [address] active Reason for Referral No Reasons for Referral Entered Diagnostic Results Result Code Code System Date Test Result Interpretation Reference Range Status Notes 92233-4 LOINC 03/07 KNEE 1 OR 2 VIEWS Completed Result for: LESLEY VASQUEZ ( 1940, F) 65191-4 LOINC 03/06 KNEE 1 OR 2 VIEWS [...] Study: M25.561 PAIN IN RIGHT KNEEPrincipal Result Wall Covering Installer: TRELL REYES ([id number])Tech nician: ROGER FORREST ([employer])Transcr iption Director Water And Waste Services: [facility] 14317-0 LOINC 03/06 TIBIA AND FIBULA 2V / FOOT 2V Completed Result for: LESLEY VASQUEZ ( 1940, F) 25311-7 LOINC 03/06 TIBIA AND FIBULA 2V Final [...] Study: M79.604 PAIN IN RIGHT LEGPrincipal Result Wall Covering Installer: JAYANT HUERTAS ([id number])[employer] nician: ROGER FORREST (PREETIEXNutricate)Transcr iption Director Water And Waste Services: [facility] 97617-8 LOINC 03/06 FOOT 2V Final FOOT 2V, [...] G89.11 ACUTE PAIN DUE TO TRAUMAPrincipal Result Wall Covering Installer: JAYANT HUERTAS ([id number])[employer] nician: ROGER FORREST ([employer])Transcr iption Director Water And Waste Services: SY[facility] Test Code Code System Name Date 03/06/2025 03/06/2025 Social History Social History Observation Description Start Date End Date Code Code System Current Smoking Status Tobacco smoking consumption unknown 372338149 SNOMED CT Sex Assigned At Female 1940 04734-2 [facility] Gender Identity Vital Signs Code Code System Vitals Name Values and Units Timing Information 81086-2 [facility] Pain Level Value=0.0 03/19/2025 9279-1 [facility] Respiratory Rate Value=18.0 Units=/m in 03/19/2025 8462-4 [facility] Blood Pressure-Diastolic Value=66 Un its=mmHg 03/19/2025 8480-6 [facility] Blood Pressure-Systolic Ubzod=657 Un its=mmHg 03/19/2025 8310-5 [facility] Body Temperature Value=97.3 Units= F 03/19/2025 8867-4 [facility] Heart rate Value=97.0 Units=/min 27140-5 [facility] O2 % BldC Oximetry Value=96.0 Units= % 03/19/2025 17495-1 [facility] Weight Avfse=700.0 Units=Lbs 2339-0 [facility] Blood Sugar Mnzss=742.0 Units=mg/dL 03/06/2025 8302-2 [facility] Height Value=62.0 Units=Inches 02/24/2025
--- OUTSIDE RECORDS SUMMARY | 2025-03-19 13:26 | XMS_ITS | Encounter Summary ---
Author Organization [facility] Address [address] [place] [address] Care Team Providers Care Clothing Man Name Role Phone Mary Whittaker PUMPER GAUGER APPRENTICE Primary Care Provider Encounter Details Date Type Department Care Team (Late st Contact Info) Description 02/27/2025 Lab Requisition [facility] - Main Lab [address] [facility] [place] [place] [address] Mary Whittaker NP [address] [facility] 1 [place], [place] [id number] Unspecified atrial fibrillation (CMS/HCC V24, CMS/[facility] V28); Vitamin D deficiency, unspecified; Unspecified dementia, unspecified severity, without behavioral disturbance, psychotic disturbance, mood disturbance, and anxiety (CMS/HCC V24, CMS/[facility] V28); Hypothyroidism, unspecified Social History Tobacco Use [...] AM EDT Unspecified atrial fibrillation (CMS/HCC V24, CMS/[facility] V28) Vitamin D deficiency, unspecified Unspecified dementia, unspecified severity, without behavioral disturbance, psychotic disturbance, mood disturbance, and anxiety (CMS/HCC V24, CMS/[facility] V28) Hypothyroidism, unspecified VITAMIN D 25 HYDROXY Routine 02/27/2025 6:37 AM EDT Unspecified atrial fibrillation (CMS/HCC V24, CMS/[facility] V28) Vitamin D deficiency, unspecified Unspecified dementia, unspecified severity, without behavioral disturbance, psychotic disturbance, mood disturbance, and anxiety ([facility] V24, [facility] V28) Hypothyroidism, unspecified COMPLETE BLOOD COUNT Routine 02/27/2025 6:37 AM EDT Unspecified atrial fibrillation ([facility] V24, [facility] V28) Vitamin D deficiency, unspecified Unspecified dementia, unspecified severity, without behavioral disturbance, psychotic disturbance, mood disturbance, and anxiety ([facility] V24, [facility] V28) Hypothyroidism, unspecified COMPREHENSIVE METABOLIC PANEL Routine 02/27/2025 6:37 AM EDT Unspecified atrial fibrillation [place] [place], [facility] V28) Vitamin D deficiency, unspecified Unspecified dementia, unspecified severity, without behavioral disturbance, psychotic disturbance, mood disturbance, and anxiety ([facility] V24, [facility] V28) Hypothyroidism, unspecified documented in this encounter Results * Thyroid stimulating hormone with reflex to free t4 and free t3 (02/27/2025 6:37 AM EDT) TSH 3.51 0.40 - 4.00 mcIU/mL LAB CHEMISTRY METHOD 02/27/2025 10:36 AM EDT [facility] Blood Venous blood specimen / Unknown Venipuncture / Unknown 02/27/2025 6:37 AM EDT 02/27/2025 8:04 AM EDT Mary Whittaker PUMPER GAUGER APPRENTICE LAB BLOOD ORDERABLES Final Resul t [facility] [address] [place] [address], * Vitamin D 25 hydroxy (02/27/2025 6:37 AM EDT) Vit D, 25-Hydroxy 38.5 30.0 - 80.0 ng/mL LAB CHEMISTRY METHOD 02/27/2025 10:35 AM EDT [facility] Blood Venous blood specimen / Unknown Venipuncture / Unknown 02/27/2025 6:37 AM EDT 02/27/2025 8:04 AM EDT Mary Whittaker NP LAB BLOOD ORDERABLES Final Resul t [facility] [address] [place] [address], * (ABNORMAL) Comprehensive metabolic panel (02/27/2025 6:37 AM EDT) Sodium 139 133 - 145 mmol/L LAB CHEMISTRY METHOD 02/27/2025 9:33 AM [facility] Potassium 5.1 3.5 - 5.5 mmol/L LAB CHEMISTRY METHOD 02/27/2025 9:33 AM [facility] Chloride 105 96 - 110 mmol/L LAB CHEMISTRY METHOD 02/27/2025 9:33 AM [facility] CO2 27 21 - 32 mmol/L LAB CHEMISTRY METHOD 02/27/2025 9:33 AM [facility] Anion Gap 7 3 - 11 LAB CHEMISTRY METHOD 02/27/2025 9:33 AM [facility] Glucose 113(H) 70 - 100 mg/dL LAB CHEMISTRY METHOD 02/27/2025 9:33 AM [facility] BUN 15 5 - 25 mg/dL LAB CHEMISTRY METHOD 02/27/2025 9:33 AM [facility] Creatinine 1.15(H) 0.50 - 1.10 mg/dL LAB CHEMISTRY METHOD 02/27/2025 9:33 AM [facility] eGFR 47(L) >=60 mL/min/1. 73m2 LAB CHEMISTRY METHOD 02/27/2025 9:33 AM [facility] Comment:Calculation based on the Chronic Kidney Disease Epidemiology Collaboration (CKD-EPI) equation refit without adjustment for race. BUN/Creatinine Ratio 13.0 LAB CHEMISTRY METHOD 02/27/2025 9:33 AM T [facility] Calcium 8.7 8.5 - 10.5 mg/dL LAB CHEMISTRY METHOD 02/27/2025 9:33 AM [facility] AST (SGOT) 34 10 - 42 unit/L LAB CHEMISTRY METHOD 02/27/2025 9:33 AM [facility] ALT (SGPT) 37 10 - 60 unit/L LAB CHEMISTRY METHOD 02/27/2025 9:33 AM [facility] Alkaline Phosphatase 99 42 - 121 unit/L LAB CHEMISTRY METHOD 02/27/2025 9:33 AM [facility] Total Protein 5.9(L) 6.0 - 8.0 g/dL LAB CHEMISTRY METHOD 02/27/2025 9:33 AM [facility] Albumin 2.7(L) 3.2 - 5.0 g/dL LAB CHEMISTRY METHOD 02/27/2025 9:33 AM [facility] Total Bilirubin 5.2(H) 0.0 - 1.4 mg/dL LAB CHEMISTRY METHOD 02/27/2025 9:33 AM [facility] Blood Venous blood specimen / Unknown Venipuncture / Unknown 02/27/2025 6:37 AM EDT 02/27/2025 8:04 AM EDT Mray Whittaker PUMPER GAUGER APPRENTICE LAB BLOOD ORDERABLES Final Resul t [facility] [address] [place] [address], * (ABNORMAL) Complete blood count (02/27/2025 6:37 AM EDT) WBC 13.5(H) 4.8 - 10.8 K/mcL LAB HEMETOLOGY METHOD 02/27/2025 9:03 AM EDT [facility] RBC 3.00(L) 3.80 - 4.80 M/mcL LAB HEMETOLOGY METHOD 02/27/2025 9:03 AM [facility] Hemoglobin 9.4(L) 11.5 - 16.0 g/dL LAB HEMETOLOGY METHOD 02/27/2025 9:03 AM [facility] Hematocrit 28.9(L) 35.0 - 47.0 % LAB HEMETOLOGY METHOD 02/27/2025 9:03 AM [facility] MCV 97.6 79.0 - 98.0 FL LAB HEMETOLOGY METHOD 02/27/2025 9:03 AM [facility] MCH 31.8 27.0 - 32.0 pcg LAB HEMETOLOGY METHOD 02/27/2025 9:03 AM [facility] MCHC 32.5 32.0 - 37.0 g/dL LAB HEMETOLOGY METHOD 02/27/2025 9:03 AM [facility] RDW 14.7 11.0 - 15.0 % LAB HEMETOLOGY METHOD 02/27/2025 9:03 AM [facility] Platelets 183 130 - 400 K/mcL LAB HEMETOLOGY METHOD 02/27/2025 9:03 AM [facility] MPV 10.9 7.0 - 11.0 FL LAB HEMETOLOGY METHOD 02/27/2025 9:03 AM [facility] NRBC 0.1 <1.0 % LAB HEMETOLOGY METHOD 02/27/2025 9:03 AM [facility] NRBC Absolute 0.02 <0.10 K/mcL LAB HEMETOLOGY METHOD 02/27/2025 9:03 AM [facility] Blood Venous blood specimen / Unknown Venipuncture / Unknown 02/27/2025 6:37 AM EDT 02/27/2025 8:04 AM EDT Mary Whittaker NP LAB BLOOD ORDERABLES Final Resul t [facility] ([facility] [address] [place] [address], documented in this encounter Visit Diagnoses Diagnosis Unspecified atrial fibrillation (CMS/[facility] V24, CMS/[facility] V28) Vitamin D deficiency, unspecified Unspecified dementia, unspecified severity, without behavioral disturbance, psychotic disturbance, mood disturbance, and anxiety (CMS/HCC V24, CMS/[facility] V28) Hypothyroidism, unspecified documented in this encounter Care Teams Clothing Man Relationship Specialty Start Date End Date Mary Whittaker NP [address] [address] PCP - General Family Medicine 02/27/25 documented as of this encounter
--- OUTSIDE RECORDS SUMMARY | 2025-03-19 13:26 | XMS_ITS | Patient Health Record ---
Author Organization [employer] [facility] Address [address] [place] [address] [address] [place] [address] Care Team Providers Care Infant Room Teacher Name Role Phone WAQAR NAYLOR Primary Care Provider SIDNEY Wallace Unavailable [phone] Allergies No Known Allergies Results Component Value Reference Range Notes SURGICAL PATHOLOGY Reviewed date:05/10/2024 01:14:23 PM Interpretation: Performing Lab:Testing performed or reported by [facility], a Service of [facility], [address] [place] [address] Dimas Araujo MD, Brass Molder CLIA# [id number] Notes/Report: Patient Name: BEULAH VASQUEZ Lab Patient [...] specimen processing and staining [facility], [address] [place] [address] (CLIA#[id number]). Its performance characteristics determined by [facility]. Harleen Arnold M.D. Brass Molder of Surgical Pathology, Addison Rangel M.D. [employer] [facility] Cytopathology Phone #: [phone], On-Call Pathologist: [id number] Reason For Referral No Information Medications Medication [...] W/U Status Risk Notes Problem Postmenopausal bleeding (N95.0) Active confirmed Vital Signs Temperature 96.8 degrees Fahrenheit 04/12/2024 Blood pressure diastolic 80 mm Hg 04/12/2024 Height 62 in 05/03/2024 Blood pressure systolic 118 mm Hg 04/12/2024 Encounters Encounter Location Date Provider Diagnosis [facility] [place] [address] 04/12/2024 SIDNEY MOLINA Postmenopausal bleed ing N95.0 [facility] [place] [address] [place] [address] 05/03/2024 SIDNEYKaren MOLINA Postmenopausal bleed ing N95.0 [facility] [address] [place] [address] 05/10/2024 SIDNEY MOLINA Assessments Encounter Date Diagnosis [...] Date MEDICARE [address] SHAI LIGHT [id number] [phone] [id number] BEULAH MOYER Self - patient is the insured 5 [employer] [address] [place] [address] [id number] BEULAH MOYER Self - patient is the insured Medical (General) History Medical History History ICD Code Thyroiditis 245 Hypertension 401.9 Calculus of gallbladder without cholecys titis without obstruction K80.20 Unspecified osteoarthritis, unspecified site M19.90 Surgical History Surgery Date(Month/Year) Knee surgery Spine 2015/2016 Hernia Hospitalization History Reason Date(Month/Year) Childbirth
[2025-03-19 13:59] LABS: Alkaline Phosphatase 118 U/L (39-117)
--- NOTE | 2025-03-19 14:14 | PM.CNGS ---
History of Present Illness Consult details Consult date: 03/19/25 Requesting physician: Ariadne Munoz Narrative: 84-year-old female patient with a history of Lewy body dementia, hallucinations, and atrial fibrillation on Eliquis who initially fell on 02/20/2025 and subsequently developed a large hematoma of the right calf and was admitted to the hospitalist service for observation 02/22-02/24/25. Hematoma was contained at that time without evidence of ongoing bleeding, abscess, or compartment syndrome at this time. It was therefore treated non operatively with compression. She was discharged to a SNF however returned to the ED on 03/10/25 due to increased swelling in the right calf. CTA of right lower leg demonstrated stable appearance of the right lower leg hematoma with mass effect on the anterior and lateral compartment. Given the increase in pain, she underwent evacuation of hematoma right leg during her stay however the hematoma was mostly organized clot at that time. She was discharged back to her SNF on 03/13/25. She was sent back to the ED today from her SNF for foul smelling drainage. H/H stable. No leukocytosis. She denies increasing pain of the leg, nausea, vomiting, fevers, chills, diarrhea. Review of Systems Review of Systems: Yes all other systems are reviewed and are negative PMFSH Past Medical History Medical History Lewy body dementia with psychotic disturbance Gallstones Difficulty sleeping Thyroid activity decreased Afib Social History Social History Household Members: None Household Members Other:: Daughter Housing: House Housing Other:: came to ER from rehab facility Are you a primary personal care assistant to a significant other at home: No Do you presently have visiting nurse or other home services: No Alcohol intake: never Comment: Patient states she does not walk a lot, but when she does she uses a walker Patient Tobacco Use Status: Never used Tobacco Advance Directives: No Advance Directives Information Provided: Yes service: No Meds Allergies Allergy/AdvReac Type Severity Reaction Status Date / Time No Known Allergies (No Known Allergy Verified 03/19/25 12:01 Allergies*) Home Medications ?Medication ?Instructions ?Recorded ?Confirmed ?Last Taken ?Type apixaban 5 mg tablet (Eliquis) 5 mg PO BID 0203/10/25 02/21/25 History atorvastatin 40 mg tablet 40 mg PO BEDTIME 10/17/20 03/10/25 02/20/25 History levothyroxine 100 mcg tablet 100 mcg PO DAILY@0600 10/17/20 03/10/25 02/21/25 History metoprolol succinate 100 mg 1 tab PO DAILY 10/17/20 03/10/25 02/21/25 History tablet,extended release 24 hr quetiapine 25 mg tablet (Seroquel) 25 mg PO BEDTIME 10/17/20 03/10/25 02/20/25 History acetaminophen 325 mg tablet 650 mg PO Q4-6H PRN Pain/Fever 02/11/25 03/10/25 Unknown History escitalopram oxalate 20 mg tablet 20 mg PO DAILY 02/11/25 03/10/25 02/21/25 History trazodone 50 mg tablet 50 mg PO BEDTIME PRN Sleep 02/11/25 03/10/25 Unknown History vit C 250 mg-vit E 90 mg-zinc 40 1 tab PO BID 02/11/25 03/10/25 02/10/25 History mg-copper 1 [id number] capsule (PreserVision AREDS-2) bisacodyl 10 mg rectal suppository 10 mg NC DAILY PRN Constipation 03/10/25 03/10/25 Unknown History (Dulcolax (bisacodyl)) cholecalciferol (vitamin D3) 25 25 mcg PO DAILY 03/10/25 03/10/25 Unknown History mcg (1,000 unit) tablet (Vitamin D3) magnesium hydroxide 400 mg/5 mL 30 ml PO DAILY PRN Constipation 03/10/25 03/10/25 Unknown History oral suspension (Milk of Magnesia) naloxone 0.4 mg/mL injection 0.4 mg subcut Q2M PRN Opioid 03/10/25 03/10/25 Unknown History solution Overdose oxycodone 10 mg tablet 10 mg PO Q8H PRN chronic pain 03/10/25 03/10/25 Unknown History polyethylene glycol 3350 17 gram 17 g PO DAILY PRN Constipation 03/10/25 03/10/25 Unknown History oral powder packet (Miralax) sodium phosphates 19 gram-7 118 ml NC DAILY PRN Constipation 03/10/25 03/10/25 Unknown History gram/118 mL enema (Fleet Enema) spironolactone 50 mg tablet 50 mg PO DAILY 03/10/25 03/10/25 Unknown History Physical Exam Vital Signs: Vital Signs: Last Vital Signs Temp 98.0 F 03/19/25 12:01 Pulse 99 03/19/25 12:01 Resp 20 03/19/25 12:01 BP 107/56 L 03/19/25 12:01 Pulse Ox 97 03/19/25 12:01 O2 Del Method Room Air 03/19/25 12:01 BMI result Body Mass Index 41.0 Const: General: comfortable, no acute distress and alert Orientation/consciousness: patient oriented x3 Resp: Effort & Inspection: normal respiratory effort Skin: Other: warm and dry Neuro: General: patient oriented x3 and moves all extremities Extrem: Other: large hematoma of lateral right lower leg 5-6 cm below the patella which is fluctuant; silver alginate removed from the drainage site (1cm open wound) with evacuation of a large amount of old blood, slightly foul smelling, more clot drained with manual expression and gentle probing of the drainage site, surrounding ecchymosis but no significant erythema, edema significantly improved and virtually no pedal edema remaining, palpable DP pulses, brisk capillary refill, good range of motion of ankle Results Labs 03/19/25 12:56 03/19/25 12:57 Labs: Abnormal lab results 03/19/25 03/19/25 Range/Units 12:56 12:57 RBC 3.94 L (4.20-5.50) X10*6/uL Hct 36.3 L (37.0-47.0) % Immature Gran % (Auto) 0.5 H (0.0-0.4) % Neut % (Auto) 75.8 H (45-73) % Lymph % (Auto) 14.0 L (20-40) % Lymph # (Auto) 0.9 L (1.2-4.9) X10*3/uL PT 16.7 H D (10.9-12.4) SEC INR 1.5 H (0.9-1.1) BUN 22 H (9-16) mg/dL Total Bilirubin 1.8 H (0.0-1.0) mg/dL AST 58 H (5-31) U/L ALT 44 H (0-31) U/L Alkaline Phosphatase 118 H (39-117) U/L Albumin 3.1 L (3.5-5.0) g/dL Short CBC 03/19/25 Range/Units 12:56 WBC 6.1 (4.8-10.8) X10*3/uL Hgb 12.1 (12.0-16.0) g/dl Hct 36.3 L (37.0-47.0) % Plt Count 197 D (160-400) X10*3/uL BMP 03/19/25 12:57 Sodium 135 Potassium 5.0 Chloride 100 Carbon Dioxide 26 BUN 22 H Creatinine 1.11 Calcium 9.5 Liver Function 03/19/25 Range/Units 12:57 Total Bilirubin 1.8 H (0.0-1.0) mg/dL AST 58 H (5-31) U/L ALT 44 H (0-31) U/L Alkaline Phosphatase 118 H (39-117) U/L Albumin 3.1 L (3.5-5.0) g/dL All other labs normal. Assessment and Plan (1) Hematoma: Status: Acute Plan 84-year-old female patient with a history of Lewy body dementia, hallucinations, and atrial fibrillation on Eliquis who initially fell on 02/20/2025 and subsequently developed right lower leg hematoma, underwent evacuation of hematoma in the OR on 03/11/25 who now returns with foul smelling drainage. She is currently non toxic appearing, vitals are stable and she has no leukocytosis. There is no significant edema or erythema of the skin overlying the hematoma however the drainage is slightly foul smelling. Hematoma may be secondarily infected without a surrounding cellulitis. I was able to express a lot of old clot with visual improvement in the hematoma size. The drainage was cultured. The I&D site is open and sufficiently draining and therefore do not feel like it has to be opened up further. Recommend discharge back to SNF on course of oral antibiotics with follow up in the office in 1 week. Wound care recommendations of warm compress/heat to hematoma site for short period followed by manual massage of the area to facilitate drainage. Recommend packing the drainage site to keep it open followed by fluffs, kerlix wrap and taj wrap for compression, to be changed daily. Patient and daughter comfortable with plan. Educated to return if she has worsening pain, purulent drainage, fevers. Discussed with ED provider. Procedures Date of Service Date of Service: 03/19/25
[2025-03-19 14:56] VITALS: BP 106/57; PULSE 90; RESP 16; O2SAT 98
[2025-03-19 16:14] VITALS: BP 97/58; PULSE 107; RESP 18; TEMP 36.6; O2SAT 95
[2025-03-19 16:55] VITALS: BP 124/76; PULSE 102; RESP 18; TEMP 36.5; O2SAT 97
== END 2025-03-19 17:42 | disposition skilled nursing facility (03) ==
PROVIDERS: Physician Assistant Medical; Emergency Provider Emergency Medicine
DX: M79.81 Nontraumatic hematoma of soft tissue (principal); I48.91 Unspecified atrial fibrillation; G31.83 Neurocognitive disorder with Lewy bodies; F02.80 Dementia in other diseases classified elsewhere, unspecified severity, without behavioral disturbance, psychotic disturbance, mood disturbance, and anxiety; Z79.01 Long term (current) use of anticoagulants
CPT/HCPCS: 36415; 80053; 85025; 85610; 87070; 87077; 87186; 87205; 99283; 99284

== ENCOUNTER → 2025-03-19 12:49 | Outpatient (BNV) | payer MEDICARE, SELFPAY | PROVIDERS: Emergency Provider Emergency Medicine; Visit Provider Physician Assistant Surgical | DX: T14.8XXA Other injury of unspecified body region, initial encounter (principal) | CPT/HCPCS: 99024 ==

== ENCOUNTER 2025-03-27 11:52 | Outpatient (AMB) | payer MEDICARE, SELFPAY ==
--- OUTSIDE RECORDS SUMMARY | 2025-03-14 04:14 | XMS_ITS ---
Author Organization [facility] Address [address] [place] [address] [id number] Care Team Providers Care Technical Services Coordinator Name Role Phone WAQAR NAYLOR Primary Care Provider [phone] REASON FOR VISIT CM/ SNF Encounters Encounter Location Date Provider Diagnosis [facility] [address] [place] [address] 03/14/2025 WAQAR NAYLOR PLAN OF TREATMENT Next Appt Details Provider Name:WAQAR NAYLOR , 04/24/2025 03:30:00 PM, [address] [place], [id number],
--- NOTE | 2025-03-27 12:01 | MHC.OFFVIS ---
Vital Signs 03/27/25 12:04 Weight 231 lb Position Supine BP not taken reason Patient Refused Intake Visit Reasons: s/p Evacuation of hematoma right leg Intake Note: Patient here s/p evacuation of hematoma on Rt leg. Patient reports dressing change daily. Wound improving. Application Project Leader Required: No Accompanied by: daughter, son in law. EMT Elmer and Yonatan Allergies No Known Allergies (No Known Allergies*) Allergy (Verified 03/27/25 12:07) HPI HPI s/p Evacuation of hematoma right leg: Details: Doing well. Pain and swelling improving. denies significant oozing. She has difficulty bearing weight due to pain, especially when she has to participate in physical therapy, which has been limiting her participation Her facility has been changing dressings daily. States warm compresses have been helping. She completed a full course of doxycycline [facility] Medical History (Updated 03/21/25 @ 00:02 by Idalmis Zuniga) Atrial fibrillation Lewy body dementia with psychotic disturbance Gallstones Difficulty sleeping Thyroid activity decreased Afib Surgical History (Updated 03/26/25 @ 16:40 by DEVANTE Robert) S/P evacuation of hematoma (03/11/25) Social History Household Members: None Household Members Other:: Daughter Housing: House Housing Other:: came to ER from rehab facility Are you a primary coronary care unit nurse to a significant other at home: No Do you presently have visiting nurse or other home services: No Alcohol intake: never Comment: Patient states she does not walk a lot, but when she does she uses a walker Patient Tobacco Use Status: Never used Tobacco service: No Review of Systems Const All systems reviewed & are unremarkable except as noted in HPI and below Physical Exam Const General: comfortable and no acute distress Orientation/consciousness: patient oriented x3 Resp Effort & Inspection: normal respiratory effort and able to speak in complete sentences Neuro General: patient oriented x3 Extrem Other: Right lower extremity: Dressing saturated. Soft, improved swelling from previous evaluation packing removed, moderate amount of dark red blood was able to be expressed, no foul odor noted, no purulence. Some small clots. Tender to touch Assessment & Plan Assessment & Plan (1) Hematoma: Code(s): T14.8XXA - Other injury of unspecified body region, initial encounter Category: Medical (2) S/P evacuation of hematoma: Onset Date: 03/11/25 Comment: Baldo Howe MD Code(s): Z98.890 - Other specified postprocedural states Category: Medical Plan 84-year-old female patient with a history of Lewy body dementia, hallucinations, and atrial fibrillation on Eliquis who initially fell on 02/20/2025 and subsequently developed a large hematoma of the right calf. Patient was recently seen by General surgery on 03/19/2025 for foul-smelling drainage from hematoma evacuation site. Much of the clot was expressed in the emergency department, cultures were obtained going MRSA. Patient was discharged with doxycycline back to SNF. Has been continuing with daily dressing changes, completed full course of antibiotics. Overall she is improving her pain is improving, still struggles with bearing weight which is making it hard for her to participate in physical therapy which will be beneficial for her. Recommend premedicating with pain medications prior to physical therapy to increase participation. On exam today the right lower extremity is improving, it feels soft today, it remains tender to palpation. The dressings were removed and upon removing the packing was able to express a moderate amount of dark red blood. There was no foul odor noted and no purulence evident. I do not believe it is infected at this time. The wound was repacked with half-inch iodoform packing and dressed with gauze, ABD, Kerlix, Agustin for compression through to the foot. Patient will follow up in 2 weeks, we will return to SNF, recommend daily dressing changes as described above. Coding Level of Care Code Est Pt Level 3 (70230) Diagnoses Hematoma T14.8XXA S/P evacuation of hematoma Z98.890
--- OUTSIDE RECORDS SUMMARY | 2025-03-27 12:22 | XMS_ITS | Encounter Summary ---
Author Organization [facility] Address [address] [place] [address] Care Team Providers Care Lead Software Engineer Name Role Phone Mary Whittaker NAYLA Primary Care Provider [phone] Encounter Details Date Type Department Care Team (Late st Contact Info) Description 03/24/2025 Lab Requisition [facility] - Main Lab [address] [place] [address] Frances Grant MD [address] [place] [address] Hematoma of broad ligament Social History Tobacco Use Types Packs/Day Years [...] Procedure Name Priority Date/Time Associated Diagnosis Comments COMPLETE BLOOD COUNT Routine 03/24/2025 7:02 AM EDT Hematoma of broad ligament BASIC METABOLIC PANEL Routine 03/24/2025 7:02 AM EDT Hematoma of broad ligament documented in this encounter Results * (ABNORMAL) Basic metabolic panel (03/24/2025 7:02 AM EDT) Sodium 136 133 - 145 mmol/L LAB CHEMISTRY METHOD 03/24/2025 8:35 AM EDT [facility] Potassium 5.5 3.5 - 5.5 mmol/L LAB CHEMISTRY METHOD 03/24/2025 8:35 AM EDT [facility] Chloride 100 96 - 110 mmol/L LAB CHEMISTRY METHOD 03/24/2025 8:35 AM [facility] CO2 30 21 - 32 mmol/L LAB CHEMISTRY METHOD 03/24/2025 8:35 AM [facility] Anion Gap 6 3 - 11 LAB CHEMISTRY METHOD 03/24/2025 8:35 AM [facility] Glucose 94 70 - 100 mg/dL LAB CHEMISTRY METHOD 03/24/2025 8:35 AM [facility] BUN 19 5 - 25 mg/dL LAB CHEMISTRY METHOD 03/24/2025 8:35 AM [facility] Creatinine 1.15(H) 0.50 - 1.10 mg/dL LAB CHEMISTRY METHOD 03/24/2025 8:35 AM [facility] eGFR 47(L) >=60 mL/min/1. 73m2 LAB CHEMISTRY METHOD 03/24/2025 8:35 AM [facility] Comment:Calculation based on the Chronic Kidney Disease Epidemiology Collaboration (CKD-EPI) equation refit without adjustment for race. BUN/Creatinine Ratio 16.5 LAB CHEMISTRY METHOD 03/24/2025 8:35 AM [facility] Calcium 8.9 8.5 - 10.5 mg/dL LAB CHEMISTRY METHOD 03/24/2025 8:35 AM [facility] Blood Venous blood specimen / Unknown Venipuncture / Unknown 03/24/2025 7:02 AM EDT 03/24/2025 8:08 AM EDT us Frances Grant MD LAB BLOOD ORDERABLES Final Resul t [facility] [address] [place] [address], * (ABNORMAL) Complete blood count (03/24/2025 7:02 AM EDT) WBC 7.3 4.8 - 10.8 K/[facility] HEMETOLOGY METHOD 03/24/2025 8:20 AM [facility] RBC 3.80 3.80 - 4.80 M/[facility] LAB HEMETOLOGY METHOD 03/24/2025 8:20 AM [facility] Hemoglobin 11.1(L) 11.5 - 16.0 g/dL LAB HEMETOLOGY METHOD 03/24/2025 8:20 AM [facility] Hematocrit 35.6 35.0 - 47.0 % LAB HEMETOLOGY METHOD 03/24/2025 8:20 AM [facility] MCV 93.9 79.0 - 98.0 FL LAB HEMETOLOGY METHOD 03/24/2025 8:20 AM [facility] MCH 29.3 27.0 - 32.0 pcg LAB HEMETOLOGY METHOD 03/24/2025 8:20 AM [facility] MCHC 31.2(L) 32.0 - 37.0 g/dL LAB HEMETOLOGY METHOD 03/24/2025 8:20 AM [facility] RDW 15.4(H) 11.0 - 15.0 % LAB HEMETOLOGY METHOD 03/24/2025 8:20 AM [facility] Platelets 245 130 - 400 K/mcL LAB HEMETOLOGY METHOD 03/24/2025 8:20 AM [facility] MPV 10.8 7.0 - 11.0 FL LAB HEMETOLOGY METHOD 03/24/2025 8:20 AM [facility] NRBC 0.0 <1.0 % LAB HEMETOLOGY METHOD 03/24/2025 8:20 AM [facility] NRBC Absolute 0.00 <0.10 K/mcL LAB HEMETOLOGY METHOD 03/24/2025 8:20 AM [facility] Blood Venous blood specimen / Unknown Venipuncture / Unknown 03/24/2025 7:02 AM EDT 03/24/2025 8:08 AM EDT us Frances Grant MD LAB BLOOD ORDERABLES Final Resul t [facility] [address] [place] [address], documented in this encounter Visit Diagnoses Diagnosis Hematoma of broad ligament documented in this encounter Care Teams Lead Software Engineer Relationship Specialty Start Date End Date Mary Whittaker NP [address] [address] PCP - General Family Medicine 02/27/25 documented as of this encounter
--- OUTSIDE RECORDS SUMMARY | 2025-03-27 12:22 | XMS_ITS | Patient Health Record ---
Author Organization [employer] [facility] Address [address] [place] [address] [address] [place] [address] Care Team Providers Care Instrument And Control Service Person Name Role Phone WAQAR NAYLOR Primary Care Provider SIDNEY Wallace Unavailable [phone] Allergies No Known Allergies Results Component Value Reference Range Notes SURGICAL PATHOLOGY Reviewed date:05/10/2024 01:14:23 PM Interpretation: Performing Lab:Testing performed or reported by [facility], a Service of [facility], [address] [place] [address] Dimas Araujo MD, University Tutor CLIA# [id number] Notes/Report: Patient Name: BEULAH VASQUEZ Lab Patient [...] specimen processing and staining is performed at [facility], [address] [place] [address] (CLIA#[id number]). Its performance characteristics determined by [facility]. Harleen Arnold M.D. University Tutor of Surgical Pathology, Addison Rangel M.D. University Tutor Cytopathology Phone #: [phone], On-Call Pathologist: [id number] Reason For Referral No Information Medications Medication [...] Encounters Encounter Location Date Provider Diagnosis [facility] [address] [place] [address] 04/12/2024 SIDNEY MOLINA Postmenopausal bleed ing N95.0 [facility] [address] [address] [address] [place] [address] 05/03/2024 SIDNEYKaren MOLINA Postmenopausal bleed ing N95.0 [facility] [address] [place] [address] 05/10/2024 SIDNEY MOLINA Assessments Encounter Date Diagnosis [...] Date MEDICARE [address] SHAI LIGHT [id number] BEULAH MOYER Self - patient is the insured 5 [employer] [address] [place] [address] [phone] [id number] BEULAH MOYER Self - patient is the insured Medical (General) History Medical History History ICD Code Thyroiditis 245 Hypertension 401.9 Calculus of gallbladder without cholecys titis without obstruction K80.20 Unspecified osteoarthritis, unspecified site M19.90 Surgical History Surgery Date(Month/Year) Knee surgery Spine 2015/2016 Hernia Hospitalization History Reason Date(Month/Year) Childbirth
== END 2025-03-27 12:26 | disposition home or self-care (01) ==
LOC: HO.HGS 11:53
DX: S80.11XA Contusion of right lower leg, initial encounter (principal); Z98.890 Other specified postprocedural states
CPT/HCPCS: 99213

== ENCOUNTER → 2025-03-27 11:52 | Outpatient (BNVA) | payer MEDICARE, SELFPAY | DX: S80.11XD Contusion of right lower leg, subsequent encounter (principal); Z98.890 Other specified postprocedural states | CPT/HCPCS: 99212 ==

== ENCOUNTER 2025-04-11 10:55 | Outpatient (AMB) | payer MEDICARE, SELFPAY ==
--- OUTSIDE RECORDS SUMMARY | 2025-04-10 10:55 | XMS_ITS ---
Author Organization [facility] Address [address] [place] [id number] Care Team Providers Care Grade School Teacher Name Role Phone WAQAR NAYLOR Primary Care Provider REASON FOR VISIT RE:Request for letter/statement Encounters Encounter Location Date Provider Diagnosis [facility] [address] [place] [address] 04/10/2025 WAQAR NAYLOR PLAN OF TREATMENT Next Appt Details Provider Name:WAQAR NAYLOR , 04/24/2025 03:30:00 PM, [address] [place], [address],
--- NOTE | 2025-04-11 10:59 | MHC.OFFVIS ---
Vital Signs 04/11/25 10:59 Weight 231 lb BP not taken reason Patient Refused Intake Visit Reasons: 2wk s/p Evacuation of hematoma right leg Intake Note: Patient here s/p evacuation of hematoma on Rt leg. Patient c/o: pt reports nurses change dressing daily. [place] Department Supervisor Required: No Accompanied by: [facility] ambulance ENT Kemar& Sunil Allergies No Known Allergies (No Known Allergies*) Allergy (Verified 04/11/25 11:01) HPI HPI 2wk s/p Evacuation of hematoma right leg: Details: Doing well. Minimal pain. Drainage decreasing. Requiring less packing. Swelling improving of the lower extremity PFSH Medical History (Updated 03/21/25 @ 00:02 by Idalmis Zuniga) Atrial fibrillation Lewy body dementia with psychotic disturbance Gallstones Difficulty sleeping Thyroid activity decreased Afib Surgical History (Updated 03/26/25 @ 16:40 by DEVANTE Robert) S/P evacuation of hematoma (03/11/25) Social History Household Members: None Household Members Other:: Daughter Housing: House Housing Other:: came to ER from rehab facility Are you a primary hiv/aids care nurse to a significant other at home: No Do you presently have visiting nurse or other home services: No Alcohol intake: never Comment: Patient states she does not walk a lot, but when she does she uses a walker Patient Tobacco Use Status: Never used Tobacco service: No Review of Systems Const All systems reviewed & are unremarkable except as noted in HPI and below Physical Exam Const General: comfortable and no acute distress Orientation/consciousness: patient oriented x3 Resp Effort & Inspection: normal respiratory effort and able to speak in complete sentences Neuro General: patient oriented x3 Extrem Other: Scant serosanguineous discharge from a small 0.5 cm open wound in the lateral aspect of the right lower extremity. Right lower extremity soft, edema improved. Significant dry skin on the jarquin Assessment & Plan Assessment & Plan (1) Hematoma: Code(s): T14.8XXA - Other injury of unspecified body region, initial encounter Category: Medical (2) S/P evacuation of hematoma: Onset Date: 03/11/25 Comment: Baldo Howe MD Code(s): Z98.890 - Other specified postprocedural states Category: Surgical Plan 84-year-old female patient with a history of Lewy body dementia, hallucinations, and atrial fibrillation on Eliquis who initially fell on 02/20/2025 and subsequently developed a large hematoma of the right calf. Patient was recently seen by General surgery on 03/19/2025 for foul-smelling drainage from hematoma evacuation site. Much of the clot was expressed in the emergency department, cultures were obtained growing MRSA. Patient was discharged with doxycycline back to SNF. Has been continuing with daily dressing changes. Overall she is improving her pain is now minimal, able to participate in physical therapy, has done some weight-bearing exercises. Recommend continuing ambulation as tolerated On exam today the right lower extremity is much improved, it feels soft today, nontender to palpation. The dressings were removed and removed the small amount of packing was able to express a scant amount of serosanguineous fluid. There was no foul odor noted and no purulence evident. No concern for infection. No longer requiring packing, the wound was dressed with gauze, Kerlix, Agustin for compression through to the foot. She is okay to remove Agustin bandage at night if bothersome Patient will follow up in 2 weeks, we will return to SNF, recommend daily dressing changes as described above. Coding Level of Care Code Est Pt Level 3 (08592) Diagnoses Hematoma T14.8XXA S/P evacuation of hematoma Z98.890
--- OUTSIDE RECORDS SUMMARY | 2025-04-11 11:00 | XMS_ITS | Encounter Summary ---
Author Organization [facility] Address [address] [place] [address] Care Team Providers Care Instrumentation Technologist Name Role Phone Mary Whittaker NAYLA Primary Care Provider [phone] Encounter Details Date Type Department Care Team (Late st Contact Info) Description 03/24/2025 Lab Requisition [facility] - Main Lab [address] [place] [address] Frances Grant MD [address] [place] [address] Hematoma of broad ligament Social [...] mmol/L LAB CHEMISTRY METHOD 03/24/2025 8:35 AM [facility] CO2 30 21 - 32 mmol/L LAB CHEMISTRY METHOD 03/24/2025 8:35 AM [facility] Anion Gap 6 3 - 11 LAB CHEMISTRY METHOD 03/24/2025 8:35 AM [facility] Glucose 94 70 - 100 mg/dL LAB CHEMISTRY METHOD 03/24/2025 8:35 AM [facility] BUN 19 5 - 25 mg/dL LAB CHEMISTRY METHOD 03/24/2025 8:35 AM [facility] Creatinine 1.15(H) 0.50 - 1.10 mg/dL LAB CHEMISTRY METHOD 03/24/2025 8:35 AM [facility] eGFR 47(L) >=60 mL/min/1. 73m2 LAB CHEMISTRY METHOD 03/24/2025 8:35 AM [facility] Comment:Calculation based on the Chronic Kidney Disease Epidemiology Collaboration (CKD-EPI) equation refit without adjustment for race. BUN/Creatinine Ratio 16.5 LAB CHEMISTRY METHOD 03/24/2025 8:35 AM [facility] Calcium 8.9 8.5 - 10.5 mg/dL LAB CHEMISTRY METHOD 03/24/2025 8:35 AM [facility] Blood Venous blood specimen / Unknown Venipuncture / Unknown 03/24/2025 7:02 AM EDT 03/24/2025 8:08 AM EDT us Frances Grant MD LAB BLOOD ORDERABLES Final Resul t [facility] [address] [place] [address], * (ABNORMAL) Complete blood count (03/24/2025 7:02 AM EDT) WBC 7.3 4.8 - 10.8 K/[facility] LAB HEMETOLOGY METHOD 03/24/2025 8:20 AM [facility] RBC 3.80 3.80 - 4.80 M/[facility] LAB HEMETOLOGY METHOD 03/24/2025 8:20 AM [facility] Hemoglobin 11.1(L) 11.5 - 16.0 g/dL LAB HEMETOLOGY METHOD 03/24/2025 8:20 AM [facility] Hematocrit 35.6 35.0 - 47.0 % LAB HEMETOLOGY METHOD 03/24/2025 8:20 AM [facility] MCV 93.9 79.0 - 98.0 FL LAB HEMETOLOGY METHOD 03/24/2025 8:20 AM [facility] MCH 29.3 27.0 - 32.0 pcg LAB HEMETOLOGY METHOD 03/24/2025 8:20 AM [facility] MCHC 31.2(L) 32.0 - 37.0 g/dL LAB HEMETOLOGY METHOD 03/24/2025 8:20 AM [facility] RDW 15.4(H) 11.0 - 15.0 % LAB HEMETOLOGY METHOD 03/24/2025 8:20 AM [facility] Platelets 245 130 - 400 K/mcL LAB HEMETOLOGY METHOD 03/24/2025 8:20 AM [facility] MPV 10.8 7.0 - 11.0 FL LAB HEMETOLOGY METHOD 03/24/2025 8:20 AM [facility] NRBC 0.0 <1.0 % LAB HEMETOLOGY METHOD 03/24/2025 8:20 AM [facility] NRBC Absolute 0.00 <0.10 K/mcL LAB HEMETOLOGY METHOD 03/24/2025 8:20 AM [facility] Blood Venous blood specimen / Unknown Venipuncture / Unknown 03/24/2025 7:02 AM EDT 03/24/2025 8:08 AM EDT us Frances Grant MD LAB BLOOD ORDERABLES Final Resul t [facility] ([facility] [address] [place] [address], documented in this encounter Visit Diagnoses Diagnosis Hematoma of broad ligament documented in this encounter Care Teams Instrumentation Technologist Relationship Specialty Start Date End Date Mary Whittaker NP [address] [address] PCP - General Family Medicine 02/27/25 documented as of this encounter
--- OUTSIDE RECORDS SUMMARY | 2025-04-11 11:00 | XMS_ITS | Patient Health Record ---
Author Organization [facility] Address [address] [place] [address] [address] [place] [address] Care Team Providers Care Automobile Body Repair Supervisor Name Role Phone WAQAR NAYLOR Primary Care Provider SIDNEY Wallace Unavailable [phone] Allergies No Known Allergies Results Component Value Reference Range Notes SURGICAL PATHOLOGY Reviewed date:05/10/2024 01:14:23 PM Interpretation: Performing Lab:Testing performed or reported by [facility], a Service of [facility], [address] [place] [address] Dimas Araujo MD, Ski Instructor CLIA# [id number] Notes/Report: Patient Name: BEULAH VASQUEZ Lab Patient [...] specimen processing and staining is performed at [facility], [address] [place] [address] (CLIA#[id number]). Its performance characteristics determined by [facility]. Harleen Arnold M.D. Ski Instructor of Surgical Pathology, Addison Rangel M.D. Ski Instructor Cytopathology Phone #: [phone], On-Call Pathologist: [id number] Reason For Referral No Information Medications Medication [...] W/U Status Risk Notes Problem Postmenopausal bleeding (74275046) Postmenopausal bleeding (N95.0) Active confirmed Vital Signs Temperature 96.8 degrees Fahrenheit 04/12/2024 Blood pressure diastolic 80 mm Hg 04/12/2024 Height 62 in 05/03/2024 Blood pressure systolic 118 mm Hg 04/12/2024 Encounters Encounter Location Date Provider Diagnosis [facility] [address] [place] [phone] 04/12/2024 SIDNEY MOLINA Postmenopausal bleed ing N95.0 [facility] [address] [place] [phone] 05/03/2024 SIDNEY MOLINA Postmenopausal bleed ing N95.0 [facility] [address] [place] [phone] 05/10/2024 ISDNEY MOLINA Assessments Encounter Date Diagnosis (ICD Code) [...] Date MEDICARE [address] SHAI LIGHT [id number] BEULAH MOYER Self - patient is the insured 5 [employer] [address] [place] [address] [id number] BEULAH MOYER Self - patient is the insured Medical (General) History Medical History History ICD Code Thyroiditis 245 Hypertension 401.9 Calculus of gallbladder without cholecys titis without obstruction K80.20 Unspecified osteoarthritis, unspecified site M19.90 Surgical History Surgery Date(Month/Year) Knee surgery Spine 2015/2016 Hernia Hospitalization History Reason Date(Month/Year) Childbirth
== END 2025-04-11 11:16 | disposition home or self-care (01) ==
LOC: HO.HGS 10:55
DX: T14.8XXA Other injury of unspecified body region, initial encounter (principal); Z98.890 Other specified postprocedural states
CPT/HCPCS: 99213

== ENCOUNTER → 2025-04-11 10:55 | Outpatient (BNVA) | payer MEDICARE, SELFPAY | DX: T14.8XXD Other injury of unspecified body region, subsequent encounter (principal); Z98.890 Other specified postprocedural states | CPT/HCPCS: 99212 ==